=== PATIENT | male | born 1970 | race Two or more races ===

== ENCOUNTER 2019-12-31 19:50 | Emergency (ER) | payer OTHER ==
[~2019-12-31] VITALS: Ht 170.2 cm; Wt 90.3 kg
[2019-12-31 21:08] VITALS: BP 170/99
[2019-12-31] MEDS ORDERED: cefTRIAXone W LIDOCAINE 1 GM IM IM ONE (21:45)
[2019-12-31] MEDS ORDERED: LIDOCAINE 1% HCL (LOCAL ANESTH.) INJ 20ML MDV ID ONE (21:45)
[2019-12-31] MEDS ORDERED: cefTRIAXone SOD 1,000 MG VL ONE (21:53)
== END 2019-12-31 22:35 | disposition home or self-care (01) ==
LOC: ER 19:50
DX: S62.630B Displaced fracture of distal phalanx of right index finger, initial encounter for open fracture (principal); X58.XXXA Exposure to other specified factors, initial encounter; Y93.89 Activity, other specified; Y92.89 Other specified places as the place of occurrence of the external cause; Y99.8 Other external cause status
CPT/HCPCS: 12001; 73130; 96372; 99283; J0696; 11730

== ENCOUNTER 2021-08-14 22:50 | Inpatient (IN) | payer OTHER, MEDICAID ==
[~2021-08-14] VITALS: Ht 167.6 cm; Wt 78.0 kg
[2021-08-14] MEDS ORDERED: SODIUM CHLORIDE 0.9% 1,000 ML IV ONE (23:15)
[2021-08-14 23:21] LABS: Basophils # (auto) 0 10 ^3/uL (0-0.2); Basophils % (auto) 0.2 % (0.0-2.0); Eosinophils # (auto) 0 10 ^3/uL (0-0.8); Hematocrit 50.4 % (41.0-53.0); Hemoglobin 17.4 g/dL (13.5-17.5); Lymphocytes # (auto) 1.1 10 ^3/uL (0.4-5.4); Lymphocytes % (auto) 12.5 % (10.0-50.0); Mean Corpuscular Hemoglobin 31.4 pg (28.0-32.0); Mean Corpuscular Hgb Conc. 34.5 g/dL (32.0-36.0); Monocytes # (auto) 1.4 10 ^3/uL (0-1.3); Monocytes % (auto) 15.8 % (0.0-12.0); Neutrophils # (auto) 6.2 10 ^3/uL (1.6-8.6); Neutrophils % (auto) 71.5 % (37.0-80.0); Nucleated Red Blood Cells % 0.1 %; Red Blood Cells 5.54 10^6/uL (4.5-5.90); White Blood Cell 8.6 10^3/uL (4.4-10.8)
[2021-08-14 23:45] LABS: Lactic Acid w/Reflex 4.4 mmol/L (0.4-2.0)
[2021-08-14 23:54] LABS: Albumin 2.7 g/dL (3.4-5.0); Bilirubin, Total 1.5 mg/dL (0.2-1.0); Total Protein 7.4 g/dL (6.4-8.2)
[2021-08-14] MEDS ORDERED: DexAMETHasone SOD PHOS 4 MG/1ML SDV INJ ONE (23:54)
[2021-08-14 23:56] LABS: Magnesium 2.7 mg/dL (1.6-2.6)
[2021-08-15 00:05] LABS: CRP High Sensitivity 13.8 mg/dL (< 0.3)
[2021-08-15] MEDS: DexAMETHasone INJECTION 10 MG in D5W 5% 50 ML IV SCH ×2 (00:55→01:11)
[2021-08-15] MEDS ORDERED: ENOXAPARIN SOD 100 MG/1 ML SYRINGE SC ONE (03:15)
[2021-08-15 03:59] LABS: Urine Bacteria FEW /hpf (None Seen); Urine Blood 2+ /uL (Negative); Urine Hyaline Cast MANY /lpf (0 - 2); Urine Mucus FEW (None Seen); Urine Specific Gravity 1.022 (1.001-1.035); Urine WBC 7 /hpf (0 - 3)
[2021-08-15] MEDS ORDERED: MORPHINE SULFATE INJECTION 2 MG/ML SYRG IV PRN (04:15)
[2021-08-15] MEDS ORDERED: ONDANSETRON HCL 4 MG/2 ML VIAL IV PRN (04:15)
[2021-08-15] MEDS ORDERED: SODIUM CHLORIDE 0.9% 1,000 ML IV SCH (04:15)
[2021-08-15] MEDS ORDERED: ALBUTEROL SULF 2.5 MG/0.5ML(0.5%) NEB SOLN NEB PRN (04:15)
[2021-08-15] MEDS ORDERED: ALBUMIN 5% 250 ML IV ONE (04:15)
[2021-08-15] MEDS ORDERED: NITROGLYCERIN 0.4 MG SL TAB SL PRN (04:15)
[2021-08-15] MEDS: DexAMETHasone SOD PHOS 10MG/1ML VIAL INJ IV SCH (04:30)
[2021-08-15] MEDS: AZITHROMYCIN 500MG/ 250ML 250 ML IV SCH (05:18)
[2021-08-15] MEDS: cefTRIAXone 1GM/50ML D5W 50 ML IV SCH (09:28)
[2021-08-15] MEDS ORDERED: ASPirin 81 mg TAB PO SCH (10:00)
[2021-08-15 10:09] VITALS: BP 121/76
[2021-08-15] MEDS: ASCORBIC ACID 500 MG TAB PO SCH ×2 (10:36→21:47)
[2021-08-15] MEDS: ZINC SULFATE 220mg CAP or TAB PO SCH (10:36)
[2021-08-15] MEDS: PANTOPRAZOLE 40 MG TAB PO SCH (10:36)
[2021-08-15] MEDS ORDERED: IOHEXOL 350 MG/ML 100ML IJ ONE ×2 (11:40→17:11)
[2021-08-15] MEDS ORDERED: REMDESIVIR PER PHARMACY 0 ML IV SCH (13:00)
[2021-08-15 14:00] VITALS: BP 114/69
[2021-08-15] MEDS ORDERED: REMDESIVIR 200 MG in NS 210ml LOADING DOSE ADULT IV ONE (15:00)
[2021-08-15 15:56] LABS: Cholesterol 147 mg/dL (< 200); HDL Cholesterol 27 mg/dL (40-59); LDL Cholesterol 89 mg/dL (< 100); Triglycerides 279 mg/dL (< 150)
[2021-08-15 16:30] VITALS: BP 117/68
[2021-08-15 20:00] VITALS: BP 111/60
[2021-08-15] MEDS: ATORVASTATIN 20 MG TAB PO SCH (21:47)
[2021-08-15] MEDS: ENOXAPARIN SOD 100 MG/1 ML SYRINGE SC SCH (21:47)
[2021-08-15 22:00] VITALS: BP 111/60
[2021-08-15] MEDS: TEMAZEPAM 15 MG CAP PO PRN (22:21)
[2021-08-16 02:13] LABS: Albumin 2.4 g/dL (3.4-5.0); BUN/Creatinine Ratio 28.3; Calcium 7.7 mg/dL (8.5-10.1); Potassium 3.9 mmol/L (3.5-5.1)
[2021-08-16 02:18] LABS: Total Protein 6.7 g/dL (6.4-8.2)
[2021-08-16 04:59] VITALS: BP 123/79
[2021-08-16 06:08] LABS: Basophils # (auto) 0 10 ^3/uL (0-0.2); Basophils % (auto) 0.1 % (0.0-2.0); Eosinophils # (auto) 0 10 ^3/uL (0-0.8); Hematocrit 45.5 % (41.0-53.0); Hemoglobin 15.7 g/dL (13.5-17.5); Lymphocytes # (auto) 1.1 10 ^3/uL (0.4-5.4); Lymphocytes % (auto) 9.1 % (10.0-50.0); Mean Corpuscular Hemoglobin 31.4 pg (28.0-32.0); Mean Corpuscular Hgb Conc. 34.4 g/dL (32.0-36.0); Mean Corpuscular Volume 91.2 fL (80.0-100.0); Monocytes # (auto) 0.9 10 ^3/uL (0-1.3); Monocytes % (auto) 7.5 % (0.0-12.0); Neutrophils # (auto) 9.9 10 ^3/uL (1.6-8.6); Neutrophils % (auto) 83.3 % (37.0-80.0); Nucleated Red Blood Cells % 0.2 %; Red Blood Cells 4.99 10^6/uL (4.5-5.90); Red Cell Distribution Width 12.9 % (11.8-14.3); White Blood Cell 11.8 10^3/uL (4.4-10.8)
[2021-08-16 08:29] VITALS: BP 137/86
[2021-08-16] MEDS: DexAMETHasone SOD PHOS 10MG/1ML VIAL INJ IV SCH (09:03)
[2021-08-16] MEDS: cefTRIAXone 1GM/50ML D5W 50 ML IV SCH (09:03)
[2021-08-16] MEDS: ENOXAPARIN SOD 100 MG/1 ML SYRINGE SC SCH ×2 (09:04→22:26)
[2021-08-16] MEDS: ASCORBIC ACID 500 MG TAB PO SCH (09:04)
[2021-08-16] MEDS: PANTOPRAZOLE 40 MG TAB PO SCH ×2 (09:04→22:27)
[2021-08-16] MEDS: AZITHROMYCIN 500MG/ 250ML 250 ML IV SCH (09:04)
[2021-08-16] MEDS: ZINC SULFATE 220mg CAP or TAB PO SCH (09:04)
[2021-08-16] MEDS: ASPirin 81 mg TAB PO SCH (09:04)
[2021-08-16] MEDS: ALBUTEROL SULF 2.5 MG/0.5ML(0.5%) NEB SOLN NEB SCH ×2 (11:00→18:34)
[2021-08-16] MEDS ORDERED: FUROSEMIDE 40 MG/4 ML VIAL IV ONE (11:00)
[2021-08-16] MEDS ORDERED: CHOLECALCIFEROL (VITD3) 2,000 UNIT CAP/TAB PO ONE (12:00)
[2021-08-16 12:25] VITALS: BP 126/80
[2021-08-16 12:30] VITALS: BP 126/80
[2021-08-16] MEDS: REMDESIVIR 100mg 100 MG in SODIUM CHL 0.9% 230 ML IV SCH (15:00)
[2021-08-16 17:17] VITALS: BP 127/80
[2021-08-16] MEDS: BUDESONIDE (INHALATION) 0.5 MG/2 ML NEB NEB SCH (18:33)
[2021-08-16 22:00] VITALS: BP 114/76
[2021-08-16] MEDS: ATORVASTATIN 20 MG TAB PO SCH (22:27)
[2021-08-16] MEDS: TEMAZEPAM 15 MG CAP PO PRN (22:40)
[2021-08-17] MEDS: ALBUTEROL SULF 2.5 MG/0.5ML(0.5%) NEB SOLN NEB SCH ×5 (00:01→20:12)
[2021-08-17 05:00] VITALS: BP 144/80
[2021-08-17 06:52] LABS: Basophils # (auto) 0 10 ^3/uL (0-0.2); Basophils % (auto) 0.2 % (0.0-2.0); Eosinophils # (auto) 0 10 ^3/uL (0-0.8); Hematocrit 47.1 % (41.0-53.0); Hemoglobin 16.5 g/dL (13.5-17.5); Lymphocytes # (auto) 0.7 10 ^3/uL (0.4-5.4); Lymphocytes % (auto) 5.5 % (10.0-50.0); Mean Corpuscular Hgb Conc. 35.1 g/dL (32.0-36.0); Mean Corpuscular Volume 91.2 fL (80.0-100.0); Monocytes # (auto) 0.9 10 ^3/uL (0-1.3); Monocytes % (auto) 7.4 % (0.0-12.0); Neutrophils # (auto) 10.3 10 ^3/uL (1.6-8.6); Neutrophils % (auto) 86.9 % (37.0-80.0); Nucleated Red Blood Cells % 0.7 %; Red Blood Cells 5.16 10^6/uL (4.5-5.90); Red Cell Distribution Width 13.1 % (11.8-14.3); White Blood Cell 11.8 10^3/uL (4.4-10.8)
[2021-08-17 07:15] LABS: Potassium 3.6 mmol/L (3.5-5.1)
[2021-08-17] MEDS: BUDESONIDE (INHALATION) 0.5 MG/2 ML NEB NEB SCH ×3 (07:15→20:12)
[2021-08-17 07:28] LABS: Albumin 2.5 g/dL (3.4-5.0); BUN/Creatinine Ratio 28.4; Bilirubin, Total 1.2 mg/dL (0.2-1.0); Calcium 7.8 mg/dL (8.5-10.1); Total Protein 6.7 g/dL (6.4-8.2)
[2021-08-17 09:00] VITALS: BP 128/77
[2021-08-17] MEDS: DexAMETHasone SOD PHOS 10MG/1ML VIAL INJ IV SCH (09:11)
[2021-08-17] MEDS: PANTOPRAZOLE 40 MG TAB PO SCH ×2 (09:11→21:23)
[2021-08-17] MEDS: CHOLECALCIFEROL (VITD3) 2,000 UNIT CAP/TAB PO SCH (09:11)
[2021-08-17] MEDS: ASPirin 81 mg TAB PO SCH (09:11)
[2021-08-17] MEDS: FUROSEMIDE 40 MG/4 ML VIAL IV SCH (09:11)
[2021-08-17] MEDS: cefTRIAXone 1GM/50ML D5W 50 ML IV SCH (09:11)
[2021-08-17] MEDS: AZITHROMYCIN 250 MG TAB PO SCH (09:12)
[2021-08-17] MEDS: ENOXAPARIN SOD 100 MG/1 ML SYRINGE SC SCH ×2 (09:12→21:23)
[2021-08-17 12:38] VITALS: BP 122/72
[2021-08-17] MEDS: REMDESIVIR 100mg 100 MG in SODIUM CHL 0.9% 230 ML IV SCH (15:00)
[2021-08-17 16:38] VITALS: BP 109/65
[2021-08-17] MEDS: ATORVASTATIN 20 MG TAB PO SCH (21:23)
[2021-08-17 21:54] VITALS: BP 138/86
[2021-08-18] VITALS (8 sets, daily range): BP systolic 94–135; BP diastolic 48–79
[2021-08-18 07:24] LABS: Albumin 2.3 g/dL (3.4-5.0); BUN/Creatinine Ratio 33.7; Potassium 3.9 mmol/L (3.5-5.1)
[2021-08-18] MEDS: ALBUTEROL SULF 2.5 MG/0.5ML(0.5%) NEB SOLN NEB PRN (07:24)
[2021-08-18] MEDS: BUDESONIDE (INHALATION) 0.5 MG/2 ML NEB NEB SCH ×2 (07:24→22:00)
[2021-08-18 07:27] LABS: Bilirubin, Total 1.2 mg/dL (0.2-1.0); Total Protein 6.5 g/dL (6.4-8.2)
[2021-08-18] MEDS: DexAMETHasone SOD PHOS 10MG/1ML VIAL INJ IV SCH (08:57)
[2021-08-18] MEDS: cefTRIAXone 1GM/50ML D5W 50 ML IV SCH (08:57)
[2021-08-18] MEDS: ASPirin 81 mg TAB PO SCH (08:59)
[2021-08-18] MEDS: AZITHROMYCIN 250 MG TAB PO SCH (09:00)
[2021-08-18] MEDS: CHOLECALCIFEROL (VITD3) 2,000 UNIT CAP/TAB PO SCH (09:00)
[2021-08-18] MEDS: PANTOPRAZOLE 40 MG TAB PO SCH ×2 (09:00→22:10)
[2021-08-18] MEDS: ENOXAPARIN SOD 100 MG/1 ML SYRINGE SC SCH ×2 (09:00→22:10)
[2021-08-18] MEDS: FUROSEMIDE 40 MG/4 ML VIAL IV SCH (10:00)
[2021-08-18] MEDS: REMDESIVIR 100mg 100 MG in SODIUM CHL 0.9% 230 ML IV SCH (15:06)
[2021-08-18] MEDS ORDERED: LORazepam 2MG/ML-1ML VIAL IV PRN (16:00)
[2021-08-18] MEDS: ATORVASTATIN 20 MG TAB PO SCH (22:09)
[2021-08-19 04:30] VITALS: BP 112/69
[2021-08-19] MEDS: ALBUTEROL SULF 2.5 MG/0.5ML(0.5%) NEB SOLN NEB PRN ×2 (05:57→19:08)
[2021-08-19] MEDS: BUDESONIDE (INHALATION) 0.5 MG/2 ML NEB NEB SCH ×2 (05:57→19:08)
[2021-08-19 06:50] VITALS: BP 112/69
[2021-08-19 07:21] LABS: Albumin 2.4 g/dL (3.4-5.0); Calcium 8.1 mg/dL (8.5-10.1)
[2021-08-19 07:26] LABS: BUN/Creatinine Ratio 29.5; Bilirubin, Total 1.2 mg/dL (0.2-1.0)
[2021-08-19 09:00] VITALS: BP 141/89
[2021-08-19] MEDS: cefTRIAXone 1GM/50ML D5W 50 ML IV SCH (10:12)
[2021-08-19] MEDS: DexAMETHasone SOD PHOS 10MG/1ML VIAL INJ IV SCH (10:12)
[2021-08-19] MEDS: ENOXAPARIN SOD 100 MG/1 ML SYRINGE SC SCH ×2 (10:13→22:31)
[2021-08-19] MEDS: ASPirin 81 mg TAB PO SCH (10:13)
[2021-08-19] MEDS: PANTOPRAZOLE 40 MG TAB PO SCH ×2 (10:13→22:31)
[2021-08-19] MEDS: CHOLECALCIFEROL (VITD3) 2,000 UNIT CAP/TAB PO SCH (10:14)
[2021-08-19] MEDS: AZITHROMYCIN 250 MG TAB PO SCH (10:14)
[2021-08-19] MEDS: FUROSEMIDE 40 MG/4 ML VIAL IV SCH (10:39)
[2021-08-19] MEDS: Ensure HIGH Protein Chocolate 8oz Bottle PO SCH ×2 (12:00→18:15)
[2021-08-19 13:00] VITALS: BP 129/77
[2021-08-19 13:55] LABS: INR 1.18 (0.9-1.15)
[2021-08-19 15:50] VITALS: BP 129/77
[2021-08-19] MEDS ORDERED: LIDOCAINE 1% (LOCAL ANESTH.) PF 5ml SDV ID ONE (17:15)
[2021-08-19] MEDS: REMDESIVIR 100mg 100 MG in SODIUM CHL 0.9% 230 ML IV SCH (18:00)
[2021-08-19 22:00] VITALS: BP 113/53
[2021-08-19] MEDS: ATORVASTATIN 20 MG TAB PO SCH (22:31)
[2021-08-19] MEDS: SODIUM CHLOR 0.9% PF (SALINE LOCK) 10ML VIAL/SYR IV SCH (22:31)
[2021-08-20] VITALS (27 sets, daily range): BP systolic 94–146; BP diastolic 39–93
[2021-08-20] MEDS: Ensure HIGH Protein Chocolate 8oz Bottle PO SCH ×3 (08:00→17:20)
[2021-08-20 09:14] LABS: Basophils # (auto) 0 10 ^3/uL (0-0.2); Basophils % (auto) 0.2 % (0.0-2.0); Eosinophils # (auto) 0.1 10 ^3/uL (0-0.8); Eosinophils % (auto) 1.1 % (0.0-7.0); Hematocrit 49.1 % (41.0-53.0); Hemoglobin 16.7 g/dL (13.5-17.5); Lymphocytes # (auto) 0.7 10 ^3/uL (0.4-5.4); Lymphocytes % (auto) 6.1 % (10.0-50.0); Mean Corpuscular Hemoglobin 31.3 pg (28.0-32.0); Mean Corpuscular Volume 92.3 fL (80.0-100.0); Monocytes # (auto) 0.5 10 ^3/uL (0-1.3); Neutrophils # (auto) 10.4 10 ^3/uL (1.6-8.6); Neutrophils % (auto) 88.6 % (37.0-80.0); Nucleated Red Blood Cells % 0.3 %; Red Blood Cells 5.32 10^6/uL (4.5-5.90); Red Cell Distribution Width 13.2 % (11.8-14.3); White Blood Cell 11.7 10^3/uL (4.4-10.8)
[2021-08-20 09:18] LABS: BUN/Creatinine Ratio 32.9; Calcium 7.9 mg/dL (8.5-10.1)
[2021-08-20] MEDS: cefTRIAXone 1GM/50ML D5W 50 ML IV SCH (09:54)
[2021-08-20] MEDS: CHOLECALCIFEROL (VITD3) 2,000 UNIT CAP/TAB PO SCH (09:54)
[2021-08-20] MEDS: FUROSEMIDE 40 MG/4 ML VIAL IV SCH (09:54)
[2021-08-20] MEDS: ASPirin 81 mg TAB PO SCH (09:54)
[2021-08-20] MEDS: AZITHROMYCIN 250 MG TAB PO SCH (09:54)
[2021-08-20] MEDS: DexAMETHasone SOD PHOS 10MG/1ML VIAL INJ IV SCH (09:54)
[2021-08-20] MEDS: ENOXAPARIN SOD 100 MG/1 ML SYRINGE SC SCH ×2 (09:54→22:00)
[2021-08-20] MEDS: PANTOPRAZOLE 40 MG TAB PO SCH ×2 (09:54→22:00)
[2021-08-20] MEDS: SODIUM CHLOR 0.9% PF (SALINE LOCK) 10ML VIAL/SYR IV SCH ×2 (09:55→22:00)
[2021-08-20] MEDS: BUDESONIDE (INHALATION) 0.5 MG/2 ML NEB NEB SCH ×2 (12:28→20:43)
[2021-08-20] MEDS: ALBUTEROL SULF 2.5 MG/0.5ML(0.5%) NEB SOLN NEB PRN ×2 (12:29→20:43)
[2021-08-20] MEDS: ATORVASTATIN 20 MG TAB PO SCH (22:00)
[2021-08-21] VITALS (33 sets, daily range): BP systolic 79–130; BP diastolic 27–100
[2021-08-21 06:05] LABS: Basophils # (auto) 0 10 ^3/uL (0-0.2); Basophils % (auto) 0.4 % (0.0-2.0); Eosinophils # (auto) 0.2 10 ^3/uL (0-0.8); Lymphocytes # (auto) 0.5 10 ^3/uL (0.4-5.4); Monocytes # (auto) 0.4 10 ^3/uL (0-1.3); Neutrophils # (auto) 8.8 10 ^3/uL (1.6-8.6)
[2021-08-21 06:08] LABS: Eosinophils % (auto) 1.9 % (0.0-7.0); Hematocrit 53.2 % (41.0-53.0); Hemoglobin 18.2 g/dL (13.5-17.5); Lymphocytes % (auto) 5.3 % (10.0-50.0); Mean Corpuscular Hemoglobin 31.4 pg (28.0-32.0); Mean Corpuscular Hgb Conc. 34.2 g/dL (32.0-36.0); Mean Corpuscular Volume 91.8 fL (80.0-100.0); Monocytes % (auto) 4.3 % (0.0-12.0); Neutrophils % (auto) 88.1 % (37.0-80.0); Nucleated Red Blood Cells % 0.1 %; Red Cell Distribution Width 12.8 % (11.8-14.3)
[2021-08-21 08:17] LABS: Anion Gap 8 (5-15); BUN/Creatinine Ratio 28.2; Blood Urea Nitrogen 33 mg/dL (7-18); Carbon Dioxide 28 mmol/L (21-32); Chloride 100 mmol/L (98-107); GFR African American 84 mL/min; GFR Non-African American 70 mL/min; Glucose 93 mg/dL (74-106); Potassium 4.3 mmol/L (3.5-5.1); Sodium 136 mmol/L (136-145)
[2021-08-21] MEDS: cefTRIAXone 1GM/50ML D5W 50 ML IV SCH (08:28)
[2021-08-21] MEDS: Ensure HIGH Protein Chocolate 8oz Bottle PO SCH ×3 (08:28→18:00)
[2021-08-21] MEDS: SODIUM CHLOR 0.9% PF (SALINE LOCK) 10ML VIAL/SYR IV SCH ×2 (10:41→22:00)
[2021-08-21] MEDS: DexAMETHasone SOD PHOS 10MG/1ML VIAL INJ IV SCH (10:41)
[2021-08-21] MEDS: FUROSEMIDE 40 MG/4 ML VIAL IV SCH (10:41)
[2021-08-21] MEDS: ASPirin 81 mg TAB PO SCH (10:42)
[2021-08-21] MEDS: AZITHROMYCIN 250 MG TAB PO SCH (10:42)
[2021-08-21] MEDS: CHOLECALCIFEROL (VITD3) 2,000 UNIT CAP/TAB PO SCH (10:42)
[2021-08-21] MEDS: ENOXAPARIN SOD 100 MG/1 ML SYRINGE SC SCH ×2 (10:42→22:00)
[2021-08-21] MEDS: PANTOPRAZOLE 40 MG TAB PO SCH ×2 (10:42→22:00)
[2021-08-21] MEDS: BUDESONIDE (INHALATION) 0.5 MG/2 ML NEB NEB SCH ×2 (14:27→19:36)
[2021-08-21] MEDS: ALBUTEROL SULF 2.5 MG/0.5ML(0.5%) NEB SOLN NEB PRN (19:36)
[2021-08-21] MEDS: ATORVASTATIN 20 MG TAB PO SCH (22:00)
[2021-08-22] VITALS (31 sets, daily range): BP systolic 94–147; BP diastolic 57–100
[2021-08-22 06:06] LABS: Basophils # (auto) 0 10 ^3/uL (0-0.2); Basophils % (auto) 0.2 % (0.0-2.0); Eosinophils # (auto) 0.2 10 ^3/uL (0-0.8); Lymphocytes # (auto) 0.6 10 ^3/uL (0.4-5.4); Monocytes # (auto) 0.5 10 ^3/uL (0-1.3); Neutrophils # (auto) 10.3 10 ^3/uL (1.6-8.6); White Blood Cell 11.7 10^3/uL (4.4-10.8)
[2021-08-22 06:09] LABS: Eosinophils % (auto) 1.7 % (0.0-7.0); Hematocrit 50.5 % (41.0-53.0); Hemoglobin 17.8 g/dL (13.5-17.5); Lymphocytes % (auto) 5.5 % (10.0-50.0); Mean Corpuscular Hemoglobin 31.9 pg (28.0-32.0); Mean Corpuscular Hgb Conc. 35.2 g/dL (32.0-36.0); Mean Corpuscular Volume 90.6 fL (80.0-100.0); Monocytes % (auto) 4.6 % (0.0-12.0); Nucleated Red Blood Cells % 0.1 %; Red Blood Cells 5.57 10^6/uL (4.5-5.90); Red Cell Distribution Width 12.9 % (11.8-14.3)
[2021-08-22] MEDS: ALBUTEROL SULF 2.5 MG/0.5ML(0.5%) NEB SOLN NEB PRN ×2 (06:14→18:48)
[2021-08-22] MEDS: BUDESONIDE (INHALATION) 0.5 MG/2 ML NEB NEB SCH ×2 (06:14→18:48)
[2021-08-22 06:16] LABS: Calcium 8.4 mg/dL (8.5-10.1); Potassium 4.7 mmol/L (3.5-5.1)
[2021-08-22 06:18] LABS: BUN/Creatinine Ratio 31.5
[2021-08-22] MEDS: cefTRIAXone 1GM/50ML D5W 50 ML IV SCH (10:05)
[2021-08-22] MEDS: FUROSEMIDE 40 MG/4 ML VIAL IV SCH (10:05)
[2021-08-22] MEDS: ASPirin 81 mg TAB PO SCH (10:05)
[2021-08-22] MEDS: ENOXAPARIN SOD 100 MG/1 ML SYRINGE SC SCH ×2 (10:05→22:00)
[2021-08-22] MEDS: DexAMETHasone SOD PHOS 10MG/1ML VIAL INJ IV SCH (10:05)
[2021-08-22] MEDS: PANTOPRAZOLE 40 MG TAB PO SCH ×2 (10:06→22:00)
[2021-08-22] MEDS: CHOLECALCIFEROL (VITD3) 2,000 UNIT CAP/TAB PO SCH (10:06)
[2021-08-22] MEDS: AZITHROMYCIN 250 MG TAB PO SCH (10:06)
[2021-08-22] MEDS: SODIUM CHLOR 0.9% PF (SALINE LOCK) 10ML VIAL/SYR IV SCH ×2 (10:09→22:00)
[2021-08-22] MEDS: Ensure HIGH Protein Chocolate 8oz Bottle PO SCH ×3 (10:09→18:00)
[2021-08-22] MEDS: ATORVASTATIN 20 MG TAB PO SCH (22:00)
[2021-08-23] VITALS (31 sets, daily range): BP systolic 109–142; BP diastolic 53–86
[2021-08-23 06:14] LABS: Basophils # (auto) 0 10 ^3/uL (0-0.2); Basophils % (auto) 0.2 % (0.0-2.0); Eosinophils # (auto) 0 10 ^3/uL (0-0.8); Eosinophils % (auto) 0.3 % (0.0-7.0); Hematocrit 49.5 % (41.0-53.0); Hemoglobin 17.4 g/dL (13.5-17.5); Lymphocytes # (auto) 0.4 10 ^3/uL (0.4-5.4); Lymphocytes % (auto) 5.8 % (10.0-50.0); Mean Corpuscular Hemoglobin 32.2 pg (28.0-32.0); Mean Corpuscular Hgb Conc. 35.1 g/dL (32.0-36.0); Mean Corpuscular Volume 91.8 fL (80.0-100.0); Monocytes # (auto) 0.4 10 ^3/uL (0-1.3); Monocytes % (auto) 5.4 % (0.0-12.0); Neutrophils # (auto) 6.8 10 ^3/uL (1.6-8.6); Neutrophils % (auto) 88.3 % (37.0-80.0); Nucleated Red Blood Cells % 0.4 %; Red Blood Cells 5.39 10^6/uL (4.5-5.90); Red Cell Distribution Width 13.1 % (11.8-14.3); White Blood Cell 7.7 10^3/uL (4.4-10.8)
[2021-08-23 06:30] LABS: Potassium 4.2 mmol/L (3.5-5.1)
[2021-08-23] MEDS: BUDESONIDE (INHALATION) 0.5 MG/2 ML NEB NEB SCH (06:32)
[2021-08-23 06:52] LABS: BUN/Creatinine Ratio 35.7; Calcium 8.6 mg/dL (8.5-10.1)
[2021-08-23] MEDS: FUROSEMIDE 40 MG/4 ML VIAL IV SCH (12:27)
[2021-08-23] MEDS: Ensure HIGH Protein Chocolate 8oz Bottle PO SCH ×3 (12:27→18:00)
[2021-08-23] MEDS: SODIUM CHLOR 0.9% PF (SALINE LOCK) 10ML VIAL/SYR IV SCH ×2 (12:28→20:48)
[2021-08-23] MEDS: ASPirin 81 mg TAB PO SCH (12:28)
[2021-08-23] MEDS: DexAMETHasone SOD PHOS 10MG/1ML VIAL INJ IV SCH (12:28)
[2021-08-23] MEDS: CHOLECALCIFEROL (VITD3) 2,000 UNIT CAP/TAB PO SCH (12:29)
[2021-08-23] MEDS: PANTOPRAZOLE 40 MG TAB PO SCH ×2 (12:29→20:48)
[2021-08-23] MEDS: ENOXAPARIN SOD 100 MG/1 ML SYRINGE SC SCH ×2 (12:30→20:48)
[2021-08-23] MEDS: ACETAMINOPHEN 325 MG TAB PO PRN (18:55)
[2021-08-23] MEDS: BUDESONIDE (INHALATION) 180 MCG IH IN SCH (20:15)
[2021-08-23] MEDS: ALBUTEROL SULF HFA 90MCG INH 200DOSE IN PRN (20:15)
[2021-08-23] MEDS: LORazepam 2MG/ML-1ML VIAL IV PRN (20:47)
[2021-08-23] MEDS: ATORVASTATIN 20 MG TAB PO SCH (20:48)
[2021-08-24] VITALS (31 sets, daily range): BP systolic 90–134; BP diastolic 51–84
[2021-08-24] MEDS: ACETAMINOPHEN 325 MG TAB PO PRN (01:23)
[2021-08-24 05:23] LABS: Basophils # (auto) 0 10 ^3/uL (0-0.2); Basophils % (auto) 0.3 % (0.0-2.0); Eosinophils # (auto) 0.1 10 ^3/uL (0-0.8); Eosinophils % (auto) 0.9 % (0.0-7.0); Hematocrit 49.2 % (41.0-53.0); Hemoglobin 17.2 g/dL (13.5-17.5); Lymphocytes % (auto) 9.7 % (10.0-50.0); Mean Corpuscular Hemoglobin 31.6 pg (28.0-32.0); Mean Corpuscular Hgb Conc. 34.9 g/dL (32.0-36.0); Mean Corpuscular Volume 90.4 fL (80.0-100.0); Monocytes # (auto) 0.4 10 ^3/uL (0-1.3); Monocytes % (auto) 4.1 % (0.0-12.0); Neutrophils # (auto) 8.5 10 ^3/uL (1.6-8.6); Nucleated Red Blood Cells % 0.1 %; Red Blood Cells 5.44 10^6/uL (4.5-5.90); Red Cell Distribution Width 12.5 % (11.8-14.3)
[2021-08-24 05:38] LABS: BUN/Creatinine Ratio 27.4; Calcium 8.1 mg/dL (8.5-10.1)
[2021-08-24] MEDS: ALBUTEROL SULF HFA 90MCG INH 200DOSE IN PRN ×2 (07:08→22:22)
[2021-08-24] MEDS: BUDESONIDE (INHALATION) 180 MCG IH IN SCH ×2 (07:08→22:22)
[2021-08-24] MEDS: Ensure HIGH Protein Chocolate 8oz Bottle PO SCH ×3 (12:00→18:00)
[2021-08-24] MEDS: DexAMETHasone SOD PHOS 10MG/1ML VIAL INJ IV SCH (16:02)
[2021-08-24] MEDS: FUROSEMIDE 40 MG/4 ML VIAL IV SCH (16:03)
[2021-08-24] MEDS: SODIUM CHLOR 0.9% PF (SALINE LOCK) 10ML VIAL/SYR IV SCH ×2 (16:04→22:00)
[2021-08-24] MEDS: ASPirin 81 mg TAB PO SCH (16:05)
[2021-08-24] MEDS: CHOLECALCIFEROL (VITD3) 2,000 UNIT CAP/TAB PO SCH (16:06)
[2021-08-24] MEDS: PANTOPRAZOLE 40 MG TAB PO SCH ×2 (16:06→22:00)
[2021-08-24] MEDS: ENOXAPARIN SOD 100 MG/1 ML SYRINGE SC SCH ×2 (16:07→22:00)
[2021-08-24] MEDS: LORazepam 2MG/ML-1ML VIAL IV PRN (21:00)
[2021-08-24] MEDS: ATORVASTATIN 20 MG TAB PO SCH (22:00)
[2021-08-25] VITALS (27 sets, daily range): BP systolic 98–139; BP diastolic 50–90
[2021-08-25] MEDS: ALBUTEROL SULF HFA 90MCG INH 200DOSE IN PRN ×2 (06:06→18:57)
[2021-08-25] MEDS: BUDESONIDE (INHALATION) 180 MCG IH IN SCH ×2 (06:06→18:57)
[2021-08-25] MEDS: Ensure HIGH Protein Chocolate 8oz Bottle PO SCH ×3 (08:00→19:00)
[2021-08-25] MEDS: DexAMETHasone SOD PHOS 10MG/1ML VIAL INJ IV SCH (13:03)
[2021-08-25] MEDS: FUROSEMIDE 40 MG/4 ML VIAL IV SCH (13:03)
[2021-08-25] MEDS: SODIUM CHLOR 0.9% PF (SALINE LOCK) 10ML VIAL/SYR IV SCH ×2 (13:04→21:28)
[2021-08-25] MEDS: ASPirin 81 mg TAB PO SCH (13:04)
[2021-08-25] MEDS: ENOXAPARIN SOD 100 MG/1 ML SYRINGE SC SCH ×2 (13:05→21:28)
[2021-08-25] MEDS: PANTOPRAZOLE 40 MG TAB PO SCH ×2 (13:05→21:28)
[2021-08-25] MEDS: CHOLECALCIFEROL (VITD3) 2,000 UNIT CAP/TAB PO SCH (13:06)
[2021-08-25] MEDS ORDERED: DexAMETHasone SOD PHOS 10MG/1ML VIAL INJ IV ONE (18:15)
[2021-08-25] MEDS ORDERED: FUROSEMIDE 40 MG/4 ML VIAL IV ONE (18:15)
[2021-08-25] MEDS: LORazepam 2MG/ML-1ML VIAL IV PRN (21:28)
[2021-08-25] MEDS: ATORVASTATIN 20 MG TAB PO SCH (21:28)
[2021-08-26] VITALS (32 sets, daily range): BP systolic 101–136; BP diastolic 46–90
[2021-08-26] MEDS: BUDESONIDE (INHALATION) 180 MCG IH IN SCH ×2 (05:58→22:00)
[2021-08-26] MEDS: ALBUTEROL SULF HFA 90MCG INH 200DOSE IN PRN (05:58)
[2021-08-26] MEDS: Ensure HIGH Protein Chocolate 8oz Bottle PO SCH ×3 (08:00→18:23)
[2021-08-26] MEDS: DexAMETHasone SOD PHOS 10MG/1ML VIAL INJ IV SCH ×2 (10:48→22:00)
[2021-08-26] MEDS: ENOXAPARIN SOD 100 MG/1 ML SYRINGE SC SCH ×2 (10:48→22:00)
[2021-08-26] MEDS: PANTOPRAZOLE 40 MG TAB PO SCH ×2 (10:49→22:00)
[2021-08-26] MEDS: CHOLECALCIFEROL (VITD3) 2,000 UNIT CAP/TAB PO SCH (10:49)
[2021-08-26] MEDS: FUROSEMIDE 40 MG/4 ML VIAL IV SCH (10:49)
[2021-08-26] MEDS: SODIUM CHLOR 0.9% PF (SALINE LOCK) 10ML VIAL/SYR IV SCH ×2 (10:50→22:00)
[2021-08-26] MEDS ORDERED: SALINE 0.65 % NASAL SPRAY 45ML BOTTLE EACHNOSTRI ONE (11:15)
[2021-08-26] MEDS: SALINE 0.65 % NASAL SPRAY 45ML BOTTLE EACHNOSTRI SCH ×2 (18:23→22:00)
[2021-08-26] MEDS: ATORVASTATIN 20 MG TAB PO SCH (22:00)
[2021-08-26] MEDS: LORazepam 2MG/ML-1ML VIAL IV PRN (22:38)
[2021-08-27] VITALS (33 sets, daily range): BP systolic 108–142; BP diastolic 65–101
[2021-08-27 05:17] LABS: Basophils # (auto) 0 10 ^3/uL (0-0.2); Eosinophils # (auto) 0 10 ^3/uL (0-0.8); Hematocrit 47.3 % (41.0-53.0); Hemoglobin 16.2 g/dL (13.5-17.5); Lymphocytes # (auto) 0.7 10 ^3/uL (0.4-5.4); Lymphocytes % (auto) 7.6 % (10.0-50.0); Mean Corpuscular Hemoglobin 31.4 pg (28.0-32.0); Mean Corpuscular Hgb Conc. 34.3 g/dL (32.0-36.0); Mean Corpuscular Volume 91.4 fL (80.0-100.0); Monocytes # (auto) 0.1 10 ^3/uL (0-1.3); Monocytes % (auto) 1.6 % (0.0-12.0); Neutrophils # (auto) 8.1 10 ^3/uL (1.6-8.6); Neutrophils % (auto) 90.8 % (37.0-80.0); Nucleated Red Blood Cells % 0.1 %; Red Blood Cells 5.18 10^6/uL (4.5-5.90); Red Cell Distribution Width 13.1 % (11.8-14.3); White Blood Cell 8.9 10^3/uL (4.4-10.8)
[2021-08-27 05:43] LABS: BUN/Creatinine Ratio 33.3; Calcium 8.8 mg/dL (8.5-10.1); Potassium 4.4 mmol/L (3.5-5.1)
[2021-08-27] MEDS: Ensure HIGH Protein Chocolate 8oz Bottle PO SCH ×3 (08:00→18:00)
[2021-08-27] MEDS: SALINE 0.65 % NASAL SPRAY 45ML BOTTLE EACHNOSTRI SCH ×4 (08:30→20:44)
[2021-08-27] MEDS: BUDESONIDE (INHALATION) 180 MCG IH IN SCH ×2 (10:00→22:00)
[2021-08-27] MEDS: PANTOPRAZOLE 40 MG TAB PO SCH ×2 (10:00→20:45)
[2021-08-27] MEDS: CHOLECALCIFEROL (VITD3) 2,000 UNIT CAP/TAB PO SCH (10:00)
[2021-08-27] MEDS: DexAMETHasone SOD PHOS 10MG/1ML VIAL INJ IV SCH ×2 (11:08→20:44)
[2021-08-27] MEDS: ENOXAPARIN SOD 100 MG/1 ML SYRINGE SC SCH ×2 (11:09→20:45)
[2021-08-27] MEDS: FUROSEMIDE 40 MG/4 ML VIAL IV SCH (11:09)
[2021-08-27] MEDS: SODIUM CHLOR 0.9% PF (SALINE LOCK) 10ML VIAL/SYR IV SCH ×2 (11:09→20:45)
[2021-08-27] MEDS ORDERED: FUROSEMIDE 40 MG/4 ML VIAL IV ONE (11:15)
[2021-08-27] MEDS ORDERED: CLINIMIX PER PHARMACY 0 ML IV SCH (11:15)
[2021-08-27] MEDS ORDERED: POTASSIUM CHL 20 Meq TABLET PO ONE (11:15)
[2021-08-27 12:03] LABS: Magnesium 2.9 mg/dL (1.6-2.6); Phosphorus 5.1 mg/dL (2.5-4.90)
[2021-08-27] MEDS ORDERED: AMINO ACID INFUSION IN D10W 1,000 ML IV NR (20:00)
[2021-08-27] MEDS: ATORVASTATIN 20 MG TAB PO SCH (20:45)
[2021-08-27] MEDS: LORazepam 2MG/ML-1ML VIAL IV PRN (20:45)
[2021-08-27] MEDS: ACCU-CHEK COMFORT CURVE STRIP VI SCH (23:46)
[2021-08-27] MEDS: InsuLIN REG 1unit/0.01ml Soln (100units/ml) SC SCH (23:46)
[2021-08-28] VITALS (33 sets, daily range): BP systolic 100–142; BP diastolic 63–110
[2021-08-28] MEDS ORDERED: DEXTROSE (50%) 50ML SYRG IV SCH
[2021-08-28] MEDS: SALINE 0.65 % NASAL SPRAY 45ML BOTTLE EACHNOSTRI SCH ×4 (04:53→21:46)
[2021-08-28] MEDS: ACCU-CHEK COMFORT CURVE STRIP VI SCH ×3 (05:31→17:41)
[2021-08-28] MEDS: InsuLIN REG 1unit/0.01ml Soln (100units/ml) SC SCH ×3 (05:34→17:45)
[2021-08-28 06:17] LABS: Albumin 2.5 g/dL (3.4-5.0); Calcium 8.7 mg/dL (8.5-10.1); Magnesium 3.5 mg/dL (1.6-2.6); Potassium 4.3 mmol/L (3.5-5.1)
[2021-08-28 06:22] LABS: BUN/Creatinine Ratio 40.5; Bilirubin, Total 0.6 mg/dL (0.2-1.0); Phosphorus 4.1 mg/dL (2.5-4.90); Pre Albumin 25.5 mg/dL (20.0-40.0)
[2021-08-28] MEDS: Ensure HIGH Protein Chocolate 8oz Bottle PO SCH ×3 (08:00→17:46)
[2021-08-28] MEDS ORDERED: POTASSIUM CHL 20 Meq TABLET PO ONE (10:00)
[2021-08-28] MEDS ORDERED: FUROSEMIDE 40 MG/4 ML VIAL IV ONE (10:00)
[2021-08-28] MEDS: SODIUM CHLOR 0.9% PF (SALINE LOCK) 10ML VIAL/SYR IV SCH ×2 (10:00→21:46)
[2021-08-28] MEDS: ALBUTEROL SULF HFA 90MCG INH 200DOSE IN PRN ×2 (10:26→19:12)
[2021-08-28] MEDS: BUDESONIDE (INHALATION) 180 MCG IH IN SCH ×2 (10:27→19:12)
[2021-08-28] MEDS: DexAMETHasone SOD PHOS 10MG/1ML VIAL INJ IV SCH ×2 (10:43→21:46)
[2021-08-28] MEDS: FUROSEMIDE 40 MG/4 ML VIAL IV SCH (10:43)
[2021-08-28] MEDS: CHOLECALCIFEROL (VITD3) 2,000 UNIT CAP/TAB PO SCH (10:43)
[2021-08-28] MEDS: ENOXAPARIN SOD 100 MG/1 ML SYRINGE SC SCH ×2 (10:43→22:18)
[2021-08-28] MEDS: PANTOPRAZOLE 40 MG TAB PO SCH ×2 (10:44→21:46)
[2021-08-28] MEDS ORDERED: AMINO ACID INFUSION IN D10W 1,000 ML IV NR (20:00)
[2021-08-28] MEDS: LORazepam 2MG/ML-1ML VIAL IV PRN (21:46)
[2021-08-29] VITALS (24 sets, daily range): BP systolic 92–134; BP diastolic 52–91
[2021-08-29] MEDS: InsuLIN REG 1unit/0.01ml Soln (100units/ml) SC SCH ×5 (00:37→23:51)
[2021-08-29 05:42] LABS: Albumin 2.5 g/dL (3.4-5.0); Calcium 8.7 mg/dL (8.5-10.1); Magnesium 3.4 mg/dL (1.6-2.6); Potassium 3.9 mmol/L (3.5-5.1)
[2021-08-29 05:45] LABS: BUN/Creatinine Ratio 36.3; Bilirubin, Total 0.6 mg/dL (0.2-1.0); Phosphorus 3.5 mg/dL (2.5-4.90); Total Protein 7.5 g/dL (6.4-8.2)
[2021-08-29] MEDS: ACCU-CHEK COMFORT CURVE STRIP VI SCH ×5 (06:00→23:51)
[2021-08-29] MEDS: SALINE 0.65 % NASAL SPRAY 45ML BOTTLE EACHNOSTRI SCH ×4 (06:00→22:00)
[2021-08-29] MEDS: Ensure HIGH Protein Chocolate 8oz Bottle PO SCH ×3 (08:00→18:28)
[2021-08-29] MEDS: SODIUM CHLOR 0.9% PF (SALINE LOCK) 10ML VIAL/SYR IV SCH ×2 (10:00→22:00)
[2021-08-29] MEDS: DexAMETHasone SOD PHOS 10MG/1ML VIAL INJ IV SCH ×2 (10:00→22:00)
[2021-08-29] MEDS: FUROSEMIDE 40 MG/4 ML VIAL IV SCH (10:00)
[2021-08-29] MEDS: PANTOPRAZOLE 40 MG TAB PO SCH ×2 (10:00→22:00)
[2021-08-29] MEDS: CHOLECALCIFEROL (VITD3) 2,000 UNIT CAP/TAB PO SCH (10:00)
[2021-08-29] MEDS: ENOXAPARIN SOD 100 MG/1 ML SYRINGE SC SCH ×2 (10:00→22:00)
[2021-08-29] MEDS ORDERED: POTASSIUM CHL 20 Meq TABLET PO ONE (10:45)
[2021-08-29] MEDS ORDERED: FUROSEMIDE 40 MG/4 ML VIAL IV ONE (10:45)
[2021-08-29] MEDS: TOCILIZUMAB 400 MG in SODIUM CHL 0.9% 80 ML IV SCH ×2 (16:44→18:00)
[2021-08-29] MEDS: ALBUTEROL SULF HFA 90MCG INH 200DOSE IN PRN (19:11)
[2021-08-29] MEDS: BUDESONIDE (INHALATION) 180 MCG IH IN SCH (19:11)
[2021-08-29] MEDS: AMINO ACID INFUSION IN D10W 1,000 ML IV NR (20:00)
[2021-08-30] VITALS (18 sets, daily range): BP systolic 96–136; BP diastolic 55–88
[2021-08-30] MEDS: SALINE 0.65 % NASAL SPRAY 45ML BOTTLE EACHNOSTRI SCH ×4 (05:37→21:43)
[2021-08-30 05:50] LABS: Albumin 2.4 g/dL (3.4-5.0); BUN/Creatinine Ratio 38.1; Calcium 8.5 mg/dL (8.5-10.1); Magnesium 2.6 mg/dL (1.6-2.6); Potassium 4.1 mmol/L (3.5-5.1)
[2021-08-30 05:53] LABS: Bilirubin, Total 0.7 mg/dL (0.2-1.0); Phosphorus 3.1 mg/dL (2.5-4.90); Total Protein 6.8 g/dL (6.4-8.2)
[2021-08-30] MEDS: ACCU-CHEK COMFORT CURVE STRIP VI SCH ×3 (06:00→18:00)
[2021-08-30] MEDS: InsuLIN REG 1unit/0.01ml Soln (100units/ml) SC SCH ×3 (06:00→18:00)
[2021-08-30] MEDS: Ensure HIGH Protein Chocolate 8oz Bottle PO SCH ×3 (08:00→18:00)
[2021-08-30] MEDS ORDERED: TOCILIZUMAB 400 MG in SODIUM CHL 0.9% 80 ML IV SCH (10:00)
[2021-08-30] MEDS: SODIUM CHLOR 0.9% PF (SALINE LOCK) 10ML VIAL/SYR IV SCH ×2 (10:00→21:44)
[2021-08-30] MEDS: ENOXAPARIN SOD 100 MG/1 ML SYRINGE SC SCH (10:00)
[2021-08-30] MEDS: CHOLECALCIFEROL (VITD3) 2,000 UNIT CAP/TAB PO SCH (10:00)
[2021-08-30] MEDS: FUROSEMIDE 20 MG/2 ML VIAL IV SCH (10:00)
[2021-08-30] MEDS: PANTOPRAZOLE 40 MG TAB PO SCH ×2 (10:00→21:44)
[2021-08-30] MEDS: DexAMETHasone SOD PHOS 10MG/1ML VIAL INJ IV SCH ×2 (10:00→21:43)
[2021-08-30] MEDS: BUDESONIDE (INHALATION) 180 MCG IH IN SCH ×2 (10:10→19:47)
[2021-08-30] MEDS: ALBUTEROL SULF HFA 90MCG INH 200DOSE IN PRN ×2 (10:10→19:47)
[2021-08-30] MEDS: AMINO ACID INFUSION IN D10W 1,000 ML IV NR (19:49)
[2021-08-30] MEDS ORDERED: AMINO ACID INFUSION IN D10W 1,000 ML IV NR (20:00)
[2021-08-30] MEDS: APIXABAN 5 MG TAB PO SCH (21:44)
[2021-08-31] VITALS (26 sets, daily range): BP systolic 11–132; BP diastolic 47–92
[2021-08-31] MEDS: ACCU-CHEK COMFORT CURVE STRIP VI SCH ×4 (00:26→17:20)
[2021-08-31] MEDS: InsuLIN REG 1unit/0.01ml Soln (100units/ml) SC SCH ×4 (00:27→17:19)
[2021-08-31 06:03] LABS: Albumin 2.5 g/dL (3.4-5.0); Calcium 8.3 mg/dL (8.5-10.1)
[2021-08-31 06:08] LABS: BUN/Creatinine Ratio 40.5; Bilirubin, Total 0.6 mg/dL (0.2-1.0); Phosphorus 3.1 mg/dL (2.5-4.90); Total Protein 6.9 g/dL (6.4-8.2)
[2021-08-31] MEDS: SALINE 0.65 % NASAL SPRAY 45ML BOTTLE EACHNOSTRI SCH ×4 (06:29→22:11)
[2021-08-31] MEDS: Ensure HIGH Protein Chocolate 8oz Bottle PO SCH ×3 (08:00→17:20)
[2021-08-31 09:01] LABS: INR 1.04 (0.9-1.15); Partial Thromboplastin Time 30.8 sec (23.6-33.0)
[2021-08-31] MEDS: APIXABAN 5 MG TAB PO SCH ×2 (10:16→22:11)
[2021-08-31] MEDS: FUROSEMIDE 20 MG/2 ML VIAL IV SCH (10:16)
[2021-08-31] MEDS: CHOLECALCIFEROL (VITD3) 2,000 UNIT CAP/TAB PO SCH (10:16)
[2021-08-31] MEDS: SODIUM CHLOR 0.9% PF (SALINE LOCK) 10ML VIAL/SYR IV SCH ×2 (10:16→22:11)
[2021-08-31] MEDS: DexAMETHasone SOD PHOS 10MG/1ML VIAL INJ IV SCH ×2 (10:16→22:11)
[2021-08-31] MEDS: PANTOPRAZOLE 40 MG TAB PO SCH ×2 (10:16→22:11)
[2021-08-31] MEDS: ALBUTEROL SULF HFA 90MCG INH 200DOSE IN PRN (19:40)
[2021-08-31] MEDS: BUDESONIDE (INHALATION) 180 MCG IH IN SCH (19:40)
[2021-08-31] MEDS ORDERED: AMINO ACID INFUSION IN D10W 1,000 ML IV NR (20:00)
[2021-09-01] VITALS (29 sets, daily range): BP systolic 90–188; BP diastolic 47–114
[2021-09-01] MEDS: InsuLIN REG 1unit/0.01ml Soln (100units/ml) SC SCH ×5 (06:00→23:38)
[2021-09-01] MEDS: SALINE 0.65 % NASAL SPRAY 45ML BOTTLE EACHNOSTRI SCH ×4 (06:00→22:21)
[2021-09-01] MEDS: ACCU-CHEK COMFORT CURVE STRIP VI SCH ×5 (06:00→23:42)
[2021-09-01] MEDS: Ensure HIGH Protein Chocolate 8oz Bottle PO SCH ×3 (08:00→18:15)
[2021-09-01] MEDS: ALBUTEROL SULF HFA 90MCG INH 200DOSE IN PRN (08:17)
[2021-09-01] MEDS: BUDESONIDE (INHALATION) 180 MCG IH IN SCH ×2 (08:18→18:40)
[2021-09-01] MEDS: DexAMETHasone SOD PHOS 10MG/1ML VIAL INJ IV SCH ×2 (10:06→22:21)
[2021-09-01] MEDS: SODIUM CHLOR 0.9% PF (SALINE LOCK) 10ML VIAL/SYR IV SCH ×2 (10:06→22:21)
[2021-09-01] MEDS: FUROSEMIDE 20 MG/2 ML VIAL IV SCH (10:07)
[2021-09-01] MEDS: PANTOPRAZOLE 40 MG TAB PO SCH ×2 (10:07→22:22)
[2021-09-01] MEDS: APIXABAN 5 MG TAB PO SCH ×2 (10:07→22:21)
[2021-09-01] MEDS: CHOLECALCIFEROL (VITD3) 2,000 UNIT CAP/TAB PO SCH (10:07)
[2021-09-01 10:26] LABS: Calcium 8.1 mg/dL (8.5-10.1); Potassium 3.6 mmol/L (3.5-5.1)
[2021-09-01 10:32] LABS: Albumin 2.9 g/dL (3.4-5.0); BUN/Creatinine Ratio 37.6; Magnesium 2.5 mg/dL (1.6-2.6); Total Protein 6.6 g/dL (6.4-8.2)
[2021-09-01] MEDS: LORazepam 2MG/ML-1ML VIAL IV PRN (18:15)
[2021-09-01] MEDS ORDERED: AMINO ACID INFUSION IN D10W 1,000 ML IV NR (20:00)
[2021-09-02] VITALS (28 sets, daily range): BP systolic 92–133; BP diastolic 31–90
[2021-09-02 05:48] LABS: Potassium 3.8 mmol/L (3.5-5.1)
[2021-09-02 05:55] LABS: Albumin 2.9 g/dL (3.4-5.0); BUN/Creatinine Ratio 42.1; Bilirubin, Total 0.9 mg/dL (0.2-1.0); Calcium 8.2 mg/dL (8.5-10.1); Phosphorus 3.7 mg/dL (2.5-4.90); Total Protein 6.3 g/dL (6.4-8.2)
[2021-09-02] MEDS: InsuLIN REG 1unit/0.01ml Soln (100units/ml) SC SCH ×3 (06:00→18:00)
[2021-09-02] MEDS: SALINE 0.65 % NASAL SPRAY 45ML BOTTLE EACHNOSTRI SCH ×4 (06:00→23:40)
[2021-09-02] MEDS: ACCU-CHEK COMFORT CURVE STRIP VI SCH ×3 (06:04→17:58)
[2021-09-02] MEDS: Ensure HIGH Protein Chocolate 8oz Bottle PO SCH ×3 (08:30→18:42)
[2021-09-02] MEDS: DexAMETHasone SOD PHOS 10MG/1ML VIAL INJ IV SCH ×2 (09:59→23:40)
[2021-09-02] MEDS: APIXABAN 5 MG TAB PO SCH ×2 (10:00→23:41)
[2021-09-02] MEDS: FUROSEMIDE 20 MG/2 ML VIAL IV SCH (10:00)
[2021-09-02] MEDS: SODIUM CHLOR 0.9% PF (SALINE LOCK) 10ML VIAL/SYR IV SCH ×2 (10:00→23:40)
[2021-09-02] MEDS: PANTOPRAZOLE 40 MG TAB PO SCH ×2 (10:00→23:41)
[2021-09-02] MEDS: CHOLECALCIFEROL (VITD3) 2,000 UNIT CAP/TAB PO SCH (10:00)
[2021-09-02] MEDS: ALBUTEROL SULF HFA 90MCG INH 200DOSE IN PRN ×2 (10:28→19:18)
[2021-09-02] MEDS: BUDESONIDE (INHALATION) 180 MCG IH IN SCH ×2 (10:28→19:18)
[2021-09-02] MEDS ORDERED: POTASSIUM CHL 20 Meq TABLET PO ONE (11:30)
[2021-09-02] MEDS ORDERED: FUROSEMIDE 20 MG/2 ML VIAL IV ONE (11:30)
[2021-09-02] MEDS ORDERED: AMINO ACID INFUSION IN D10W 1,000 ML IV NR (20:00)
[2021-09-02] MEDS ORDERED: TEMAZEPAM 15 MG CAP PO ONE (21:00)
[2021-09-03] VITALS (32 sets, daily range): BP systolic 100–129; BP diastolic 51–84
[2021-09-03] MEDS: InsuLIN REG 1unit/0.01ml Soln (100units/ml) SC SCH ×5 (05:54→19:02)
[2021-09-03] MEDS: ALBUTEROL SULF 2.5 MG/0.5ML(0.5%) NEB SOLN NEB PRN ×2 (05:55→18:56)
[2021-09-03] MEDS: BUDESONIDE (INHALATION) 0.5 MG/2 ML NEB NEB SCH ×2 (05:55→18:56)
[2021-09-03] MEDS: ACCU-CHEK COMFORT CURVE STRIP VI SCH ×4 (06:09→18:58)
[2021-09-03] MEDS: SALINE 0.65 % NASAL SPRAY 45ML BOTTLE EACHNOSTRI SCH ×4 (06:09→21:39)
[2021-09-03 07:18] LABS: Potassium 3.7 mmol/L (3.5-5.1)
[2021-09-03 07:29] LABS: Albumin 3.1 g/dL (3.4-5.0); BUN/Creatinine Ratio 43.9; Bilirubin, Total 1.2 mg/dL (0.2-1.0); Calcium 8.2 mg/dL (8.5-10.1); Magnesium 3.5 mg/dL (1.6-2.6); Total Protein 6.7 g/dL (6.4-8.2)
[2021-09-03] MEDS: Ensure HIGH Protein Chocolate 8oz Bottle PO SCH ×3 (08:00→17:41)
[2021-09-03] MEDS: DexAMETHasone SOD PHOS 10MG/1ML VIAL INJ IV SCH ×2 (09:48→21:40)
[2021-09-03] MEDS: FUROSEMIDE 20 MG/2 ML VIAL IV SCH (09:49)
[2021-09-03] MEDS: SODIUM CHLOR 0.9% PF (SALINE LOCK) 10ML VIAL/SYR IV SCH ×2 (09:49→21:40)
[2021-09-03] MEDS: PANTOPRAZOLE 40 MG TAB PO SCH ×2 (09:49→21:41)
[2021-09-03] MEDS: CHOLECALCIFEROL (VITD3) 2,000 UNIT CAP/TAB PO SCH (09:49)
[2021-09-03] MEDS: APIXABAN 5 MG TAB PO SCH ×2 (09:49→21:41)
[2021-09-03] MEDS ORDERED: FUROSEMIDE 40 MG/4 ML VIAL IV ONE (11:45)
[2021-09-03] MEDS ORDERED: POTASSIUM CHL 20MEQ/100ML 100 ML IV ONE (11:45)
[2021-09-03] MEDS ORDERED: AMINO ACID INFUSION IN D10W 1,000 ML IV NR (20:00)
[2021-09-03] MEDS: TEMAZEPAM 15 MG CAP PO PRN (21:42)
[2021-09-04] VITALS (27 sets, daily range): BP systolic 108–135; BP diastolic 60–93
[2021-09-04] MEDS: LORazepam 2MG/ML-1ML VIAL IV PRN (05:40)
[2021-09-04] MEDS: SALINE 0.65 % NASAL SPRAY 45ML BOTTLE EACHNOSTRI SCH ×4 (05:48→22:57)
[2021-09-04] MEDS: InsuLIN REG 1unit/0.01ml Soln (100units/ml) SC SCH ×5 (05:48→23:51)
[2021-09-04] MEDS: ACCU-CHEK COMFORT CURVE STRIP VI SCH ×5 (05:48→23:52)
[2021-09-04 07:33] LABS: Potassium 3.5 mmol/L (3.5-5.1)
[2021-09-04 07:40] LABS: Albumin 3.3 g/dL (3.4-5.0); BUN/Creatinine Ratio 42.1; Bilirubin, Total 1.7 mg/dL (0.2-1.0); Calcium 8.7 mg/dL (8.5-10.1); Magnesium 3.6 mg/dL (1.6-2.6); Total Protein 6.9 g/dL (6.4-8.2)
[2021-09-04] MEDS: BUDESONIDE (INHALATION) 0.5 MG/2 ML NEB NEB SCH ×2 (07:43→20:38)
[2021-09-04] MEDS: ALBUTEROL SULF 2.5 MG/0.5ML(0.5%) NEB SOLN NEB PRN ×2 (07:43→20:38)
[2021-09-04 07:47] LABS: Pre Albumin 46.4 mg/dL (20.0-40.0)
[2021-09-04] MEDS: FUROSEMIDE 40 MG/4 ML VIAL IV SCH (09:53)
[2021-09-04] MEDS: Ensure HIGH Protein Chocolate 8oz Bottle PO SCH ×3 (09:53→17:53)
[2021-09-04] MEDS: DexAMETHasone SOD PHOS 10MG/1ML VIAL INJ IV SCH ×2 (09:53→22:57)
[2021-09-04] MEDS: PANTOPRAZOLE 40 MG TAB PO SCH ×2 (09:54→22:58)
[2021-09-04] MEDS: CHOLECALCIFEROL (VITD3) 2,000 UNIT CAP/TAB PO SCH (09:54)
[2021-09-04] MEDS: SODIUM CHLOR 0.9% PF (SALINE LOCK) 10ML VIAL/SYR IV SCH ×2 (09:54→22:58)
[2021-09-04] MEDS: APIXABAN 5 MG TAB PO SCH ×2 (09:54→22:58)
[2021-09-04] MEDS ORDERED: AMINO ACID INFUSION IN D10W 1,000 ML IV NR (20:00)
[2021-09-04] MEDS: TEMAZEPAM 15 MG CAP PO PRN (22:59)
[2021-09-05] VITALS (28 sets, daily range): BP systolic 95–142; BP diastolic 49–88
[2021-09-05] MEDS: LORazepam 2MG/ML-1ML VIAL IV PRN ×2 (02:30→22:25)
[2021-09-05] MEDS: SALINE 0.65 % NASAL SPRAY 45ML BOTTLE EACHNOSTRI SCH ×4 (06:00→21:16)
[2021-09-05] MEDS: ACCU-CHEK COMFORT CURVE STRIP VI SCH ×3 (06:00→18:36)
[2021-09-05] MEDS: InsuLIN REG 1unit/0.01ml Soln (100units/ml) SC SCH ×3 (06:00→18:36)
[2021-09-05] MEDS: BUDESONIDE (INHALATION) 0.5 MG/2 ML NEB NEB SCH ×2 (07:04→21:50)
[2021-09-05] MEDS: ALBUTEROL SULF 2.5 MG/0.5ML(0.5%) NEB SOLN NEB PRN ×2 (07:04→21:50)
[2021-09-05] MEDS: Ensure HIGH Protein Chocolate 8oz Bottle PO SCH ×3 (09:29→17:17)
[2021-09-05] MEDS: PANTOPRAZOLE 40 MG TAB PO SCH (09:29)
[2021-09-05] MEDS: FUROSEMIDE 40 MG/4 ML VIAL IV SCH (09:29)
[2021-09-05] MEDS: DexAMETHasone SOD PHOS 10MG/1ML VIAL INJ IV SCH ×2 (09:29→21:17)
[2021-09-05] MEDS: SODIUM CHLOR 0.9% PF (SALINE LOCK) 10ML VIAL/SYR IV SCH ×2 (09:29→21:16)
[2021-09-05] MEDS: APIXABAN 5 MG TAB PO SCH ×2 (09:29→21:16)
[2021-09-05] MEDS: CHOLECALCIFEROL (VITD3) 2,000 UNIT CAP/TAB PO SCH (09:30)
[2021-09-05 11:01] LABS: Albumin 2.9 g/dL (3.4-5.0); Calcium 8.2 mg/dL (8.5-10.1); Magnesium 3.4 mg/dL (1.6-2.6)
[2021-09-05 11:04] LABS: BUN/Creatinine Ratio 46.1; Bilirubin, Total 2.1 mg/dL (0.2-1.0); Total Protein 6.7 g/dL (6.4-8.2)
[2021-09-05] MEDS ORDERED: AMINO ACID INFUSION IN D10W 1,000 ML IV NR (20:00)
[2021-09-05] MEDS: TEMAZEPAM 15 MG CAP PO PRN (21:17)
[2021-09-06] VITALS (23 sets, daily range): BP systolic 91–124; BP diastolic 62–88
[2021-09-06] MEDS: InsuLIN REG 1unit/0.01ml Soln (100units/ml) SC SCH ×5 (00:36→23:46)
[2021-09-06] MEDS: ACCU-CHEK COMFORT CURVE STRIP VI SCH ×5 (00:37→23:46)
[2021-09-06 05:29] LABS: Basophils # (auto) 0 10 ^3/uL (0-0.2); Basophils % (auto) 0.3 % (0.0-2.0); Eosinophils # (auto) 0.2 10 ^3/uL (0-0.8); Eosinophils % (auto) 1.8 % (0.0-7.0); Hematocrit 44.7 % (41.0-53.0); Hemoglobin 15.9 g/dL (13.5-17.5); Lymphocytes # (auto) 0.9 10 ^3/uL (0.4-5.4); Lymphocytes % (auto) 7.1 % (10.0-50.0); Mean Corpuscular Hemoglobin 31.5 pg (28.0-32.0); Mean Corpuscular Hgb Conc. 35.6 g/dL (32.0-36.0); Mean Corpuscular Volume 88.4 fL (80.0-100.0); Monocytes # (auto) 0.6 10 ^3/uL (0-1.3); Monocytes % (auto) 4.5 % (0.0-12.0); Neutrophils # (auto) 10.7 10 ^3/uL (1.6-8.6); Neutrophils % (auto) 86.3 % (37.0-80.0); Red Blood Cells 5.05 10^6/uL (4.5-5.90); Red Cell Distribution Width 13.4 % (11.8-14.3); White Blood Cell 12.4 10^3/uL (4.4-10.8)
[2021-09-06 05:43] LABS: BUN/Creatinine Ratio 45.1; Calcium 8.6 mg/dL (8.5-10.1); Magnesium 2.8 mg/dL (1.6-2.6); Potassium 3.3 mmol/L (3.5-5.1)
[2021-09-06 05:55] LABS: Bilirubin, Total 1.7 mg/dL (0.2-1.0); Total Protein 6.3 g/dL (6.4-8.2)
[2021-09-06] MEDS: SALINE 0.65 % NASAL SPRAY 45ML BOTTLE EACHNOSTRI SCH ×4 (06:23→22:10)
[2021-09-06] MEDS: ALBUTEROL SULF 2.5 MG/0.5ML(0.5%) NEB SOLN NEB PRN ×2 (06:50→22:15)
[2021-09-06] MEDS: BUDESONIDE (INHALATION) 0.5 MG/2 ML NEB NEB SCH ×2 (06:50→22:15)
[2021-09-06] MEDS: Ensure HIGH Protein Chocolate 8oz Bottle PO SCH ×3 (08:00→17:17)
[2021-09-06] MEDS: DexAMETHasone SOD PHOS 10MG/1ML VIAL INJ IV SCH ×2 (09:11→22:10)
[2021-09-06] MEDS: SODIUM CHLOR 0.9% PF (SALINE LOCK) 10ML VIAL/SYR IV SCH ×2 (09:11→22:10)
[2021-09-06] MEDS: PANTOPRAZOLE 40 MG TAB PO SCH (09:27)
[2021-09-06] MEDS: APIXABAN 5 MG TAB PO SCH ×2 (09:28→22:11)
[2021-09-06] MEDS: CHOLECALCIFEROL (VITD3) 2,000 UNIT CAP/TAB PO SCH (09:28)
[2021-09-06] MEDS: POTASSIUM CHL 20MEQ/100ML 100 ML IV SCH ×2 (09:32→10:12)
[2021-09-06] MEDS: FUROSEMIDE 40 MG/4 ML VIAL IV SCH (10:00)
[2021-09-06] MEDS ORDERED: TPN PER PHARMACY 0 ML IV SCH (12:00)
[2021-09-06] MEDS ORDERED: TPN PER PHARMACY IV NR ×8 (20:00)
[2021-09-06] MEDS ORDERED: AMINO ACID INFUSION IN D10W 1,000 ML IV NR (20:00)
[2021-09-06] MEDS: TEMAZEPAM 15 MG CAP PO PRN (22:11)
[2021-09-07] VITALS (26 sets, daily range): BP systolic 94–135; BP diastolic 53–93
[2021-09-07 05:22] LABS: Potassium 3.7 mmol/L (3.5-5.1)
[2021-09-07 05:30] LABS: Albumin 3.1 g/dL (3.4-5.0); BUN/Creatinine Ratio 45.7; Bilirubin, Total 1.8 mg/dL (0.2-1.0); Calcium 8.3 mg/dL (8.5-10.1); Magnesium 3.5 mg/dL (1.6-2.6); Phosphorus 3.9 mg/dL (2.5-4.90); Total Protein 6.6 g/dL (6.4-8.2)
[2021-09-07] MEDS: ACCU-CHEK COMFORT CURVE STRIP VI SCH ×3 (05:49→17:58)
[2021-09-07] MEDS: SALINE 0.65 % NASAL SPRAY 45ML BOTTLE EACHNOSTRI SCH ×4 (05:51→21:21)
[2021-09-07] MEDS: InsuLIN REG 1unit/0.01ml Soln (100units/ml) SC SCH ×3 (05:51→18:02)
[2021-09-07] MEDS: Ensure HIGH Protein Chocolate 8oz Bottle PO SCH ×3 (08:00→17:36)
[2021-09-07] MEDS ORDERED: MORPHINE SULFATE INJECTION 2 MG/ML SYRG IV PRN (10:00)
[2021-09-07] MEDS: DexAMETHasone SOD PHOS 10MG/1ML VIAL INJ IV SCH ×2 (10:09→21:21)
[2021-09-07] MEDS: FUROSEMIDE 40 MG/4 ML VIAL IV SCH (10:10)
[2021-09-07] MEDS: SODIUM CHLOR 0.9% PF (SALINE LOCK) 10ML VIAL/SYR IV SCH ×2 (10:14→21:21)
[2021-09-07] MEDS: CHOLECALCIFEROL (VITD3) 2,000 UNIT CAP/TAB PO SCH (10:14)
[2021-09-07] MEDS: APIXABAN 5 MG TAB PO SCH ×2 (10:14→21:21)
[2021-09-07] MEDS: PANTOPRAZOLE 40 MG TAB PO SCH (10:14)
[2021-09-07] MEDS: BUDESONIDE (INHALATION) 0.5 MG/2 ML NEB NEB SCH ×2 (15:16→19:30)
[2021-09-07] MEDS: ALBUTEROL SULF 2.5 MG/0.5ML(0.5%) NEB SOLN NEB PRN ×2 (15:16→19:30)
[2021-09-07] MEDS: LORazepam 2MG/ML-1ML VIAL IV PRN (16:17)
[2021-09-07] MEDS ORDERED: TPN PER PHARMACY IV NR ×9 (20:00)
[2021-09-07] MEDS: TEMAZEPAM 15 MG CAP PO PRN (21:21)
[2021-09-08] VITALS (31 sets, daily range): BP systolic 88–129; BP diastolic 52–89
[2021-09-08] MEDS: ACCU-CHEK COMFORT CURVE STRIP VI SCH ×4 (05:45→18:08)
[2021-09-08] MEDS: SALINE 0.65 % NASAL SPRAY 45ML BOTTLE EACHNOSTRI SCH ×3 (05:45→18:00)
[2021-09-08] MEDS: InsuLIN REG 1unit/0.01ml Soln (100units/ml) SC SCH ×4 (05:45→18:08)
[2021-09-08 07:57] LABS: Basophils # (auto) 0 10 ^3/uL (0-0.2); Basophils % (auto) 0.4 % (0.0-2.0); Eosinophils # (auto) 0 10 ^3/uL (0-0.8); Eosinophils % (auto) 0.2 % (0.0-7.0); Hematocrit 46.6 % (41.0-53.0); Hemoglobin 16.4 g/dL (13.5-17.5); Lymphocytes # (auto) 0.6 10 ^3/uL (0.4-5.4); Lymphocytes % (auto) 6.4 % (10.0-50.0); Mean Corpuscular Hemoglobin 31.8 pg (28.0-32.0); Mean Corpuscular Hgb Conc. 35.2 g/dL (32.0-36.0); Mean Corpuscular Volume 90.4 fL (80.0-100.0); Monocytes # (auto) 0.4 10 ^3/uL (0-1.3); Monocytes % (auto) 4.5 % (0.0-12.0); Neutrophils # (auto) 8.9 10 ^3/uL (1.6-8.6); Neutrophils % (auto) 88.5 % (37.0-80.0); Nucleated Red Blood Cells % 0.2 %; Red Blood Cells 5.15 10^6/uL (4.5-5.90); Red Cell Distribution Width 13.8 % (11.8-14.3)
[2021-09-08] MEDS: Ensure HIGH Protein Chocolate 8oz Bottle PO SCH ×3 (08:00→18:09)
[2021-09-08 08:09] LABS: Albumin 3.2 g/dL (3.4-5.0); Calcium 8.3 mg/dL (8.5-10.1); Magnesium 3.5 mg/dL (1.6-2.6); Potassium 3.4 mmol/L (3.5-5.1)
[2021-09-08 08:14] LABS: BUN/Creatinine Ratio 40.2; Bilirubin, Total 1.9 mg/dL (0.2-1.0); Total Protein 6.7 g/dL (6.4-8.2)
[2021-09-08] MEDS: FUROSEMIDE 40 MG/4 ML VIAL IV SCH (09:43)
[2021-09-08] MEDS: DexAMETHasone SOD PHOS 10MG/1ML VIAL INJ IV SCH (09:43)
[2021-09-08] MEDS: SODIUM CHLOR 0.9% PF (SALINE LOCK) 10ML VIAL/SYR IV SCH (09:44)
[2021-09-08] MEDS: PANTOPRAZOLE 40 MG TAB PO SCH (09:44)
[2021-09-08] MEDS: CHOLECALCIFEROL (VITD3) 2,000 UNIT CAP/TAB PO SCH (09:44)
[2021-09-08] MEDS: APIXABAN 5 MG TAB PO SCH (09:44)
[2021-09-08] MEDS ORDERED: POTASSIUM CHL 20 Meq TABLET PO ONE ×2 (10:00→10:02)
[2021-09-08] MEDS: ALBUTEROL SULF 2.5 MG/0.5ML(0.5%) NEB SOLN NEB PRN (10:05)
[2021-09-08] MEDS: BUDESONIDE (INHALATION) 0.5 MG/2 ML NEB NEB SCH (10:05)
[2021-09-08] MEDS ORDERED: TPN PER PHARMACY IV NR ×9 (20:00)
[2021-09-08] MEDS: ALBUTEROL SULF HFA 90MCG INH 200DOSE IN PRN (21:59)
[2021-09-08] MEDS: BUDESONIDE (INHALATION) 180 MCG IH IN SCH (21:59)
[2021-09-09] VITALS (30 sets, daily range): BP systolic 88–137; BP diastolic 56–97
[2021-09-09] MEDS: SALINE 0.65 % NASAL SPRAY 45ML BOTTLE EACHNOSTRI SCH ×5 (00:47→21:38)
[2021-09-09] MEDS: SODIUM CHLOR 0.9% PF (SALINE LOCK) 10ML VIAL/SYR IV SCH ×3 (00:48→21:39)
[2021-09-09] MEDS: DexAMETHasone SOD PHOS 10MG/1ML VIAL INJ IV SCH ×3 (00:48→21:39)
[2021-09-09] MEDS: APIXABAN 5 MG TAB PO SCH ×3 (00:48→21:39)
[2021-09-09 06:07] LABS: Basophils # (auto) 0 10 ^3/uL (0-0.2); Basophils % (auto) 0.1 % (0.0-2.0); Eosinophils # (auto) 0 10 ^3/uL (0-0.8); Eosinophils % (auto) 0.1 % (0.0-7.0); Hematocrit 48.5 % (41.0-53.0); Hemoglobin 16.8 g/dL (13.5-17.5); Lymphocytes # (auto) 0.8 10 ^3/uL (0.4-5.4); Lymphocytes % (auto) 4.8 % (10.0-50.0); Mean Corpuscular Hemoglobin 31.2 pg (28.0-32.0); Mean Corpuscular Hgb Conc. 34.7 g/dL (32.0-36.0); Mean Corpuscular Volume 90.2 fL (80.0-100.0); Monocytes # (auto) 0.5 10 ^3/uL (0-1.3); Monocytes % (auto) 2.6 % (0.0-12.0); Neutrophils # (auto) 16.1 10 ^3/uL (1.6-8.6); Neutrophils % (auto) 92.4 % (37.0-80.0); Red Blood Cells 5.38 10^6/uL (4.5-5.90); Red Cell Distribution Width 13.5 % (11.8-14.3); White Blood Cell 17.4 10^3/uL (4.4-10.8)
[2021-09-09] MEDS: InsuLIN REG 1unit/0.01ml Soln (100units/ml) SC SCH ×5 (06:13→23:57)
[2021-09-09] MEDS: ACCU-CHEK COMFORT CURVE STRIP VI SCH ×4 (06:14→18:21)
[2021-09-09 06:18] LABS: Calcium 8.5 mg/dL (8.5-10.1); Potassium 3.5 mmol/L (3.5-5.1)
[2021-09-09 06:22] LABS: Albumin 3.1 g/dL (3.4-5.0); Magnesium 2.9 mg/dL (1.6-2.6)
[2021-09-09 06:24] LABS: Phosphorus 3.7 mg/dL (2.5-4.90); Total Protein 6.6 g/dL (6.4-8.2)
[2021-09-09] MEDS: ALBUTEROL SULF HFA 90MCG INH 200DOSE IN PRN ×2 (06:54→19:08)
[2021-09-09] MEDS: BUDESONIDE (INHALATION) 180 MCG IH IN SCH ×2 (06:54→19:08)
[2021-09-09] MEDS ORDERED: POTASSIUM CHL 20MEQ/100ML 100 ML IV ONE (08:30)
[2021-09-09] MEDS: Ensure HIGH Protein Chocolate 8oz Bottle PO SCH ×3 (08:41→18:20)
[2021-09-09] MEDS: PANTOPRAZOLE 40 MG TAB PO SCH (10:55)
[2021-09-09] MEDS: FUROSEMIDE 40 MG/4 ML VIAL IV SCH (10:55)
[2021-09-09] MEDS: CHOLECALCIFEROL (VITD3) 2,000 UNIT CAP/TAB PO SCH (10:56)
[2021-09-09] MEDS ORDERED: DOCUSATE SOD 100 MG CAP PO ONE (12:30)
[2021-09-09] MEDS ORDERED: LACTULOSE 20Gm/30ML SOLN PO ONE (12:30)
[2021-09-09] MEDS ORDERED: TPN PER PHARMACY IV NR ×10 (20:00)
[2021-09-09] MEDS: TEMAZEPAM 15 MG CAP PO PRN (21:39)
[2021-09-10] VITALS (24 sets, daily range): BP systolic 104–152; BP diastolic 60–100
[2021-09-10 05:06] LABS: Basophils # (auto) 0 10 ^3/uL (0-0.2); Eosinophils # (auto) 0 10 ^3/uL (0-0.8); Eosinophils % (auto) 0.1 % (0.0-7.0); Hematocrit 46.9 % (41.0-53.0); Hemoglobin 16.3 g/dL (13.5-17.5); Lymphocytes # (auto) 0.8 10 ^3/uL (0.4-5.4); Lymphocytes % (auto) 5.8 % (10.0-50.0); Mean Corpuscular Hemoglobin 31.4 pg (28.0-32.0); Mean Corpuscular Hgb Conc. 34.9 g/dL (32.0-36.0); Mean Corpuscular Volume 90.2 fL (80.0-100.0); Monocytes # (auto) 0.7 10 ^3/uL (0-1.3); Monocytes % (auto) 4.9 % (0.0-12.0); Neutrophils # (auto) 12.2 10 ^3/uL (1.6-8.6); Neutrophils % (auto) 89.2 % (37.0-80.0); Red Cell Distribution Width 13.9 % (11.8-14.3); White Blood Cell 13.7 10^3/uL (4.4-10.8)
[2021-09-10 05:26] LABS: Calcium 8.5 mg/dL (8.5-10.1); Magnesium 3.1 mg/dL (1.6-2.6)
[2021-09-10 05:29] LABS: BUN/Creatinine Ratio 52.1; Bilirubin, Total 3.2 mg/dL (0.2-1.0); Phosphorus 3.3 mg/dL (2.5-4.90); Total Protein 6.3 g/dL (6.4-8.2)
[2021-09-10] MEDS: InsuLIN REG 1unit/0.01ml Soln (100units/ml) SC SCH ×3 (06:00→18:00)
[2021-09-10] MEDS: ACCU-CHEK COMFORT CURVE STRIP VI SCH ×4 (06:00→18:12)
[2021-09-10] MEDS: BUDESONIDE (INHALATION) 180 MCG IH IN SCH ×2 (06:17→19:19)
[2021-09-10] MEDS: ALBUTEROL SULF HFA 90MCG INH 200DOSE IN PRN ×2 (06:17→19:19)
[2021-09-10] MEDS: Ensure HIGH Protein Chocolate 8oz Bottle PO SCH ×3 (08:00→18:00)
[2021-09-10] MEDS: LORazepam 2MG/ML-1ML VIAL IV PRN (08:14)
[2021-09-10] MEDS: SALINE 0.65 % NASAL SPRAY 45ML BOTTLE EACHNOSTRI SCH ×4 (09:48→21:33)
[2021-09-10] MEDS: DexAMETHasone SOD PHOS 10MG/1ML VIAL INJ IV SCH ×2 (09:49→21:33)
[2021-09-10] MEDS: FUROSEMIDE 40 MG/4 ML VIAL IV SCH (09:49)
[2021-09-10] MEDS: APIXABAN 5 MG TAB PO SCH ×2 (09:50→22:00)
[2021-09-10] MEDS: PANTOPRAZOLE 40 MG TAB PO SCH (09:50)
[2021-09-10] MEDS: SODIUM CHLOR 0.9% PF (SALINE LOCK) 10ML VIAL/SYR IV SCH ×2 (09:50→21:33)
[2021-09-10] MEDS: CHOLECALCIFEROL (VITD3) 2,000 UNIT CAP/TAB PO SCH (09:50)
[2021-09-10] MEDS ORDERED: levoFLOXacin 250MG 50 ML IV ONE (12:00)
[2021-09-10] MEDS: levoFLOXacin 500MG 100 ML IV SCH (12:32)
[2021-09-10] MEDS ORDERED: LACTULOSE 20Gm/30ML SOLN PO ONE (16:30)
[2021-09-10] MEDS ORDERED: DOCUSATE SOD 100 MG CAP PO ONE (16:30)
[2021-09-10] MEDS: TPN PER PHARMACY IV NR ×8 (20:00)
[2021-09-10] MEDS: TEMAZEPAM 15 MG CAP PO PRN (22:10)
[2021-09-11] VITALS (30 sets, daily range): BP systolic 90–149; BP diastolic 52–109
[2021-09-11] MEDS: SALINE 0.65 % NASAL SPRAY 45ML BOTTLE EACHNOSTRI SCH ×4 (05:36→23:19)
[2021-09-11] MEDS: ACCU-CHEK COMFORT CURVE STRIP VI SCH ×5 (05:36→23:20)
[2021-09-11] MEDS: InsuLIN REG 1unit/0.01ml Soln (100units/ml) SC SCH ×5 (05:36→23:20)
[2021-09-11 05:52] LABS: Potassium 4.1 mmol/L (3.5-5.1)
[2021-09-11 05:59] LABS: Albumin 3.2 g/dL (3.4-5.0); BUN/Creatinine Ratio 44.3; Bilirubin, Total 3.4 mg/dL (0.2-1.0); Calcium 8.4 mg/dL (8.5-10.1); Magnesium 3.1 mg/dL (1.6-2.6); Phosphorus 4.5 mg/dL (2.5-4.90); Total Protein 6.6 g/dL (6.4-8.2)
[2021-09-11] MEDS: Ensure HIGH Protein Chocolate 8oz Bottle PO SCH ×3 (08:00→18:00)
[2021-09-11] MEDS: levoFLOXacin 500MG 100 ML IV SCH (09:27)
[2021-09-11] MEDS: SODIUM CHLOR 0.9% PF (SALINE LOCK) 10ML VIAL/SYR IV SCH ×2 (09:49→23:19)
[2021-09-11] MEDS: FUROSEMIDE 40 MG/4 ML VIAL IV SCH (09:49)
[2021-09-11] MEDS: APIXABAN 5 MG TAB PO SCH ×2 (09:49→23:20)
[2021-09-11] MEDS: CHOLECALCIFEROL (VITD3) 2,000 UNIT CAP/TAB PO SCH (09:49)
[2021-09-11] MEDS: PANTOPRAZOLE 40 MG TAB PO SCH (09:49)
[2021-09-11] MEDS: DexAMETHasone SOD PHOS 4 MG/1ML SDV INJ IV SCH ×2 (09:49→23:19)
[2021-09-11] MEDS ORDERED: levoFLOXacin 250MG 50 ML IV SCH (10:00)
[2021-09-11] MEDS: TPN PER PHARMACY IV NR ×8 (19:59)
[2021-09-11] MEDS ORDERED: TPN PER PHARMACY IV NR ×7 (20:00)
[2021-09-11] MEDS: BUDESONIDE (INHALATION) 180 MCG IH IN SCH (22:00)
[2021-09-12] VITALS (30 sets, daily range): BP systolic 88–126; BP diastolic 52–90
[2021-09-12] MEDS: ACCU-CHEK COMFORT CURVE STRIP VI SCH ×3 (05:59→17:21)
[2021-09-12] MEDS: InsuLIN REG 1unit/0.01ml Soln (100units/ml) SC SCH ×3 (06:00→18:00)
[2021-09-12] MEDS: SALINE 0.65 % NASAL SPRAY 45ML BOTTLE EACHNOSTRI SCH ×4 (06:08→22:26)
[2021-09-12] MEDS: BUDESONIDE (INHALATION) 180 MCG IH IN SCH ×2 (06:11→10:00)
[2021-09-12] MEDS: ALBUTEROL SULF HFA 90MCG INH 200DOSE IN PRN (06:12)
[2021-09-12 06:56] LABS: Potassium 4.4 mmol/L (3.5-5.1)
[2021-09-12 07:03] LABS: BUN/Creatinine Ratio 54.4; Bilirubin, Total 2.7 mg/dL (0.2-1.0); Calcium 8.1 mg/dL (8.5-10.1); Magnesium 3.3 mg/dL (1.6-2.6); Phosphorus 3.3 mg/dL (2.5-4.90)
[2021-09-12] MEDS: Ensure HIGH Protein Chocolate 8oz Bottle PO SCH ×3 (08:00→17:21)
[2021-09-12] MEDS: FUROSEMIDE 40 MG/4 ML VIAL IV SCH (09:48)
[2021-09-12] MEDS: levoFLOXacin 500MG 100 ML IV SCH (09:48)
[2021-09-12] MEDS: PANTOPRAZOLE 40 MG TAB PO SCH (09:48)
[2021-09-12] MEDS: SODIUM CHLOR 0.9% PF (SALINE LOCK) 10ML VIAL/SYR IV SCH ×2 (09:48→22:25)
[2021-09-12] MEDS: DexAMETHasone SOD PHOS 4 MG/1ML SDV INJ IV SCH ×2 (09:48→22:25)
[2021-09-12] MEDS: CHOLECALCIFEROL (VITD3) 2,000 UNIT CAP/TAB PO SCH (09:48)
[2021-09-12] MEDS: APIXABAN 5 MG TAB PO SCH ×2 (09:48→22:25)
[2021-09-12] MEDS ORDERED: TPN PER PHARMACY IV NR ×8 (20:00)
[2021-09-13] VITALS (29 sets, daily range): BP systolic 78–135; BP diastolic 41–91
[2021-09-13] MEDS: ACCU-CHEK COMFORT CURVE STRIP VI SCH ×2 (00:06→06:00)
[2021-09-13] MEDS: InsuLIN REG 1unit/0.01ml Soln (100units/ml) SC SCH ×2 (00:07→06:00)
[2021-09-13] MEDS: BUDESONIDE (INHALATION) 180 MCG IH IN SCH ×3 (00:50→19:11)
[2021-09-13] MEDS: ALBUTEROL SULF HFA 90MCG INH 200DOSE IN PRN ×3 (00:50→19:12)
[2021-09-13] MEDS: SALINE 0.65 % NASAL SPRAY 45ML BOTTLE EACHNOSTRI SCH ×4 (06:00→20:58)
[2021-09-13 06:44] LABS: Basophils # (auto) 0 10 ^3/uL (0-0.2); Basophils % (auto) 0.2 % (0.0-2.0); Eosinophils # (auto) 0 10 ^3/uL (0-0.8); Eosinophils % (auto) 0.3 % (0.0-7.0); Hematocrit 42.7 % (41.0-53.0); Lymphocytes # (auto) 0.7 10 ^3/uL (0.4-5.4); Lymphocytes % (auto) 8.7 % (10.0-50.0); Mean Corpuscular Hemoglobin 31.9 pg (28.0-32.0); Mean Corpuscular Hgb Conc. 35.2 g/dL (32.0-36.0); Mean Corpuscular Volume 90.7 fL (80.0-100.0); Monocytes # (auto) 0.5 10 ^3/uL (0-1.3); Monocytes % (auto) 5.3 % (0.0-12.0); Neutrophils # (auto) 7.3 10 ^3/uL (1.6-8.6); Neutrophils % (auto) 85.5 % (37.0-80.0); White Blood Cell 8.5 10^3/uL (4.4-10.8)
[2021-09-13 07:12] LABS: Potassium 4.4 mmol/L (3.5-5.1)
[2021-09-13 07:25] LABS: Albumin 2.9 g/dL (3.4-5.0); BUN/Creatinine Ratio 58.7; Calcium 8.3 mg/dL (8.5-10.1)
[2021-09-13 07:27] LABS: Bilirubin, Total 2.8 mg/dL (0.2-1.0); Total Protein 5.6 g/dL (6.4-8.2)
[2021-09-13] MEDS: Ensure HIGH Protein Chocolate 8oz Bottle PO SCH ×3 (08:00→18:06)
[2021-09-13] MEDS: DexAMETHasone SOD PHOS 4 MG/1ML SDV INJ IV SCH ×2 (09:50→20:58)
[2021-09-13] MEDS: SODIUM CHLOR 0.9% PF (SALINE LOCK) 10ML VIAL/SYR IV SCH ×2 (09:50→20:58)
[2021-09-13] MEDS: APIXABAN 5 MG TAB PO SCH ×2 (09:50→21:02)
[2021-09-13] MEDS: CHOLECALCIFEROL (VITD3) 2,000 UNIT CAP/TAB PO SCH (09:50)
[2021-09-13] MEDS: PANTOPRAZOLE 40 MG TAB PO SCH (09:50)
[2021-09-13] MEDS: levoFLOXacin 500MG 100 ML IV SCH (09:51)
[2021-09-13] MEDS: FUROSEMIDE 40 MG/4 ML VIAL IV SCH (09:53)
[2021-09-13 09:57] LABS: Magnesium 2.7 mg/dL (1.6-2.6); Phosphorus 3.8 mg/dL (2.5-4.90)
[2021-09-13] MEDS ORDERED: TPN PER PHARMACY IV NR ×9 (20:00)
[2021-09-13] MEDS: TEMAZEPAM 15 MG CAP PO PRN (21:02)
[2021-09-14] VITALS (25 sets, daily range): BP systolic 89–134; BP diastolic 44–96
[2021-09-14] MEDS: SALINE 0.65 % NASAL SPRAY 45ML BOTTLE EACHNOSTRI SCH ×4 (06:28→22:23)
[2021-09-14] MEDS: Ensure HIGH Protein Chocolate 8oz Bottle PO SCH (08:30)
[2021-09-14] MEDS: DexAMETHasone SOD PHOS 4 MG/1ML SDV INJ IV SCH ×2 (09:56→22:23)
[2021-09-14] MEDS: PANTOPRAZOLE 40 MG TAB PO SCH (09:56)
[2021-09-14] MEDS: APIXABAN 5 MG TAB PO SCH ×2 (09:56→22:23)
[2021-09-14] MEDS: CHOLECALCIFEROL (VITD3) 2,000 UNIT CAP/TAB PO SCH (09:57)
[2021-09-14] MEDS: levoFLOXacin 500MG 100 ML IV SCH (09:57)
[2021-09-14] MEDS: FUROSEMIDE 40 MG/4 ML VIAL IV SCH (09:57)
[2021-09-14] MEDS: SODIUM CHLOR 0.9% PF (SALINE LOCK) 10ML VIAL/SYR IV SCH ×2 (10:00→22:23)
[2021-09-14] MEDS: BUDESONIDE (INHALATION) 180 MCG IH IN SCH ×2 (11:00→22:32)
[2021-09-14] MEDS: TEMAZEPAM 15 MG CAP PO PRN (22:24)
[2021-09-14] MEDS: ALBUTEROL SULF HFA 90MCG INH 200DOSE IN PRN (22:33)
[2021-09-15] VITALS (30 sets, daily range): BP systolic 84–131; BP diastolic 52–85
[2021-09-15 05:21] LABS: Albumin 3.2 g/dL (3.4-5.0); BUN/Creatinine Ratio 48.8; Calcium 8.5 mg/dL (8.5-10.1); Potassium 4.2 mmol/L (3.5-5.1)
[2021-09-15 05:24] LABS: Bilirubin, Total 3.5 mg/dL (0.2-1.0); Total Protein 6.1 g/dL (6.4-8.2)
[2021-09-15] MEDS: SALINE 0.65 % NASAL SPRAY 45ML BOTTLE EACHNOSTRI SCH ×4 (06:28→22:00)
[2021-09-15] MEDS: BUDESONIDE (INHALATION) 180 MCG IH IN SCH ×2 (10:12→22:00)
[2021-09-15] MEDS: CHOLECALCIFEROL (VITD3) 2,000 UNIT CAP/TAB PO SCH (10:21)
[2021-09-15] MEDS: PANTOPRAZOLE 40 MG TAB PO SCH (10:21)
[2021-09-15] MEDS: levoFLOXacin 500MG 100 ML IV SCH (10:21)
[2021-09-15] MEDS: DexAMETHasone SOD PHOS 4 MG/1ML SDV INJ IV SCH ×2 (10:22→22:00)
[2021-09-15] MEDS: SODIUM CHLOR 0.9% PF (SALINE LOCK) 10ML VIAL/SYR IV SCH ×2 (10:22→22:00)
[2021-09-15] MEDS: FUROSEMIDE 40 MG/4 ML VIAL IV SCH (10:22)
[2021-09-15] MEDS: APIXABAN 5 MG TAB PO SCH ×2 (10:22→22:00)
[2021-09-15] MEDS: TEMAZEPAM 15 MG CAP PO PRN (22:30)
[2021-09-16] VITALS (20 sets, daily range): BP systolic 87–129; BP diastolic 49–90
[2021-09-16 04:21] LABS: Hematocrit 41.9 % (41.0-53.0); Hemoglobin 14.9 g/dL (13.5-17.5); Mean Corpuscular Hemoglobin 32.3 pg (28.0-32.0); Mean Corpuscular Hgb Conc. 35.6 g/dL (32.0-36.0); Mean Corpuscular Volume 90.8 fL (80.0-100.0); Red Blood Cells 4.62 10^6/uL (4.5-5.90); Red Cell Distribution Width 14.4 % (11.8-14.3); White Blood Cell 6.3 10^3/uL (4.4-10.8)
[2021-09-16 04:38] LABS: Potassium 3.9 mmol/L (3.5-5.1)
[2021-09-16 04:43] LABS: Albumin 3.2 g/dL (3.4-5.0); Bilirubin, Total 3.2 mg/dL (0.2-1.0); Calcium 8.1 mg/dL (8.5-10.1)
[2021-09-16 04:44] LABS: Basophils % (manual) 0 (0.0-2.0); Blast Cells 0; Eosinophils % (manual) 0 (0-7); Metamyelocytes % 0; Myelocytes % 0; Promyelocytes % 0; Reactive Lymphocytes 0
[2021-09-16 05:53] LABS: Band Neutrophils % (manual) 11; Lymphocytes % (manual) 12 (10.0-50.0); Monocytes % (manual) 4 (0-12)
[2021-09-16] MEDS: SALINE 0.65 % NASAL SPRAY 45ML BOTTLE EACHNOSTRI SCH ×4 (06:00→21:52)
[2021-09-16] MEDS: BUDESONIDE (INHALATION) 180 MCG IH IN SCH ×2 (06:05→19:28)
[2021-09-16] MEDS: ALBUTEROL SULF HFA 90MCG INH 200DOSE IN PRN ×2 (06:05→19:28)
[2021-09-16] MEDS: levoFLOXacin 500MG 100 ML IV SCH (09:04)
[2021-09-16] MEDS: SODIUM CHLOR 0.9% PF (SALINE LOCK) 10ML VIAL/SYR IV SCH ×2 (09:05→21:52)
[2021-09-16] MEDS: PANTOPRAZOLE 40 MG TAB PO SCH (09:05)
[2021-09-16] MEDS: APIXABAN 5 MG TAB PO SCH ×2 (09:05→21:52)
[2021-09-16] MEDS: CHOLECALCIFEROL (VITD3) 2,000 UNIT CAP/TAB PO SCH (09:05)
[2021-09-16] MEDS: FUROSEMIDE 40 MG/4 ML VIAL IV SCH (09:06)
[2021-09-16] MEDS: DexAMETHasone SOD PHOS 4 MG/1ML SDV INJ IV SCH ×2 (09:06→21:52)
[2021-09-16] MEDS: TEMAZEPAM 15 MG CAP PO PRN (21:52)
[2021-09-17] VITALS (30 sets, daily range): BP systolic 76–123; BP diastolic 47–93
[2021-09-17 05:19] LABS: Hematocrit 41.9 % (41.0-53.0); Hemoglobin 14.9 g/dL (13.5-17.5); Mean Corpuscular Hemoglobin 32.7 pg (28.0-32.0); Mean Corpuscular Hgb Conc. 35.5 g/dL (32.0-36.0); Mean Corpuscular Volume 92.1 fL (80.0-100.0); Red Blood Cells 4.54 10^6/uL (4.5-5.90); Red Cell Distribution Width 14.6 % (11.8-14.3)
[2021-09-17] MEDS: SALINE 0.65 % NASAL SPRAY 45ML BOTTLE EACHNOSTRI SCH ×4 (05:36→22:18)
[2021-09-17 06:14] LABS: Basophils % (manual) 0 (0.0-2.0); Blast Cells 0; Eosinophils % (manual) 0 (0-7); Metamyelocytes % 0; Myelocytes % 0; Promyelocytes % 0; Reactive Lymphocytes 0
[2021-09-17 08:49] LABS: Band Neutrophils % (manual) 7; Lymphocytes % (manual) 7 (10.0-50.0); Monocytes % (manual) 6 (0-12)
[2021-09-17] MEDS: DexAMETHasone SOD PHOS 4 MG/1ML SDV INJ IV SCH ×2 (09:51→22:19)
[2021-09-17] MEDS: FUROSEMIDE 40 MG/4 ML VIAL IV SCH (09:51)
[2021-09-17] MEDS: levoFLOXacin 500MG 100 ML IV SCH (09:52)
[2021-09-17] MEDS: SODIUM CHLOR 0.9% PF (SALINE LOCK) 10ML VIAL/SYR IV SCH ×2 (09:52→22:19)
[2021-09-17] MEDS: CHOLECALCIFEROL (VITD3) 2,000 UNIT CAP/TAB PO SCH (09:53)
[2021-09-17] MEDS: APIXABAN 5 MG TAB PO SCH ×2 (09:53→22:19)
[2021-09-17] MEDS: PANTOPRAZOLE 40 MG TAB PO SCH (09:53)
[2021-09-17] MEDS: BUDESONIDE (INHALATION) 180 MCG IH IN SCH ×2 (10:00→18:55)
[2021-09-17] MEDS: ALBUTEROL SULF HFA 90MCG INH 200DOSE IN PRN (18:55)
[2021-09-17] MEDS: TEMAZEPAM 15 MG CAP PO PRN (22:19)
[2021-09-18] VITALS (25 sets, daily range): BP systolic 88–132; BP diastolic 44–91
[2021-09-18] MEDS: BUDESONIDE (INHALATION) 180 MCG IH IN SCH ×2 (06:06→22:00)
[2021-09-18] MEDS: ALBUTEROL SULF HFA 90MCG INH 200DOSE IN PRN (06:06)
[2021-09-18 09:19] LABS: Basophils # (auto) 0 10 ^3/uL (0-0.2); Basophils % (auto) 0.5 % (0.0-2.0); Eosinophils # (auto) 0 10 ^3/uL (0-0.8); Eosinophils % (auto) 0.5 % (0.0-7.0); Hematocrit 42.4 % (41.0-53.0); Hemoglobin 15.2 g/dL (13.5-17.5); Lymphocytes # (auto) 1.2 10 ^3/uL (0.4-5.4); Mean Corpuscular Hemoglobin 32.7 pg (28.0-32.0); Mean Corpuscular Hgb Conc. 35.9 g/dL (32.0-36.0); Mean Corpuscular Volume 90.9 fL (80.0-100.0); Monocytes # (auto) 0.7 10 ^3/uL (0-1.3); Monocytes % (auto) 8.5 % (0.0-12.0); Neutrophils # (auto) 6.1 10 ^3/uL (1.6-8.6); Neutrophils % (auto) 75.5 % (37.0-80.0); Red Blood Cells 4.66 10^6/uL (4.5-5.90); Red Cell Distribution Width 14.7 % (11.8-14.3); White Blood Cell 8.1 10^3/uL (4.4-10.8)
[2021-09-18 09:31] LABS: Albumin 3.4 g/dL (3.4-5.0); Calcium 8.5 mg/dL (8.5-10.1); Potassium 3.2 mmol/L (3.5-5.1)
[2021-09-18 09:35] LABS: BUN/Creatinine Ratio 39.7; Bilirubin, Total 2.8 mg/dL (0.2-1.0); Total Protein 6.4 g/dL (6.4-8.2)
[2021-09-18] MEDS: FUROSEMIDE 40 MG/4 ML VIAL IV SCH (10:15)
[2021-09-18] MEDS: CHOLECALCIFEROL (VITD3) 2,000 UNIT CAP/TAB PO SCH (10:15)
[2021-09-18] MEDS: DexAMETHasone SOD PHOS 4 MG/1ML SDV INJ IV SCH ×2 (10:15→20:43)
[2021-09-18] MEDS: levoFLOXacin 500MG 100 ML IV SCH (10:16)
[2021-09-18] MEDS: SODIUM CHLOR 0.9% PF (SALINE LOCK) 10ML VIAL/SYR IV SCH ×2 (10:16→20:44)
[2021-09-18] MEDS: PANTOPRAZOLE 40 MG TAB PO SCH (10:16)
[2021-09-18] MEDS: APIXABAN 5 MG TAB PO SCH ×2 (10:16→20:43)
[2021-09-18] MEDS ORDERED: POTASSIUM CHL 20 Meq TABLET PO ONE (11:00)
[2021-09-18] MEDS: SALINE 0.65 % NASAL SPRAY 45ML BOTTLE EACHNOSTRI SCH ×2 (20:43→22:00)
[2021-09-18] MEDS: TEMAZEPAM 15 MG CAP PO PRN (20:43)
[2021-09-19] VITALS (29 sets, daily range): BP systolic 85–123; BP diastolic 44–83
[2021-09-19] MEDS: BUDESONIDE (INHALATION) 180 MCG IH IN SCH ×2 (06:29→22:00)
[2021-09-19] MEDS: ALBUTEROL SULF HFA 90MCG INH 200DOSE IN PRN (06:29)
[2021-09-19] MEDS ORDERED: CATHFLO ACTIVASE (ALTEPLASE) 2 MG VIAL IV ONE (08:45)
[2021-09-19] MEDS: SODIUM CHLOR 0.9% PF (SALINE LOCK) 10ML VIAL/SYR IV SCH ×2 (10:00→22:48)
[2021-09-19] MEDS: PANTOPRAZOLE 40 MG TAB PO SCH (10:02)
[2021-09-19] MEDS: APIXABAN 5 MG TAB PO SCH ×2 (10:02→22:48)
[2021-09-19] MEDS: DexAMETHasone SOD PHOS 4 MG/1ML SDV INJ IV SCH ×2 (10:03→22:46)
[2021-09-19] MEDS: FUROSEMIDE 40 MG/4 ML VIAL IV SCH (10:03)
[2021-09-19] MEDS: CHOLECALCIFEROL (VITD3) 2,000 UNIT CAP/TAB PO SCH (10:03)
[2021-09-19] MEDS: levoFLOXacin 500MG 100 ML IV SCH (10:03)
[2021-09-19] MEDS: SALINE 0.65 % NASAL SPRAY 45ML BOTTLE EACHNOSTRI SCH ×3 (12:00→22:46)
[2021-09-19] MEDS: TEMAZEPAM 15 MG CAP PO PRN (22:45)
[2021-09-20] VITALS (29 sets, daily range): BP systolic 80–126; BP diastolic 47–83
[2021-09-20 05:29] LABS: Basophils # (auto) 0 10 ^3/uL (0-0.2); Basophils % (auto) 0.5 % (0.0-2.0); Eosinophils # (auto) 0 10 ^3/uL (0-0.8); Eosinophils % (auto) 0.1 % (0.0-7.0); Hematocrit 39.4 % (41.0-53.0); Hemoglobin 14.1 g/dL (13.5-17.5); Lymphocytes # (auto) 0.7 10 ^3/uL (0.4-5.4); Lymphocytes % (auto) 9.2 % (10.0-50.0); Mean Corpuscular Hemoglobin 32.5 pg (28.0-32.0); Mean Corpuscular Hgb Conc. 35.8 g/dL (32.0-36.0); Mean Corpuscular Volume 90.6 fL (80.0-100.0); Monocytes # (auto) 0.3 10 ^3/uL (0-1.3); Monocytes % (auto) 3.5 % (0.0-12.0); Neutrophils # (auto) 6.8 10 ^3/uL (1.6-8.6); Neutrophils % (auto) 86.7 % (37.0-80.0); Nucleated Red Blood Cells % 0.1 %; Red Blood Cells 4.35 10^6/uL (4.5-5.90); Red Cell Distribution Width 15.3 % (11.8-14.3); White Blood Cell 7.8 10^3/uL (4.4-10.8)
[2021-09-20 05:52] LABS: Albumin 3.1 g/dL (3.4-5.0); Calcium 8.1 mg/dL (8.5-10.1); Potassium 3.4 mmol/L (3.5-5.1)
[2021-09-20 05:56] LABS: BUN/Creatinine Ratio 38.2; Bilirubin, Total 2.4 mg/dL (0.2-1.0); Total Protein 5.9 g/dL (6.4-8.2)
[2021-09-20] MEDS: SALINE 0.65 % NASAL SPRAY 45ML BOTTLE EACHNOSTRI SCH ×4 (07:00→21:46)
[2021-09-20] MEDS: BUDESONIDE (INHALATION) 180 MCG IH IN SCH ×2 (07:15→18:58)
[2021-09-20] MEDS: FUROSEMIDE 40 MG/4 ML VIAL IV SCH (09:39)
[2021-09-20] MEDS: DexAMETHasone SOD PHOS 4 MG/1ML SDV INJ IV SCH ×2 (09:39→21:46)
[2021-09-20] MEDS: CHOLECALCIFEROL (VITD3) 2,000 UNIT CAP/TAB PO SCH (09:40)
[2021-09-20] MEDS: PANTOPRAZOLE 40 MG TAB PO SCH (09:40)
[2021-09-20] MEDS: APIXABAN 5 MG TAB PO SCH ×2 (09:40→21:46)
[2021-09-20] MEDS: SODIUM CHLOR 0.9% PF (SALINE LOCK) 10ML VIAL/SYR IV SCH ×2 (09:40→21:46)
[2021-09-20] MEDS: levoFLOXacin 500MG 100 ML IV SCH (09:42)
[2021-09-20] MEDS: ALBUTEROL SULF HFA 90MCG INH 200DOSE IN PRN (18:58)
[2021-09-21] VITALS (29 sets, daily range): BP systolic 25–125; BP diastolic 36–85
[2021-09-21] MEDS: SALINE 0.65 % NASAL SPRAY 45ML BOTTLE EACHNOSTRI SCH ×5 (06:00→22:00)
[2021-09-21] MEDS: ALBUTEROL SULF HFA 90MCG INH 200DOSE IN PRN ×2 (06:20→18:58)
[2021-09-21] MEDS: BUDESONIDE (INHALATION) 180 MCG IH IN SCH ×2 (06:20→18:58)
[2021-09-21] MEDS: DexAMETHasone SOD PHOS 4 MG/1ML SDV INJ IV SCH ×2 (08:27→21:59)
[2021-09-21] MEDS: FUROSEMIDE 40 MG/4 ML VIAL IV SCH (08:27)
[2021-09-21] MEDS: SODIUM CHLOR 0.9% PF (SALINE LOCK) 10ML VIAL/SYR IV SCH ×2 (08:28→21:59)
[2021-09-21] MEDS: levoFLOXacin 500MG 100 ML IV SCH (08:28)
[2021-09-21] MEDS: APIXABAN 5 MG TAB PO SCH ×2 (08:28→21:59)
[2021-09-21] MEDS: CHOLECALCIFEROL (VITD3) 2,000 UNIT CAP/TAB PO SCH (08:29)
[2021-09-21] MEDS: PANTOPRAZOLE 40 MG TAB PO SCH (08:29)
[2021-09-22] VITALS (26 sets, daily range): BP systolic 87–124; BP diastolic 45–88
[2021-09-22] MEDS: BUDESONIDE (INHALATION) 180 MCG IH IN SCH ×2 (05:43→22:15)
[2021-09-22] MEDS: ALBUTEROL SULF HFA 90MCG INH 200DOSE IN PRN ×2 (05:43→22:15)
[2021-09-22] MEDS: SALINE 0.65 % NASAL SPRAY 45ML BOTTLE EACHNOSTRI SCH ×4 (06:11→21:09)
[2021-09-22] MEDS: FUROSEMIDE 40 MG/4 ML VIAL IV SCH (10:34)
[2021-09-22] MEDS: CHOLECALCIFEROL (VITD3) 2,000 UNIT CAP/TAB PO SCH (10:35)
[2021-09-22] MEDS: DexAMETHasone SOD PHOS 4 MG/1ML SDV INJ IV SCH ×2 (10:35→21:09)
[2021-09-22] MEDS: APIXABAN 5 MG TAB PO SCH ×2 (10:35→21:09)
[2021-09-22] MEDS: SODIUM CHLOR 0.9% PF (SALINE LOCK) 10ML VIAL/SYR IV SCH ×2 (10:35→21:09)
[2021-09-22] MEDS: PANTOPRAZOLE 40 MG TAB PO SCH (10:35)
[2021-09-22] MEDS: levoFLOXacin 500MG 100 ML IV SCH (10:36)
[2021-09-22 11:02] LABS: Basophils # (auto) 0 10 ^3/uL (0-0.2); Basophils % (auto) 0.3 % (0.0-2.0); Eosinophils # (auto) 0 10 ^3/uL (0-0.8); Eosinophils % (auto) 0.1 % (0.0-7.0); Hematocrit 38.2 % (41.0-53.0); Hemoglobin 13.2 g/dL (13.5-17.5); Lymphocytes # (auto) 0.9 10 ^3/uL (0.4-5.4); Lymphocytes % (auto) 10.8 % (10.0-50.0); Mean Corpuscular Hemoglobin 31.9 pg (28.0-32.0); Mean Corpuscular Hgb Conc. 34.5 g/dL (32.0-36.0); Mean Corpuscular Volume 92.5 fL (80.0-100.0); Monocytes # (auto) 0.4 10 ^3/uL (0-1.3); Monocytes % (auto) 5.4 % (0.0-12.0); Neutrophils # (auto) 6.8 10 ^3/uL (1.6-8.6); Neutrophils % (auto) 83.4 % (37.0-80.0); Nucleated Red Blood Cells % 0.2 %; Red Blood Cells 4.13 10^6/uL (4.5-5.90); Red Cell Distribution Width 15.5 % (11.8-14.3); White Blood Cell 8.1 10^3/uL (4.4-10.8)
[2021-09-22 11:11] LABS: Albumin 3.1 g/dL (3.4-5.0); Calcium 8.1 mg/dL (8.5-10.1)
[2021-09-22 11:14] LABS: BUN/Creatinine Ratio 38.7; Bilirubin, Total 2.3 mg/dL (0.2-1.0); Total Protein 5.6 g/dL (6.4-8.2)
[2021-09-22] MEDS: POTASSIUM CHL 20MEQ/100ML 100 ML IV SCH ×5 (16:07→22:00)
[2021-09-22] MEDS ORDERED: Nepro With Carb Steady 1 Liter Bottle GT SCH (19:30)
[2021-09-22] MEDS ORDERED: BUMETANIDE 2.5mg/10ml (0.25 mg/ml) INJ IV ONE (19:30)
[2021-09-22] MEDS ORDERED: D5W 5% 1,000 ML IV SCH (19:30)
[2021-09-22] MEDS ORDERED: SODIUM ZIRCONIUM CYCL 10 GM PAK PO SCH (20:00)
[2021-09-23] VITALS (31 sets, daily range): BP systolic 83–132; BP diastolic 44–95
[2021-09-23 06:09] LABS: BUN/Creatinine Ratio 38.8; Calcium 8.2 mg/dL (8.5-10.1); Potassium 4.1 mmol/L (3.5-5.1)
[2021-09-23] MEDS: BUDESONIDE (INHALATION) 180 MCG IH IN SCH ×2 (07:52→22:00)
[2021-09-23] MEDS: ALBUTEROL SULF HFA 90MCG INH 200DOSE IN PRN ×2 (07:52→23:59)
[2021-09-23] MEDS: SALINE 0.65 % NASAL SPRAY 45ML BOTTLE EACHNOSTRI SCH ×4 (08:25→21:50)
[2021-09-23] MEDS: CHOLECALCIFEROL (VITD3) 2,000 UNIT CAP/TAB PO SCH (10:34)
[2021-09-23] MEDS: FUROSEMIDE 40 MG/4 ML VIAL IV SCH (10:34)
[2021-09-23] MEDS: DexAMETHasone SOD PHOS 4 MG/1ML SDV INJ IV SCH ×2 (10:34→21:50)
[2021-09-23] MEDS: levoFLOXacin 500MG 100 ML IV SCH (10:34)
[2021-09-23] MEDS: PANTOPRAZOLE 40 MG TAB PO SCH (10:35)
[2021-09-23] MEDS: APIXABAN 5 MG TAB PO SCH ×2 (10:35→21:50)
[2021-09-23] MEDS: SODIUM CHLOR 0.9% PF (SALINE LOCK) 10ML VIAL/SYR IV SCH ×2 (10:35→21:50)
[2021-09-24] VITALS (29 sets, daily range): BP systolic 93–123; BP diastolic 41–87
[2021-09-24] MEDS: SALINE 0.65 % NASAL SPRAY 45ML BOTTLE EACHNOSTRI SCH ×5 (06:00→22:00)
[2021-09-24] MEDS: CHOLECALCIFEROL (VITD3) 2,000 UNIT CAP/TAB PO SCH (10:03)
[2021-09-24] MEDS: DexAMETHasone SOD PHOS 4 MG/1ML SDV INJ IV SCH ×2 (10:03→20:59)
[2021-09-24] MEDS: levoFLOXacin 500MG 100 ML IV SCH (10:03)
[2021-09-24] MEDS: SODIUM CHLOR 0.9% PF (SALINE LOCK) 10ML VIAL/SYR IV SCH ×2 (10:04→20:59)
[2021-09-24] MEDS: PANTOPRAZOLE 40 MG TAB PO SCH (10:10)
[2021-09-24] MEDS: APIXABAN 5 MG TAB PO SCH ×2 (10:10→20:59)
[2021-09-24] MEDS: FUROSEMIDE 40 MG/4 ML VIAL IV SCH (10:14)
[2021-09-24] MEDS: BUDESONIDE (INHALATION) 180 MCG IH IN SCH ×2 (10:38→21:32)
[2021-09-24] MEDS: ALBUTEROL SULF HFA 90MCG INH 200DOSE IN PRN ×2 (10:38→21:32)
[2021-09-25] VITALS (23 sets, daily range): BP systolic 66–134; BP diastolic 37–91
[2021-09-25] MEDS: SALINE 0.65 % NASAL SPRAY 45ML BOTTLE EACHNOSTRI SCH ×4 (06:00→22:00)
[2021-09-25 06:04] LABS: Basophils # (auto) 0 10 ^3/uL (0-0.2); Basophils % (auto) 0.2 % (0.0-2.0); Eosinophils # (auto) 0 10 ^3/uL (0-0.8); Eosinophils % (auto) 0.1 % (0.0-7.0); Hematocrit 38.7 % (41.0-53.0); Hemoglobin 13.5 g/dL (13.5-17.5); Lymphocytes # (auto) 0.7 10 ^3/uL (0.4-5.4); Lymphocytes % (auto) 8.8 % (10.0-50.0); Mean Corpuscular Hemoglobin 32.3 pg (28.0-32.0); Mean Corpuscular Hgb Conc. 34.9 g/dL (32.0-36.0); Mean Corpuscular Volume 92.6 fL (80.0-100.0); Monocytes # (auto) 0.3 10 ^3/uL (0-1.3); Monocytes % (auto) 4.3 % (0.0-12.0); Neutrophils # (auto) 6.7 10 ^3/uL (1.6-8.6); Neutrophils % (auto) 86.6 % (37.0-80.0); Nucleated Red Blood Cells % 0.1 %; Red Blood Cells 4.18 10^6/uL (4.5-5.90); Red Cell Distribution Width 16.2 % (11.8-14.3); White Blood Cell 7.7 10^3/uL (4.4-10.8)
[2021-09-25 06:22] LABS: Calcium 8.5 mg/dL (8.5-10.1); Potassium 3.5 mmol/L (3.5-5.1)
[2021-09-25 06:24] LABS: BUN/Creatinine Ratio 37.3
[2021-09-25 06:27] LABS: Bilirubin, Total 2.1 mg/dL (0.2-1.0); Total Protein 5.7 g/dL (6.4-8.2)
[2021-09-25] MEDS: ALBUTEROL SULF HFA 90MCG INH 200DOSE IN PRN (07:00)
[2021-09-25] MEDS: BUDESONIDE (INHALATION) 180 MCG IH IN SCH ×3 (07:00→22:00)
[2021-09-25] MEDS: PANTOPRAZOLE 40 MG TAB PO SCH (09:52)
[2021-09-25] MEDS: FUROSEMIDE 40 MG/4 ML VIAL IV SCH (09:52)
[2021-09-25] MEDS: DexAMETHasone SOD PHOS 4 MG/1ML SDV INJ IV SCH ×2 (09:52→22:00)
[2021-09-25] MEDS: levoFLOXacin 500MG 100 ML IV SCH (09:52)
[2021-09-25] MEDS: APIXABAN 5 MG TAB PO SCH ×2 (09:53→22:00)
[2021-09-25] MEDS: SODIUM CHLOR 0.9% PF (SALINE LOCK) 10ML VIAL/SYR IV SCH ×2 (09:53→22:00)
[2021-09-25] MEDS: CHOLECALCIFEROL (VITD3) 2,000 UNIT CAP/TAB PO SCH (09:53)
[2021-09-25] MEDS ORDERED: POTASSIUM CHL 20 Meq TABLET PO ONE (11:00)
[2021-09-25] MEDS ORDERED: FUROSEMIDE 20 MG/2 ML VIAL IV ONE (11:00)
[2021-09-26] VITALS (29 sets, daily range): BP systolic 86–125; BP diastolic 56–87
[2021-09-26] MEDS: ALBUTEROL SULF HFA 90MCG INH 200DOSE IN PRN ×2 (06:54→22:22)
[2021-09-26] MEDS: BUDESONIDE (INHALATION) 180 MCG IH IN SCH ×2 (06:54→22:29)
[2021-09-26] MEDS: FUROSEMIDE 40 MG/4 ML VIAL IV SCH (09:09)
[2021-09-26] MEDS: PANTOPRAZOLE 40 MG TAB PO SCH (09:09)
[2021-09-26] MEDS: CHOLECALCIFEROL (VITD3) 2,000 UNIT CAP/TAB PO SCH (09:09)
[2021-09-26] MEDS: APIXABAN 5 MG TAB PO SCH ×2 (09:09→21:23)
[2021-09-26] MEDS: SODIUM CHLOR 0.9% PF (SALINE LOCK) 10ML VIAL/SYR IV SCH ×2 (09:09→21:23)
[2021-09-26] MEDS: DexAMETHasone SOD PHOS 4 MG/1ML SDV INJ IV SCH ×2 (09:09→21:23)
[2021-09-26] MEDS: levoFLOXacin 500MG 100 ML IV SCH (09:11)
[2021-09-26] MEDS: SALINE 0.65 % NASAL SPRAY 45ML BOTTLE EACHNOSTRI SCH ×3 (18:39→21:23)
[2021-09-26] MEDS: TEMAZEPAM 15 MG CAP PO PRN (21:32)
[2021-09-27] VITALS (30 sets, daily range): BP systolic 88–129; BP diastolic 55–93
[2021-09-27] MEDS: ALBUTEROL SULF HFA 90MCG INH 200DOSE IN PRN ×2 (07:58→22:27)
[2021-09-27] MEDS: BUDESONIDE (INHALATION) 180 MCG IH IN SCH ×2 (07:58→22:27)
[2021-09-27] MEDS: PANTOPRAZOLE 40 MG TAB PO SCH (09:19)
[2021-09-27] MEDS: DexAMETHasone SOD PHOS 4 MG/1ML SDV INJ IV SCH ×2 (09:19→22:00)
[2021-09-27] MEDS: APIXABAN 5 MG TAB PO SCH ×2 (09:19→22:00)
[2021-09-27] MEDS: CHOLECALCIFEROL (VITD3) 2,000 UNIT CAP/TAB PO SCH (09:19)
[2021-09-27] MEDS: levoFLOXacin 500MG 100 ML IV SCH (09:19)
[2021-09-27] MEDS: FUROSEMIDE 40 MG/4 ML VIAL IV SCH (09:19)
[2021-09-27] MEDS: SODIUM CHLOR 0.9% PF (SALINE LOCK) 10ML VIAL/SYR IV SCH ×2 (09:20→22:00)
[2021-09-27] MEDS: SALINE 0.65 % NASAL SPRAY 45ML BOTTLE EACHNOSTRI SCH ×3 (11:41→22:00)
[2021-09-27] MEDS: TEMAZEPAM 15 MG CAP PO PRN (21:30)
[2021-09-28] VITALS (30 sets, daily range): BP systolic 91–126; BP diastolic 49–102
[2021-09-28 05:12] LABS: Basophils # (auto) 0 10 ^3/uL (0-0.2); Basophils % (auto) 0.4 % (0.0-2.0); Eosinophils # (auto) 0 10 ^3/uL (0-0.8); Eosinophils % (auto) 0.1 % (0.0-7.0); Hematocrit 41.1 % (41.0-53.0); Hemoglobin 14.7 g/dL (13.5-17.5); Lymphocytes # (auto) 1.2 10 ^3/uL (0.4-5.4); Lymphocytes % (auto) 11.5 % (10.0-50.0); Mean Corpuscular Hemoglobin 32.5 pg (28.0-32.0); Mean Corpuscular Hgb Conc. 35.7 g/dL (32.0-36.0); Mean Corpuscular Volume 90.9 fL (80.0-100.0); Monocytes # (auto) 0.4 10 ^3/uL (0-1.3); Monocytes % (auto) 3.4 % (0.0-12.0); Neutrophils # (auto) 8.7 10 ^3/uL (1.6-8.6); Neutrophils % (auto) 84.6 % (37.0-80.0); Nucleated Red Blood Cells % 0.2 %; Red Blood Cells 4.52 10^6/uL (4.5-5.90); White Blood Cell 10.2 10^3/uL (4.4-10.8)
[2021-09-28 05:31] LABS: Potassium 3.2 mmol/L (3.5-5.1)
[2021-09-28 05:33] LABS: BUN/Creatinine Ratio 46.6; Calcium 8.5 mg/dL (8.5-10.1)
[2021-09-28 05:36] LABS: Albumin 3.3 g/dL (3.4-5.0); Total Protein 6.2 g/dL (6.4-8.2)
[2021-09-28] MEDS: SALINE 0.65 % NASAL SPRAY 45ML BOTTLE EACHNOSTRI SCH ×4 (06:14→21:38)
[2021-09-28] MEDS: FUROSEMIDE 40 MG/4 ML VIAL IV SCH (10:06)
[2021-09-28] MEDS: DexAMETHasone SOD PHOS 4 MG/1ML SDV INJ IV SCH ×2 (10:06→21:37)
[2021-09-28] MEDS: APIXABAN 5 MG TAB PO SCH ×2 (10:07→21:38)
[2021-09-28] MEDS: SODIUM CHLOR 0.9% PF (SALINE LOCK) 10ML VIAL/SYR IV SCH ×2 (10:07→21:37)
[2021-09-28] MEDS: PANTOPRAZOLE 40 MG TAB PO SCH (10:07)
[2021-09-28] MEDS: CHOLECALCIFEROL (VITD3) 2,000 UNIT CAP/TAB PO SCH (10:07)
[2021-09-28] MEDS: levoFLOXacin 500MG 100 ML IV SCH (10:07)
[2021-09-28] MEDS: BUDESONIDE (INHALATION) 180 MCG IH IN SCH ×2 (12:30→22:05)
[2021-09-28] MEDS: ALBUTEROL SULF HFA 90MCG INH 200DOSE IN PRN ×2 (12:31→22:05)
[2021-09-28] MEDS ORDERED: POTASSIUM CHL 20 Meq TABLET PO ONE (14:00)
[2021-09-28] MEDS: TEMAZEPAM 15 MG CAP PO PRN (22:49)
[2021-09-29] VITALS (30 sets, daily range): BP systolic 95–130; BP diastolic 53–92
[2021-09-29 05:22] LABS: Basophils # (auto) 0 10 ^3/uL (0-0.2); Basophils % (auto) 0.3 % (0.0-2.0); Eosinophils # (auto) 0 10 ^3/uL (0-0.8); Hematocrit 39.4 % (41.0-53.0); Hemoglobin 14.1 g/dL (13.5-17.5); Lymphocytes % (auto) 10.8 % (10.0-50.0); Mean Corpuscular Hemoglobin 32.6 pg (28.0-32.0); Mean Corpuscular Hgb Conc. 35.7 g/dL (32.0-36.0); Mean Corpuscular Volume 91.5 fL (80.0-100.0); Monocytes # (auto) 0.2 10 ^3/uL (0-1.3); Monocytes % (auto) 2.7 % (0.0-12.0); Neutrophils # (auto) 7.8 10 ^3/uL (1.6-8.6); Neutrophils % (auto) 86.2 % (37.0-80.0); Nucleated Red Blood Cells % 0.2 %; Red Blood Cells 4.31 10^6/uL (4.5-5.90); Red Cell Distribution Width 16.3 % (11.8-14.3)
[2021-09-29 05:40] LABS: Potassium 3.5 mmol/L (3.5-5.1)
[2021-09-29 05:47] LABS: Albumin 3.2 g/dL (3.4-5.0); BUN/Creatinine Ratio 46.3; Calcium 8.1 mg/dL (8.5-10.1)
[2021-09-29 05:49] LABS: Bilirubin, Total 2.3 mg/dL (0.2-1.0); Total Protein 5.9 g/dL (6.4-8.2)
[2021-09-29] MEDS: SALINE 0.65 % NASAL SPRAY 45ML BOTTLE EACHNOSTRI SCH ×4 (06:00→21:30)
[2021-09-29] MEDS: ALBUTEROL SULF HFA 90MCG INH 200DOSE IN PRN ×2 (06:32→22:39)
[2021-09-29] MEDS: BUDESONIDE (INHALATION) 180 MCG IH IN SCH ×2 (06:32→22:00)
[2021-09-29] MEDS: CHOLECALCIFEROL (VITD3) 2,000 UNIT CAP/TAB PO SCH (10:11)
[2021-09-29] MEDS: SODIUM CHLOR 0.9% PF (SALINE LOCK) 10ML VIAL/SYR IV SCH ×2 (10:11→21:30)
[2021-09-29] MEDS: APIXABAN 5 MG TAB PO SCH ×2 (10:11→21:30)
[2021-09-29] MEDS: PANTOPRAZOLE 40 MG TAB PO SCH (10:11)
[2021-09-29] MEDS: FUROSEMIDE 40 MG/4 ML VIAL IV SCH (10:12)
[2021-09-29] MEDS: DexAMETHasone SOD PHOS 4 MG/1ML SDV INJ IV SCH ×2 (10:12→21:30)
[2021-09-29] MEDS: levoFLOXacin 500MG 100 ML IV SCH (10:12)
[2021-09-30] VITALS (30 sets, daily range): BP systolic 89–116; BP diastolic 43–80
[2021-09-30] MEDS: SALINE 0.65 % NASAL SPRAY 45ML BOTTLE EACHNOSTRI SCH ×3 (06:00→18:00)
[2021-09-30 06:05] LABS: Basophils # (auto) 0.1 10 ^3/uL (0-0.2); Basophils % (auto) 0.7 % (0.0-2.0); Eosinophils # (auto) 0 10 ^3/uL (0-0.8); Eosinophils % (auto) 0.1 % (0.0-7.0); Hemoglobin 13.5 g/dL (13.5-17.5); Lymphocytes # (auto) 0.9 10 ^3/uL (0.4-5.4); Lymphocytes % (auto) 10.4 % (10.0-50.0); Mean Corpuscular Hemoglobin 32.5 pg (28.0-32.0); Mean Corpuscular Hgb Conc. 35.5 g/dL (32.0-36.0); Mean Corpuscular Volume 91.4 fL (80.0-100.0); Monocytes # (auto) 0.3 10 ^3/uL (0-1.3); Monocytes % (auto) 3.4 % (0.0-12.0); Neutrophils # (auto) 7.3 10 ^3/uL (1.6-8.6); Neutrophils % (auto) 85.4 % (37.0-80.0); Red Blood Cells 4.15 10^6/uL (4.5-5.90); Red Cell Distribution Width 16.4 % (11.8-14.3); White Blood Cell 8.6 10^3/uL (4.4-10.8)
[2021-09-30 06:27] LABS: Potassium 3.3 mmol/L (3.5-5.1)
[2021-09-30 06:35] LABS: Albumin 3.2 g/dL (3.4-5.0); BUN/Creatinine Ratio 53.3; Calcium 8.3 mg/dL (8.5-10.1)
[2021-09-30 06:38] LABS: Bilirubin, Total 2.3 mg/dL (0.2-1.0); Total Protein 5.8 g/dL (6.4-8.2)
[2021-09-30] MEDS: BUDESONIDE (INHALATION) 180 MCG IH IN SCH ×2 (07:28→21:55)
[2021-09-30] MEDS: ALBUTEROL SULF HFA 90MCG INH 200DOSE IN PRN (07:28)
[2021-09-30] MEDS: APIXABAN 5 MG TAB PO SCH ×2 (09:15→21:56)
[2021-09-30] MEDS: DexAMETHasone SOD PHOS 4 MG/1ML SDV INJ IV SCH ×2 (09:15→21:56)
[2021-09-30] MEDS: FUROSEMIDE 40 MG/4 ML VIAL IV SCH (09:15)
[2021-09-30] MEDS: CHOLECALCIFEROL (VITD3) 2,000 UNIT CAP/TAB PO SCH (09:16)
[2021-09-30] MEDS: SODIUM CHLOR 0.9% PF (SALINE LOCK) 10ML VIAL/SYR IV SCH ×2 (09:16→21:56)
[2021-09-30] MEDS: PANTOPRAZOLE 40 MG TAB PO SCH (09:16)
[2021-09-30] MEDS ORDERED: FUROSEMIDE 20 MG/2 ML VIAL IV ONE (13:30)
[2021-09-30] MEDS ORDERED: POTASSIUM CHL 20 Meq TABLET PO ONE (13:30)
[2021-10-01] VITALS (29 sets, daily range): BP systolic 89–125; BP diastolic 46–93
[2021-10-01] MEDS: SALINE 0.65 % NASAL SPRAY 45ML BOTTLE EACHNOSTRI SCH ×5 (06:00→21:46)
[2021-10-01] MEDS: ALBUTEROL SULF HFA 90MCG INH 200DOSE IN PRN ×2 (07:27→15:05)
[2021-10-01] MEDS: BUDESONIDE (INHALATION) 180 MCG IH IN SCH ×2 (07:27→23:30)
[2021-10-01 08:44] LABS: Potassium 3.5 mmol/L (3.5-5.1)
[2021-10-01 08:51] LABS: BUN/Creatinine Ratio 43.9; Calcium 8.5 mg/dL (8.5-10.1)
[2021-10-01] MEDS: PANTOPRAZOLE 40 MG TAB PO SCH (09:46)
[2021-10-01] MEDS: SODIUM CHLOR 0.9% PF (SALINE LOCK) 10ML VIAL/SYR IV SCH ×2 (09:46→22:00)
[2021-10-01] MEDS: FUROSEMIDE 40 MG/4 ML VIAL IV SCH (09:46)
[2021-10-01] MEDS: DexAMETHasone SOD PHOS 4 MG/1ML SDV INJ IV SCH ×2 (09:47→21:45)
[2021-10-01] MEDS: CHOLECALCIFEROL (VITD3) 2,000 UNIT CAP/TAB PO SCH (09:47)
[2021-10-01] MEDS: APIXABAN 5 MG TAB PO SCH ×2 (09:48→21:45)
[2021-10-01] MEDS ORDERED: FUROSEMIDE 20 MG/2 ML VIAL IV ONE (12:30)
[2021-10-01] MEDS ORDERED: POTASSIUM CHL 20 Meq TABLET PO ONE (12:30)
[2021-10-02] VITALS (26 sets, daily range): BP systolic 92–122; BP diastolic 56–90
[2021-10-02] MEDS: ALBUTEROL SULF HFA 90MCG INH 200DOSE IN PRN ×3 (00:19→22:22)
[2021-10-02] MEDS: SALINE 0.65 % NASAL SPRAY 45ML BOTTLE EACHNOSTRI SCH ×4 (06:00→21:11)
[2021-10-02] MEDS: BUDESONIDE (INHALATION) 180 MCG IH IN SCH ×2 (06:11→22:00)
[2021-10-02] MEDS: DexAMETHasone SOD PHOS 4 MG/1ML SDV INJ IV SCH ×2 (10:40→21:11)
[2021-10-02] MEDS: FUROSEMIDE 40 MG/4 ML VIAL IV SCH (10:42)
[2021-10-02] MEDS: APIXABAN 5 MG TAB PO SCH ×2 (10:44→21:12)
[2021-10-02] MEDS: SODIUM CHLOR 0.9% PF (SALINE LOCK) 10ML VIAL/SYR IV SCH ×2 (10:44→21:11)
[2021-10-02] MEDS: PANTOPRAZOLE 40 MG TAB PO SCH (10:45)
[2021-10-02] MEDS: CHOLECALCIFEROL (VITD3) 2,000 UNIT CAP/TAB PO SCH (10:45)
[2021-10-02] MEDS ORDERED: FUROSEMIDE 20 MG/2 ML VIAL IV ONE (12:00)
[2021-10-02] MEDS ORDERED: POTASSIUM CHL 20 Meq TABLET PO ONE (12:00)
[2021-10-03] VITALS (24 sets, daily range): BP systolic 87–137; BP diastolic 50–98
[2021-10-03 05:29] LABS: Basophils # (auto) 0 10 ^3/uL (0-0.2); Basophils % (auto) 0.2 % (0.0-2.0); Eosinophils # (auto) 0 10 ^3/uL (0-0.8); Hemoglobin 14.5 g/dL (13.5-17.5); Lymphocytes # (auto) 1.4 10 ^3/uL (0.4-5.4); Lymphocytes % (auto) 13.5 % (10.0-50.0); Mean Corpuscular Hemoglobin 32.9 pg (28.0-32.0); Mean Corpuscular Hgb Conc. 35.5 g/dL (32.0-36.0); Mean Corpuscular Volume 92.8 fL (80.0-100.0); Monocytes # (auto) 0.4 10 ^3/uL (0-1.3); Monocytes % (auto) 3.6 % (0.0-12.0); Neutrophils # (auto) 8.5 10 ^3/uL (1.6-8.6); Neutrophils % (auto) 82.7 % (37.0-80.0); Nucleated Red Blood Cells % 0.1 %; Red Blood Cells 4.42 10^6/uL (4.5-5.90); Red Cell Distribution Width 16.4 % (11.8-14.3); White Blood Cell 10.3 10^3/uL (4.4-10.8)
[2021-10-03] MEDS: SALINE 0.65 % NASAL SPRAY 45ML BOTTLE EACHNOSTRI SCH ×4 (05:41→21:14)
[2021-10-03 05:43] LABS: Calcium 9.1 mg/dL (8.5-10.1); Potassium 3.3 mmol/L (3.5-5.1)
[2021-10-03 05:46] LABS: BUN/Creatinine Ratio 47.1
[2021-10-03] MEDS: DexAMETHasone SOD PHOS 4 MG/1ML SDV INJ IV SCH ×2 (09:48→21:14)
[2021-10-03] MEDS: FUROSEMIDE 40 MG/4 ML VIAL IV SCH (09:49)
[2021-10-03] MEDS: PANTOPRAZOLE 40 MG TAB PO SCH (09:49)
[2021-10-03] MEDS: SODIUM CHLOR 0.9% PF (SALINE LOCK) 10ML VIAL/SYR IV SCH ×2 (09:49→21:14)
[2021-10-03] MEDS: CHOLECALCIFEROL (VITD3) 2,000 UNIT CAP/TAB PO SCH (09:49)
[2021-10-03] MEDS: APIXABAN 5 MG TAB PO SCH ×2 (09:49→21:15)
[2021-10-03] MEDS: BUDESONIDE (INHALATION) 180 MCG IH IN SCH ×2 (11:05→22:15)
[2021-10-03] MEDS: ALBUTEROL SULF HFA 90MCG INH 200DOSE IN PRN ×2 (11:05→22:15)
[2021-10-03] MEDS ORDERED: POTASSIUM CHL 20 Meq TABLET PO ONE (13:00)
[2021-10-03] MEDS ORDERED: FUROSEMIDE 20 MG/2 ML VIAL IV ONE (13:00)
[2021-10-04] VITALS (23 sets, daily range): BP systolic 95–122; BP diastolic 60–88
[2021-10-04] MEDS: SALINE 0.65 % NASAL SPRAY 45ML BOTTLE EACHNOSTRI SCH ×4 (05:37→21:12)
[2021-10-04] MEDS: SODIUM CHLOR 0.9% PF (SALINE LOCK) 10ML VIAL/SYR IV SCH ×2 (10:00→21:13)
[2021-10-04] MEDS: BUDESONIDE (INHALATION) 180 MCG IH IN SCH ×2 (10:00→18:29)
[2021-10-04] MEDS: ALBUTEROL SULF HFA 90MCG INH 200DOSE IN PRN ×2 (10:35→18:29)
[2021-10-04] MEDS: FUROSEMIDE 40 MG/4 ML VIAL IV SCH (11:03)
[2021-10-04] MEDS: PANTOPRAZOLE 40 MG TAB PO SCH (11:03)
[2021-10-04] MEDS: CHOLECALCIFEROL (VITD3) 2,000 UNIT CAP/TAB PO SCH (11:03)
[2021-10-04] MEDS: DexAMETHasone SOD PHOS 4 MG/1ML SDV INJ IV SCH ×2 (11:03→21:12)
[2021-10-04] MEDS: APIXABAN 5 MG TAB PO SCH ×2 (11:10→21:13)
[2021-10-04] MEDS ORDERED: POTASSIUM CHL 20 Meq TABLET PO ONE (13:00)
[2021-10-04] MEDS ORDERED: FUROSEMIDE 20 MG/2 ML VIAL IV ONE (13:00)
[2021-10-05] VITALS (18 sets, daily range): BP systolic 92–135; BP diastolic 62–102
[2021-10-05 05:08] LABS: BUN/Creatinine Ratio 46.3
[2021-10-05] MEDS: SALINE 0.65 % NASAL SPRAY 45ML BOTTLE EACHNOSTRI SCH ×4 (05:43→22:43)
[2021-10-05] MEDS: ALBUTEROL SULF HFA 90MCG INH 200DOSE IN PRN (09:39)
[2021-10-05] MEDS: BUDESONIDE (INHALATION) 180 MCG IH IN SCH ×2 (09:40→22:00)
[2021-10-05] MEDS: FUROSEMIDE 40 MG/4 ML VIAL IV SCH (10:15)
[2021-10-05] MEDS: SODIUM CHLOR 0.9% PF (SALINE LOCK) 10ML VIAL/SYR IV SCH ×2 (10:15→22:43)
[2021-10-05] MEDS: CHOLECALCIFEROL (VITD3) 2,000 UNIT CAP/TAB PO SCH (10:16)
[2021-10-05] MEDS: APIXABAN 5 MG TAB PO SCH ×2 (10:16→22:45)
[2021-10-05] MEDS: PANTOPRAZOLE 40 MG TAB PO SCH (10:16)
[2021-10-05] MEDS: DexAMETHasone SOD PHOS 4 MG/1ML SDV INJ IV SCH (10:18)
[2021-10-05] MEDS ORDERED: ARTIFICIAL TEARS 15ml EACHEYE ONE (11:30)
[2021-10-06] VITALS (23 sets, daily range): BP systolic 91–130; BP diastolic 62–90
[2021-10-06] MEDS: SALINE 0.65 % NASAL SPRAY 45ML BOTTLE EACHNOSTRI SCH ×4 (06:02→21:49)
[2021-10-06] MEDS: FUROSEMIDE 40 MG/4 ML VIAL IV SCH (10:14)
[2021-10-06] MEDS: APIXABAN 5 MG TAB PO SCH ×2 (10:15→21:50)
[2021-10-06] MEDS: PANTOPRAZOLE 40 MG TAB PO SCH (10:15)
[2021-10-06] MEDS: SODIUM CHLOR 0.9% PF (SALINE LOCK) 10ML VIAL/SYR IV SCH ×2 (10:15→21:49)
[2021-10-06] MEDS: DexAMETHasone SOD PHOS 10MG/1ML VIAL INJ IV SCH (10:16)
[2021-10-06] MEDS: CHOLECALCIFEROL (VITD3) 2,000 UNIT CAP/TAB PO SCH (10:16)
[2021-10-06] MEDS: BUDESONIDE (INHALATION) 180 MCG IH IN SCH (22:50)
[2021-10-06] MEDS: ALBUTEROL SULF HFA 90MCG INH 200DOSE IN PRN (22:50)
[2021-10-07] VITALS (24 sets, daily range): BP systolic 91–133; BP diastolic 62–91
[2021-10-07 05:46] LABS: Basophils # (auto) 0 10 ^3/uL (0-0.2); Basophils % (auto) 0.1 % (0.0-2.0); Eosinophils # (auto) 0 10 ^3/uL (0-0.8); Eosinophils % (auto) 0.2 % (0.0-7.0); Hematocrit 39.6 % (41.0-53.0); Hemoglobin 13.7 g/dL (13.5-17.5); Lymphocytes # (auto) 1.8 10 ^3/uL (0.4-5.4); Lymphocytes % (auto) 17.3 % (10.0-50.0); Mean Corpuscular Hemoglobin 32.3 pg (28.0-32.0); Mean Corpuscular Hgb Conc. 34.5 g/dL (32.0-36.0); Mean Corpuscular Volume 93.5 fL (80.0-100.0); Monocytes # (auto) 0.4 10 ^3/uL (0-1.3); Monocytes % (auto) 4.4 % (0.0-12.0); Neutrophils # (auto) 7.9 10 ^3/uL (1.6-8.6); Nucleated Red Blood Cells % 0.1 %; Red Blood Cells 4.23 10^6/uL (4.5-5.90); Red Cell Distribution Width 16.5 % (11.8-14.3); White Blood Cell 10.1 10^3/uL (4.4-10.8)
[2021-10-07 06:07] LABS: Albumin 3.3 g/dL (3.4-5.0); BUN/Creatinine Ratio 45.9; Calcium 8.6 mg/dL (8.5-10.1)
[2021-10-07 06:09] LABS: Bilirubin, Total 2.4 mg/dL (0.2-1.0); Total Protein 5.8 g/dL (6.4-8.2)
[2021-10-07] MEDS: SALINE 0.65 % NASAL SPRAY 45ML BOTTLE EACHNOSTRI SCH ×4 (06:35→20:54)
[2021-10-07] MEDS: BUDESONIDE (INHALATION) 180 MCG IH IN SCH (10:00)
[2021-10-07] MEDS: DexAMETHasone SOD PHOS 10MG/1ML VIAL INJ IV SCH (10:01)
[2021-10-07] MEDS: FUROSEMIDE 40 MG/4 ML VIAL IV SCH (10:01)
[2021-10-07] MEDS: APIXABAN 5 MG TAB PO SCH ×2 (10:02→20:54)
[2021-10-07] MEDS: PANTOPRAZOLE 40 MG TAB PO SCH (10:02)
[2021-10-07] MEDS: SODIUM CHLOR 0.9% PF (SALINE LOCK) 10ML VIAL/SYR IV SCH ×2 (10:02→20:54)
[2021-10-07] MEDS: CHOLECALCIFEROL (VITD3) 2,000 UNIT CAP/TAB PO SCH (10:02)
[2021-10-07] MEDS ORDERED: POTASSIUM CHL 20 Meq TABLET PO ONE (12:00)
[2021-10-07] MEDS ORDERED: FUROSEMIDE 20 MG/2 ML VIAL IV ONE (12:00)
[2021-10-07] MEDS: ALBUTEROL SULF HFA 90MCG INH 200DOSE IN PRN (18:06)
[2021-10-07] MEDS: TEMAZEPAM 15 MG CAP PO PRN (20:54)
[2021-10-08] VITALS (23 sets, daily range): BP systolic 86–146; BP diastolic 62–99
[2021-10-08] MEDS: SALINE 0.65 % NASAL SPRAY 45ML BOTTLE EACHNOSTRI SCH ×4 (05:41→21:33)
[2021-10-08 06:32] LABS: BUN/Creatinine Ratio 51.8; Calcium 8.9 mg/dL (8.5-10.1)
[2021-10-08 08:33] LABS: Potassium 2.9 mmol/L (3.5-5.1)
[2021-10-08] MEDS: BUDESONIDE (INHALATION) 180 MCG IH IN SCH ×2 (10:55→21:16)
[2021-10-08] MEDS: ALBUTEROL SULF HFA 90MCG INH 200DOSE IN PRN ×3 (10:59→21:16)
[2021-10-08] MEDS: FUROSEMIDE 40 MG/4 ML VIAL IV SCH (13:25)
[2021-10-08] MEDS: DexAMETHasone SOD PHOS 10MG/1ML VIAL INJ IV SCH (13:25)
[2021-10-08] MEDS: APIXABAN 5 MG TAB PO SCH ×2 (13:26→21:33)
[2021-10-08] MEDS: SODIUM CHLOR 0.9% PF (SALINE LOCK) 10ML VIAL/SYR IV SCH ×2 (13:26→21:33)
[2021-10-08] MEDS: POTASSIUM CHL 20 Meq TABLET PO SCH (13:26)
[2021-10-08] MEDS: CHOLECALCIFEROL (VITD3) 2,000 UNIT CAP/TAB PO SCH (13:26)
[2021-10-08] MEDS: PANTOPRAZOLE 40 MG TAB PO SCH (13:26)
[2021-10-08] MEDS: TEMAZEPAM 15 MG CAP PO PRN (21:34)
[2021-10-09] VITALS (22 sets, daily range): BP systolic 90–126; BP diastolic 56–91
[2021-10-09 05:41] LABS: Potassium 3.1 mmol/L (3.5-5.1)
[2021-10-09 05:45] LABS: BUN/Creatinine Ratio 51.6; Calcium 8.7 mg/dL (8.5-10.1); Magnesium 2.6 mg/dL (1.6-2.6)
[2021-10-09] MEDS: SALINE 0.65 % NASAL SPRAY 45ML BOTTLE EACHNOSTRI SCH ×4 (05:56→20:24)
[2021-10-09] MEDS: ALBUTEROL SULF HFA 90MCG INH 200DOSE IN PRN ×3 (06:22→21:31)
[2021-10-09] MEDS: FUROSEMIDE 40 MG/4 ML VIAL IV SCH (09:09)
[2021-10-09] MEDS: DexAMETHasone SOD PHOS 10MG/1ML VIAL INJ IV SCH (09:09)
[2021-10-09] MEDS: APIXABAN 5 MG TAB PO SCH ×2 (09:10→20:25)
[2021-10-09] MEDS: PANTOPRAZOLE 40 MG TAB PO SCH (09:10)
[2021-10-09] MEDS: CHOLECALCIFEROL (VITD3) 2,000 UNIT CAP/TAB PO SCH (09:10)
[2021-10-09] MEDS: POTASSIUM CHL 20 Meq TABLET PO SCH (09:10)
[2021-10-09] MEDS: SODIUM CHLOR 0.9% PF (SALINE LOCK) 10ML VIAL/SYR IV SCH ×2 (09:10→20:25)
[2021-10-09] MEDS ORDERED: POTASSIUM CHL 20 Meq TABLET PO ONE (13:00)
[2021-10-09] MEDS: BUDESONIDE (INHALATION) 180 MCG IH IN SCH ×2 (21:30→22:00)
[2021-10-10] VITALS (22 sets, daily range): BP systolic 95–132; BP diastolic 55–94
[2021-10-10 05:45] LABS: Calcium 8.7 mg/dL (8.5-10.1)
[2021-10-10 05:46] LABS: BUN/Creatinine Ratio 43.9
[2021-10-10] MEDS: SALINE 0.65 % NASAL SPRAY 45ML BOTTLE EACHNOSTRI SCH ×4 (06:00→22:00)
[2021-10-10] MEDS: DexAMETHasone SOD PHOS 10MG/1ML VIAL INJ IV SCH ×2 (09:47→09:50)
[2021-10-10] MEDS: POTASSIUM CHL 20 Meq TABLET PO SCH (09:49)
[2021-10-10] MEDS: CHOLECALCIFEROL (VITD3) 2,000 UNIT CAP/TAB PO SCH (09:49)
[2021-10-10] MEDS: PANTOPRAZOLE 40 MG TAB PO SCH (09:49)
[2021-10-10] MEDS: APIXABAN 5 MG TAB PO SCH ×2 (09:49→09:50)
[2021-10-10] MEDS: ARTIFICIAL TEARS 15ml EACHEYE PRN (09:50)
[2021-10-10] MEDS: SODIUM CHLOR 0.9% PF (SALINE LOCK) 10ML VIAL/SYR IV SCH ×2 (09:52→22:00)
[2021-10-10] MEDS: FUROSEMIDE 40 MG/4 ML VIAL IV SCH (09:52)
[2021-10-10] MEDS: BUDESONIDE (INHALATION) 180 MCG IH IN SCH ×2 (10:05→20:11)
[2021-10-10] MEDS ORDERED: FUROSEMIDE 20 MG/2 ML VIAL IV ONE (11:00)
[2021-10-10] MEDS ORDERED: POTASSIUM CHL 20 Meq TABLET PO ONE (11:00)
[2021-10-10] MEDS: ALBUTEROL SULF HFA 90MCG INH 200DOSE IN PRN (20:10)
[2021-10-11] VITALS (24 sets, daily range): BP systolic 98–128; BP diastolic 56–94
[2021-10-11 04:04] LABS: Basophils # (auto) 0.1 10 ^3/uL (0-0.2); Basophils % (auto) 0.7 % (0.0-2.0); Eosinophils # (auto) 0 10 ^3/uL (0-0.8); Eosinophils % (auto) 0.3 % (0.0-7.0); Hemoglobin 13.3 g/dL (13.5-17.5); Lymphocytes % (auto) 23.1 % (10.0-50.0); Mean Corpuscular Hemoglobin 33.5 pg (28.0-32.0); Mean Corpuscular Hgb Conc. 35.9 g/dL (32.0-36.0); Mean Corpuscular Volume 93.5 fL (80.0-100.0); Monocytes # (auto) 0.5 10 ^3/uL (0-1.3); Monocytes % (auto) 5.2 % (0.0-12.0); Neutrophils # (auto) 6.1 10 ^3/uL (1.6-8.6); Neutrophils % (auto) 70.7 % (37.0-80.0); Nucleated Red Blood Cells % 0.2 %; Red Blood Cells 3.96 10^6/uL (4.5-5.90); Red Cell Distribution Width 16.5 % (11.8-14.3); White Blood Cell 8.6 10^3/uL (4.4-10.8)
[2021-10-11 04:29] LABS: Calcium 8.5 mg/dL (8.5-10.1); Potassium 4.1 mmol/L (3.5-5.1)
[2021-10-11 04:30] LABS: BUN/Creatinine Ratio 59.5
[2021-10-11] MEDS: SALINE 0.65 % NASAL SPRAY 45ML BOTTLE EACHNOSTRI SCH ×4 (06:00→23:24)
[2021-10-11] MEDS: DexAMETHasone SOD PHOS 10MG/1ML VIAL INJ IV SCH (09:46)
[2021-10-11] MEDS: SODIUM CHLOR 0.9% PF (SALINE LOCK) 10ML VIAL/SYR IV SCH ×2 (09:46→23:24)
[2021-10-11] MEDS: FUROSEMIDE 40 MG/4 ML VIAL IV SCH (09:46)
[2021-10-11] MEDS: PANTOPRAZOLE 40 MG TAB PO SCH (09:47)
[2021-10-11] MEDS: APIXABAN 5 MG TAB PO SCH ×2 (09:47→23:24)
[2021-10-11] MEDS: CHOLECALCIFEROL (VITD3) 2,000 UNIT CAP/TAB PO SCH (09:47)
[2021-10-11] MEDS: POTASSIUM CHL 20 Meq TABLET PO SCH (09:47)
[2021-10-11] MEDS: BUDESONIDE (INHALATION) 180 MCG IH IN SCH ×2 (10:22→22:00)
[2021-10-12] VITALS (24 sets, daily range): BP systolic 92–145; BP diastolic 54–96
[2021-10-12] MEDS: ALBUTEROL SULF HFA 90MCG INH 200DOSE IN PRN ×3 (03:03→21:40)
[2021-10-12 05:06] LABS: Basophils # (auto) 0 10 ^3/uL (0-0.2); Basophils % (auto) 0.4 % (0.0-2.0); Eosinophils # (auto) 0 10 ^3/uL (0-0.8); Eosinophils % (auto) 0.2 % (0.0-7.0); Hemoglobin 13.4 g/dL (13.5-17.5); Lymphocytes # (auto) 1.5 10 ^3/uL (0.4-5.4); Lymphocytes % (auto) 18.4 % (10.0-50.0); Mean Corpuscular Hemoglobin 32.8 pg (28.0-32.0); Mean Corpuscular Hgb Conc. 35.3 g/dL (32.0-36.0); Mean Corpuscular Volume 92.9 fL (80.0-100.0); Monocytes # (auto) 0.3 10 ^3/uL (0-1.3); Neutrophils # (auto) 6.4 10 ^3/uL (1.6-8.6); Nucleated Red Blood Cells % 0.1 %; Red Blood Cells 4.09 10^6/uL (4.5-5.90); Red Cell Distribution Width 16.9 % (11.8-14.3); White Blood Cell 8.2 10^3/uL (4.4-10.8)
[2021-10-12 05:24] LABS: Calcium 8.9 mg/dL (8.5-10.1); Potassium 3.9 mmol/L (3.5-5.1)
[2021-10-12] MEDS: BUDESONIDE (INHALATION) 180 MCG IH IN SCH ×2 (06:54→21:40)
[2021-10-12] MEDS: SALINE 0.65 % NASAL SPRAY 45ML BOTTLE EACHNOSTRI SCH ×4 (07:29→22:00)
[2021-10-12] MEDS: POTASSIUM CHL 20 Meq TABLET PO SCH (10:00)
[2021-10-12] MEDS: FUROSEMIDE 40 MG/4 ML VIAL IV SCH (10:00)
[2021-10-12] MEDS: SODIUM CHLOR 0.9% PF (SALINE LOCK) 10ML VIAL/SYR IV SCH ×2 (10:17→22:00)
[2021-10-12] MEDS: DexAMETHasone SOD PHOS 10MG/1ML VIAL INJ IV SCH (10:17)
[2021-10-12] MEDS: PANTOPRAZOLE 40 MG TAB PO SCH (10:18)
[2021-10-12] MEDS: CHOLECALCIFEROL (VITD3) 2,000 UNIT CAP/TAB PO SCH (10:18)
[2021-10-12] MEDS: APIXABAN 5 MG TAB PO SCH ×2 (10:18→22:00)
[2021-10-13] VITALS (21 sets, daily range): BP systolic 93–143; BP diastolic 45–93
[2021-10-13] MEDS: SALINE 0.65 % NASAL SPRAY 45ML BOTTLE EACHNOSTRI SCH ×4 (06:00→22:00)
[2021-10-13 08:08] LABS: Basophils # (auto) 0 10 ^3/uL (0-0.2); Basophils % (auto) 0.3 % (0.0-2.0); Eosinophils # (auto) 0 10 ^3/uL (0-0.8); Eosinophils % (auto) 0.4 % (0.0-7.0); Hemoglobin 12.5 g/dL (13.5-17.5); Lymphocytes # (auto) 1.8 10 ^3/uL (0.4-5.4); Lymphocytes % (auto) 22.8 % (10.0-50.0); Mean Corpuscular Hemoglobin 33.1 pg (28.0-32.0); Mean Corpuscular Hgb Conc. 35.8 g/dL (32.0-36.0); Mean Corpuscular Volume 92.5 fL (80.0-100.0); Monocytes # (auto) 0.4 10 ^3/uL (0-1.3); Monocytes % (auto) 4.4 % (0.0-12.0); Neutrophils # (auto) 5.7 10 ^3/uL (1.6-8.6); Neutrophils % (auto) 72.1 % (37.0-80.0); Nucleated Red Blood Cells % 0.1 %; Red Blood Cells 3.78 10^6/uL (4.5-5.90); Red Cell Distribution Width 16.6 % (11.8-14.3); White Blood Cell 7.9 10^3/uL (4.4-10.8)
[2021-10-13 08:24] LABS: BUN/Creatinine Ratio 43.9; Calcium 8.4 mg/dL (8.5-10.1); Potassium 3.9 mmol/L (3.5-5.1)
[2021-10-13] MEDS: POTASSIUM CHL 20 Meq TABLET PO SCH (10:00)
[2021-10-13] MEDS: FUROSEMIDE 40 MG/4 ML VIAL IV SCH (10:00)
[2021-10-13] MEDS ORDERED: SODIUM CHLORIDE 0.9% 1,000 ML IV ONE (10:00)
[2021-10-13] MEDS: PANTOPRAZOLE 40 MG TAB PO SCH (10:11)
[2021-10-13] MEDS: SODIUM CHLOR 0.9% PF (SALINE LOCK) 10ML VIAL/SYR IV SCH ×2 (10:11→22:00)
[2021-10-13] MEDS: DexAMETHasone SOD PHOS 10MG/1ML VIAL INJ IV SCH (10:11)
[2021-10-13] MEDS: APIXABAN 5 MG TAB PO SCH ×2 (10:11→22:00)
[2021-10-13] MEDS: CHOLECALCIFEROL (VITD3) 2,000 UNIT CAP/TAB PO SCH (10:11)
[2021-10-13] MEDS: BUDESONIDE (INHALATION) 180 MCG IH IN SCH ×2 (10:40→21:07)
[2021-10-13] MEDS: MECLIZINE HCL 25 MG TAB PO PRN (11:35)
[2021-10-13] MEDS: ALBUTEROL SULF HFA 90MCG INH 200DOSE IN PRN (21:06)
[2021-10-14] VITALS (21 sets, daily range): BP systolic 86–150; BP diastolic 45–89
[2021-10-14] MEDS: SALINE 0.65 % NASAL SPRAY 45ML BOTTLE EACHNOSTRI SCH ×4 (06:00→22:09)
[2021-10-14] MEDS: ALBUTEROL SULF HFA 90MCG INH 200DOSE IN PRN ×3 (06:26→21:29)
[2021-10-14] MEDS: BUDESONIDE (INHALATION) 180 MCG IH IN SCH ×2 (06:26→21:29)
[2021-10-14 08:10] LABS: Basophils # (auto) 0.1 10 ^3/uL (0-0.2); Basophils % (auto) 0.7 % (0.0-2.0); Eosinophils # (auto) 0 10 ^3/uL (0-0.8); Eosinophils % (auto) 0.6 % (0.0-7.0); Hematocrit 35.5 % (41.0-53.0); Hemoglobin 12.3 g/dL (13.5-17.5); Lymphocytes # (auto) 1.9 10 ^3/uL (0.4-5.4); Lymphocytes % (auto) 24.7 % (10.0-50.0); Mean Corpuscular Hemoglobin 32.7 pg (28.0-32.0); Mean Corpuscular Hgb Conc. 34.7 g/dL (32.0-36.0); Mean Corpuscular Volume 94.1 fL (80.0-100.0); Monocytes # (auto) 0.3 10 ^3/uL (0-1.3); Monocytes % (auto) 4.5 % (0.0-12.0); Neutrophils # (auto) 5.4 10 ^3/uL (1.6-8.6); Neutrophils % (auto) 69.5 % (37.0-80.0); Nucleated Red Blood Cells % 0.2 %; Red Blood Cells 3.77 10^6/uL (4.5-5.90); Red Cell Distribution Width 16.8 % (11.8-14.3); White Blood Cell 7.8 10^3/uL (4.4-10.8)
[2021-10-14 08:23] LABS: Calcium 8.2 mg/dL (8.5-10.1); Potassium 3.4 mmol/L (3.5-5.1)
[2021-10-14 08:24] LABS: BUN/Creatinine Ratio 51.4
[2021-10-14] MEDS: ACETAMINOPHEN 325 MG TAB PO PRN ×2 (08:45→22:10)
[2021-10-14] MEDS: SODIUM CHLOR 0.9% PF (SALINE LOCK) 10ML VIAL/SYR IV SCH ×2 (09:55→22:09)
[2021-10-14] MEDS: DexAMETHasone SOD PHOS 10MG/1ML VIAL INJ IV SCH (09:55)
[2021-10-14] MEDS: APIXABAN 5 MG TAB PO SCH ×2 (09:56→22:09)
[2021-10-14] MEDS: PANTOPRAZOLE 40 MG TAB PO SCH (09:56)
[2021-10-14] MEDS: CHOLECALCIFEROL (VITD3) 2,000 UNIT CAP/TAB PO SCH (09:56)
[2021-10-14] MEDS: POTASSIUM CHL 20 Meq TABLET PO SCH (09:56)
[2021-10-14] MEDS: FUROSEMIDE 40 MG/4 ML VIAL IV SCH (10:00)
[2021-10-14] MEDS ORDERED: IBUPROFEN 400 MG TAB PO PRN (12:30)
[2021-10-15] VITALS (20 sets, daily range): BP systolic 91–145; BP diastolic 51–104
[2021-10-15] MEDS: SALINE 0.65 % NASAL SPRAY 45ML BOTTLE EACHNOSTRI SCH ×4 (06:00→22:00)
[2021-10-15] MEDS: DexAMETHasone SOD PHOS 10MG/1ML VIAL INJ IV SCH (09:31)
[2021-10-15] MEDS: FUROSEMIDE 40 MG/4 ML VIAL IV SCH (09:33)
[2021-10-15] MEDS: SODIUM CHLOR 0.9% PF (SALINE LOCK) 10ML VIAL/SYR IV SCH ×2 (09:33→20:31)
[2021-10-15] MEDS: ACETAMINOPHEN 325 MG TAB PO PRN (09:34)
[2021-10-15] MEDS: PANTOPRAZOLE 40 MG TAB PO SCH (09:34)
[2021-10-15] MEDS: APIXABAN 5 MG TAB PO SCH ×2 (09:34→20:30)
[2021-10-15] MEDS: POTASSIUM CHL 20 Meq TABLET PO SCH (09:34)
[2021-10-15] MEDS: CHOLECALCIFEROL (VITD3) 2,000 UNIT CAP/TAB PO SCH (09:34)
[2021-10-15] MEDS ORDERED: THROAT LOZENGES(CEPASTAT) MT PRN (10:00)
[2021-10-15] MEDS: BUDESONIDE (INHALATION) 180 MCG IH IN SCH ×2 (10:10→22:00)
[2021-10-15] MEDS: ALBUTEROL SULF HFA 90MCG INH 200DOSE IN PRN ×3 (10:10→23:30)
[2021-10-16] VITALS (15 sets, daily range): BP systolic 97–147; BP diastolic 69–101
[2021-10-16] MEDS: SALINE 0.65 % NASAL SPRAY 45ML BOTTLE EACHNOSTRI SCH ×4 (05:44→22:00)
[2021-10-16] MEDS: DexAMETHasone SOD PHOS 10MG/1ML VIAL INJ IV SCH (10:32)
[2021-10-16] MEDS: APIXABAN 5 MG TAB PO SCH ×2 (10:33→22:00)
[2021-10-16] MEDS: SODIUM CHLOR 0.9% PF (SALINE LOCK) 10ML VIAL/SYR IV SCH ×2 (10:33→22:00)
[2021-10-16] MEDS: FUROSEMIDE 40 MG/4 ML VIAL IV SCH (10:33)
[2021-10-16] MEDS: CHOLECALCIFEROL (VITD3) 2,000 UNIT CAP/TAB PO SCH (10:34)
[2021-10-16] MEDS: POTASSIUM CHL 20 Meq TABLET PO SCH (10:34)
[2021-10-16] MEDS: PANTOPRAZOLE 40 MG TAB PO SCH (10:34)
[2021-10-16] MEDS: MECLIZINE HCL 25 MG TAB PO PRN (10:35)
[2021-10-16] MEDS: ALBUTEROL SULF HFA 90MCG INH 200DOSE IN PRN ×2 (11:03→20:10)
[2021-10-16] MEDS: BUDESONIDE (INHALATION) 180 MCG IH IN SCH ×2 (11:03→20:10)
[2021-10-16 14:29] LABS: BUN/Creatinine Ratio 38.7; Calcium 8.5 mg/dL (8.5-10.1); Potassium 3.9 mmol/L (3.5-5.1)
[2021-10-16] MEDS: THROAT LOZENGES(CEPASTAT) MT PRN ×2 (18:55→21:15)
[2021-10-17] VITALS (29 sets, daily range): BP systolic 87–139; BP diastolic 53–101
[2021-10-17] MEDS: THROAT LOZENGES(CEPASTAT) MT PRN (00:38)
[2021-10-17] MEDS: MECLIZINE HCL 25 MG TAB PO PRN (00:39)
[2021-10-17] MEDS: SALINE 0.65 % NASAL SPRAY 45ML BOTTLE EACHNOSTRI SCH ×3 (06:00→22:00)
[2021-10-17 06:26] LABS: Potassium 4.2 mmol/L (3.5-5.1)
[2021-10-17 06:42] LABS: BUN/Creatinine Ratio 56.1; Calcium 8.6 mg/dL (8.5-10.1)
[2021-10-17] MEDS: SODIUM CHLOR 0.9% PF (SALINE LOCK) 10ML VIAL/SYR IV SCH ×2 (10:00→22:00)
[2021-10-17] MEDS: BUDESONIDE (INHALATION) 180 MCG IH IN SCH ×2 (10:06→20:47)
[2021-10-17] MEDS: LORazepam 2MG/ML-1ML VIAL IV PRN (11:23)
[2021-10-17] MEDS: DexAMETHasone SOD PHOS 10MG/1ML VIAL INJ IV SCH (11:52)
[2021-10-17] MEDS: APIXABAN 5 MG TAB PO SCH ×2 (11:56→22:00)
[2021-10-17] MEDS: POTASSIUM CHL 20 Meq TABLET PO SCH (11:56)
[2021-10-17] MEDS: FUROSEMIDE 40 MG/4 ML VIAL IV SCH (11:56)
[2021-10-17] MEDS: CHOLECALCIFEROL (VITD3) 2,000 UNIT CAP/TAB PO SCH (11:57)
[2021-10-17] MEDS: PANTOPRAZOLE 40 MG TAB PO SCH (11:57)
[2021-10-17] MEDS: ALBUTEROL SULF HFA 90MCG INH 200DOSE IN PRN (20:47)
[2021-10-18] VITALS (27 sets, daily range): BP systolic 96–146; BP diastolic 56–107
[2021-10-18 05:02] LABS: Basophils # (auto) 0 10 ^3/uL (0-0.2); Basophils % (auto) 0.5 % (0.0-2.0); Eosinophils # (auto) 0 10 ^3/uL (0-0.8); Eosinophils % (auto) 0.3 % (0.0-7.0); Hematocrit 35.6 % (41.0-53.0); Hemoglobin 12.5 g/dL (13.5-17.5); Lymphocytes % (auto) 21.9 % (10.0-50.0); Mean Corpuscular Hgb Conc. 35.1 g/dL (32.0-36.0); Mean Corpuscular Volume 93.8 fL (80.0-100.0); Monocytes # (auto) 0.4 10 ^3/uL (0-1.3); Monocytes % (auto) 4.7 % (0.0-12.0); Neutrophils # (auto) 6.5 10 ^3/uL (1.6-8.6); Neutrophils % (auto) 72.6 % (37.0-80.0); Nucleated Red Blood Cells % 0.1 %; Red Blood Cells 3.79 10^6/uL (4.5-5.90); Red Cell Distribution Width 17.2 % (11.8-14.3); White Blood Cell 8.9 10^3/uL (4.4-10.8)
[2021-10-18 05:35] LABS: Calcium 8.4 mg/dL (8.5-10.1)
[2021-10-18 05:37] LABS: BUN/Creatinine Ratio 44.6
[2021-10-18] MEDS: SALINE 0.65 % NASAL SPRAY 45ML BOTTLE EACHNOSTRI SCH ×4 (06:00→22:00)
[2021-10-18] MEDS: ALBUTEROL SULF HFA 90MCG INH 200DOSE IN PRN ×2 (09:51→14:45)
[2021-10-18] MEDS: BUDESONIDE (INHALATION) 180 MCG IH IN SCH ×2 (09:51→22:15)
[2021-10-18] MEDS: SODIUM CHLOR 0.9% PF (SALINE LOCK) 10ML VIAL/SYR IV SCH ×2 (10:00→22:00)
[2021-10-18] MEDS: POTASSIUM CHL 20 Meq TABLET PO SCH (10:00)
[2021-10-18] MEDS: DexAMETHasone SOD PHOS 10MG/1ML VIAL INJ IV SCH (10:29)
[2021-10-18] MEDS: FUROSEMIDE 40 MG/4 ML VIAL IV SCH (10:29)
[2021-10-18] MEDS: CHOLECALCIFEROL (VITD3) 2,000 UNIT CAP/TAB PO SCH (10:30)
[2021-10-18] MEDS: APIXABAN 5 MG TAB PO SCH ×2 (10:30→22:00)
[2021-10-18] MEDS: PANTOPRAZOLE 40 MG TAB PO SCH (10:30)
[2021-10-18] MEDS: THROAT LOZENGES(CEPASTAT) MT PRN (15:19)
[2021-10-19] VITALS (18 sets, daily range): BP systolic 107–140; BP diastolic 44–91
[2021-10-19] MEDS: SALINE 0.65 % NASAL SPRAY 45ML BOTTLE EACHNOSTRI SCH ×4 (06:00→22:00)
[2021-10-19] MEDS: ALBUTEROL SULF HFA 90MCG INH 200DOSE IN PRN ×2 (07:04→18:39)
[2021-10-19] MEDS: BUDESONIDE (INHALATION) 180 MCG IH IN SCH ×2 (07:05→18:39)
[2021-10-19] MEDS: DexAMETHasone SOD PHOS 10MG/1ML VIAL INJ IV SCH (10:05)
[2021-10-19] MEDS: APIXABAN 5 MG TAB PO SCH ×2 (10:05→22:00)
[2021-10-19] MEDS: SODIUM CHLOR 0.9% PF (SALINE LOCK) 10ML VIAL/SYR IV SCH ×2 (10:05→22:00)
[2021-10-19] MEDS: PANTOPRAZOLE 40 MG TAB PO SCH (10:06)
[2021-10-19] MEDS: CHOLECALCIFEROL (VITD3) 2,000 UNIT CAP/TAB PO SCH (10:06)
[2021-10-19] MEDS: THROAT LOZENGES(CEPASTAT) MT PRN (10:08)
[2021-10-20] VITALS (28 sets, daily range): BP systolic 103–146; BP diastolic 62–98
[2021-10-20] MEDS: SALINE 0.65 % NASAL SPRAY 45ML BOTTLE EACHNOSTRI SCH (06:00)
[2021-10-20] MEDS: BUDESONIDE (INHALATION) 180 MCG IH IN SCH ×2 (06:28→10:33)
[2021-10-20] MEDS: CHOLECALCIFEROL (VITD3) 2,000 UNIT CAP/TAB PO SCH (10:00)
[2021-10-20] MEDS: DexAMETHasone SOD PHOS 10MG/1ML VIAL INJ IV SCH (10:00)
[2021-10-20] MEDS: FUROSEMIDE 20 MG/2 ML VIAL IV SCH (10:00)
[2021-10-20] MEDS: PANTOPRAZOLE 40 MG TAB PO SCH (10:00)
[2021-10-20] MEDS: APIXABAN 5 MG TAB PO SCH ×2 (10:00→21:32)
[2021-10-20] MEDS: POTASSIUM EFFERVESENT TAB 25 MEQ PO SCH (10:00)
[2021-10-20] MEDS: SODIUM CHLOR 0.9% PF (SALINE LOCK) 10ML VIAL/SYR IV SCH ×2 (10:00→21:32)
[2021-10-20] MEDS: ALBUTEROL SULF HFA 90MCG INH 200DOSE IN PRN (10:32)
[2021-10-21] VITALS (29 sets, daily range): BP systolic 94–133; BP diastolic 61–97
[2021-10-21 05:46] LABS: Basophils # (auto) 0 10 ^3/uL (0-0.2); Basophils % (auto) 0.2 % (0.0-2.0); Eosinophils # (auto) 0 10 ^3/uL (0-0.8); Eosinophils % (auto) 0.3 % (0.0-7.0); Hematocrit 35.1 % (41.0-53.0); Hemoglobin 12.2 g/dL (13.5-17.5); Lymphocytes # (auto) 2.2 10 ^3/uL (0.4-5.4); Lymphocytes % (auto) 29.5 % (10.0-50.0); Mean Corpuscular Hemoglobin 32.7 pg (28.0-32.0); Mean Corpuscular Hgb Conc. 34.6 g/dL (32.0-36.0); Mean Corpuscular Volume 94.6 fL (80.0-100.0); Monocytes # (auto) 0.4 10 ^3/uL (0-1.3); Monocytes % (auto) 5.8 % (0.0-12.0); Neutrophils # (auto) 4.8 10 ^3/uL (1.6-8.6); Neutrophils % (auto) 64.2 % (37.0-80.0); Nucleated Red Blood Cells % 0.2 %; Red Blood Cells 3.71 10^6/uL (4.5-5.90); White Blood Cell 7.4 10^3/uL (4.4-10.8)
[2021-10-21 06:15] LABS: BUN/Creatinine Ratio 37.9; Calcium 8.9 mg/dL (8.5-10.1); Potassium 3.9 mmol/L (3.5-5.1)
[2021-10-21] MEDS: ALBUTEROL SULF HFA 90MCG INH 200DOSE IN PRN (06:28)
[2021-10-21] MEDS: APIXABAN 5 MG TAB PO SCH ×2 (10:25→21:51)
[2021-10-21] MEDS: DexAMETHasone SOD PHOS 10MG/1ML VIAL INJ IV SCH (10:25)
[2021-10-21] MEDS: PANTOPRAZOLE 40 MG TAB PO SCH (10:25)
[2021-10-21] MEDS: CHOLECALCIFEROL (VITD3) 2,000 UNIT CAP/TAB PO SCH (10:25)
[2021-10-21] MEDS: FUROSEMIDE 20 MG/2 ML VIAL IV SCH (10:26)
[2021-10-21] MEDS: SODIUM CHLOR 0.9% PF (SALINE LOCK) 10ML VIAL/SYR IV SCH ×2 (10:26→21:51)
[2021-10-21] MEDS: POTASSIUM EFFERVESENT TAB 25 MEQ PO SCH (10:27)
[2021-10-21] MEDS ORDERED: levoFLOXacin 500MG 100 ML IV ONE (11:15)
[2021-10-21] MEDS ORDERED: POTASSIUM CHL 20 Meq TABLET PO ONE (11:15)
[2021-10-21] MEDS ORDERED: FUROSEMIDE 20 MG/2 ML VIAL IV ONE (11:15)
[2021-10-21] MEDS ORDERED: IBUPROFEN 400 MG TAB PO PRN (12:00)
[2021-10-21 14:53] LABS: INR 0.97 (0.9-1.15); Partial Thromboplastin Time 25.1 sec (23.6-33.0)
[2021-10-21] MEDS: ACETAMINOPHEN 325 MG TAB PO PRN (21:24)
[2021-10-22] VITALS (20 sets, daily range): BP systolic 101–134; BP diastolic 58–89
[2021-10-22] MEDS: ALBUTEROL SULF HFA 90MCG INH 200DOSE IN PRN ×2 (06:05→16:03)
[2021-10-22] MEDS: POTASSIUM EFFERVESENT TAB 25 MEQ PO SCH (08:59)
[2021-10-22] MEDS: CHOLECALCIFEROL (VITD3) 2,000 UNIT CAP/TAB PO SCH (08:59)
[2021-10-22] MEDS: levoFLOXacin 500MG 100 ML IV SCH (08:59)
[2021-10-22] MEDS: APIXABAN 5 MG TAB PO SCH ×2 (08:59→22:00)
[2021-10-22] MEDS: PANTOPRAZOLE 40 MG TAB PO SCH (08:59)
[2021-10-22] MEDS: FUROSEMIDE 20 MG/2 ML VIAL IV SCH (09:00)
[2021-10-22] MEDS: DexAMETHasone SOD PHOS 10MG/1ML VIAL INJ IV SCH (09:00)
[2021-10-22] MEDS: SODIUM CHLOR 0.9% PF (SALINE LOCK) 10ML VIAL/SYR IV SCH ×2 (09:01→22:00)
[2021-10-22] MEDS ORDERED: FUROSEMIDE 20 MG/2 ML VIAL IV ONE (12:00)
[2021-10-22] MEDS ORDERED: POTASSIUM EFFERVESENT TAB 25 MEQ PO ONE (12:00)
[2021-10-23] VITALS (17 sets, daily range): BP systolic 102–133; BP diastolic 78–98
[2021-10-23 05:14] LABS: BUN/Creatinine Ratio 41.7; Calcium 9.1 mg/dL (8.5-10.1); Potassium 3.6 mmol/L (3.5-5.1)
[2021-10-23] MEDS: levoFLOXacin 500MG 100 ML IV SCH (09:13)
[2021-10-23] MEDS: APIXABAN 5 MG TAB PO SCH ×2 (09:13→21:21)
[2021-10-23] MEDS: CHOLECALCIFEROL (VITD3) 2,000 UNIT CAP/TAB PO SCH (09:13)
[2021-10-23] MEDS: POTASSIUM EFFERVESENT TAB 25 MEQ PO SCH (09:14)
[2021-10-23] MEDS: DexAMETHasone SOD PHOS 10MG/1ML VIAL INJ IV SCH (09:14)
[2021-10-23] MEDS: PANTOPRAZOLE 40 MG TAB PO SCH (09:14)
[2021-10-23] MEDS: FUROSEMIDE 20 MG/2 ML VIAL IV SCH (09:15)
[2021-10-23] MEDS: SODIUM CHLOR 0.9% PF (SALINE LOCK) 10ML VIAL/SYR IV SCH ×2 (09:15→21:21)
[2021-10-23] MEDS ORDERED: CATHFLO ACTIVASE (ALTEPLASE) 2 MG VIAL IV ONE (11:45)
[2021-10-23] MEDS ORDERED: FUROSEMIDE 20 MG/2 ML VIAL IV ONE (11:45)
[2021-10-23] MEDS ORDERED: POTASSIUM CHL 20 Meq TABLET PO ONE (11:45)
[2021-10-23] MEDS: Ensure HIGH Protein Chocolate 8oz Bottle PO SCH ×2 (12:53→18:45)
[2021-10-23] MEDS: BUDESONIDE (INHALATION) 180 MCG IH IN SCH (22:00)
[2021-10-23] MEDS: ALBUTEROL SULF HFA 90MCG INH 200DOSE IN PRN (23:07)
[2021-10-24] VITALS (10 sets, daily range): BP systolic 116–136; BP diastolic 77–91
[2021-10-24] MEDS: Ensure HIGH Protein Chocolate 8oz Bottle PO SCH ×3 (08:39→18:19)
[2021-10-24] MEDS: DexAMETHasone SOD PHOS 10MG/1ML VIAL INJ IV SCH (09:06)
[2021-10-24] MEDS: levoFLOXacin 500MG 100 ML IV SCH (09:06)
[2021-10-24] MEDS: FUROSEMIDE 20 MG/2 ML VIAL IV SCH (09:07)
[2021-10-24] MEDS: APIXABAN 5 MG TAB PO SCH ×2 (09:07→22:00)
[2021-10-24] MEDS: PANTOPRAZOLE 40 MG TAB PO SCH (09:07)
[2021-10-24] MEDS: SODIUM CHLOR 0.9% PF (SALINE LOCK) 10ML VIAL/SYR IV SCH ×2 (09:08→22:00)
[2021-10-24] MEDS: CHOLECALCIFEROL (VITD3) 2,000 UNIT CAP/TAB PO SCH (09:08)
[2021-10-24] MEDS: POTASSIUM EFFERVESENT TAB 25 MEQ PO SCH (09:08)
[2021-10-24] MEDS: ALBUTEROL SULF HFA 90MCG INH 200DOSE IN PRN ×2 (09:16→18:19)
[2021-10-24] MEDS: BUDESONIDE (INHALATION) 180 MCG IH IN SCH ×2 (09:16→18:19)
[2021-10-25] VITALS: BP 124/84
[2021-10-25 01:56] VITALS: BP 122/81
[2021-10-25 04:00] VITALS: BP 121/79
[2021-10-25] MEDS: Ensure HIGH Protein Chocolate 8oz Bottle PO SCH ×3 (08:00→18:00)
[2021-10-25] MEDS: DexAMETHasone SOD PHOS 10MG/1ML VIAL INJ IV SCH (09:16)
[2021-10-25] MEDS: APIXABAN 5 MG TAB PO SCH ×2 (09:17→21:11)
[2021-10-25] MEDS: SODIUM CHLOR 0.9% PF (SALINE LOCK) 10ML VIAL/SYR IV SCH ×2 (09:17→21:11)
[2021-10-25] MEDS: FUROSEMIDE 20 MG/2 ML VIAL IV SCH (09:17)
[2021-10-25] MEDS: POTASSIUM CHL 20 Meq TABLET PO SCH (09:17)
[2021-10-25] MEDS: CHOLECALCIFEROL (VITD3) 2,000 UNIT CAP/TAB PO SCH (09:18)
[2021-10-25] MEDS: PANTOPRAZOLE 40 MG TAB PO SCH (09:18)
[2021-10-25] MEDS: ALBUTEROL SULF HFA 90MCG INH 200DOSE IN PRN ×3 (09:30→22:35)
[2021-10-25] MEDS: BUDESONIDE (INHALATION) 180 MCG IH IN SCH ×2 (09:30→22:00)
[2021-10-25] MEDS: levoFLOXacin 500MG 100 ML IV SCH (10:00)
[2021-10-25 17:00] VITALS: BP 109/80
[2021-10-26 03:05] LABS: Basophils # (auto) 0.1 10 ^3/uL (0-0.2); Basophils % (auto) 0.6 % (0.0-2.0); Eosinophils # (auto) 0 10 ^3/uL (0-0.8); Eosinophils % (auto) 0.1 % (0.0-7.0); Hematocrit 37.7 % (41.0-53.0); Hemoglobin 13.2 g/dL (13.5-17.5); Lymphocytes # (auto) 2.1 10 ^3/uL (0.4-5.4); Lymphocytes % (auto) 21.3 % (10.0-50.0); Mean Corpuscular Hemoglobin 32.9 pg (28.0-32.0); Mean Corpuscular Hgb Conc. 35.1 g/dL (32.0-36.0); Mean Corpuscular Volume 93.7 fL (80.0-100.0); Monocytes # (auto) 0.5 10 ^3/uL (0-1.3); Monocytes % (auto) 5.4 % (0.0-12.0); Neutrophils # (auto) 7.3 10 ^3/uL (1.6-8.6); Neutrophils % (auto) 72.6 % (37.0-80.0); Nucleated Red Blood Cells % 0.2 %; Red Blood Cells 4.02 10^6/uL (4.5-5.90); Red Cell Distribution Width 16.5 % (11.8-14.3)
[2021-10-26 03:25] LABS: Albumin 3.4 g/dL (3.4-5.0); BUN/Creatinine Ratio 60.9; Calcium 9.1 mg/dL (8.5-10.1); Potassium 3.3 mmol/L (3.5-5.1)
[2021-10-26 03:27] LABS: Bilirubin, Total 1.2 mg/dL (0.2-1.0); Total Protein 6.2 g/dL (6.4-8.2)
[2021-10-26] MEDS: BUDESONIDE (INHALATION) 180 MCG IH IN SCH ×4 (05:57→21:57)
[2021-10-26] MEDS: ALBUTEROL SULF HFA 90MCG INH 200DOSE IN PRN ×2 (05:58→09:19)
[2021-10-26] MEDS: LORazepam 2MG/ML-1ML VIAL IV PRN ×2 (05:58→17:30)
[2021-10-26] MEDS: Ensure HIGH Protein Chocolate 8oz Bottle PO SCH ×3 (08:00→18:00)
[2021-10-26] MEDS: DexAMETHasone 4 MG TAB PO SCH (10:00)
[2021-10-26] MEDS ORDERED: POTASSIUM CHL 20 Meq TABLET PO ONE (11:45)
[2021-10-26 14:00] VITALS: BP 142/104
[2021-10-26] MEDS: PANTOPRAZOLE 40 MG TAB PO SCH (15:00)
[2021-10-26] MEDS: POTASSIUM CHL 20 Meq TABLET PO SCH (15:00)
[2021-10-26] MEDS: CHOLECALCIFEROL (VITD3) 2,000 UNIT CAP/TAB PO SCH (15:00)
[2021-10-26] MEDS: FUROSEMIDE 20 MG/2 ML VIAL IV SCH (15:00)
[2021-10-26] MEDS: SODIUM CHLOR 0.9% PF (SALINE LOCK) 10ML VIAL/SYR IV SCH ×2 (15:00→21:29)
[2021-10-26] MEDS: levoFLOXacin 500MG 100 ML IV SCH (15:00)
[2021-10-26 20:00] VITALS: BP 97/76
[2021-10-26] MEDS: TEMAZEPAM 15 MG CAP PO PRN (21:29)
[2021-10-27] VITALS (7 sets, daily range): BP systolic 84–151; BP diastolic 54–72
[2021-10-27] MEDS: BUDESONIDE (INHALATION) 180 MCG IH IN SCH ×2 (06:36→18:37)
[2021-10-27] MEDS: ALBUTEROL SULF HFA 90MCG INH 200DOSE IN PRN ×2 (06:36→18:37)
[2021-10-27] MEDS: Ensure HIGH Protein Chocolate 8oz Bottle PO SCH ×3 (08:00→18:00)
[2021-10-27] MEDS: FUROSEMIDE 20 MG/2 ML VIAL IV SCH (10:00)
[2021-10-27] MEDS: levoFLOXacin 500MG 100 ML IV SCH (13:00)
[2021-10-27] MEDS: SODIUM CHLOR 0.9% PF (SALINE LOCK) 10ML VIAL/SYR IV SCH ×2 (13:00→20:53)
[2021-10-27] MEDS: PANTOPRAZOLE 40 MG TAB PO SCH (13:00)
[2021-10-27] MEDS: POTASSIUM CHL 20 Meq TABLET PO SCH (13:00)
[2021-10-27] MEDS: CHOLECALCIFEROL (VITD3) 2,000 UNIT CAP/TAB PO SCH (13:00)
[2021-10-27] MEDS: DexAMETHasone 4 MG TAB PO SCH (13:00)
[2021-10-27] MEDS: LORazepam 2MG/ML-1ML VIAL IV PRN (20:52)
[2021-10-27] MEDS: ACETAMINOPHEN 325 MG TAB PO PRN (20:52)
[2021-10-27] MEDS ORDERED: MORPHINE SULFATE INJECTION 2 MG/ML SYRG IV PRN (23:45)
[2021-10-28] VITALS (35 sets, daily range): BP systolic 61–154; BP diastolic 29–93
[2021-10-28 04:15] LABS: Basophils # (auto) 0 10 ^3/uL (0-0.2); Basophils % (auto) 0.3 % (0.0-2.0); Eosinophils # (auto) 0.1 10 ^3/uL (0-0.8); Hematocrit 25.8 % (41.0-53.0); Hemoglobin 9.2 g/dL (13.5-17.5); Lymphocytes # (auto) 1.9 10 ^3/uL (0.4-5.4); Lymphocytes % (auto) 18.4 % (10.0-50.0); Mean Corpuscular Hemoglobin 33.7 pg (28.0-32.0); Mean Corpuscular Hgb Conc. 35.6 g/dL (32.0-36.0); Mean Corpuscular Volume 94.6 fL (80.0-100.0); Monocytes # (auto) 0.5 10 ^3/uL (0-1.3); Monocytes % (auto) 4.4 % (0.0-12.0); Neutrophils # (auto) 7.9 10 ^3/uL (1.6-8.6); Neutrophils % (auto) 75.9 % (37.0-80.0); Nucleated Red Blood Cells % 0.3 %; Red Blood Cells 2.73 10^6/uL (4.5-5.90); Red Cell Distribution Width 16.5 % (11.8-14.3); White Blood Cell 10.5 10^3/uL (4.4-10.8)
[2021-10-28 04:36] LABS: Potassium 3.6 mmol/L (3.5-5.1)
[2021-10-28 04:47] LABS: Albumin 2.5 g/dL (3.4-5.0); BUN/Creatinine Ratio 47.4; Bilirubin, Total 1.9 mg/dL (0.2-1.0); Calcium 7.8 mg/dL (8.5-10.1); Total Protein 4.7 g/dL (6.4-8.2)
[2021-10-28] MEDS ORDERED: ALBUMIN 25% 100 ML IV ONE (06:30)
[2021-10-28] MEDS: levoFLOXacin 500MG 100 ML IV SCH (09:41)
[2021-10-28] MEDS: Ensure HIGH Protein Chocolate 8oz Bottle PO SCH ×3 (09:41→17:48)
[2021-10-28] MEDS: DexAMETHasone 4 MG TAB PO SCH (09:42)
[2021-10-28] MEDS: SODIUM CHLOR 0.9% PF (SALINE LOCK) 10ML VIAL/SYR IV SCH ×3 (09:42→19:49)
[2021-10-28] MEDS: FUROSEMIDE 20 MG/2 ML VIAL IV SCH (09:42)
[2021-10-28] MEDS: POTASSIUM CHL 20 Meq TABLET PO SCH (09:43)
[2021-10-28] MEDS: CHOLECALCIFEROL (VITD3) 2,000 UNIT CAP/TAB PO SCH (09:43)
[2021-10-28] MEDS: PANTOPRAZOLE 40 MG TAB PO SCH (09:43)
[2021-10-28] MEDS ORDERED: VANCOMYCIN 1GM/250ML 250 ML IV ONE ×2 (10:14→10:15)
[2021-10-28] MEDS ORDERED: MEROPENEM 1GM IVPB 100 ML IV ONE (10:15)
[2021-10-28] MEDS ORDERED: OXYMETAZOLINE HCL 0.05 % NASAL SPRAY 15ML EACHNOSTRI ONE (10:15)
[2021-10-28] MEDS ORDERED: VANCOMYCIN PER PHARMACY 0 MG IV SCH (10:15)
[2021-10-28] MEDS ORDERED: EPINEPHrine HCL 0.5 ML NEB ONE (10:20)
[2021-10-28 11:06] LABS: INR 1.16 (0.9-1.15); Partial Thromboplastin Time 30.7 sec (23.6-33.0)
[2021-10-28] MEDS ORDERED: LIDOCAINE 1% (LOCAL ANESTH.) PF 5ml SDV ID ONE (14:30)
[2021-10-28] MEDS: VANCOMYCIN 1GM/250ML 250 ML IV SCH (19:48)
[2021-10-28] MEDS: MEROPENEM 1GM IVPB 100 ML IV SCH (22:09)
[2021-10-28] MEDS: OXYMETAZOLINE HCL 0.05 % NASAL SPRAY 15ML EACHNOSTRI SCH (22:09)
[2021-10-28] MEDS: ACETAMINOPHEN 325 MG TAB PO PRN (22:14)
[2021-10-28] MEDS: TEMAZEPAM 15 MG CAP PO PRN (22:15)
[2021-10-29] VITALS (52 sets, daily range): BP systolic 78–144; BP diastolic 42–90
[2021-10-29] MEDS: NOREPINEPHRINE 8 MG/250ML KIT 250 ML IV SCH ×2 (00:06→06:30)
[2021-10-29 04:18] LABS: Basophils # (auto) 0 10 ^3/uL (0-0.2); Eosinophils # (auto) 0.1 10 ^3/uL (0-0.8); Hematocrit 22.9 % (41.0-53.0); Lymphocytes # (auto) 1.5 10 ^3/uL (0.4-5.4); Nucleated Red Blood Cells % 0.2 %
[2021-10-29 04:22] LABS: Basophils % (auto) 0.4 % (0.0-2.0); Eosinophils % (auto) 1.4 % (0.0-7.0); Hemoglobin 8.2 g/dL (13.5-17.5); Lymphocytes % (auto) 22.3 % (10.0-50.0); Mean Corpuscular Hemoglobin 33.6 pg (28.0-32.0); Mean Corpuscular Hgb Conc. 35.6 g/dL (32.0-36.0); Mean Corpuscular Volume 94.3 fL (80.0-100.0); Monocytes # (auto) 0.3 10 ^3/uL (0-1.3); Monocytes % (auto) 4.7 % (0.0-12.0); Neutrophils # (auto) 4.8 10 ^3/uL (1.6-8.6); Neutrophils % (auto) 71.2 % (37.0-80.0); Red Blood Cells 2.43 10^6/uL (4.5-5.90); Red Cell Distribution Width 16.2 % (11.8-14.3); White Blood Cell 6.7 10^3/uL (4.4-10.8)
[2021-10-29 04:36] LABS: Potassium 3.1 mmol/L (3.5-5.1)
[2021-10-29 04:40] LABS: BUN/Creatinine Ratio 37.8; Calcium 7.6 mg/dL (8.5-10.1)
[2021-10-29] MEDS: MEROPENEM 1GM IVPB 100 ML IV SCH ×2 (06:24→12:45)
[2021-10-29] MEDS: VANCOMYCIN 1GM/250ML 250 ML IV SCH ×2 (06:44→16:00)
[2021-10-29] MEDS: SODIUM CHLOR 0.9% PF (SALINE LOCK) 10ML VIAL/SYR IV SCH ×4 (09:39→19:48)
[2021-10-29] MEDS: PANTOPRAZOLE 40 MG TAB PO SCH (10:02)
[2021-10-29] MEDS: OXYMETAZOLINE HCL 0.05 % NASAL SPRAY 15ML EACHNOSTRI SCH ×2 (10:02→19:48)
[2021-10-29] MEDS: Ensure HIGH Protein Chocolate 8oz Bottle PO SCH ×3 (10:02→15:42)
[2021-10-29] MEDS: CHOLECALCIFEROL (VITD3) 2,000 UNIT CAP/TAB PO SCH (10:03)
[2021-10-29] MEDS ORDERED: POTASSIUM CHL 20 Meq TABLET PO ONE (13:00)
[2021-10-29] MEDS: LORazepam 2MG/ML-1ML VIAL IV PRN (14:12)
[2021-10-29] MEDS: BUDESONIDE (INHALATION) 180 MCG IH IN SCH ×2 (14:24→22:00)
[2021-10-29] MEDS: ALBUTEROL SULF HFA 90MCG INH 200DOSE IN PRN (14:24)
[2021-10-29] MEDS ORDERED: MICAFUNGIN SODIUM 100 MG in SODIUM CHL 0.9% 100 ML IV ONE (15:30)
[2021-10-29] MEDS: VORICONAZOLE INJ 400 MG in D5W 5% 250 ML IV SCH (18:16)
[2021-10-29] MEDS: POTASSIUM CHL 20MEQ/50ML 50 ML IV SCH ×2 (20:51→22:27)
[2021-10-30] VITALS (40 sets, daily range): BP systolic 90–151; BP diastolic 56–86
[2021-10-30] MEDS: MEROPENEM 1GM IVPB 100 ML IV SCH ×4 (00:25→21:28)
[2021-10-30] MEDS: VANCOMYCIN 1GM/250ML 250 ML IV SCH ×3 (02:07→20:14)
[2021-10-30 05:14] LABS: Basophils # (auto) 0 10 ^3/uL (0-0.2); Eosinophils # (auto) 0.1 10 ^3/uL (0-0.8); Monocytes # (auto) 0.4 10 ^3/uL (0-1.3); Neutrophils # (auto) 4.4 10 ^3/uL (1.6-8.6); Nucleated Red Blood Cells % 0.1 %; Red Cell Distribution Width 16.5 % (11.8-14.3)
[2021-10-30 05:16] LABS: Basophils % (auto) 0.8 % (0.0-2.0); Eosinophils % (auto) 1.8 % (0.0-7.0); Hematocrit 23.9 % (41.0-53.0); Hemoglobin 8.3 g/dL (13.5-17.5); Lymphocytes # (auto) 1.6 10 ^3/uL (0.4-5.4); Lymphocytes % (auto) 24.7 % (10.0-50.0); Mean Corpuscular Hemoglobin 32.8 pg (28.0-32.0); Mean Corpuscular Hgb Conc. 34.8 g/dL (32.0-36.0); Mean Corpuscular Volume 94.2 fL (80.0-100.0); Monocytes % (auto) 5.7 % (0.0-12.0); Red Blood Cells 2.53 10^6/uL (4.5-5.90); White Blood Cell 6.5 10^3/uL (4.4-10.8)
[2021-10-30 05:17] LABS: BUN/Creatinine Ratio 21.6; Calcium 7.8 mg/dL (8.5-10.1); Potassium 3.6 mmol/L (3.5-5.1)
[2021-10-30] MEDS: VORICONAZOLE INJ 400 MG in D5W 5% 250 ML IV SCH (05:25)
[2021-10-30] MEDS: NOREPINEPHRINE 8 MG/250ML KIT 250 ML IV SCH (06:30)
[2021-10-30] MEDS: SODIUM CHLOR 0.9% PF (SALINE LOCK) 10ML VIAL/SYR IV SCH ×4 (07:54→19:39)
[2021-10-30] MEDS: Ensure HIGH Protein Chocolate 8oz Bottle PO SCH ×3 (07:55→14:22)
[2021-10-30] MEDS: BUDESONIDE (INHALATION) 180 MCG IH IN SCH ×2 (10:00→22:00)
[2021-10-30] MEDS ORDERED: MICAFUNGIN SODIUM 100 MG in SODIUM CHL 0.9% 100 ML IV SCH (10:00)
[2021-10-30] MEDS: LORazepam 2MG/ML-1ML VIAL IV PRN (12:30)
[2021-10-30] MEDS: CHOLECALCIFEROL (VITD3) 2,000 UNIT CAP/TAB PO SCH (12:49)
[2021-10-30] MEDS: PANTOPRAZOLE 40 MG TAB PO SCH (12:49)
[2021-10-30] MEDS: OXYMETAZOLINE HCL 0.05 % NASAL SPRAY 15ML EACHNOSTRI SCH ×2 (12:49→20:14)
[2021-10-30] MEDS: VORICONAZOLE INJ 300 MG in D5W 5% 250 ML IV SCH (17:49)
[2021-10-30] MEDS: TEMAZEPAM 15 MG CAP PO PRN (20:49)
[2021-10-30] MEDS: ACETAMINOPHEN 325 MG TAB PO PRN (20:50)
[2021-10-30] MEDS: ALBUTEROL SULF HFA 90MCG INH 200DOSE IN PRN (22:43)
[2021-10-31] VITALS (48 sets, daily range): BP systolic 93–155; BP diastolic 57–94
[2021-10-31 04:49] LABS: Basophils # (auto) 0.1 10 ^3/uL (0-0.2); Eosinophils # (auto) 0.1 10 ^3/uL (0-0.8); Lymphocytes # (auto) 1.7 10 ^3/uL (0.4-5.4); Lymphocytes % (auto) 29.5 % (10.0-50.0); Monocytes # (auto) 0.4 10 ^3/uL (0-1.3); Red Blood Cells 2.48 10^6/uL (4.5-5.90); Red Cell Distribution Width 16.2 % (11.8-14.3)
[2021-10-31 04:59] LABS: Eosinophils % (auto) 1.8 % (0.0-7.0); Hematocrit 23.3 % (41.0-53.0); Hemoglobin 8.2 g/dL (13.5-17.5); Mean Corpuscular Hemoglobin 33.1 pg (28.0-32.0); Mean Corpuscular Hgb Conc. 35.2 g/dL (32.0-36.0); Monocytes % (auto) 6.5 % (0.0-12.0); Neutrophils # (auto) 3.4 10 ^3/uL (1.6-8.6); Neutrophils % (auto) 61.2 % (37.0-80.0); Nucleated Red Blood Cells % 0.1 %; White Blood Cell 5.6 10^3/uL (4.4-10.8)
[2021-10-31] MEDS: VANCOMYCIN 1GM/250ML 250 ML IV SCH ×3 (05:00→21:51)
[2021-10-31 05:12] LABS: Potassium 3.1 mmol/L (3.5-5.1)
[2021-10-31 05:17] LABS: Albumin 2.3 g/dL (3.4-5.0)
[2021-10-31 05:19] LABS: Bilirubin, Total 0.7 mg/dL (0.2-1.0); Total Protein 4.9 g/dL (6.4-8.2)
[2021-10-31] MEDS: VORICONAZOLE INJ 300 MG in D5W 5% 250 ML IV SCH ×2 (06:07→17:30)
[2021-10-31] MEDS: NOREPINEPHRINE 8 MG/250ML KIT 250 ML IV SCH (06:08)
[2021-10-31] MEDS ORDERED: POTASSIUM CHL 20MEQ/50ML 50 ML IV ONE (06:30)
[2021-10-31] MEDS: MEROPENEM 1GM IVPB 100 ML IV SCH ×3 (07:32→22:55)
[2021-10-31] MEDS: Ensure HIGH Protein Chocolate 8oz Bottle PO SCH ×3 (08:00→18:00)
[2021-10-31] MEDS: BUDESONIDE (INHALATION) 180 MCG IH IN SCH ×2 (09:46→22:00)
[2021-10-31] MEDS: ALBUTEROL SULF HFA 90MCG INH 200DOSE IN PRN (09:46)
[2021-10-31] MEDS: OXYMETAZOLINE HCL 0.05 % NASAL SPRAY 15ML EACHNOSTRI SCH (10:00)
[2021-10-31] MEDS: SODIUM CHLOR 0.9% PF (SALINE LOCK) 10ML VIAL/SYR IV SCH ×4 (10:15→21:52)
[2021-10-31] MEDS: PANTOPRAZOLE 40 MG TAB PO SCH (10:16)
[2021-10-31] MEDS: CHOLECALCIFEROL (VITD3) 2,000 UNIT CAP/TAB PO SCH (10:16)
[2021-10-31] MEDS ORDERED: POTASSIUM CHL 20 Meq TABLET PO ONE (12:45)
[2021-10-31] MEDS ORDERED: SERTRALINE HCL 50 MG TAB PO ONE (12:45)
[2021-10-31] MEDS: LORazepam 2MG/ML-1ML VIAL IV PRN (19:57)
[2021-10-31] MEDS: TEMAZEPAM 15 MG CAP PO PRN (20:08)
[2021-11-01] VITALS (54 sets, daily range): BP systolic 100–177; BP diastolic 50–106
[2021-11-01] MEDS: LORazepam 2MG/ML-1ML VIAL IV PRN ×2 (04:58→20:04)
[2021-11-01] MEDS: MEROPENEM 1GM IVPB 100 ML IV SCH ×3 (05:23→22:21)
[2021-11-01 05:54] LABS: Basophils # (auto) 0.1 10 ^3/uL (0-0.2); Eosinophils # (auto) 0.1 10 ^3/uL (0-0.8); Eosinophils % (auto) 1.6 % (0.0-7.0); Hemoglobin 9.1 g/dL (13.5-17.5); Lymphocytes # (auto) 2.1 10 ^3/uL (0.4-5.4); Lymphocytes % (auto) 27.5 % (10.0-50.0); Mean Corpuscular Hemoglobin 32.2 pg (28.0-32.0); Mean Corpuscular Hgb Conc. 33.9 g/dL (32.0-36.0); Monocytes # (auto) 0.6 10 ^3/uL (0-1.3); Monocytes % (auto) 7.7 % (0.0-12.0); Neutrophils # (auto) 4.6 10 ^3/uL (1.6-8.6); Neutrophils % (auto) 62.2 % (37.0-80.0); Nucleated Red Blood Cells % 0.2 %; Red Blood Cells 2.84 10^6/uL (4.5-5.90); Red Cell Distribution Width 16.7 % (11.8-14.3); White Blood Cell 7.5 10^3/uL (4.4-10.8)
[2021-11-01 06:13] LABS: Calcium 8.6 mg/dL (8.5-10.1)
[2021-11-01 06:17] LABS: BUN/Creatinine Ratio 13.3
[2021-11-01] MEDS: NOREPINEPHRINE 8 MG/250ML KIT 250 ML IV SCH (06:30)
[2021-11-01] MEDS: ALBUTEROL SULF HFA 90MCG INH 200DOSE IN PRN ×3 (06:34→22:06)
[2021-11-01] MEDS: VANCOMYCIN 1GM/250ML 250 ML IV SCH ×2 (07:06→15:57)
[2021-11-01] MEDS: Ensure HIGH Protein Chocolate 8oz Bottle PO SCH ×3 (08:00→18:00)
[2021-11-01] MEDS: VORICONAZOLE INJ 300 MG in D5W 5% 250 ML IV SCH ×2 (08:15→20:04)
[2021-11-01] MEDS: CHOLECALCIFEROL (VITD3) 2,000 UNIT CAP/TAB PO SCH (08:17)
[2021-11-01] MEDS: PANTOPRAZOLE 40 MG TAB PO SCH (08:18)
[2021-11-01] MEDS: SERTRALINE HCL 50 MG TAB PO SCH (08:18)
[2021-11-01] MEDS: SODIUM CHLOR 0.9% PF (SALINE LOCK) 10ML VIAL/SYR IV SCH ×4 (10:00→22:20)
[2021-11-01] MEDS: TEMAZEPAM 15 MG CAP PO PRN (20:04)
[2021-11-01] MEDS: BUDESONIDE (INHALATION) 180 MCG IH IN SCH ×2 (22:06→22:20)
[2021-11-02] VITALS (44 sets, daily range): BP systolic 80–158; BP diastolic 55–102
[2021-11-02] MEDS: VANCOMYCIN 1GM/250ML 250 ML IV SCH ×3 (03:23→18:45)
[2021-11-02] MEDS: MEROPENEM 1GM IVPB 100 ML IV SCH ×3 (05:11→23:43)
[2021-11-02] MEDS: LORazepam 2MG/ML-1ML VIAL IV PRN ×4 (05:13→22:30)
[2021-11-02 05:27] LABS: Basophils # (auto) 0.1 10 ^3/uL (0-0.2); Basophils % (auto) 1.1 % (0.0-2.0); Eosinophils # (auto) 0.1 10 ^3/uL (0-0.8); Eosinophils % (auto) 1.7 % (0.0-7.0); Hematocrit 25.2 % (41.0-53.0); Hemoglobin 8.8 g/dL (13.5-17.5); Lymphocytes # (auto) 1.2 10 ^3/uL (0.4-5.4); Lymphocytes % (auto) 16.1 % (10.0-50.0); Mean Corpuscular Hemoglobin 32.6 pg (28.0-32.0); Mean Corpuscular Hgb Conc. 34.8 g/dL (32.0-36.0); Mean Corpuscular Volume 93.7 fL (80.0-100.0); Monocytes # (auto) 0.6 10 ^3/uL (0-1.3); Monocytes % (auto) 7.5 % (0.0-12.0); Neutrophils # (auto) 5.4 10 ^3/uL (1.6-8.6); Neutrophils % (auto) 73.6 % (37.0-80.0); Nucleated Red Blood Cells % 0.2 %; Red Blood Cells 2.69 10^6/uL (4.5-5.90); Red Cell Distribution Width 16.5 % (11.8-14.3); White Blood Cell 7.4 10^3/uL (4.4-10.8)
[2021-11-02 05:51] LABS: Potassium 3.6 mmol/L (3.5-5.1)
[2021-11-02 05:56] LABS: BUN/Creatinine Ratio 24.2; Calcium 7.9 mg/dL (8.5-10.1)
[2021-11-02] MEDS: ALBUTEROL SULF HFA 90MCG INH 200DOSE IN PRN (06:12)
[2021-11-02] MEDS: BUDESONIDE (INHALATION) 180 MCG IH IN SCH ×2 (06:13→19:07)
[2021-11-02] MEDS: NOREPINEPHRINE 8 MG/250ML KIT 250 ML IV SCH (06:30)
[2021-11-02] MEDS: Ensure HIGH Protein Chocolate 8oz Bottle PO SCH ×3 (08:00→18:00)
[2021-11-02] MEDS: VORICONAZOLE INJ 300 MG in D5W 5% 250 ML IV SCH ×2 (08:13→21:03)
[2021-11-02] MEDS: PANTOPRAZOLE 40 MG TAB PO SCH (10:25)
[2021-11-02] MEDS: SERTRALINE HCL 50 MG TAB PO SCH (10:25)
[2021-11-02] MEDS: CHOLECALCIFEROL (VITD3) 2,000 UNIT CAP/TAB PO SCH (10:25)
[2021-11-02] MEDS: SODIUM CHLOR 0.9% PF (SALINE LOCK) 10ML VIAL/SYR IV SCH ×4 (10:25→23:43)
[2021-11-02] MEDS: ACETAMINOPHEN 325 MG TAB PO PRN (10:26)
[2021-11-03] VITALS (35 sets, daily range): BP systolic 112–150; BP diastolic 35–104
[2021-11-03] MEDS: VANCOMYCIN 1GM/250ML 250 ML IV SCH ×3 (04:00→21:56)
[2021-11-03] MEDS: LORazepam 2MG/ML-1ML VIAL IV PRN ×3 (05:20→21:00)
[2021-11-03] MEDS: MEROPENEM 1GM IVPB 100 ML IV SCH ×3 (05:23→23:00)
[2021-11-03 05:47] LABS: Hematocrit 26.9 % (41.0-53.0); Hemoglobin 9.1 g/dL (13.5-17.5)
[2021-11-03 06:20] LABS: Potassium 3.6 mmol/L (3.5-5.1)
[2021-11-03 06:24] LABS: BUN/Creatinine Ratio 17.4; Magnesium 2.3 mg/dL (1.6-2.6)
[2021-11-03] MEDS: NOREPINEPHRINE 8 MG/250ML KIT 250 ML IV SCH (06:30)
[2021-11-03] MEDS: VORICONAZOLE INJ 300 MG in D5W 5% 250 ML IV SCH ×2 (08:00→19:49)
[2021-11-03] MEDS: Ensure HIGH Protein Chocolate 8oz Bottle PO SCH ×3 (08:00→18:00)
[2021-11-03] MEDS: BUDESONIDE (INHALATION) 180 MCG IH IN SCH (10:00)
[2021-11-03] MEDS: CHOLECALCIFEROL (VITD3) 2,000 UNIT CAP/TAB PO SCH (10:00)
[2021-11-03] MEDS: PANTOPRAZOLE 40 MG TAB PO SCH (10:00)
[2021-11-03] MEDS: SERTRALINE HCL 50 MG TAB PO SCH (10:00)
[2021-11-03] MEDS: SODIUM CHLOR 0.9% PF (SALINE LOCK) 10ML VIAL/SYR IV SCH ×4 (10:20→21:57)
[2021-11-04] VITALS (27 sets, daily range): BP systolic 110–158; BP diastolic 72–112
[2021-11-04 04:24] LABS: Basophils # (auto) 0.1 10 ^3/uL (0-0.2); Basophils % (auto) 0.8 % (0.0-2.0); Eosinophils # (auto) 0.2 10 ^3/uL (0-0.8); Eosinophils % (auto) 2.1 % (0.0-7.0); Hematocrit 26.7 % (41.0-53.0); Hemoglobin 9.1 g/dL (13.5-17.5); Lymphocytes # (auto) 1.5 10 ^3/uL (0.4-5.4); Mean Corpuscular Hemoglobin 32.5 pg (28.0-32.0); Mean Corpuscular Volume 95.8 fL (80.0-100.0); Monocytes # (auto) 0.6 10 ^3/uL (0-1.3); Monocytes % (auto) 7.9 % (0.0-12.0); Neutrophils # (auto) 5.4 10 ^3/uL (1.6-8.6); Neutrophils % (auto) 70.2 % (37.0-80.0); Nucleated Red Blood Cells % 0.3 %; Red Blood Cells 2.78 10^6/uL (4.5-5.90); Red Cell Distribution Width 17.1 % (11.8-14.3); White Blood Cell 7.7 10^3/uL (4.4-10.8)
[2021-11-04 04:44] LABS: Albumin 2.4 g/dL (3.4-5.0); Potassium 3.8 mmol/L (3.5-5.1)
[2021-11-04 04:46] LABS: BUN/Creatinine Ratio 16.7
[2021-11-04 04:49] LABS: Bilirubin, Total 0.7 mg/dL (0.2-1.0); Total Protein 5.4 g/dL (6.4-8.2)
[2021-11-04] MEDS: MEROPENEM 1GM IVPB 100 ML IV SCH ×3 (05:37→21:50)
[2021-11-04] MEDS: NOREPINEPHRINE 8 MG/250ML KIT 250 ML IV SCH (06:30)
[2021-11-04] MEDS: Ensure HIGH Protein Chocolate 8oz Bottle PO SCH (08:00)
[2021-11-04] MEDS: VANCOMYCIN 1GM/250ML 250 ML IV SCH ×2 (08:38→17:07)
[2021-11-04] MEDS: VORICONAZOLE INJ 300 MG in D5W 5% 250 ML IV SCH ×2 (09:44→20:00)
[2021-11-04] MEDS: SODIUM CHLOR 0.9% PF (SALINE LOCK) 10ML VIAL/SYR IV SCH ×3 (09:49→21:50)
[2021-11-04] MEDS ORDERED: CLINIMIX PER PHARMACY 0 ML IV SCH (10:15)
[2021-11-04] MEDS ORDERED: FAMOTIDINE (10MG/ML) 2ML VL IV ONE (10:15)
[2021-11-04] MEDS ORDERED: methylPREDNISolone SOD SUCC 125 MG/2 ML VL IV ONE (10:15)
[2021-11-04] MEDS ORDERED: methylPREDNISolone SOD SUCC 125 MG/2 ML VL ONE (10:30)
[2021-11-04] MEDS: LORazepam 2MG/ML-1ML VIAL IV PRN ×2 (10:45→21:00)
[2021-11-04 10:55] LABS: Magnesium 2.2 mg/dL (1.6-2.6)
[2021-11-04 10:58] LABS: Pre Albumin 9.2 mg/dL (20.0-40.0)
[2021-11-04] MEDS: methylPREDNISolone SOD SUCC 40 MG/ML VL IV SCH ×2 (14:14→21:50)
[2021-11-04] MEDS ORDERED: AMINO ACID INFUSION IN D10W 1,000 ML IV NR (20:00)
[2021-11-05] VITALS (41 sets, daily range): BP systolic 101–178; BP diastolic 62–96
[2021-11-05] MEDS ORDERED: DEXTROSE (50%) 50ML SYRG IV SCH
[2021-11-05] MEDS: VANCOMYCIN 1GM/250ML 250 ML IV SCH ×3 (01:00→19:00)
[2021-11-05 04:07] LABS: Basophils # (auto) 0 10 ^3/uL (0-0.2); Eosinophils # (auto) 0 10 ^3/uL (0-0.8); Eosinophils % (auto) 0.1 % (0.0-7.0); Hemoglobin 8.4 g/dL (13.5-17.5); White Blood Cell 3.6 10^3/uL (4.4-10.8)
[2021-11-05 04:09] LABS: Basophils % (auto) 0.2 % (0.0-2.0); Hematocrit 27.6 % (41.0-53.0); Lymphocytes # (auto) 0.5 10 ^3/uL (0.4-5.4); Lymphocytes % (auto) 15.1 % (10.0-50.0); Mean Corpuscular Hemoglobin 32.1 pg (28.0-32.0); Mean Corpuscular Hgb Conc. 30.5 g/dL (32.0-36.0); Mean Corpuscular Volume 105.4 fL (80.0-100.0); Monocytes # (auto) 0 10 ^3/uL (0-1.3); Monocytes % (auto) 1.4 % (0.0-12.0); Neutrophils % (auto) 83.2 % (37.0-80.0); Nucleated Red Blood Cells % 0.4 %; Red Blood Cells 2.62 10^6/uL (4.5-5.90); Red Cell Distribution Width 17.8 % (11.8-14.3)
[2021-11-05 04:23] LABS: Albumin 2.1 g/dL (3.4-5.0); Calcium 7.5 mg/dL (8.5-10.1); Magnesium 2.2 mg/dL (1.6-2.6); Potassium 3.2 mmol/L (3.5-5.1)
[2021-11-05 04:26] LABS: Bilirubin, Total 0.6 mg/dL (0.2-1.0); Phosphorus 1.7 mg/dL (2.5-4.90); Total Protein 5.8 g/dL (6.4-8.2)
[2021-11-05 04:33] LABS: BUN/Creatinine Ratio 13.6
[2021-11-05] MEDS: InsuLIN REG 1unit/0.01ml Soln (100units/ml) SC SCH ×4 (05:37→18:15)
[2021-11-05] MEDS: ACCU-CHEK COMFORT CURVE STRIP VI SCH ×4 (05:38→18:16)
[2021-11-05] MEDS: MEROPENEM 1GM IVPB 100 ML IV SCH ×3 (05:48→22:00)
[2021-11-05] MEDS: methylPREDNISolone SOD SUCC 40 MG/ML VL IV SCH ×3 (05:49→22:00)
[2021-11-05] MEDS ORDERED: POTASSIUM CHL 20MEQ/50ML 50 ML IV ONE (06:00)
[2021-11-05] MEDS ORDERED: CALCIUM GLUC 1,000mg/50ml-NS 50 ML IV ONE ×2 (06:00→06:04)
[2021-11-05] MEDS: NOREPINEPHRINE 8 MG/250ML KIT 250 ML IV SCH (06:30)
[2021-11-05] MEDS: POTASSIUM CHL 10MEQ/50ML 50 ML IV SCH ×2 (08:13→09:00)
[2021-11-05] MEDS: VORICONAZOLE INJ 300 MG in D5W 5% 250 ML IV SCH ×2 (09:00→20:00)
[2021-11-05] MEDS: FAMOTIDINE (10MG/ML) 2ML VL IV SCH (10:07)
[2021-11-05] MEDS: SODIUM CHLOR 0.9% PF (SALINE LOCK) 10ML VIAL/SYR IV SCH ×2 (10:07→22:00)
[2021-11-05] MEDS ORDERED: SODIUM PHOSPHATES 24 MEQ in SODIUM CHL 0.9% 100 ML IV ONE (13:15)
[2021-11-05] MEDS ORDERED: POTASSIUM PHOSPHATE 22 MEQ in SODIUM CHL 0.9% 100 ML IV ONE (13:45)
[2021-11-05] MEDS ORDERED: AMINO ACID INFUSION IN D10W 1,000 ML IV NR (20:00)
[2021-11-06] VITALS (38 sets, daily range): BP systolic 103–179; BP diastolic 61–106
[2021-11-06 03:47] LABS: Basophils # (auto) 0.1 10 ^3/uL (0-0.2); Basophils % (auto) 1.4 % (0.0-2.0); Eosinophils # (auto) 0 10 ^3/uL (0-0.8); Eosinophils % (auto) 0.6 % (0.0-7.0); Hemoglobin 9.1 g/dL (13.5-17.5); Lymphocytes # (auto) 0.4 10 ^3/uL (0.4-5.4); Lymphocytes % (auto) 6.6 % (10.0-50.0); Mean Corpuscular Hemoglobin 32.4 pg (28.0-32.0); Mean Corpuscular Hgb Conc. 33.7 g/dL (32.0-36.0); Monocytes # (auto) 0.2 10 ^3/uL (0-1.3); Monocytes % (auto) 2.6 % (0.0-12.0); Neutrophils # (auto) 5.8 10 ^3/uL (1.6-8.6); Neutrophils % (auto) 88.8 % (37.0-80.0); Nucleated Red Blood Cells % 0.3 %; Red Blood Cells 2.82 10^6/uL (4.5-5.90); Red Cell Distribution Width 16.9 % (11.8-14.3); White Blood Cell 6.6 10^3/uL (4.4-10.8)
[2021-11-06] MEDS: VANCOMYCIN 1GM/250ML 250 ML IV SCH ×3 (04:00→22:00)
[2021-11-06 04:04] LABS: Albumin 2.4 g/dL (3.4-5.0); BUN/Creatinine Ratio 33.3; Calcium 8.4 mg/dL (8.5-10.1); Magnesium 3.3 mg/dL (1.6-2.6); Potassium 3.7 mmol/L (3.5-5.1)
[2021-11-06 04:06] LABS: Bilirubin, Total 0.8 mg/dL (0.2-1.0); Phosphorus 2.5 mg/dL (2.5-4.90); Total Protein 6.2 g/dL (6.4-8.2)
[2021-11-06] MEDS: ACCU-CHEK COMFORT CURVE STRIP VI SCH ×4 (06:00→17:33)
[2021-11-06] MEDS: InsuLIN REG 1unit/0.01ml Soln (100units/ml) SC SCH ×4 (06:00→17:32)
[2021-11-06] MEDS: MEROPENEM 1GM IVPB 100 ML IV SCH ×3 (06:00→22:00)
[2021-11-06] MEDS: methylPREDNISolone SOD SUCC 40 MG/ML VL IV SCH ×3 (06:00→22:00)
[2021-11-06] MEDS: NOREPINEPHRINE 8 MG/250ML KIT 250 ML IV SCH (06:30)
[2021-11-06] MEDS: VORICONAZOLE INJ 300 MG in D5W 5% 250 ML IV SCH ×2 (08:21→20:00)
[2021-11-06] MEDS: SODIUM CHLOR 0.9% PF (SALINE LOCK) 10ML VIAL/SYR IV SCH ×2 (10:12→22:00)
[2021-11-06] MEDS: FAMOTIDINE (10MG/ML) 2ML VL IV SCH (10:23)
[2021-11-06] MEDS ORDERED: AMINO ACID INFUSION IN D10W 1,000 ML IV NR (20:00)
[2021-11-07] VITALS (27 sets, daily range): BP systolic 126–178; BP diastolic 70–103
[2021-11-07] MEDS: InsuLIN REG 1unit/0.01ml Soln (100units/ml) SC SCH ×5 (06:00→23:56)
[2021-11-07] MEDS: MEROPENEM 1GM IVPB 100 ML IV SCH ×3 (06:00→22:00)
[2021-11-07] MEDS: methylPREDNISolone SOD SUCC 40 MG/ML VL IV SCH ×3 (06:00→22:00)
[2021-11-07] MEDS: ACCU-CHEK COMFORT CURVE STRIP VI SCH ×5 (06:00→23:57)
[2021-11-07] MEDS: VANCOMYCIN 1GM/250ML 250 ML IV SCH ×2 (08:01→19:09)
[2021-11-07] MEDS: SODIUM CHLOR 0.9% PF (SALINE LOCK) 10ML VIAL/SYR IV SCH ×2 (09:32→22:00)
[2021-11-07] MEDS: FAMOTIDINE (10MG/ML) 2ML VL IV SCH (09:33)
[2021-11-07 11:01] LABS: Albumin 2.3 g/dL (3.4-5.0); Potassium 3.8 mmol/L (3.5-5.1)
[2021-11-07 11:04] LABS: BUN/Creatinine Ratio 40.5; Calcium 8.1 mg/dL (8.5-10.1); Magnesium 2.3 mg/dL (1.6-2.6)
[2021-11-07 11:07] LABS: Bilirubin, Total 0.7 mg/dL (0.2-1.0); Phosphorus 2.2 mg/dL (2.5-4.90); Total Protein 5.9 g/dL (6.4-8.2)
[2021-11-08] VITALS (38 sets, daily range): BP systolic 85–187; BP diastolic 39–135
[2021-11-08] MEDS: VANCOMYCIN 1GM/250ML 250 ML IV SCH ×2 (01:00→12:49)
[2021-11-08] MEDS: InsuLIN REG 1unit/0.01ml Soln (100units/ml) SC SCH ×3 (06:00→20:03)
[2021-11-08] MEDS: methylPREDNISolone SOD SUCC 40 MG/ML VL IV SCH ×3 (06:00→22:31)
[2021-11-08] MEDS: MEROPENEM 1GM IVPB 100 ML IV SCH ×3 (06:00→22:31)
[2021-11-08] MEDS: ACCU-CHEK COMFORT CURVE STRIP VI SCH ×3 (06:00→16:52)
[2021-11-08 06:37] LABS: Potassium 3.8 mmol/L (3.5-5.1)
[2021-11-08 06:51] LABS: Albumin 2.5 g/dL (3.4-5.0); BUN/Creatinine Ratio 43.8; Bilirubin, Total 0.6 mg/dL (0.2-1.0); Calcium 7.9 mg/dL (8.5-10.1); Total Protein 6.1 g/dL (6.4-8.2)
[2021-11-08] MEDS: SODIUM CHLOR 0.9% PF (SALINE LOCK) 10ML VIAL/SYR IV SCH ×2 (10:00→22:31)
[2021-11-08] MEDS: FAMOTIDINE (10MG/ML) 2ML VL IV SCH (12:49)
[2021-11-08] MEDS ORDERED: FUROSEMIDE 20 MG/2 ML VIAL IV ONE (14:45)
[2021-11-08] MEDS ORDERED: POTASSIUM CHL 20 Meq TABLET PO ONE (14:45)
[2021-11-08] MEDS ORDERED: POTASSIUM CHL 10MEQ/50ML 100 ML IV ONE (15:31)
[2021-11-08] MEDS: LORazepam 2MG/ML-1ML VIAL IV PRN (16:25)
[2021-11-08] MEDS ORDERED: VANCOMYCIN 1GM/250ML 250 ML IV SCH (17:00)
[2021-11-08] MEDS: POTASSIUM CHL 10MEQ/50ML 50 ML IV SCH ×2 (17:00→20:17)
[2021-11-08] MEDS ORDERED: ETOMIDATE (2MG/ML) 20ML VIAL IV ONE ×2 (17:15→17:42)
[2021-11-08] MEDS ORDERED: MIDAZOLAM DRIP 50 mg/50mL 50 ML IV ONE (17:42)
[2021-11-08] MEDS ORDERED: SUCCINYLCHOLINE CHLORIDE 20 MG/ML 10ML VIAL IV ONE ×2 (17:43→17:45)
[2021-11-08] MEDS ORDERED: NOREPINEPHRINE 8 MG/250ML KIT 250 ML IV ONE (17:59)
[2021-11-08] MEDS: fentaNYL Drip 2500mCg/250mlNS 250 ML IV SCH (18:00)
[2021-11-08] MEDS: MIDAZOLAM DRIP 50 mg/50mL 50 ML IV SCH ×2 (18:00→23:39)
[2021-11-08] MEDS ORDERED: fentaNYL Drip 2500mCg/250mlNS 250 ML IV ONE (18:08)
[2021-11-08] MEDS: PROPOFOL 100 ML IV SCH ×2 (18:15→23:39)
[2021-11-08] MEDS ORDERED: PROPOFOL 100 ML IV ONE (18:25)
[2021-11-08] MEDS: NOREPINEPHRINE 8 MG/250ML KIT 250 ML IV SCH (19:00)
[2021-11-09] VITALS (99 sets, daily range): BP systolic 79–121; BP diastolic 51–82
[2021-11-09] MEDS: ACCU-CHEK COMFORT CURVE STRIP VI SCH ×5 (06:00→23:55)
[2021-11-09] MEDS: InsuLIN REG 1unit/0.01ml Soln (100units/ml) SC SCH ×5 (06:00→23:56)
[2021-11-09 08:03] LABS: Eosinophils # (auto) 0 10 ^3/uL (0-0.8); Mean Corpuscular Volume 98.4 fL (80.0-100.0); Monocytes # (auto) 0.7 10 ^3/uL (0-1.3); White Blood Cell 16.2 10^3/uL (4.4-10.8)
[2021-11-09] MEDS: MEROPENEM 1GM IVPB 100 ML IV SCH ×3 (08:04→22:52)
[2021-11-09] MEDS: methylPREDNISolone SOD SUCC 40 MG/ML VL IV SCH ×3 (08:04→22:52)
[2021-11-09 08:05] LABS: Basophils # (auto) 0 10 ^3/uL (0-0.2); Basophils % (auto) 0.1 % (0.0-2.0); Hematocrit 33.2 % (41.0-53.0); Lymphocytes # (auto) 0.6 10 ^3/uL (0.4-5.4); Lymphocytes % (auto) 3.8 % (10.0-50.0); Mean Corpuscular Hemoglobin 32.6 pg (28.0-32.0); Mean Corpuscular Hgb Conc. 33.2 g/dL (32.0-36.0); Monocytes % (auto) 4.6 % (0.0-12.0); Neutrophils # (auto) 14.8 10 ^3/uL (1.6-8.6); Neutrophils % (auto) 91.5 % (37.0-80.0); Nucleated Red Blood Cells % 3.1 %; Red Blood Cells 3.38 10^6/uL (4.5-5.90); Red Cell Distribution Width 16.9 % (11.8-14.3)
[2021-11-09 08:34] LABS: Potassium 4.2 mmol/L (3.5-5.1)
[2021-11-09 08:53] LABS: Albumin 2.8 g/dL (3.4-5.0); Bilirubin, Total 0.5 mg/dL (0.2-1.0); Total Protein 6.5 g/dL (6.4-8.2)
[2021-11-09] MEDS ORDERED: POTASSIUM CHL 20 Meq TABLET PO SCH (10:00)
[2021-11-09] MEDS ORDERED: FUROSEMIDE 40 MG TAB PO SCH (10:00)
[2021-11-09] MEDS: SODIUM CHLOR 0.9% PF (SALINE LOCK) 10ML VIAL/SYR IV SCH ×2 (10:38→22:52)
[2021-11-09] MEDS: FAMOTIDINE (10MG/ML) 2ML VL IV SCH (10:38)
[2021-11-09] MEDS ORDERED: FUROSEMIDE 20 MG/2 ML VIAL IV ONE (10:45)
[2021-11-09] MEDS: PROPOFOL 100 ML IV SCH (14:13)
[2021-11-09] MEDS: MIDAZOLAM DRIP 50 mg/50mL 50 ML IV SCH (14:14)
[2021-11-09] MEDS: fentaNYL Drip 2500mCg/250mlNS 250 ML IV SCH (18:28)
[2021-11-09] MEDS: NOREPINEPHRINE 8 MG/250ML KIT 250 ML IV SCH (18:28)
[2021-11-10] VITALS (96 sets, daily range): BP systolic 79–208; BP diastolic 43–137
[2021-11-10] MEDS: MEROPENEM 1GM IVPB 100 ML IV SCH ×3 (06:00→22:16)
[2021-11-10] MEDS: ACCU-CHEK COMFORT CURVE STRIP VI SCH ×3 (06:00→17:37)
[2021-11-10] MEDS: InsuLIN REG 1unit/0.01ml Soln (100units/ml) SC SCH ×3 (06:00→17:37)
[2021-11-10 07:24] LABS: Basophils # (auto) 0 10 ^3/uL (0-0.2); Eosinophils # (auto) 0 10 ^3/uL (0-0.8); Hematocrit 27.9 % (41.0-53.0); Hemoglobin 9.1 g/dL (13.5-17.5); Lymphocytes # (auto) 0.5 10 ^3/uL (0.4-5.4); Lymphocytes % (auto) 6.9 % (10.0-50.0); Mean Corpuscular Hemoglobin 31.6 pg (28.0-32.0); Mean Corpuscular Hgb Conc. 32.7 g/dL (32.0-36.0); Mean Corpuscular Volume 96.5 fL (80.0-100.0); Monocytes # (auto) 0.3 10 ^3/uL (0-1.3); Neutrophils # (auto) 6.2 10 ^3/uL (1.6-8.6); Neutrophils % (auto) 89.1 % (37.0-80.0); Nucleated Red Blood Cells % 0.5 %; Red Blood Cells 2.89 10^6/uL (4.5-5.90); Red Cell Distribution Width 16.6 % (11.8-14.3)
[2021-11-10 07:46] LABS: Calcium 7.2 mg/dL (8.5-10.1); Potassium 4.1 mmol/L (3.5-5.1)
[2021-11-10 07:50] LABS: BUN/Creatinine Ratio 73.5
[2021-11-10] MEDS: methylPREDNISolone SOD SUCC 40 MG/ML VL IV SCH ×3 (08:09→22:16)
[2021-11-10] MEDS: Glucerna 1.2 Cal 1Liter BOTTLE GT SCH (10:01)
[2021-11-10] MEDS: FREE WATER GT SCH ×2 (12:00→17:37)
[2021-11-10] MEDS: SODIUM CHLOR 0.9% PF (SALINE LOCK) 10ML VIAL/SYR IV SCH ×2 (15:33→22:16)
[2021-11-10] MEDS: ENOXAPARIN SOD 80 MG/0.8ML SYRINGE SC SCH ×2 (15:33→22:17)
[2021-11-10] MEDS: fentaNYL Drip 2500mCg/250mlNS 250 ML IV SCH (15:33)
[2021-11-10] MEDS: FUROSEMIDE 20 MG/2 ML VIAL IV SCH (15:34)
[2021-11-10] MEDS: PROPOFOL 100 ML IV SCH (15:34)
[2021-11-10] MEDS: FAMOTIDINE (10MG/ML) 2ML VL IV SCH (15:34)
[2021-11-10] MEDS: NOREPINEPHRINE 8 MG/250ML KIT 250 ML IV SCH (15:35)
[2021-11-10] MEDS: MIDAZOLAM DRIP 50 mg/50mL 50 ML IV SCH (15:36)
[2021-11-11] VITALS (96 sets, daily range): BP systolic 88–145; BP diastolic 54–86
[2021-11-11 05:24] LABS: Basophils # (auto) 0 10 ^3/uL (0-0.2); Basophils % (auto) 0.2 % (0.0-2.0); Eosinophils # (auto) 0 10 ^3/uL (0-0.8); Hematocrit 26.1 % (41.0-53.0); Hemoglobin 8.8 g/dL (13.5-17.5); Lymphocytes # (auto) 0.3 10 ^3/uL (0.4-5.4); Lymphocytes % (auto) 6.8 % (10.0-50.0); Mean Corpuscular Hemoglobin 32.1 pg (28.0-32.0); Mean Corpuscular Hgb Conc. 33.5 g/dL (32.0-36.0); Monocytes # (auto) 0.3 10 ^3/uL (0-1.3); Monocytes % (auto) 5.7 % (0.0-12.0); Neutrophils # (auto) 4.2 10 ^3/uL (1.6-8.6); Neutrophils % (auto) 87.3 % (37.0-80.0); Nucleated Red Blood Cells % 0.1 %; Red Blood Cells 2.72 10^6/uL (4.5-5.90); Red Cell Distribution Width 16.3 % (11.8-14.3); White Blood Cell 4.8 10^3/uL (4.4-10.8)
[2021-11-11 05:27] LABS: Potassium 3.9 mmol/L (3.5-5.1)
[2021-11-11 05:36] LABS: BUN/Creatinine Ratio 117.1; Calcium 7.8 mg/dL (8.5-10.1)
[2021-11-11] MEDS: ACCU-CHEK COMFORT CURVE STRIP VI SCH ×4 (06:00→18:00)
[2021-11-11] MEDS: FREE WATER GT SCH ×4 (06:00→18:18)
[2021-11-11] MEDS: InsuLIN REG 1unit/0.01ml Soln (100units/ml) SC SCH ×4 (06:00→18:00)
[2021-11-11] MEDS: MEROPENEM 1GM IVPB 100 ML IV SCH ×3 (07:49→22:00)
[2021-11-11] MEDS: methylPREDNISolone SOD SUCC 40 MG/ML VL IV SCH ×3 (07:50→22:00)
[2021-11-11] MEDS: ENOXAPARIN SOD 80 MG/0.8ML SYRINGE SC SCH ×2 (10:00→22:00)
[2021-11-11] MEDS: FAMOTIDINE (10MG/ML) 2ML VL IV SCH (10:00)
[2021-11-11] MEDS: FUROSEMIDE 20 MG/2 ML VIAL IV SCH (10:00)
[2021-11-11] MEDS: SODIUM CHLOR 0.9% PF (SALINE LOCK) 10ML VIAL/SYR IV SCH ×2 (10:00→22:00)
[2021-11-11] MEDS: fentaNYL Drip 2500mCg/250mlNS 250 ML IV SCH (10:00)
[2021-11-11] MEDS: PROPOFOL 100 ML IV SCH (15:00)
[2021-11-11] MEDS: MIDAZOLAM DRIP 50 mg/50mL 50 ML IV SCH (18:26)
[2021-11-12] VITALS (98 sets, daily range): BP systolic 86–178; BP diastolic 51–97
[2021-11-12] MEDS: ACCU-CHEK COMFORT CURVE STRIP VI SCH ×4 (06:00→17:45)
[2021-11-12] MEDS: InsuLIN REG 1unit/0.01ml Soln (100units/ml) SC SCH ×4 (06:00→18:00)
[2021-11-12 06:15] LABS: Basophils # (auto) 0 10 ^3/uL (0-0.2); Basophils % (auto) 0.2 % (0.0-2.0); Eosinophils # (auto) 0 10 ^3/uL (0-0.8); Hematocrit 26.2 % (41.0-53.0); Hemoglobin 8.9 g/dL (13.5-17.5); Lymphocytes # (auto) 0.3 10 ^3/uL (0.4-5.4); Lymphocytes % (auto) 9.1 % (10.0-50.0); Mean Corpuscular Hemoglobin 32.4 pg (28.0-32.0); Mean Corpuscular Hgb Conc. 33.9 g/dL (32.0-36.0); Mean Corpuscular Volume 95.6 fL (80.0-100.0); Monocytes # (auto) 0.2 10 ^3/uL (0-1.3); Monocytes % (auto) 7.2 % (0.0-12.0); Neutrophils # (auto) 2.7 10 ^3/uL (1.6-8.6); Neutrophils % (auto) 83.5 % (37.0-80.0); Nucleated Red Blood Cells % 0.1 %; Red Blood Cells 2.74 10^6/uL (4.5-5.90); Red Cell Distribution Width 16.5 % (11.8-14.3); White Blood Cell 3.2 10^3/uL (4.4-10.8)
[2021-11-12 06:51] LABS: Calcium 7.9 mg/dL (8.5-10.1); Potassium 3.8 mmol/L (3.5-5.1)
[2021-11-12 06:53] LABS: BUN/Creatinine Ratio 139.3
[2021-11-12] MEDS: FREE WATER GT SCH ×3 (08:17→12:15)
[2021-11-12] MEDS: MEROPENEM 1GM IVPB 100 ML IV SCH ×3 (08:18→21:11)
[2021-11-12] MEDS: methylPREDNISolone SOD SUCC 40 MG/ML VL IV SCH ×2 (08:18→21:12)
[2021-11-12] MEDS: NOREPINEPHRINE 8 MG/250ML KIT 250 ML IV SCH ×2 (08:25→19:15)
[2021-11-12] MEDS: ENOXAPARIN SOD 80 MG/0.8ML SYRINGE SC SCH ×2 (09:32→21:13)
[2021-11-12] MEDS: FAMOTIDINE (10MG/ML) 2ML VL IV SCH (09:32)
[2021-11-12] MEDS: FUROSEMIDE 20 MG/2 ML VIAL IV SCH (09:33)
[2021-11-12] MEDS: SODIUM CHLOR 0.9% PF (SALINE LOCK) 10ML VIAL/SYR IV SCH ×2 (09:33→21:12)
[2021-11-12] MEDS ORDERED: ATROPINE SULFATE 1 MG/1 ML VIAL ONE (10:51)
[2021-11-12] MEDS: MIDAZOLAM DRIP 50 mg/50mL 50 ML IV SCH (12:50)
[2021-11-12] MEDS: fentaNYL Drip 2500mCg/250mlNS 250 ML IV SCH (12:51)
[2021-11-12] MEDS: PROPOFOL 100 ML IV SCH (21:11)
[2021-11-13] VITALS (97 sets, daily range): BP systolic 83–128; BP diastolic 47–90
[2021-11-13] MEDS: PROPOFOL 100 ML IV SCH (01:40)
[2021-11-13] MEDS: MIDAZOLAM DRIP 50 mg/50mL 50 ML IV SCH ×2 (01:40→21:14)
[2021-11-13] MEDS: Glucerna 1.2 Cal 1Liter BOTTLE GT SCH (01:41)
[2021-11-13 05:04] LABS: Basophils # (auto) 0 10 ^3/uL (0-0.2); Basophils % (auto) 0.3 % (0.0-2.0); Eosinophils # (auto) 0 10 ^3/uL (0-0.8); Hematocrit 27.8 % (41.0-53.0); Hemoglobin 9.5 g/dL (13.5-17.5); Lymphocytes # (auto) 0.5 10 ^3/uL (0.4-5.4); Lymphocytes % (auto) 11.2 % (10.0-50.0); Mean Corpuscular Hemoglobin 32.7 pg (28.0-32.0); Mean Corpuscular Hgb Conc. 34.3 g/dL (32.0-36.0); Mean Corpuscular Volume 95.4 fL (80.0-100.0); Monocytes # (auto) 0.3 10 ^3/uL (0-1.3); Monocytes % (auto) 8.1 % (0.0-12.0); Neutrophils # (auto) 3.3 10 ^3/uL (1.6-8.6); Neutrophils % (auto) 80.4 % (37.0-80.0); Nucleated Red Blood Cells % 0.1 %; Red Blood Cells 2.91 10^6/uL (4.5-5.90); Red Cell Distribution Width 16.2 % (11.8-14.3); White Blood Cell 4.1 10^3/uL (4.4-10.8)
[2021-11-13] MEDS: MEROPENEM 1GM IVPB 100 ML IV SCH ×3 (05:13→21:12)
[2021-11-13 05:24] LABS: Potassium 3.6 mmol/L (3.5-5.1)
[2021-11-13 05:29] LABS: BUN/Creatinine Ratio 95.2; Calcium 8.4 mg/dL (8.5-10.1)
[2021-11-13] MEDS: InsuLIN REG 1unit/0.01ml Soln (100units/ml) SC SCH ×5 (05:47→23:38)
[2021-11-13] MEDS: ACCU-CHEK COMFORT CURVE STRIP VI SCH ×5 (05:49→23:39)
[2021-11-13] MEDS: SODIUM CHLOR 0.9% PF (SALINE LOCK) 10ML VIAL/SYR IV SCH ×2 (09:34→21:13)
[2021-11-13] MEDS: FAMOTIDINE (10MG/ML) 2ML VL IV SCH (09:35)
[2021-11-13] MEDS: FUROSEMIDE 20 MG/2 ML VIAL IV SCH (09:35)
[2021-11-13] MEDS: ENOXAPARIN SOD 80 MG/0.8ML SYRINGE SC SCH (09:36)
[2021-11-13] MEDS: methylPREDNISolone SOD SUCC 40 MG/ML VL IV SCH ×2 (09:36→21:13)
[2021-11-13] MEDS: fentaNYL Drip 2500mCg/250mlNS 250 ML IV SCH (11:39)
[2021-11-13] MEDS: NOREPINEPHRINE 8 MG/250ML KIT 250 ML IV SCH ×2 (19:15→21:45)
[2021-11-13] MEDS ORDERED: ENOXAPARIN SOD 60 MG/0.6 ML SYRINGE SC SCH (22:00)
[2021-11-14] VITALS (97 sets, daily range): BP systolic 63–143; BP diastolic 35–101
[2021-11-14 05:27] LABS: BUN/Creatinine Ratio 79.6; Calcium 8.5 mg/dL (8.5-10.1); Potassium 4.1 mmol/L (3.5-5.1)
[2021-11-14 05:34] LABS: Mean Corpuscular Hemoglobin 32.1 pg (28.0-32.0); Mean Corpuscular Hgb Conc. 32.2 g/dL (32.0-36.0); Mean Corpuscular Volume 99.5 fL (80.0-100.0); Red Blood Cells 3.12 10^6/uL (4.5-5.90); Red Cell Distribution Width 17.2 % (11.8-14.3); White Blood Cell 12.1 10^3/uL (4.4-10.8)
[2021-11-14 05:57] LABS: Basophils % (manual) 0 (0.0-2.0); Blast Cells 0; Eosinophils % (manual) 0 (0-7); Metamyelocytes % 0; Myelocytes % 0; Promyelocytes % 0; Reactive Lymphocytes 0
[2021-11-14] MEDS: ACCU-CHEK COMFORT CURVE STRIP VI SCH ×5 (05:58→23:22)
[2021-11-14] MEDS: InsuLIN REG 1unit/0.01ml Soln (100units/ml) SC SCH ×4 (05:58→23:22)
[2021-11-14] MEDS: MEROPENEM 1GM IVPB 100 ML IV SCH ×3 (06:00→21:23)
[2021-11-14] MEDS: PROPOFOL 100 ML IV SCH ×3 (06:20→21:24)
[2021-11-14] MEDS: Glucerna 1.2 Cal 1Liter BOTTLE GT SCH (06:21)
[2021-11-14] MEDS: MIDAZOLAM DRIP 50 mg/50mL 50 ML IV SCH ×2 (06:21→21:18)
[2021-11-14 08:22] LABS: Band Neutrophils % (manual) 6; Lymphocytes % (manual) 15 (10.0-50.0); Monocytes % (manual) 6 (0-12)
[2021-11-14] MEDS: FUROSEMIDE 20 MG/2 ML VIAL IV SCH (09:52)
[2021-11-14] MEDS: FAMOTIDINE (10MG/ML) 2ML VL IV SCH (09:52)
[2021-11-14] MEDS: SODIUM CHLOR 0.9% PF (SALINE LOCK) 10ML VIAL/SYR IV SCH ×2 (09:53→21:23)
[2021-11-14] MEDS: methylPREDNISolone SOD SUCC 40 MG/ML VL IV SCH ×2 (09:53→21:23)
[2021-11-14] MEDS: fentaNYL Drip 2500mCg/250mlNS 250 ML IV SCH (13:02)
[2021-11-15] VITALS (94 sets, daily range): BP systolic 74–162; BP diastolic 44–97
[2021-11-15 05:19] LABS: Basophils # (auto) 0 10 ^3/uL (0-0.2); Eosinophils # (auto) 0 10 ^3/uL (0-0.8); Eosinophils % (auto) 0.1 % (0.0-7.0); Hemoglobin 8.3 g/dL (13.5-17.5); Monocytes # (auto) 0.3 10 ^3/uL (0-1.3); White Blood Cell 6.5 10^3/uL (4.4-10.8)
[2021-11-15 05:21] LABS: Basophils % (auto) 0.5 % (0.0-2.0); Hematocrit 24.4 % (41.0-53.0); Lymphocytes # (auto) 0.9 10 ^3/uL (0.4-5.4); Lymphocytes % (auto) 13.9 % (10.0-50.0); Mean Corpuscular Hemoglobin 32.4 pg (28.0-32.0); Mean Corpuscular Hgb Conc. 34.1 g/dL (32.0-36.0); Mean Corpuscular Volume 94.9 fL (80.0-100.0); Monocytes % (auto) 5.3 % (0.0-12.0); Neutrophils # (auto) 5.2 10 ^3/uL (1.6-8.6); Neutrophils % (auto) 80.2 % (37.0-80.0); Nucleated Red Blood Cells % 0.1 %; Red Blood Cells 2.57 10^6/uL (4.5-5.90); Red Cell Distribution Width 15.9 % (11.8-14.3)
[2021-11-15 05:35] LABS: Albumin 2.2 g/dL (3.4-5.0); BUN/Creatinine Ratio 90.5; Calcium 8.3 mg/dL (8.5-10.1); Potassium 3.3 mmol/L (3.5-5.1)
[2021-11-15 05:38] LABS: Bilirubin, Total 0.7 mg/dL (0.2-1.0); Total Protein 5.2 g/dL (6.4-8.2)
[2021-11-15] MEDS: InsuLIN REG 1unit/0.01ml Soln (100units/ml) SC SCH ×4 (06:00→23:50)
[2021-11-15] MEDS: MEROPENEM 1GM IVPB 100 ML IV SCH ×3 (06:23→22:54)
[2021-11-15] MEDS: POTASSIUM CHL 10MEQ/50ML 50 ML IV SCH ×2 (08:45→09:34)
[2021-11-15] MEDS: methylPREDNISolone SOD SUCC 40 MG/ML VL IV SCH ×2 (09:34→20:21)
[2021-11-15] MEDS: SODIUM CHLOR 0.9% PF (SALINE LOCK) 10ML VIAL/SYR IV SCH ×2 (09:34→20:22)
[2021-11-15] MEDS: FAMOTIDINE (10MG/ML) 2ML VL IV SCH (09:34)
[2021-11-15] MEDS: FUROSEMIDE 20 MG/2 ML VIAL IV SCH (09:35)
[2021-11-15] MEDS: ACCU-CHEK COMFORT CURVE STRIP VI SCH ×3 (12:21→23:50)
[2021-11-15] MEDS: MIDAZOLAM DRIP 50 mg/50mL 50 ML IV SCH ×2 (13:24→20:21)
[2021-11-15] MEDS: fentaNYL Drip 2500mCg/250mlNS 250 ML IV SCH (15:45)
[2021-11-15] MEDS: NOREPINEPHRINE 8 MG/250ML KIT 250 ML IV SCH (16:46)
[2021-11-15] MEDS: FREE WATER GT SCH ×2 (17:25→23:52)
[2021-11-16] VITALS (100 sets, daily range): BP systolic 76–146; BP diastolic 46–100
[2021-11-16 03:38] LABS: Hemoglobin 8.1 g/dL (13.5-17.5); White Blood Cell 8.5 10^3/uL (4.4-10.8)
[2021-11-16 03:40] LABS: Hematocrit 24.1 % (41.0-53.0); Mean Corpuscular Hgb Conc. 33.4 g/dL (32.0-36.0); Red Blood Cells 2.51 10^6/uL (4.5-5.90); Red Cell Distribution Width 16.6 % (11.8-14.3)
[2021-11-16 03:42] LABS: Basophils % (manual) 0 (0.0-2.0); Blast Cells 0; Eosinophils % (manual) 0 (0-7); Metamyelocytes % 0; Promyelocytes % 0; Reactive Lymphocytes 0
[2021-11-16 03:56] LABS: Band Neutrophils % (manual) 4; Lymphocytes % (manual) 16 (10.0-50.0); Monocytes % (manual) 1 (0-12); Myelocytes % 1
[2021-11-16 03:57] LABS: BUN/Creatinine Ratio 121.2; Calcium 7.9 mg/dL (8.5-10.1); Potassium 3.5 mmol/L (3.5-5.1)
[2021-11-16] MEDS: InsuLIN REG 1unit/0.01ml Soln (100units/ml) SC SCH (06:00)
[2021-11-16] MEDS: MEROPENEM 1GM IVPB 100 ML IV SCH ×3 (06:29→21:19)
[2021-11-16] MEDS: FREE WATER GT SCH ×4 (06:29→23:44)
[2021-11-16] MEDS: ACCU-CHEK COMFORT CURVE STRIP VI SCH (06:30)
[2021-11-16] MEDS: FAMOTIDINE (10MG/ML) 2ML VL IV SCH (09:22)
[2021-11-16] MEDS: SODIUM CHLOR 0.9% PF (SALINE LOCK) 10ML VIAL/SYR IV SCH ×2 (09:22→21:18)
[2021-11-16] MEDS: methylPREDNISolone SOD SUCC 40 MG/ML VL IV SCH ×2 (09:22→21:18)
[2021-11-16] MEDS: MIDAZOLAM DRIP 50 mg/50mL 50 ML IV SCH ×2 (10:19→20:26)
[2021-11-16] MEDS: PROPOFOL 100 ML IV SCH (12:48)
[2021-11-16] MEDS: fentaNYL Drip 2500mCg/250mlNS 250 ML IV SCH (14:33)
[2021-11-16] MEDS: Glucerna 1.2 Cal 1Liter BOTTLE GT SCH (20:26)
[2021-11-16] MEDS: ARTIFICIAL TEARS 15ml EACHEYE PRN (20:27)
[2021-11-17] VITALS (101 sets, daily range): BP systolic 76–157; BP diastolic 45–115
[2021-11-17 03:47] LABS: Basophils # (auto) 0 10 ^3/uL (0-0.2); Basophils % (auto) 0.2 % (0.0-2.0); Eosinophils # (auto) 0 10 ^3/uL (0-0.8); Eosinophils % (auto) 0.1 % (0.0-7.0); Hematocrit 24.8 % (41.0-53.0); Hemoglobin 8.5 g/dL (13.5-17.5); Lymphocytes # (auto) 0.7 10 ^3/uL (0.4-5.4); Lymphocytes % (auto) 8.5 % (10.0-50.0); Mean Corpuscular Hemoglobin 32.5 pg (28.0-32.0); Mean Corpuscular Hgb Conc. 34.2 g/dL (32.0-36.0); Mean Corpuscular Volume 95.2 fL (80.0-100.0); Monocytes # (auto) 0.4 10 ^3/uL (0-1.3); Monocytes % (auto) 4.4 % (0.0-12.0); Neutrophils # (auto) 7.1 10 ^3/uL (1.6-8.6); Neutrophils % (auto) 86.8 % (37.0-80.0); Nucleated Red Blood Cells % 0.1 %; Red Cell Distribution Width 16.6 % (11.8-14.3); White Blood Cell 8.2 10^3/uL (4.4-10.8)
[2021-11-17 04:05] LABS: Calcium 8.3 mg/dL (8.5-10.1); Potassium 3.7 mmol/L (3.5-5.1)
[2021-11-17 04:09] LABS: Albumin 2.4 g/dL (3.4-5.0)
[2021-11-17 04:11] LABS: Bilirubin, Total 0.9 mg/dL (0.2-1.0); Total Protein 5.4 g/dL (6.4-8.2)
[2021-11-17] MEDS: FREE WATER GT SCH ×4 (04:45→23:58)
[2021-11-17] MEDS: MEROPENEM 1GM IVPB 100 ML IV SCH ×3 (05:37→21:11)
[2021-11-17] MEDS: FAMOTIDINE (10MG/ML) 2ML VL IV SCH (10:00)
[2021-11-17] MEDS: methylPREDNISolone SOD SUCC 40 MG/ML VL IV SCH ×2 (10:00→21:11)
[2021-11-17] MEDS: SODIUM CHLOR 0.9% PF (SALINE LOCK) 10ML VIAL/SYR IV SCH ×2 (10:00→21:11)
[2021-11-17] MEDS: NOREPINEPHRINE 8 MG/250ML KIT 250 ML IV SCH (16:38)
[2021-11-17] MEDS: PROPOFOL 100 ML IV SCH (19:00)
[2021-11-17] MEDS: fentaNYL Drip 2500mCg/250mlNS 250 ML IV SCH (19:29)
[2021-11-17] MEDS: Glucerna 1.2 Cal 1Liter BOTTLE GT SCH (21:12)
[2021-11-17] MEDS: MIDAZOLAM DRIP 50 mg/50mL 50 ML IV SCH (21:12)
[2021-11-17] MEDS: ARTIFICIAL TEARS 15ml EACHEYE PRN (21:12)
[2021-11-18] VITALS (97 sets, daily range): BP systolic 68–151; BP diastolic 39–93
[2021-11-18] MEDS: MIDAZOLAM DRIP 50 mg/50mL 50 ML IV SCH (02:03)
[2021-11-18 03:26] LABS: Basophils # (auto) 0 10 ^3/uL (0-0.2); Eosinophils # (auto) 0 10 ^3/uL (0-0.8); Hematocrit 24.1 % (41.0-53.0); Mean Corpuscular Hgb Conc. 33.3 g/dL (32.0-36.0)
[2021-11-18 03:28] LABS: Basophils % (auto) 0.3 % (0.0-2.0); Lymphocytes # (auto) 0.6 10 ^3/uL (0.4-5.4); Lymphocytes % (auto) 7.7 % (10.0-50.0); Mean Corpuscular Hemoglobin 32.1 pg (28.0-32.0); Mean Corpuscular Volume 96.5 fL (80.0-100.0); Monocytes # (auto) 0.4 10 ^3/uL (0-1.3); Monocytes % (auto) 4.8 % (0.0-12.0); Neutrophils # (auto) 6.6 10 ^3/uL (1.6-8.6); Neutrophils % (auto) 87.2 % (37.0-80.0); Nucleated Red Blood Cells % 0.2 %; Red Blood Cells 2.49 10^6/uL (4.5-5.90); Red Cell Distribution Width 16.5 % (11.8-14.3); White Blood Cell 7.5 10^3/uL (4.4-10.8)
[2021-11-18 03:47] LABS: BUN/Creatinine Ratio 107.4; Calcium 8.1 mg/dL (8.5-10.1); Potassium 3.7 mmol/L (3.5-5.1)
[2021-11-18] MEDS: MEROPENEM 1GM IVPB 100 ML IV SCH ×3 (06:39→22:00)
[2021-11-18] MEDS: FREE WATER GT SCH ×3 (06:39→18:00)
[2021-11-18] MEDS: SODIUM CHLOR 0.9% PF (SALINE LOCK) 10ML VIAL/SYR IV SCH ×2 (10:00→22:00)
[2021-11-18] MEDS: FAMOTIDINE (10MG/ML) 2ML VL IV SCH (10:00)
[2021-11-18] MEDS ORDERED: ENOXAPARIN SOD 40 MG/0.4 ML SYRINGE SC ONE (12:15)
[2021-11-18] MEDS: fentaNYL Drip 2500mCg/250mlNS 250 ML IV SCH (14:53)
[2021-11-18] MEDS ORDERED: NOREPINEPHRINE BITARTRATE 32 MG in SODIUM CHL 0.9% 218 ML IV SCH (15:30)
[2021-11-18] MEDS ORDERED: NOREPINEPHRINE 8 MG/250ML KIT 250 ML IV SCH (15:45)
[2021-11-18] MEDS: NOREPINEPHRINE 8 MG/250ML KIT 250 ML IV SCH (15:45)
[2021-11-18] MEDS: PROPOFOL 100 ML IV SCH (19:00)
[2021-11-19] VITALS (102 sets, daily range): BP systolic 82–149; BP diastolic 50–92
[2021-11-19] MEDS: fentaNYL Drip 2500mCg/250mlNS 250 ML IV SCH (02:15)
[2021-11-19 04:10] LABS: Basophils # (auto) 0.1 10 ^3/uL (0-0.2); Basophils % (auto) 0.4 % (0.0-2.0); Eosinophils # (auto) 0 10 ^3/uL (0-0.8); Eosinophils % (auto) 0.1 % (0.0-7.0); Hematocrit 24.5 % (41.0-53.0); White Blood Cell 12.4 10^3/uL (4.4-10.8)
[2021-11-19 04:11] LABS: Hemoglobin 8.2 g/dL (13.5-17.5); Lymphocytes # (auto) 1.4 10 ^3/uL (0.4-5.4); Lymphocytes % (auto) 11.1 % (10.0-50.0); Mean Corpuscular Hemoglobin 32.1 pg (28.0-32.0); Mean Corpuscular Hgb Conc. 33.4 g/dL (32.0-36.0); Mean Corpuscular Volume 95.9 fL (80.0-100.0); Monocytes % (auto) 8.1 % (0.0-12.0); Neutrophils # (auto) 9.9 10 ^3/uL (1.6-8.6); Neutrophils % (auto) 80.3 % (37.0-80.0); Nucleated Red Blood Cells % 0.1 %; Red Blood Cells 2.55 10^6/uL (4.5-5.90); Red Cell Distribution Width 16.7 % (11.8-14.3)
[2021-11-19 04:27] LABS: BUN/Creatinine Ratio 86.7; Calcium 8.1 mg/dL (8.5-10.1); Potassium 3.1 mmol/L (3.5-5.1)
[2021-11-19] MEDS: FREE WATER GT SCH ×4 (05:32→19:51)
[2021-11-19] MEDS: MEROPENEM 1GM IVPB 100 ML IV SCH ×3 (05:33→22:00)
[2021-11-19] MEDS: POTASSIUM CHL 10MEQ/50ML 50 ML IV SCH ×2 (07:00→16:27)
[2021-11-19] MEDS: NOREPINEPHRINE 8 MG/250ML KIT 250 ML IV SCH (15:45)
[2021-11-19] MEDS: SODIUM CHLOR 0.9% PF (SALINE LOCK) 10ML VIAL/SYR IV SCH ×2 (16:18→22:00)
[2021-11-19] MEDS: FAMOTIDINE (10MG/ML) 2ML VL IV SCH (16:18)
[2021-11-19] MEDS: ENOXAPARIN SOD 40 MG/0.4 ML SYRINGE SC SCH (16:19)
[2021-11-19] MEDS: PROPOFOL 100 ML IV SCH (19:00)
[2021-11-19] MEDS: MIDAZOLAM DRIP 50 mg/50mL 50 ML IV SCH (19:53)
[2021-11-20] VITALS (97 sets, daily range): BP systolic 76–145; BP diastolic 46–101
[2021-11-20] MEDS: MIDAZOLAM DRIP 50 mg/50mL 50 ML IV SCH (02:15)
[2021-11-20 04:15] LABS: Basophils # (auto) 0 10 ^3/uL (0-0.2); Basophils % (auto) 0.2 % (0.0-2.0); Eosinophils # (auto) 0.1 10 ^3/uL (0-0.8); Eosinophils % (auto) 0.8 % (0.0-7.0); Hematocrit 24.6 % (41.0-53.0); Hemoglobin 8.2 g/dL (13.5-17.5); Lymphocytes # (auto) 1.3 10 ^3/uL (0.4-5.4); Lymphocytes % (auto) 14.6 % (10.0-50.0); Mean Corpuscular Hemoglobin 32.1 pg (28.0-32.0); Mean Corpuscular Hgb Conc. 33.2 g/dL (32.0-36.0); Mean Corpuscular Volume 96.6 fL (80.0-100.0); Monocytes # (auto) 0.7 10 ^3/uL (0-1.3); Monocytes % (auto) 7.3 % (0.0-12.0); Neutrophils % (auto) 77.1 % (37.0-80.0); Nucleated Red Blood Cells % 0.1 %; Red Blood Cells 2.55 10^6/uL (4.5-5.90); Red Cell Distribution Width 17.1 % (11.8-14.3); White Blood Cell 9.1 10^3/uL (4.4-10.8)
[2021-11-20 04:33] LABS: BUN/Creatinine Ratio 105.3; Potassium 3.2 mmol/L (3.5-5.1)
[2021-11-20 05:46] LABS: Urine Bacteria NONE SEEN /hpf (None Seen); Urine Blood 3+ /uL (Negative); Urine Hyaline Cast FEW /lpf (0 - 2); Urine Mucus MODERATE (None Seen); Urine Specific Gravity 1.026 (1.001-1.035); Urine WBC 1 /hpf (0 - 3)
[2021-11-20] MEDS: FREE WATER GT SCH ×4 (06:00→19:57)
[2021-11-20] MEDS: MEROPENEM 1GM IVPB 100 ML IV SCH ×3 (06:00→22:00)
[2021-11-20] MEDS: FAMOTIDINE (10MG/ML) 2ML VL IV SCH (10:00)
[2021-11-20] MEDS ORDERED: VANCOMYCIN PER PHARMACY 0 MG IV SCH (11:45)
[2021-11-20] MEDS ORDERED: POTASSIUM EFFERVESENT TAB 25 MEQ GT ONE (11:45)
[2021-11-20] MEDS: SODIUM CHLOR 0.9% PF (SALINE LOCK) 10ML VIAL/SYR IV SCH ×2 (15:45→22:00)
[2021-11-20] MEDS: ENOXAPARIN SOD 40 MG/0.4 ML SYRINGE SC SCH (15:46)
[2021-11-20] MEDS: NOREPINEPHRINE 8 MG/250ML KIT 250 ML IV SCH (15:49)
[2021-11-20] MEDS: PROPOFOL 100 ML IV SCH (17:40)
[2021-11-20] MEDS: VANCOMYCIN 1GM/250ML 250 ML IV SCH ×2 (19:58→23:15)
[2021-11-20] MEDS: fentaNYL Drip 2500mCg/250mlNS 250 ML IV SCH (20:00)
[2021-11-21] VITALS (99 sets, daily range): BP systolic 82–165; BP diastolic 43–93
[2021-11-21 05:12] LABS: Basophils % (auto) 0.5 % (0.0-2.0); Eosinophils # (auto) 0.2 10 ^3/uL (0-0.8); Hemoglobin 8.4 g/dL (13.5-17.5); Lymphocytes # (auto) 1.2 10 ^3/uL (0.4-5.4); Neutrophils # (auto) 7.6 10 ^3/uL (1.6-8.6); Nucleated Red Blood Cells % 0.1 %
[2021-11-21 05:15] LABS: Basophils # (auto) 0 10 ^3/uL (0-0.2); Eosinophils % (auto) 2.3 % (0.0-7.0); Hematocrit 24.5 % (41.0-53.0); Lymphocytes % (auto) 12.6 % (10.0-50.0); Mean Corpuscular Hemoglobin 32.9 pg (28.0-32.0); Mean Corpuscular Hgb Conc. 34.4 g/dL (32.0-36.0); Mean Corpuscular Volume 95.7 fL (80.0-100.0); Monocytes # (auto) 0.7 10 ^3/uL (0-1.3); Monocytes % (auto) 6.7 % (0.0-12.0); Neutrophils % (auto) 77.9 % (37.0-80.0); Red Blood Cells 2.56 10^6/uL (4.5-5.90); Red Cell Distribution Width 16.3 % (11.8-14.3); White Blood Cell 9.8 10^3/uL (4.4-10.8)
[2021-11-21 05:25] LABS: Calcium 7.9 mg/dL (8.5-10.1); Potassium 3.3 mmol/L (3.5-5.1)
[2021-11-21 05:26] LABS: BUN/Creatinine Ratio 47.6
[2021-11-21] MEDS: FREE WATER GT SCH ×4 (06:00→19:41)
[2021-11-21] MEDS: MEROPENEM 1GM IVPB 100 ML IV SCH ×3 (06:00→22:55)
[2021-11-21] MEDS: fentaNYL Drip 2500mCg/250mlNS 250 ML IV SCH ×2 (06:25→22:30)
[2021-11-21] MEDS: MIDAZOLAM DRIP 50 mg/50mL 50 ML IV SCH ×3 (06:27→23:07)
[2021-11-21] MEDS: VANCOMYCIN 1GM/250ML 250 ML IV SCH ×2 (09:00→19:00)
[2021-11-21] MEDS ORDERED: POTASSIUM EFFERVESENT TAB 25 MEQ GT ONE (12:15)
[2021-11-21] MEDS: NOREPINEPHRINE 8 MG/250ML KIT 250 ML IV SCH (15:45)
[2021-11-21] MEDS: FAMOTIDINE (10MG/ML) 2ML VL IV SCH (16:24)
[2021-11-21] MEDS: ENOXAPARIN SOD 40 MG/0.4 ML SYRINGE SC SCH (16:24)
[2021-11-21] MEDS: SODIUM CHLOR 0.9% PF (SALINE LOCK) 10ML VIAL/SYR IV SCH ×2 (16:24→22:55)
[2021-11-21] MEDS: PROPOFOL 100 ML IV SCH (19:00)
[2021-11-22] VITALS (101 sets, daily range): BP systolic 85–159; BP diastolic 47–90
[2021-11-22] MEDS: FREE WATER GT SCH ×4 (00:59→18:04)
[2021-11-22] MEDS: MIDAZOLAM DRIP 50 mg/50mL 50 ML IV SCH ×3 (00:59→23:04)
[2021-11-22] MEDS: NOREPINEPHRINE 8 MG/250ML KIT 250 ML IV SCH ×2 (03:12→23:04)
[2021-11-22] MEDS: VANCOMYCIN 1GM/250ML 250 ML IV SCH ×2 (05:00→18:00)
[2021-11-22] MEDS: MEROPENEM 1GM IVPB 100 ML IV SCH ×2 (05:16→14:00)
[2021-11-22 05:38] LABS: Basophils # (auto) 0 10 ^3/uL (0-0.2); Eosinophils # (auto) 0.2 10 ^3/uL (0-0.8); Lymphocytes # (auto) 0.9 10 ^3/uL (0.4-5.4); Monocytes # (auto) 0.4 10 ^3/uL (0-1.3)
[2021-11-22 05:41] LABS: Basophils % (auto) 0.4 % (0.0-2.0); Hematocrit 23.7 % (41.0-53.0); Lymphocytes % (auto) 11.6 % (10.0-50.0); Mean Corpuscular Hemoglobin 32.1 pg (28.0-32.0); Mean Corpuscular Hgb Conc. 33.8 g/dL (32.0-36.0); Mean Corpuscular Volume 94.8 fL (80.0-100.0); Monocytes % (auto) 4.9 % (0.0-12.0); Neutrophils # (auto) 6.4 10 ^3/uL (1.6-8.6); Neutrophils % (auto) 81.1 % (37.0-80.0); Nucleated Red Blood Cells % 0.1 %; Red Cell Distribution Width 16.4 % (11.8-14.3); White Blood Cell 7.9 10^3/uL (4.4-10.8)
[2021-11-22 06:00] LABS: Potassium 3.6 mmol/L (3.5-5.1)
[2021-11-22 06:01] LABS: BUN/Creatinine Ratio 20.5; Calcium 7.9 mg/dL (8.5-10.1)
[2021-11-22] MEDS: ENOXAPARIN SOD 40 MG/0.4 ML SYRINGE SC SCH (11:30)
[2021-11-22] MEDS: SODIUM CHLOR 0.9% PF (SALINE LOCK) 10ML VIAL/SYR IV SCH ×2 (11:30→21:22)
[2021-11-22] MEDS: FAMOTIDINE (10MG/ML) 2ML VL IV SCH (11:30)
[2021-11-22] MEDS: fentaNYL Drip 2500mCg/250mlNS 250 ML IV SCH (16:00)
[2021-11-22] MEDS: PROPOFOL 100 ML IV SCH (18:48)
[2021-11-23] VITALS (94 sets, daily range): BP systolic 81–199; BP diastolic 51–113
[2021-11-23] MEDS: FREE WATER GT SCH ×4 (06:14→17:45)
[2021-11-23] MEDS: MIDAZOLAM DRIP 50 mg/50mL 50 ML IV SCH ×3 (08:00→22:05)
[2021-11-23] MEDS: cefTRIAXone 1GM/50ML D5W 50 ML IV SCH (08:30)
[2021-11-23] MEDS: fentaNYL Drip 2500mCg/250mlNS 250 ML IV SCH (09:00)
[2021-11-23] MEDS: VANCOMYCIN 1GM/250ML 250 ML IV SCH (10:10)
[2021-11-23] MEDS: SODIUM CHLOR 0.9% PF (SALINE LOCK) 10ML VIAL/SYR IV SCH ×2 (10:35→22:05)
[2021-11-23] MEDS: FAMOTIDINE (10MG/ML) 2ML VL IV SCH (10:35)
[2021-11-23] MEDS: ENOXAPARIN SOD 40 MG/0.4 ML SYRINGE SC SCH (10:35)
[2021-11-23] MEDS: PROPOFOL 100 ML IV SCH (17:45)
[2021-11-23] MEDS: NOREPINEPHRINE 8 MG/250ML KIT 250 ML IV SCH (20:06)
[2021-11-24] VITALS (99 sets, daily range): BP systolic 73–160; BP diastolic 41–102
[2021-11-24] MEDS: VANCOMYCIN 1GM/250ML 250 ML IV SCH ×2 (00:07→15:26)
[2021-11-24] MEDS: FREE WATER GT SCH ×4 (00:07→16:53)
[2021-11-24] MEDS: fentaNYL Drip 2500mCg/250mlNS 250 ML IV SCH (00:08)
[2021-11-24] MEDS: MIDAZOLAM DRIP 50 mg/50mL 50 ML IV SCH (05:10)
[2021-11-24 07:23] LABS: Albumin 1.8 g/dL (3.4-5.0); Bilirubin, Total 0.7 mg/dL (0.2-1.0); Calcium 8.1 mg/dL (8.5-10.1); Total Protein 4.9 g/dL (6.4-8.2)
[2021-11-24 07:34] LABS: Potassium 2.9 mmol/L (3.5-5.1)
[2021-11-24] MEDS ORDERED: POTASSIUM EFFERVESENT TAB 25 MEQ GT ONE (08:30)
[2021-11-24] MEDS ORDERED: LACTULOSE 20Gm/30ML SOLN PO ONE (08:45)
[2021-11-24] MEDS ORDERED: LACTULOSE 20Gm/30ML SOLN PO PRN (08:45)
[2021-11-24] MEDS: cefTRIAXone 1GM/50ML D5W 50 ML IV SCH (09:13)
[2021-11-24] MEDS: SODIUM CHLOR 0.9% PF (SALINE LOCK) 10ML VIAL/SYR IV SCH ×2 (09:19→22:00)
[2021-11-24] MEDS: FAMOTIDINE (10MG/ML) 2ML VL IV SCH (09:19)
[2021-11-24] MEDS: DOCUSATE ORAL LIQUID 100 MG/10 ML UD GT SCH ×2 (09:19→22:00)
[2021-11-24] MEDS: ENOXAPARIN SOD 40 MG/0.4 ML SYRINGE SC SCH (09:19)
[2021-11-24] MEDS: METOCLOPRAMIDE HCL 5MG/ml INJ 2ml VIAL IV SCH ×2 (12:05→16:53)
[2021-11-24] MEDS: PROPOFOL 100 ML IV SCH (12:05)
[2021-11-25] VITALS (97 sets, daily range): BP systolic 81–150; BP diastolic 45–95
[2021-11-25] MEDS: FREE WATER GT SCH ×2 (06:39)
[2021-11-25] MEDS: VANCOMYCIN 1GM/250ML 250 ML IV SCH ×2 (06:39→21:00)
[2021-11-25 06:40] LABS: Basophils # (auto) 0 10 ^3/uL (0-0.2); Basophils % (auto) 0.2 % (0.0-2.0); Eosinophils # (auto) 0.5 10 ^3/uL (0-0.8); Eosinophils % (auto) 3.8 % (0.0-7.0); Hematocrit 25.3 % (41.0-53.0); Hemoglobin 8.4 g/dL (13.5-17.5); Mean Corpuscular Hgb Conc. 33.3 g/dL (32.0-36.0); Mean Corpuscular Volume 96.1 fL (80.0-100.0); Monocytes # (auto) 0.7 10 ^3/uL (0-1.3); Monocytes % (auto) 5.8 % (0.0-12.0); Neutrophils # (auto) 7.9 10 ^3/uL (1.6-8.6); Neutrophils % (auto) 65.2 % (37.0-80.0); Red Blood Cells 2.63 10^6/uL (4.5-5.90); Red Cell Distribution Width 16.5 % (11.8-14.3)
[2021-11-25] MEDS: METOCLOPRAMIDE HCL 5MG/ml INJ 2ml VIAL IV SCH ×5 (06:40→22:39)
[2021-11-25 06:53] LABS: Albumin 1.8 g/dL (3.4-5.0); Calcium 6.1 mg/dL (8.5-10.1); Potassium 4.6 mmol/L (3.5-5.1)
[2021-11-25 06:58] LABS: BUN/Creatinine Ratio 13.6; Bilirubin, Total 0.9 mg/dL (0.2-1.0); Total Protein 5.2 g/dL (6.4-8.2)
[2021-11-25] MEDS: SODIUM CHLOR 0.9% PF (SALINE LOCK) 10ML VIAL/SYR IV SCH ×2 (10:00→22:39)
[2021-11-25] MEDS: DOCUSATE ORAL LIQUID 100 MG/10 ML UD GT SCH ×2 (10:00→22:39)
[2021-11-25] MEDS: cefTRIAXone 1GM/50ML D5W 50 ML IV SCH (12:36)
[2021-11-25] MEDS: FAMOTIDINE (10MG/ML) 2ML VL IV SCH (12:36)
[2021-11-25] MEDS: ENOXAPARIN SOD 40 MG/0.4 ML SYRINGE SC SCH (12:37)
[2021-11-25] MEDS: LACTULOSE 20Gm/30ML SOLN PO SCH ×3 (16:16→22:40)
[2021-11-25] MEDS: PROPOFOL 100 ML IV SCH (16:29)
[2021-11-25] MEDS: MIDAZOLAM DRIP 50 mg/50mL 50 ML IV SCH (16:30)
[2021-11-25] MEDS: NOREPINEPHRINE 8 MG/250ML KIT 250 ML IV SCH (18:52)
[2021-11-25] MEDS: fentaNYL Drip 2500mCg/250mlNS 250 ML IV SCH (18:54)
[2021-11-26] VITALS (99 sets, daily range): BP systolic 83–151; BP diastolic 54–101
[2021-11-26] MEDS: PROPOFOL 100 ML IV SCH (03:00)
[2021-11-26 07:09] LABS: Basophils # (auto) 0 10 ^3/uL (0-0.2); Basophils % (auto) 0.3 % (0.0-2.0); Eosinophils # (auto) 0.4 10 ^3/uL (0-0.8); Eosinophils % (auto) 3.3 % (0.0-7.0); Hematocrit 23.6 % (41.0-53.0); Hemoglobin 8.1 g/dL (13.5-17.5); Lymphocytes % (auto) 7.3 % (10.0-50.0); Mean Corpuscular Hemoglobin 32.5 pg (28.0-32.0); Mean Corpuscular Hgb Conc. 34.2 g/dL (32.0-36.0); Mean Corpuscular Volume 94.8 fL (80.0-100.0); Monocytes # (auto) 0.7 10 ^3/uL (0-1.3); Monocytes % (auto) 5.6 % (0.0-12.0); Neutrophils % (auto) 83.5 % (37.0-80.0); Red Blood Cells 2.49 10^6/uL (4.5-5.90); Red Cell Distribution Width 16.2 % (11.8-14.3); White Blood Cell 13.2 10^3/uL (4.4-10.8)
[2021-11-26] MEDS: VANCOMYCIN 1GM/250ML 250 ML IV SCH ×2 (07:16→22:00)
[2021-11-26] MEDS: LACTULOSE 20Gm/30ML SOLN PO SCH ×3 (07:17→18:00)
[2021-11-26] MEDS: METOCLOPRAMIDE HCL 5MG/ml INJ 2ml VIAL IV SCH ×3 (07:17→18:00)
[2021-11-26 08:02] LABS: BUN/Creatinine Ratio 26.9; Calcium 8.3 mg/dL (8.5-10.1); Potassium 3.1 mmol/L (3.5-5.1)
[2021-11-26 08:31] LABS: Urine Bacteria FEW /hpf (None Seen); Urine Blood 2+ /uL (Negative); Urine Mucus FEW (None Seen); Urine WBC 19 /hpf (0 - 3)
[2021-11-26] MEDS: SODIUM CHLOR 0.9% PF (SALINE LOCK) 10ML VIAL/SYR IV SCH ×2 (08:39→20:26)
[2021-11-26] MEDS: cefTRIAXone 1GM/50ML D5W 50 ML IV SCH (08:39)
[2021-11-26] MEDS: NOREPINEPHRINE 8 MG/250ML KIT 250 ML IV SCH ×2 (08:40→20:26)
[2021-11-26] MEDS: DOCUSATE ORAL LIQUID 100 MG/10 ML UD GT SCH ×2 (11:30→22:00)
[2021-11-26] MEDS ORDERED: MEROPENEM 1GM IVPB 100 ML IV ONE (11:30)
[2021-11-26] MEDS: ENOXAPARIN SOD 40 MG/0.4 ML SYRINGE SC SCH (11:30)
[2021-11-26] MEDS: FAMOTIDINE (10MG/ML) 2ML VL IV SCH (11:30)
[2021-11-26] MEDS ORDERED: POTASSIUM EFFERVESENT TAB 25 MEQ GT ONE (11:30)
[2021-11-26] MEDS: MIDAZOLAM DRIP 50 mg/50mL 50 ML IV SCH (16:07)
[2021-11-26] MEDS: MEROPENEM 1GM IVPB 100 ML IV SCH ×2 (16:07→20:26)
[2021-11-26] MEDS: fentaNYL Drip 2500mCg/250mlNS 250 ML IV SCH (16:10)
[2021-11-27] VITALS (100 sets, daily range): BP systolic 83–163; BP diastolic 49–95
[2021-11-27] MEDS: MEROPENEM 1GM IVPB 100 ML IV SCH ×3 (04:00→20:00)
[2021-11-27 06:07] LABS: Basophils # (auto) 0 10 ^3/uL (0-0.2); Eosinophils # (auto) 0.7 10 ^3/uL (0-0.8); Hemoglobin 8.3 g/dL (13.5-17.5); Monocytes # (auto) 0.6 10 ^3/uL (0-1.3); Monocytes % (auto) 7.3 % (0.0-12.0); Neutrophils # (auto) 6.1 10 ^3/uL (1.6-8.6); Neutrophils % (auto) 72.8 % (37.0-80.0); Nucleated Red Blood Cells % 0.1 %; White Blood Cell 8.4 10^3/uL (4.4-10.8)
[2021-11-27 06:10] LABS: Basophils % (auto) 0.5 % (0.0-2.0); Lymphocytes % (auto) 11.4 % (10.0-50.0); Mean Corpuscular Hemoglobin 32.7 pg (28.0-32.0); Mean Corpuscular Hgb Conc. 34.5 g/dL (32.0-36.0); Mean Corpuscular Volume 94.8 fL (80.0-100.0); Red Blood Cells 2.54 10^6/uL (4.5-5.90); Red Cell Distribution Width 16.1 % (11.8-14.3)
[2021-11-27] MEDS: LACTULOSE 20Gm/30ML SOLN PO SCH ×4 (06:18→17:23)
[2021-11-27] MEDS: METOCLOPRAMIDE HCL 5MG/ml INJ 2ml VIAL IV SCH ×4 (06:18→17:23)
[2021-11-27 06:41] LABS: BUN/Creatinine Ratio 22.2; Calcium 8.1 mg/dL (8.5-10.1); Potassium 3.5 mmol/L (3.5-5.1)
[2021-11-27] MEDS: DOCUSATE ORAL LIQUID 100 MG/10 ML UD GT SCH ×2 (08:08→21:23)
[2021-11-27] MEDS: ENOXAPARIN SOD 40 MG/0.4 ML SYRINGE SC SCH (08:09)
[2021-11-27] MEDS: SODIUM CHLOR 0.9% PF (SALINE LOCK) 10ML VIAL/SYR IV SCH ×2 (08:09→21:24)
[2021-11-27] MEDS: FAMOTIDINE (10MG/ML) 2ML VL IV SCH (08:09)
[2021-11-27] MEDS: VANCOMYCIN 1GM/250ML 250 ML IV SCH (13:49)
[2021-11-27] MEDS: ACETAMINOPHEN 325 MG TAB PO PRN (18:25)
[2021-11-27] MEDS: PROPOFOL 100 ML IV SCH (19:00)
[2021-11-27] MEDS: MIDAZOLAM DRIP 50 mg/50mL 50 ML IV SCH (19:00)
[2021-11-27] MEDS: fentaNYL Drip 2500mCg/250mlNS 250 ML IV SCH (20:28)
[2021-11-28] VITALS (100 sets, daily range): BP systolic 63–134; BP diastolic 37–81
[2021-11-28] MEDS: MEROPENEM 1GM IVPB 100 ML IV SCH ×3 (04:00→19:55)
[2021-11-28] MEDS: METOCLOPRAMIDE HCL 5MG/ml INJ 2ml VIAL IV SCH ×4 (06:00→22:00)
[2021-11-28] MEDS: LACTULOSE 20Gm/30ML SOLN PO SCH ×5 (06:00→22:58)
[2021-11-28] MEDS: PROPOFOL 100 ML IV SCH ×2 (09:40→18:30)
[2021-11-28] MEDS: fentaNYL Drip 2500mCg/250mlNS 250 ML IV SCH (09:40)
[2021-11-28] MEDS: SODIUM CHLOR 0.9% PF (SALINE LOCK) 10ML VIAL/SYR IV SCH ×2 (10:00→22:00)
[2021-11-28 10:45] LABS: Potassium 3.7 mmol/L (3.5-5.1)
[2021-11-28] MEDS: VANCOMYCIN 1GM/250ML 250 ML IV SCH (10:45)
[2021-11-28] MEDS: FAMOTIDINE (10MG/ML) 2ML VL IV SCH (10:49)
[2021-11-28] MEDS: DOCUSATE ORAL LIQUID 100 MG/10 ML UD GT SCH ×2 (10:49→22:00)
[2021-11-28] MEDS: ENOXAPARIN SOD 40 MG/0.4 ML SYRINGE SC SCH (10:50)
[2021-11-28 10:58] LABS: Calcium 7.9 mg/dL (8.5-10.1)
[2021-11-28] MEDS: ALBUMIN 25% 50 ML IV SCH ×2 (11:00→18:30)
[2021-11-28] MEDS: MIDAZOLAM DRIP 50 mg/50mL 50 ML IV SCH ×2 (12:00→16:00)
[2021-11-28 12:34] LABS: BUN/Creatinine Ratio 16.2
[2021-11-28] MEDS: NOREPINEPHRINE 8 MG/250ML KIT 250 ML IV SCH (15:30)
[2021-11-29] VITALS (101 sets, daily range): BP systolic 85–126; BP diastolic 52–79
[2021-11-29] MEDS: VANCOMYCIN 1GM/250ML 250 ML IV SCH ×2 (01:45→16:45)
[2021-11-29] MEDS: ALBUMIN 25% 50 ML IV SCH (02:45)
[2021-11-29] MEDS: MEROPENEM 1GM IVPB 100 ML IV SCH ×3 (04:00→20:00)
[2021-11-29] MEDS: PROPOFOL 100 ML IV SCH ×2 (04:44→18:00)
[2021-11-29] MEDS: METOCLOPRAMIDE HCL 5MG/ml INJ 2ml VIAL IV SCH ×3 (04:48→22:00)
[2021-11-29] MEDS: LACTULOSE 20Gm/30ML SOLN PO SCH ×4 (04:48→23:17)
[2021-11-29 04:54] LABS: Mean Corpuscular Volume 94.5 fL (80.0-100.0); Red Cell Distribution Width 16.4 % (11.8-14.3)
[2021-11-29 04:56] LABS: Hematocrit 20.5 % (41.0-53.0); Mean Corpuscular Hemoglobin 32.2 pg (28.0-32.0); Mean Corpuscular Hgb Conc. 34.1 g/dL (32.0-36.0); Red Blood Cells 2.17 10^6/uL (4.5-5.90); White Blood Cell 4.9 10^3/uL (4.4-10.8)
[2021-11-29 05:14] LABS: BUN/Creatinine Ratio 12.5; Calcium 8.1 mg/dL (8.5-10.1)
[2021-11-29 05:27] LABS: Basophils % (manual) 0 (0.0-2.0); Blast Cells 0; Metamyelocytes % 0; Myelocytes % 0; Promyelocytes % 0; Reactive Lymphocytes 0
[2021-11-29] MEDS ORDERED: diphenhdrAMINE HCL 25 MG CAP PO PRN (06:30)
[2021-11-29] MEDS: ACETAMINOPHEN 500 MG TAB PO ONE (06:30)
[2021-11-29] MEDS: POTASSIUM CHL 10MEQ/50ML 50 ML IV SCH ×4 (07:00→10:00)
[2021-11-29] MEDS: NOREPINEPHRINE 8 MG/250ML KIT 250 ML IV SCH ×2 (08:00→18:00)
[2021-11-29] MEDS: ENOXAPARIN SOD 40 MG/0.4 ML SYRINGE SC SCH (10:00)
[2021-11-29] MEDS: SODIUM CHLOR 0.9% PF (SALINE LOCK) 10ML VIAL/SYR IV SCH ×2 (10:00→22:00)
[2021-11-29] MEDS: fentaNYL Drip 2500mCg/250mlNS 250 ML IV SCH ×2 (10:00→20:44)
[2021-11-29] MEDS: MIDAZOLAM DRIP 50 mg/50mL 50 ML IV SCH ×3 (10:00→18:30)
[2021-11-29] MEDS: FAMOTIDINE (10MG/ML) 2ML VL IV SCH (10:00)
[2021-11-29] MEDS: DOCUSATE ORAL LIQUID 100 MG/10 ML UD GT SCH ×2 (10:00→22:00)
[2021-11-29 10:17] LABS: Band Neutrophils % (manual) 2; Eosinophils % (manual) 12 (0-7); Lymphocytes % (manual) 23 (10.0-50.0); Monocytes % (manual) 6 (0-12)
[2021-11-29] MEDS ORDERED: POTASSIUM CHL 10MEQ/50ML 50 ML IV SCH (13:15)
[2021-11-30] VITALS (97 sets, daily range): BP systolic 70–113; BP diastolic 38–76
[2021-11-30] MEDS: LACTULOSE 20Gm/30ML SOLN PO SCH ×3 (03:51→18:00)
[2021-11-30] MEDS: MEROPENEM 1GM IVPB 100 ML IV SCH ×3 (03:51→20:00)
[2021-11-30] MEDS: METOCLOPRAMIDE HCL 5MG/ml INJ 2ml VIAL IV SCH ×3 (03:51→22:00)
[2021-11-30] MEDS: MIDAZOLAM DRIP 50 mg/50mL 50 ML IV SCH ×4 (07:45→19:30)
[2021-11-30] MEDS: fentaNYL Drip 2500mCg/250mlNS 250 ML IV SCH (08:05)
[2021-11-30] MEDS: VANCOMYCIN 1GM/250ML 250 ML IV SCH ×2 (08:45→23:40)
[2021-11-30 08:48] LABS: Basophils # (auto) 0.1 10 ^3/uL (0-0.2); Basophils % (auto) 1.1 % (0.0-2.0); Eosinophils # (auto) 1.3 10 ^3/uL (0-0.8); Hematocrit 24.9 % (41.0-53.0); Hemoglobin 8.7 g/dL (13.5-17.5); Mean Corpuscular Hemoglobin 33.7 pg (28.0-32.0); Mean Corpuscular Hgb Conc. 34.8 g/dL (32.0-36.0); Mean Corpuscular Volume 96.9 fL (80.0-100.0); Monocytes # (auto) 0.7 10 ^3/uL (0-1.3); Monocytes % (auto) 8.8 % (0.0-12.0); Neutrophils # (auto) 3.3 10 ^3/uL (1.6-8.6); Neutrophils % (auto) 45.3 % (37.0-80.0); Nucleated Red Blood Cells % 0.2 %; Red Blood Cells 2.57 10^6/uL (4.5-5.90); Red Cell Distribution Width 15.8 % (11.8-14.3); White Blood Cell 7.4 10^3/uL (4.4-10.8)
[2021-11-30 08:54] LABS: Calcium 6.2 mg/dL (8.5-10.1)
[2021-11-30 08:55] LABS: Eosinophils % (auto) 17.8 % (0.0-7.0)
[2021-11-30 09:01] LABS: BUN/Creatinine Ratio 7.3
[2021-11-30] MEDS: SODIUM CHLOR 0.9% PF (SALINE LOCK) 10ML VIAL/SYR IV SCH ×2 (09:10→22:00)
[2021-11-30] MEDS: ENOXAPARIN SOD 40 MG/0.4 ML SYRINGE SC SCH (09:10)
[2021-11-30] MEDS: FAMOTIDINE (10MG/ML) 2ML VL IV SCH (09:10)
[2021-11-30] MEDS: DOCUSATE ORAL LIQUID 100 MG/10 ML UD GT SCH ×2 (10:00→22:00)
[2021-11-30] MEDS: POTASSIUM CHL 10MEQ/50ML 50 ML IV SCH ×4 (11:00→14:00)
[2021-11-30] MEDS ORDERED: FUROSEMIDE 20 MG/2 ML VIAL IV ONE (11:00)
[2021-11-30] MEDS ORDERED: PANTOPRAZOLE 40 MG/10 ML VIAL INJ IV ONE (11:30)
[2021-11-30] MEDS: NOREPINEPHRINE 8 MG/250ML KIT 250 ML IV SCH ×2 (11:30→16:45)
[2021-11-30] MEDS: PROPOFOL 100 ML IV SCH ×3 (11:30→23:10)
[2021-11-30] MEDS: VASOPRESSIN 50 UNITS in D5W 5% 247.5 ML IV SCH (13:00)
[2021-11-30 13:08] LABS: Hematocrit 27.8 % (41.0-53.0); Hemoglobin 9.3 g/dL (13.5-17.5)
[2021-11-30] MEDS: FUROSEMIDE 20 MG/2 ML VIAL IV SCH (18:00)
[2021-11-30] MEDS: POTASSIUM EFFERVESENT TAB 25 MEQ GT SCH (22:00)
[2021-11-30 23:48] LABS: Hematocrit 28.3 % (41.0-53.0); Hemoglobin 9.6 g/dL (13.5-17.5)
[2021-12-01] VITALS (94 sets, daily range): BP systolic 81–143; BP diastolic 51–86
[2021-12-01] MEDS: MEROPENEM 1GM IVPB 100 ML IV SCH ×3 (04:00→10:06)
[2021-12-01 05:07] LABS: Basophils # (auto) 0.1 10 ^3/uL (0-0.2); Basophils % (auto) 1.3 % (0.0-2.0); Eosinophils % (auto) 13.4 % (0.0-7.0); Hemoglobin 9.5 g/dL (13.5-17.5); Lymphocytes # (auto) 1.5 10 ^3/uL (0.4-5.4); Mean Corpuscular Hemoglobin 31.9 pg (28.0-32.0); Mean Corpuscular Hgb Conc. 33.9 g/dL (32.0-36.0); Mean Corpuscular Volume 94.1 fL (80.0-100.0); Monocytes # (auto) 0.9 10 ^3/uL (0-1.3); Monocytes % (auto) 11.7 % (0.0-12.0); Neutrophils # (auto) 4.2 10 ^3/uL (1.6-8.6); Neutrophils % (auto) 54.6 % (37.0-80.0); Nucleated Red Blood Cells % 0.4 %; Red Blood Cells 2.98 10^6/uL (4.5-5.90); Red Cell Distribution Width 15.4 % (11.8-14.3); White Blood Cell 7.8 10^3/uL (4.4-10.8)
[2021-12-01 05:35] LABS: Calcium 7.5 mg/dL (8.5-10.1); Potassium 3.5 mmol/L (3.5-5.1)
[2021-12-01 05:40] LABS: BUN/Creatinine Ratio 14.7; Bilirubin, Total 0.6 mg/dL (0.2-1.0); Total Protein 5.1 g/dL (6.4-8.2)
[2021-12-01] MEDS: LACTULOSE 20Gm/30ML SOLN PO SCH ×4 (06:00→18:08)
[2021-12-01] MEDS: FUROSEMIDE 20 MG/2 ML VIAL IV SCH ×2 (06:00→18:08)
[2021-12-01] MEDS: METOCLOPRAMIDE HCL 5MG/ml INJ 2ml VIAL IV SCH ×3 (06:00→21:32)
[2021-12-01] MEDS: DOCUSATE ORAL LIQUID 100 MG/10 ML UD GT SCH ×2 (09:22→21:32)
[2021-12-01] MEDS: ENOXAPARIN SOD 40 MG/0.4 ML SYRINGE SC SCH (09:27)
[2021-12-01] MEDS: PANTOPRAZOLE 40 MG/10 ML VIAL INJ IV SCH (09:27)
[2021-12-01] MEDS: SODIUM CHLOR 0.9% PF (SALINE LOCK) 10ML VIAL/SYR IV SCH ×2 (09:27→21:32)
[2021-12-01] MEDS: POTASSIUM EFFERVESENT TAB 25 MEQ GT SCH ×2 (09:27→21:32)
[2021-12-01] MEDS: fentaNYL Drip 2500mCg/250mlNS 250 ML IV SCH ×2 (10:00→21:51)
[2021-12-01] MEDS: VASOPRESSIN 50 UNITS in D5W 5% 247.5 ML IV SCH (11:00)
[2021-12-01] MEDS: NOREPINEPHRINE 8 MG/250ML KIT 250 ML IV SCH (11:38)
[2021-12-01] MEDS: VANCOMYCIN 1GM/250ML 250 ML IV SCH (13:45)
[2021-12-01] MEDS: MIDAZOLAM DRIP 50 mg/50mL 50 ML IV SCH ×2 (15:54→18:08)
[2021-12-02] VITALS (101 sets, daily range): BP systolic 83–136; BP diastolic 51–92
[2021-12-02] MEDS: MEROPENEM 1GM IVPB 100 ML IV SCH ×3 (03:39→20:00)
[2021-12-02] MEDS: PROPOFOL 100 ML IV SCH ×2 (03:40→22:00)
[2021-12-02] MEDS: MIDAZOLAM DRIP 50 mg/50mL 50 ML IV SCH ×5 (03:40→20:00)
[2021-12-02] MEDS: VANCOMYCIN 1GM/250ML 250 ML IV SCH ×2 (04:39→19:45)
[2021-12-02] MEDS: METOCLOPRAMIDE HCL 5MG/ml INJ 2ml VIAL IV SCH ×3 (05:37→22:00)
[2021-12-02] MEDS: LACTULOSE 20Gm/30ML SOLN PO SCH ×4 (05:37→17:35)
[2021-12-02] MEDS: FUROSEMIDE 20 MG/2 ML VIAL IV SCH ×2 (05:37→17:04)
[2021-12-02] MEDS: NOREPINEPHRINE 8 MG/250ML KIT 250 ML IV SCH (07:15)
[2021-12-02] MEDS: fentaNYL Drip 2500mCg/250mlNS 250 ML IV SCH ×2 (07:58→21:00)
[2021-12-02] MEDS: POTASSIUM EFFERVESENT TAB 25 MEQ GT SCH ×2 (10:01→22:00)
[2021-12-02] MEDS: SODIUM CHLOR 0.9% PF (SALINE LOCK) 10ML VIAL/SYR IV SCH ×2 (10:01→22:00)
[2021-12-02] MEDS: PANTOPRAZOLE 40 MG/10 ML VIAL INJ IV SCH (10:01)
[2021-12-02] MEDS: ENOXAPARIN SOD 40 MG/0.4 ML SYRINGE SC SCH (10:01)
[2021-12-02] MEDS: DOCUSATE ORAL LIQUID 100 MG/10 ML UD GT SCH ×2 (10:01→22:00)
[2021-12-02] MEDS: VASOPRESSIN 50 UNITS in D5W 5% 247.5 ML IV SCH (10:01)
[2021-12-02] MEDS ORDERED: Glucerna 1.2 Cal 1Liter BOTTLE GT SCH (12:00)
[2021-12-03] VITALS (104 sets, daily range): BP systolic 87–174; BP diastolic 50–101
[2021-12-03] MEDS: MIDAZOLAM DRIP 50 mg/50mL 50 ML IV SCH ×2 (03:00→09:45)
[2021-12-03] MEDS: MEROPENEM 1GM IVPB 100 ML IV SCH ×3 (04:00→19:56)
[2021-12-03 05:56] LABS: Blood Urea Nitrogen 7 mg/dL (7-18); Calcium 7.9 mg/dL (8.5-10.1); Chloride 89 mmol/L (98-107); Glucose 123 mg/dL (74-106); Potassium 3.1 mmol/L (3.5-5.1); Sodium 139 mmol/L (136-145)
[2021-12-03 05:58] LABS: BUN/Creatinine Ratio 16.7; GFR African American 274 mL/min; GFR Non-African American 226 mL/min
[2021-12-03] MEDS: METOCLOPRAMIDE HCL 5MG/ml INJ 2ml VIAL IV SCH ×3 (06:00→22:28)
[2021-12-03] MEDS: FUROSEMIDE 20 MG/2 ML VIAL IV SCH (06:00)
[2021-12-03] MEDS: LACTULOSE 20Gm/30ML SOLN PO SCH ×4 (06:00→17:28)
[2021-12-03 06:28] LABS: Carbon Dioxide 51 mmol/L (21-32)
[2021-12-03 09:08] LABS: Anion Gap -1 (5-15)
[2021-12-03] MEDS: fentaNYL Drip 2500mCg/250mlNS 250 ML IV SCH (09:45)
[2021-12-03] MEDS: POTASSIUM EFFERVESENT TAB 25 MEQ GT SCH (09:47)
[2021-12-03] MEDS: SODIUM CHLOR 0.9% PF (SALINE LOCK) 10ML VIAL/SYR IV SCH ×2 (09:47→22:00)
[2021-12-03] MEDS: PANTOPRAZOLE 40 MG/10 ML VIAL INJ IV SCH (09:47)
[2021-12-03] MEDS: ENOXAPARIN SOD 40 MG/0.4 ML SYRINGE SC SCH (09:47)
[2021-12-03] MEDS: DOCUSATE ORAL LIQUID 100 MG/10 ML UD GT SCH ×2 (09:47→22:00)
[2021-12-03] MEDS: PROPOFOL 100 ML IV SCH (10:21)
[2021-12-03] MEDS: VANCOMYCIN 1GM/250ML 250 ML IV SCH (11:00)
[2021-12-03] MEDS: VASOPRESSIN 50 UNITS in D5W 5% 247.5 ML IV SCH (11:00)
[2021-12-03] MEDS ORDERED: TPN PER PHARMACY 0 ML IV SCH (15:30)
[2021-12-03] MEDS ORDERED: POTASSIUM EFFERVESENT TAB 25 MEQ GT ONE (15:30)
[2021-12-03] MEDS: NOREPINEPHRINE 8 MG/250ML KIT 250 ML IV SCH (15:45)
[2021-12-03 17:12] LABS: Albumin 1.7 g/dL (3.4-5.0); Bilirubin, Direct 0.2 mg/dL (0-0.2); Magnesium 1.8 mg/dL (1.6-2.6)
[2021-12-03 17:17] LABS: Bilirubin, Total 0.6 mg/dL (0.2-1.0); Phosphorus 2.2 mg/dL (2.5-4.90); Pre Albumin 4.9 mg/dL (20.0-40.0); Total Protein 4.8 g/dL (6.4-8.2)
[2021-12-03] MEDS ORDERED: POTASSIUM PHOSPHATE 30 MEQ in D5W 5% 250 ML IV ONE (19:30)
[2021-12-03] MEDS ORDERED: AMINO ACID INFUSION IN D10W 1,000 ML IV NR (20:00)
[2021-12-04] VITALS (103 sets, daily range): BP systolic 89–121; BP diastolic 61–78
[2021-12-04] MEDS ORDERED: DEXTROSE (50%) 50ML SYRG IV SCH
[2021-12-04] MEDS: MIDAZOLAM DRIP 50 mg/50mL 50 ML IV SCH
[2021-12-04] MEDS: NOREPINEPHRINE 8 MG/250ML KIT 250 ML IV SCH ×2 (00:33→19:00)
[2021-12-04] MEDS: VANCOMYCIN 1GM/250ML 250 ML IV SCH ×2 (01:45→16:56)
[2021-12-04] MEDS: MEROPENEM 1GM IVPB 100 ML IV SCH ×3 (04:00→16:32)
[2021-12-04 04:54] LABS: Hematocrit 28.9 % (41.0-53.0); Hemoglobin 9.4 g/dL (13.5-17.5); Mean Corpuscular Hemoglobin 30.4 pg (28.0-32.0); Mean Corpuscular Hgb Conc. 32.6 g/dL (32.0-36.0); Mean Corpuscular Volume 93.2 fL (80.0-100.0); Red Cell Distribution Width 16.1 % (11.8-14.3); White Blood Cell 5.1 10^3/uL (4.4-10.8)
[2021-12-04 05:12] LABS: Albumin 1.5 g/dL (3.4-5.0); BUN/Creatinine Ratio 19.4; Calcium 8.1 mg/dL (8.5-10.1); Magnesium 2.1 mg/dL (1.6-2.6); Potassium 3.6 mmol/L (3.5-5.1)
[2021-12-04 05:13] LABS: Basophils % (manual) 0 (0.0-2.0); Blast Cells 0; Metamyelocytes % 0; Myelocytes % 0; Promyelocytes % 0; Reactive Lymphocytes 0
[2021-12-04 05:14] LABS: Bilirubin, Total 0.5 mg/dL (0.2-1.0); Phosphorus 2.8 mg/dL (2.5-4.90); Total Protein 4.6 g/dL (6.4-8.2)
[2021-12-04] MEDS: ACCU-CHEK COMFORT CURVE STRIP VI SCH ×4 (06:00→18:17)
[2021-12-04] MEDS: InsuLIN REG 1unit/0.01ml Soln (100units/ml) SC SCH ×4 (06:00→18:17)
[2021-12-04] MEDS: LACTULOSE 20Gm/30ML SOLN PO SCH ×4 (06:24→18:15)
[2021-12-04] MEDS: METOCLOPRAMIDE HCL 5MG/ml INJ 2ml VIAL IV SCH ×3 (06:24→21:40)
[2021-12-04 07:10] LABS: Band Neutrophils % (manual) 2; Monocytes % (manual) 9 (0-12)
[2021-12-04 07:11] LABS: Eosinophils % (manual) 28 (0-7); Lymphocytes % (manual) 26 (10.0-50.0)
[2021-12-04] MEDS: DOCUSATE ORAL LIQUID 100 MG/10 ML UD GT SCH ×2 (09:22→21:40)
[2021-12-04] MEDS: PANTOPRAZOLE 40 MG/10 ML VIAL INJ IV SCH (09:22)
[2021-12-04] MEDS: SODIUM CHLOR 0.9% PF (SALINE LOCK) 10ML VIAL/SYR IV SCH ×2 (09:23→21:41)
[2021-12-04] MEDS: ENOXAPARIN SOD 40 MG/0.4 ML SYRINGE SC SCH (09:23)
[2021-12-04] MEDS: VASOPRESSIN 50 UNITS in D5W 5% 247.5 ML IV SCH (11:00)
[2021-12-04] MEDS: PROPOFOL 100 ML IV SCH (19:00)
[2021-12-04] MEDS: fentaNYL Drip 2500mCg/250mlNS 250 ML IV SCH (19:00)
[2021-12-04] MEDS ORDERED: TPN PER PHARMACY IV NR ×6 (20:00)
[2021-12-05] VITALS (98 sets, daily range): BP systolic 77–133; BP diastolic 53–87
[2021-12-05] MEDS: MEROPENEM 1GM IVPB 100 ML IV SCH ×3 (04:00→20:14)
[2021-12-05 05:27] LABS: Albumin 1.5 g/dL (3.4-5.0); Calcium 7.8 mg/dL (8.5-10.1); Magnesium 2.1 mg/dL (1.6-2.6); Potassium 3.2 mmol/L (3.5-5.1)
[2021-12-05 05:32] LABS: BUN/Creatinine Ratio 25.9; Bilirubin, Total 0.4 mg/dL (0.2-1.0); Phosphorus 3.8 mg/dL (2.5-4.90); Total Protein 4.6 g/dL (6.4-8.2)
[2021-12-05] MEDS: METOCLOPRAMIDE HCL 5MG/ml INJ 2ml VIAL IV SCH ×3 (05:54→22:22)
[2021-12-05] MEDS: LACTULOSE 20Gm/30ML SOLN PO SCH ×4 (05:54→18:09)
[2021-12-05] MEDS: ACCU-CHEK COMFORT CURVE STRIP VI SCH ×4 (06:00→18:10)
[2021-12-05] MEDS: InsuLIN REG 1unit/0.01ml Soln (100units/ml) SC SCH ×4 (06:00→18:10)
[2021-12-05] MEDS ORDERED: POTASSIUM CHL 10MEQ/50ML 50 ML IV ONE (06:30)
[2021-12-05] MEDS: POTASSIUM CHL 10MEQ/50ML 50 ML IV SCH ×3 (08:30→10:51)
[2021-12-05] MEDS: PANTOPRAZOLE 40 MG/10 ML VIAL INJ IV SCH (10:06)
[2021-12-05] MEDS: DOCUSATE ORAL LIQUID 100 MG/10 ML UD GT SCH ×2 (10:06→22:22)
[2021-12-05] MEDS: SODIUM CHLOR 0.9% PF (SALINE LOCK) 10ML VIAL/SYR IV SCH ×2 (10:06→22:23)
[2021-12-05] MEDS: ENOXAPARIN SOD 40 MG/0.4 ML SYRINGE SC SCH (10:06)
[2021-12-05] MEDS: VANCOMYCIN 1GM/250ML 250 ML IV SCH ×2 (10:50→22:48)
[2021-12-05] MEDS: VASOPRESSIN 50 UNITS in D5W 5% 247.5 ML IV SCH (11:00)
[2021-12-05] MEDS ORDERED: POTASSIUM EFFERVESENT TAB 25 MEQ GT ONE (14:15)
[2021-12-05] MEDS ORDERED: HYDROCORTISONE SOD SUCC 100 MG/2ML INJ VIAL IV ONE (14:30)
[2021-12-05] MEDS: MIDAZOLAM DRIP 50 mg/50mL 50 ML IV SCH ×2 (17:12→23:24)
[2021-12-05] MEDS: PROPOFOL 100 ML IV SCH (17:12)
[2021-12-05] MEDS ORDERED: TPN PER PHARMACY IV NR ×6 (20:00)
[2021-12-05] MEDS: fentaNYL Drip 2500mCg/250mlNS 250 ML IV SCH (20:02)
[2021-12-05] MEDS: NOREPINEPHRINE 8 MG/250ML KIT 250 ML IV SCH (20:03)
[2021-12-05] MEDS: HYDROCORTISONE SOD SUCC 100 MG/2ML INJ VIAL IV SCH (22:23)
[2021-12-06] VITALS (92 sets, daily range): BP systolic 86–129; BP diastolic 51–80
[2021-12-06] MEDS: LACTULOSE 20Gm/30ML SOLN PO SCH ×4 (00:48→17:40)
[2021-12-06] MEDS: InsuLIN REG 1unit/0.01ml Soln (100units/ml) SC SCH ×4 (00:50→18:00)
[2021-12-06] MEDS: ACCU-CHEK COMFORT CURVE STRIP VI SCH ×4 (00:50→18:00)
[2021-12-06] MEDS: PROPOFOL 100 ML IV SCH ×3 (00:52→21:59)
[2021-12-06] MEDS: MEROPENEM 1GM IVPB 100 ML IV SCH ×3 (03:07→20:21)
[2021-12-06] MEDS: METOCLOPRAMIDE HCL 5MG/ml INJ 2ml VIAL IV SCH ×2 (05:23→21:05)
[2021-12-06] MEDS: MIDAZOLAM DRIP 50 mg/50mL 50 ML IV SCH ×2 (05:24→19:30)
[2021-12-06 05:34] LABS: Albumin 1.4 g/dL (3.4-5.0); Calcium 7.9 mg/dL (8.5-10.1); Magnesium 2.1 mg/dL (1.6-2.6); Potassium 4.1 mmol/L (3.5-5.1)
[2021-12-06 05:36] LABS: BUN/Creatinine Ratio 33.3
[2021-12-06 05:39] LABS: Bilirubin, Total 0.3 mg/dL (0.2-1.0); Phosphorus 3.1 mg/dL (2.5-4.90); Total Protein 4.7 g/dL (6.4-8.2)
[2021-12-06] MEDS: fentaNYL Drip 2500mCg/250mlNS 250 ML IV SCH (06:01)
[2021-12-06] MEDS: ENOXAPARIN SOD 40 MG/0.4 ML SYRINGE SC SCH (10:00)
[2021-12-06] MEDS: PANTOPRAZOLE 40 MG/10 ML VIAL INJ IV SCH (10:00)
[2021-12-06] MEDS: DOCUSATE ORAL LIQUID 100 MG/10 ML UD GT SCH ×2 (10:00→21:09)
[2021-12-06] MEDS: SODIUM CHLOR 0.9% PF (SALINE LOCK) 10ML VIAL/SYR IV SCH ×2 (10:00→21:08)
[2021-12-06] MEDS: HYDROCORTISONE SOD SUCC 100 MG/2ML INJ VIAL IV SCH ×2 (10:00→21:08)
[2021-12-06] MEDS: VASOPRESSIN 50 UNITS in D5W 5% 247.5 ML IV SCH (11:00)
[2021-12-06] MEDS: VANCOMYCIN 1GM/250ML 250 ML IV SCH (13:21)
[2021-12-06] MEDS ORDERED: TPN PER PHARMACY IV NR ×8 (20:00)
[2021-12-07] VITALS (97 sets, daily range): BP systolic 103–154; BP diastolic 60–92
[2021-12-07] MEDS: LACTULOSE 20Gm/30ML SOLN PO SCH ×5 (01:19→23:55)
[2021-12-07] MEDS: ACCU-CHEK COMFORT CURVE STRIP VI SCH ×4 (01:27→17:42)
[2021-12-07] MEDS: InsuLIN REG 1unit/0.01ml Soln (100units/ml) SC SCH ×4 (01:27→17:46)
[2021-12-07] MEDS: PROPOFOL 100 ML IV SCH ×6 (01:28→22:52)
[2021-12-07] MEDS: MEROPENEM 1GM IVPB 100 ML IV SCH ×3 (03:25→21:06)
[2021-12-07] MEDS: MIDAZOLAM DRIP 50 mg/50mL 50 ML IV SCH ×5 (03:42→22:52)
[2021-12-07] MEDS: fentaNYL Drip 2500mCg/250mlNS 250 ML IV SCH ×2 (03:45→14:55)
[2021-12-07] MEDS: VANCOMYCIN 1GM/250ML 250 ML IV SCH ×2 (04:45→19:56)
[2021-12-07 05:52] LABS: Mean Corpuscular Volume 92.4 fL (80.0-100.0); White Blood Cell 6.2 10^3/uL (4.4-10.8)
[2021-12-07 05:56] LABS: Basophils # (auto) 0 10 ^3/uL (0-0.2); Basophils % (auto) 0.5 % (0.0-2.0); Eosinophils # (auto) 0 10 ^3/uL (0-0.8); Eosinophils % (auto) 0.1 % (0.0-7.0); Hematocrit 24.8 % (41.0-53.0); Hemoglobin 8.7 g/dL (13.5-17.5); Lymphocytes # (auto) 1.2 10 ^3/uL (0.4-5.4); Lymphocytes % (auto) 19.3 % (10.0-50.0); Mean Corpuscular Hemoglobin 32.6 pg (28.0-32.0); Mean Corpuscular Hgb Conc. 35.3 g/dL (32.0-36.0); Monocytes # (auto) 0.5 10 ^3/uL (0-1.3); Monocytes % (auto) 7.5 % (0.0-12.0); Neutrophils # (auto) 4.5 10 ^3/uL (1.6-8.6); Neutrophils % (auto) 72.6 % (37.0-80.0); Nucleated Red Blood Cells % 0.2 %; Red Blood Cells 2.68 10^6/uL (4.5-5.90); Red Cell Distribution Width 15.8 % (11.8-14.3)
[2021-12-07] MEDS: METOCLOPRAMIDE HCL 5MG/ml INJ 2ml VIAL IV SCH ×3 (05:59→21:44)
[2021-12-07 06:15] LABS: Albumin 1.5 g/dL (3.4-5.0); Magnesium 2.5 mg/dL (1.6-2.6)
[2021-12-07 06:20] LABS: BUN/Creatinine Ratio 45.8; Bilirubin, Total 0.3 mg/dL (0.2-1.0); Phosphorus 3.2 mg/dL (2.5-4.90); Total Protein 4.8 g/dL (6.4-8.2)
[2021-12-07] MEDS: DOCUSATE ORAL LIQUID 100 MG/10 ML UD GT SCH ×2 (10:06→21:44)
[2021-12-07] MEDS: PANTOPRAZOLE 40 MG/10 ML VIAL INJ IV SCH (10:06)
[2021-12-07] MEDS: SODIUM CHLOR 0.9% PF (SALINE LOCK) 10ML VIAL/SYR IV SCH ×2 (10:06→21:44)
[2021-12-07] MEDS: ENOXAPARIN SOD 40 MG/0.4 ML SYRINGE SC SCH (10:07)
[2021-12-07] MEDS: HYDROCORTISONE SOD SUCC 100 MG/2ML INJ VIAL IV SCH ×2 (10:07→21:45)
[2021-12-07] MEDS: NOREPINEPHRINE 8 MG/250ML KIT 250 ML IV SCH (10:09)
[2021-12-07] MEDS: ROCURONIUM 10MG/ML 10ML VIAL IV PRN ×3 (17:51→21:59)
[2021-12-07] MEDS ORDERED: TPN PER PHARMACY IV NR ×8 (20:00)
[2021-12-08] VITALS (96 sets, daily range): BP systolic 86–145; BP diastolic 50–91
[2021-12-08] MEDS: ROCURONIUM 10MG/ML 10ML VIAL IV PRN
[2021-12-08] MEDS: InsuLIN REG 1unit/0.01ml Soln (100units/ml) SC SCH ×4 (00:21→18:31)
[2021-12-08] MEDS: ACCU-CHEK COMFORT CURVE STRIP VI SCH ×4 (00:22→18:05)
[2021-12-08] MEDS: PROPOFOL 100 ML IV SCH ×4 (02:00→12:31)
[2021-12-08] MEDS: fentaNYL Drip 2500mCg/250mlNS 250 ML IV SCH ×2 (02:01→12:31)
[2021-12-08] MEDS: MEROPENEM 1GM IVPB 100 ML IV SCH ×3 (03:00→20:00)
[2021-12-08] MEDS: MIDAZOLAM DRIP 50 mg/50mL 50 ML IV SCH ×5 (03:04→18:47)
[2021-12-08] MEDS: LACTULOSE 20Gm/30ML SOLN PO SCH ×3 (05:55→18:05)
[2021-12-08] MEDS: METOCLOPRAMIDE HCL 5MG/ml INJ 2ml VIAL IV SCH ×3 (05:56→20:45)
[2021-12-08 06:15] LABS: Albumin 1.4 g/dL (3.4-5.0); BUN/Creatinine Ratio 60.7; Calcium 7.9 mg/dL (8.5-10.1); Magnesium 2.3 mg/dL (1.6-2.6); Potassium 4.3 mmol/L (3.5-5.1)
[2021-12-08 06:17] LABS: Bilirubin, Total 0.2 mg/dL (0.2-1.0); Phosphorus 2.7 mg/dL (2.5-4.90); Total Protein 4.6 g/dL (6.4-8.2)
[2021-12-08] MEDS: PANTOPRAZOLE 40 MG/10 ML VIAL INJ IV SCH (09:42)
[2021-12-08] MEDS: DOCUSATE ORAL LIQUID 100 MG/10 ML UD GT SCH ×2 (09:42→20:45)
[2021-12-08] MEDS: SODIUM CHLOR 0.9% PF (SALINE LOCK) 10ML VIAL/SYR IV SCH ×2 (09:43→20:44)
[2021-12-08] MEDS: HYDROCORTISONE SOD SUCC 100 MG/2ML INJ VIAL IV SCH ×2 (09:43→20:45)
[2021-12-08] MEDS: ENOXAPARIN SOD 40 MG/0.4 ML SYRINGE SC SCH (09:43)
[2021-12-08] MEDS: VANCOMYCIN 1GM/250ML 250 ML IV SCH (10:24)
[2021-12-08] MEDS: NOREPINEPHRINE 8 MG/250ML KIT 250 ML IV SCH (15:09)
[2021-12-08] MEDS ORDERED: TPN PER PHARMACY IV NR ×7 (20:00)
[2021-12-09] VITALS (91 sets, daily range): BP systolic 83–128; BP diastolic 45–80
[2021-12-09] MEDS: VANCOMYCIN 1GM/250ML 250 ML IV SCH (01:54)
[2021-12-09] MEDS: MEROPENEM 1GM IVPB 100 ML IV SCH ×3 (04:00→20:03)
[2021-12-09 05:46] LABS: Albumin 1.6 g/dL (3.4-5.0); Calcium 7.9 mg/dL (8.5-10.1); Magnesium 2.4 mg/dL (1.6-2.6); Potassium 4.6 mmol/L (3.5-5.1)
[2021-12-09 05:50] LABS: BUN/Creatinine Ratio 62.5; Bilirubin, Total 0.3 mg/dL (0.2-1.0); Phosphorus 3.1 mg/dL (2.5-4.90); Total Protein 4.5 g/dL (6.4-8.2)
[2021-12-09] MEDS: METOCLOPRAMIDE HCL 5MG/ml INJ 2ml VIAL IV SCH ×4 (05:57→20:07)
[2021-12-09] MEDS: ACCU-CHEK COMFORT CURVE STRIP VI SCH ×5 (05:57→23:41)
[2021-12-09] MEDS: LACTULOSE 20Gm/30ML SOLN PO SCH ×7 (05:57→20:07)
[2021-12-09] MEDS: InsuLIN REG 1unit/0.01ml Soln (100units/ml) SC SCH ×5 (06:00→23:41)
[2021-12-09] MEDS: DOCUSATE ORAL LIQUID 100 MG/10 ML UD GT SCH ×3 (10:13→20:07)
[2021-12-09] MEDS: PANTOPRAZOLE 40 MG/10 ML VIAL INJ IV SCH (10:13)
[2021-12-09] MEDS: SODIUM CHLOR 0.9% PF (SALINE LOCK) 10ML VIAL/SYR IV SCH ×2 (10:13→20:00)
[2021-12-09] MEDS: ENOXAPARIN SOD 40 MG/0.4 ML SYRINGE SC SCH (10:13)
[2021-12-09] MEDS: MIDAZOLAM DRIP 50 mg/50mL 50 ML IV SCH ×3 (10:14→17:19)
[2021-12-09] MEDS: fentaNYL Drip 2500mCg/250mlNS 250 ML IV SCH (11:10)
[2021-12-09] MEDS: PROPOFOL 100 ML IV SCH ×2 (13:42→17:17)
[2021-12-09] MEDS: NOREPINEPHRINE 8 MG/250ML KIT 250 ML IV SCH ×2 (15:45→16:34)
[2021-12-09] MEDS ORDERED: TPN PER PHARMACY IV NR ×7 (20:00)
[2021-12-09] MEDS: HYDROCORTISONE SOD SUCC 100 MG/2ML INJ VIAL IV SCH (21:43)
[2021-12-10] VITALS (87 sets, daily range): BP systolic 83–133; BP diastolic 50–78
[2021-12-10] MEDS: MEROPENEM 1GM IVPB 100 ML IV SCH ×3 (03:44→20:00)
[2021-12-10] MEDS: InsuLIN REG 1unit/0.01ml Soln (100units/ml) SC SCH ×3 (05:54→17:47)
[2021-12-10] MEDS: ACCU-CHEK COMFORT CURVE STRIP VI SCH ×3 (05:55→17:12)
[2021-12-10 06:02] LABS: Albumin 1.5 g/dL (3.4-5.0); Magnesium 2.4 mg/dL (1.6-2.6); Potassium 4.3 mmol/L (3.5-5.1)
[2021-12-10 06:09] LABS: Bilirubin, Total 0.3 mg/dL (0.2-1.0); Pre Albumin 26.7 mg/dL (20.0-40.0); Total Protein 4.6 g/dL (6.4-8.2)
[2021-12-10] MEDS: PROPOFOL 100 ML IV SCH ×4 (08:45→22:14)
[2021-12-10] MEDS: SODIUM CHLOR 0.9% PF (SALINE LOCK) 10ML VIAL/SYR IV SCH ×2 (09:21→21:37)
[2021-12-10] MEDS: PANTOPRAZOLE 40 MG/10 ML VIAL INJ IV SCH (09:21)
[2021-12-10] MEDS: HYDROCORTISONE SOD SUCC 100 MG/2ML INJ VIAL IV SCH ×2 (09:22→21:37)
[2021-12-10] MEDS: ENOXAPARIN SOD 40 MG/0.4 ML SYRINGE SC SCH (09:22)
[2021-12-10] MEDS: LACTULOSE 20Gm/30ML SOLN PO SCH ×2 (11:51→17:11)
[2021-12-10] MEDS: fentaNYL Drip 2500mCg/250mlNS 250 ML IV SCH ×3 (12:01→20:55)
[2021-12-10] MEDS: MIDAZOLAM DRIP 50 mg/50mL 50 ML IV SCH ×3 (12:02→20:56)
[2021-12-10] MEDS: METOCLOPRAMIDE HCL 5MG/ml INJ 2ml VIAL IV SCH ×3 (13:08→21:37)
[2021-12-10] MEDS: NOREPINEPHRINE 8 MG/250ML KIT 250 ML IV SCH ×2 (14:54→22:14)
[2021-12-10] MEDS: Jevity 1.2 Cal/Fiber 1 Liter GT SCH (18:37)
[2021-12-10] MEDS ORDERED: TPN PER PHARMACY IV NR ×7 (20:00)
[2021-12-10] MEDS: DOCUSATE ORAL LIQUID 100 MG/10 ML UD GT SCH (21:38)
[2021-12-11] VITALS (61 sets, daily range): BP systolic 93–148; BP diastolic 51–88
[2021-12-11] MEDS: MIDAZOLAM DRIP 50 mg/50mL 50 ML IV SCH ×7 (01:17→22:51)
[2021-12-11] MEDS: PROPOFOL 100 ML IV SCH ×4 (01:18→20:14)
[2021-12-11] MEDS: MEROPENEM 1GM IVPB 100 ML IV SCH ×3 (04:07→20:14)
[2021-12-11] MEDS: fentaNYL Drip 2500mCg/250mlNS 250 ML IV SCH ×2 (04:58→22:47)
[2021-12-11 05:38] LABS: Basophils # (auto) 0.1 10 ^3/uL (0-0.2); Basophils % (auto) 0.8 % (0.0-2.0); Eosinophils # (auto) 0.1 10 ^3/uL (0-0.8); Hematocrit 28.6 % (41.0-53.0); Hemoglobin 9.6 g/dL (13.5-17.5); Lymphocytes # (auto) 1.2 10 ^3/uL (0.4-5.4); Lymphocytes % (auto) 14.2 % (10.0-50.0); Mean Corpuscular Hemoglobin 31.3 pg (28.0-32.0); Mean Corpuscular Hgb Conc. 33.6 g/dL (32.0-36.0); Mean Corpuscular Volume 93.4 fL (80.0-100.0); Monocytes # (auto) 0.3 10 ^3/uL (0-1.3); Monocytes % (auto) 3.1 % (0.0-12.0); Neutrophils # (auto) 7.1 10 ^3/uL (1.6-8.6); Neutrophils % (auto) 80.9 % (37.0-80.0); Nucleated Red Blood Cells % 0.1 %; Red Blood Cells 3.06 10^6/uL (4.5-5.90); Red Cell Distribution Width 15.6 % (11.8-14.3); White Blood Cell 8.8 10^3/uL (4.4-10.8)
[2021-12-11 05:39] LABS: Potassium 4.2 mmol/L (3.5-5.1)
[2021-12-11 05:46] LABS: Albumin 1.6 g/dL (3.4-5.0); BUN/Creatinine Ratio 88.5; Bilirubin, Total 0.3 mg/dL (0.2-1.0); Calcium 8.2 mg/dL (8.5-10.1); Magnesium 2.1 mg/dL (1.6-2.6); Phosphorus 4.6 mg/dL (2.5-4.90); Total Protein 4.9 g/dL (6.4-8.2)
[2021-12-11] MEDS: LACTULOSE 20Gm/30ML SOLN PO SCH ×4 (06:00→17:53)
[2021-12-11] MEDS: METOCLOPRAMIDE HCL 5MG/ml INJ 2ml VIAL IV SCH ×3 (06:24→21:27)
[2021-12-11] MEDS: InsuLIN REG 1unit/0.01ml Soln (100units/ml) SC SCH ×2 (06:24)
[2021-12-11] MEDS: ACCU-CHEK COMFORT CURVE STRIP VI SCH ×2 (06:25)
[2021-12-11] MEDS: DOCUSATE ORAL LIQUID 100 MG/10 ML UD GT SCH ×2 (10:00→17:53)
[2021-12-11] MEDS: PANTOPRAZOLE 40 MG/10 ML VIAL INJ IV SCH (10:08)
[2021-12-11] MEDS: ENOXAPARIN SOD 40 MG/0.4 ML SYRINGE SC SCH (10:08)
[2021-12-11] MEDS: SODIUM CHLOR 0.9% PF (SALINE LOCK) 10ML VIAL/SYR IV SCH ×2 (10:08→21:27)
[2021-12-11] MEDS: HYDROCORTISONE SOD SUCC 100 MG/2ML INJ VIAL IV SCH ×2 (10:11→21:28)
[2021-12-11] MEDS ORDERED: FUROSEMIDE 20 MG/2 ML VIAL IV ONE (10:15)
[2021-12-11] MEDS ORDERED: ALBUMIN 25% 100 ML IV ONE (10:15)
[2021-12-11] MEDS: ROCURONIUM 10MG/ML 10ML VIAL IV PRN (14:11)
[2021-12-11] MEDS ORDERED: TPN PER PHARMACY IV NR ×7 (20:00)
[2021-12-11] MEDS: FUROSEMIDE 20 MG/2 ML VIAL IV SCH (21:27)
[2021-12-12] VITALS (69 sets, daily range): BP systolic 74–164; BP diastolic 41–97
[2021-12-12] MEDS: PROPOFOL 100 ML IV SCH ×5 (00:19→21:43)
[2021-12-12] MEDS: MIDAZOLAM DRIP 50 mg/50mL 50 ML IV SCH ×3 (02:49→21:43)
[2021-12-12] MEDS: MEROPENEM 1GM IVPB 100 ML IV SCH ×3 (04:03→20:00)
[2021-12-12 05:28] LABS: Basophils # (auto) 0 10 ^3/uL (0-0.2); Eosinophils # (auto) 0.1 10 ^3/uL (0-0.8); Eosinophils % (auto) 2.4 % (0.0-7.0); Hemoglobin 8.1 g/dL (13.5-17.5); Monocytes # (auto) 0.6 10 ^3/uL (0-1.3); Nucleated Red Blood Cells % 0.3 %; Red Cell Distribution Width 15.8 % (11.8-14.3)
[2021-12-12 05:30] LABS: Basophils % (auto) 0.8 % (0.0-2.0); Hematocrit 24.1 % (41.0-53.0); Lymphocytes # (auto) 1.2 10 ^3/uL (0.4-5.4); Lymphocytes % (auto) 24.2 % (10.0-50.0); Mean Corpuscular Hemoglobin 31.3 pg (28.0-32.0); Mean Corpuscular Hgb Conc. 33.6 g/dL (32.0-36.0); Mean Corpuscular Volume 93.2 fL (80.0-100.0); Monocytes % (auto) 11.3 % (0.0-12.0); Neutrophils # (auto) 3.1 10 ^3/uL (1.6-8.6); Neutrophils % (auto) 61.3 % (37.0-80.0); Red Blood Cells 2.58 10^6/uL (4.5-5.90); White Blood Cell 5.1 10^3/uL (4.4-10.8)
[2021-12-12 05:37] LABS: Albumin 1.8 g/dL (3.4-5.0); Calcium 7.9 mg/dL (8.5-10.1); Magnesium 2.1 mg/dL (1.6-2.6); Potassium 3.5 mmol/L (3.5-5.1)
[2021-12-12 05:39] LABS: BUN/Creatinine Ratio 113.3
[2021-12-12 05:41] LABS: Bilirubin, Total 0.2 mg/dL (0.2-1.0); Phosphorus 3.1 mg/dL (2.5-4.90); Total Protein 4.5 g/dL (6.4-8.2)
[2021-12-12] MEDS: LACTULOSE 20Gm/30ML SOLN PO SCH ×5 (06:00→23:57)
[2021-12-12] MEDS: METOCLOPRAMIDE HCL 5MG/ml INJ 2ml VIAL IV SCH ×3 (06:07→21:43)
[2021-12-12] MEDS: fentaNYL Drip 2500mCg/250mlNS 250 ML IV SCH ×2 (06:08→23:19)
[2021-12-12] MEDS ORDERED: FUROSEMIDE 20 MG/2 ML VIAL IV SCH (10:00)
[2021-12-12] MEDS: DOCUSATE ORAL LIQUID 100 MG/10 ML UD GT SCH ×2 (10:11→21:42)
[2021-12-12] MEDS: SODIUM CHLOR 0.9% PF (SALINE LOCK) 10ML VIAL/SYR IV SCH ×2 (10:13→21:43)
[2021-12-12] MEDS: FUROSEMIDE 20 MG/2 ML VIAL IV SCH ×2 (10:13→21:43)
[2021-12-12] MEDS: PANTOPRAZOLE 40 MG/10 ML VIAL INJ IV SCH (10:13)
[2021-12-12] MEDS: HYDROCORTISONE SOD SUCC 100 MG/2ML INJ VIAL IV SCH ×2 (10:14→21:43)
[2021-12-12] MEDS: ENOXAPARIN SOD 40 MG/0.4 ML SYRINGE SC SCH (10:15)
[2021-12-12] MEDS: NOREPINEPHRINE 8 MG/250ML KIT 250 ML IV SCH (10:50)
[2021-12-13] VITALS (74 sets, daily range): BP systolic 83–162; BP diastolic 46–97
[2021-12-13] MEDS: MIDAZOLAM DRIP 50 mg/50mL 50 ML IV SCH ×6 (01:13→23:50)
[2021-12-13] MEDS: PROPOFOL 100 ML IV SCH ×7 (01:13→22:08)
[2021-12-13] MEDS: MEROPENEM 1GM IVPB 100 ML IV SCH ×3 (04:24→20:15)
[2021-12-13] MEDS: LACTULOSE 20Gm/30ML SOLN PO SCH ×4 (06:00→23:50)
[2021-12-13] MEDS: METOCLOPRAMIDE HCL 5MG/ml INJ 2ml VIAL IV SCH ×3 (06:07→21:34)
[2021-12-13] MEDS: fentaNYL Drip 2500mCg/250mlNS 250 ML IV SCH ×2 (07:50→23:57)
[2021-12-13] MEDS: FUROSEMIDE 20 MG/2 ML VIAL IV SCH ×2 (09:23→21:34)
[2021-12-13] MEDS: PANTOPRAZOLE 40 MG/10 ML VIAL INJ IV SCH (09:23)
[2021-12-13] MEDS: HYDROCORTISONE SOD SUCC 100 MG/2ML INJ VIAL IV SCH ×2 (09:24→21:34)
[2021-12-13] MEDS: ENOXAPARIN SOD 40 MG/0.4 ML SYRINGE SC SCH (09:24)
[2021-12-13] MEDS: DOCUSATE ORAL LIQUID 100 MG/10 ML UD GT SCH ×2 (09:25→21:33)
[2021-12-13] MEDS: SODIUM CHLOR 0.9% PF (SALINE LOCK) 10ML VIAL/SYR IV SCH ×2 (09:26→21:34)
[2021-12-13] MEDS: NOREPINEPHRINE 8 MG/250ML KIT 250 ML IV SCH (19:54)
[2021-12-14] VITALS (88 sets, daily range): BP systolic 83–163; BP diastolic 40–104
[2021-12-14] MEDS: PROPOFOL 100 ML IV SCH ×4 (02:15→20:33)
[2021-12-14] MEDS: MEROPENEM 1GM IVPB 100 ML IV SCH (04:00)
[2021-12-14] MEDS: LACTULOSE 20Gm/30ML SOLN PO SCH ×3 (06:00→16:03)
[2021-12-14] MEDS: METOCLOPRAMIDE HCL 5MG/ml INJ 2ml VIAL IV SCH ×3 (06:21→22:37)
[2021-12-14] MEDS: fentaNYL Drip 2500mCg/250mlNS 250 ML IV SCH ×2 (08:16→17:31)
[2021-12-14] MEDS: MIDAZOLAM DRIP 50 mg/50mL 50 ML IV SCH ×4 (09:42→22:38)
[2021-12-14] MEDS: HYDROCORTISONE SOD SUCC 100 MG/2ML INJ VIAL IV SCH ×2 (09:43→22:37)
[2021-12-14] MEDS: DOCUSATE ORAL LIQUID 100 MG/10 ML UD GT SCH ×2 (09:43→22:37)
[2021-12-14] MEDS: FUROSEMIDE 20 MG/2 ML VIAL IV SCH ×2 (09:43→22:36)
[2021-12-14] MEDS: ENOXAPARIN SOD 40 MG/0.4 ML SYRINGE SC SCH (09:44)
[2021-12-14] MEDS: SODIUM CHLOR 0.9% PF (SALINE LOCK) 10ML VIAL/SYR IV SCH ×2 (09:45→22:37)
[2021-12-14] MEDS: PANTOPRAZOLE 40 MG/10 ML VIAL INJ IV SCH (09:45)
[2021-12-14] MEDS: NOREPINEPHRINE 8 MG/250ML KIT 250 ML IV SCH (15:45)
[2021-12-15] VITALS (104 sets, daily range): BP systolic 90–168; BP diastolic 50–93
[2021-12-15] MEDS: PROPOFOL 100 ML IV SCH ×3 (01:00→20:00)
[2021-12-15] MEDS: fentaNYL Drip 2500mCg/250mlNS 250 ML IV SCH ×2 (01:08→09:10)
[2021-12-15] MEDS: MIDAZOLAM DRIP 50 mg/50mL 50 ML IV SCH ×4 (02:43→19:00)
[2021-12-15 04:59] LABS: Basophils # (auto) 0.1 10 ^3/uL (0-0.2); Basophils % (auto) 1.2 % (0.0-2.0); Eosinophils # (auto) 0.1 10 ^3/uL (0-0.8); Eosinophils % (auto) 0.7 % (0.0-7.0); Hematocrit 27.2 % (41.0-53.0); Hemoglobin 9.4 g/dL (13.5-17.5); Lymphocytes # (auto) 1.2 10 ^3/uL (0.4-5.4); Lymphocytes % (auto) 11.2 % (10.0-50.0); Mean Corpuscular Hemoglobin 31.4 pg (28.0-32.0); Mean Corpuscular Hgb Conc. 34.4 g/dL (32.0-36.0); Mean Corpuscular Volume 91.4 fL (80.0-100.0); Monocytes # (auto) 0.3 10 ^3/uL (0-1.3); Neutrophils # (auto) 8.7 10 ^3/uL (1.6-8.6); Neutrophils % (auto) 83.9 % (37.0-80.0); Nucleated Red Blood Cells % 0.1 %; Red Blood Cells 2.98 10^6/uL (4.5-5.90); Red Cell Distribution Width 15.3 % (11.8-14.3); White Blood Cell 10.4 10^3/uL (4.4-10.8)
[2021-12-15 05:17] LABS: BUN/Creatinine Ratio 35.5; Calcium 7.8 mg/dL (8.5-10.1); Potassium 3.3 mmol/L (3.5-5.1)
[2021-12-15] MEDS: LACTULOSE 20Gm/30ML SOLN PO SCH ×4 (05:28→18:00)
[2021-12-15] MEDS: METOCLOPRAMIDE HCL 5MG/ml INJ 2ml VIAL IV SCH ×3 (06:00→21:42)
[2021-12-15] MEDS: FUROSEMIDE 20 MG/2 ML VIAL IV SCH ×2 (10:00→21:42)
[2021-12-15] MEDS: DOCUSATE ORAL LIQUID 100 MG/10 ML UD GT SCH ×2 (10:00→21:42)
[2021-12-15] MEDS: PANTOPRAZOLE 40 MG/10 ML VIAL INJ IV SCH (10:00)
[2021-12-15] MEDS: ENOXAPARIN SOD 40 MG/0.4 ML SYRINGE SC SCH (10:00)
[2021-12-15] MEDS: SODIUM CHLOR 0.9% PF (SALINE LOCK) 10ML VIAL/SYR IV SCH ×2 (10:00→21:42)
[2021-12-15] MEDS: HYDROCORTISONE SOD SUCC 100 MG/2ML INJ VIAL IV SCH ×2 (10:00→21:42)
[2021-12-15] MEDS: POTASSIUM CHL 10MEQ/50ML 50 ML IV SCH ×4 (11:30→13:30)
[2021-12-15] MEDS: NOREPINEPHRINE 8 MG/250ML KIT 250 ML IV SCH (15:45)
[2021-12-16] VITALS (107 sets, daily range): BP systolic 78–152; BP diastolic 40–108
[2021-12-16] MEDS: fentaNYL Drip 2500mCg/250mlNS 250 ML IV SCH ×2 (02:27→10:18)
[2021-12-16] MEDS: PROPOFOL 100 ML IV SCH ×3 (03:43→19:00)
[2021-12-16] MEDS: METOCLOPRAMIDE HCL 5MG/ml INJ 2ml VIAL IV SCH ×3 (06:00→22:17)
[2021-12-16] MEDS: LACTULOSE 20Gm/30ML SOLN PO SCH ×4 (06:00→16:58)
[2021-12-16 07:16] LABS: Basophils # (auto) 0.1 10 ^3/uL (0-0.2); Basophils % (auto) 1.5 % (0.0-2.0); Eosinophils # (auto) 0.2 10 ^3/uL (0-0.8); Eosinophils % (auto) 3.3 % (0.0-7.0); Hematocrit 24.2 % (41.0-53.0); Hemoglobin 8.5 g/dL (13.5-17.5); Lymphocytes # (auto) 1.3 10 ^3/uL (0.4-5.4); Lymphocytes % (auto) 25.1 % (10.0-50.0); Mean Corpuscular Hemoglobin 31.8 pg (28.0-32.0); Monocytes # (auto) 0.5 10 ^3/uL (0-1.3); Neutrophils # (auto) 3.1 10 ^3/uL (1.6-8.6); Neutrophils % (auto) 60.1 % (37.0-80.0); Nucleated Red Blood Cells % 0.1 %; Red Blood Cells 2.66 10^6/uL (4.5-5.90); Red Cell Distribution Width 15.4 % (11.8-14.3); White Blood Cell 5.1 10^3/uL (4.4-10.8)
[2021-12-16 07:26] LABS: BUN/Creatinine Ratio 52.4
[2021-12-16 07:46] LABS: Potassium 2.8 mmol/L (3.5-5.1)
[2021-12-16] MEDS: POTASSIUM CHL 10MEQ/50ML 50 ML IV SCH ×6 (08:00→12:27)
[2021-12-16] MEDS: DOCUSATE ORAL LIQUID 100 MG/10 ML UD GT SCH ×2 (09:46→22:16)
[2021-12-16] MEDS: FUROSEMIDE 20 MG/2 ML VIAL IV SCH ×2 (09:46→22:17)
[2021-12-16] MEDS: PANTOPRAZOLE 40 MG/10 ML VIAL INJ IV SCH (09:46)
[2021-12-16] MEDS: SODIUM CHLOR 0.9% PF (SALINE LOCK) 10ML VIAL/SYR IV SCH ×2 (09:46→22:18)
[2021-12-16] MEDS: HYDROCORTISONE SOD SUCC 100 MG/2ML INJ VIAL IV SCH ×2 (09:47→22:18)
[2021-12-16] MEDS: ENOXAPARIN SOD 40 MG/0.4 ML SYRINGE SC SCH (09:47)
[2021-12-16] MEDS: NOREPINEPHRINE 8 MG/250ML KIT 250 ML IV SCH (14:14)
[2021-12-16] MEDS: MIDAZOLAM DRIP 50 mg/50mL 50 ML IV SCH (21:00)
[2021-12-16] MEDS: Jevity 1.2 Cal/Fiber 1 Liter GT SCH (23:41)
[2021-12-17] VITALS (103 sets, daily range): BP systolic 72–166; BP diastolic 36–88
[2021-12-17] MEDS: PROPOFOL 100 ML IV SCH ×4 (00:28→21:30)
[2021-12-17] MEDS: fentaNYL Drip 2500mCg/250mlNS 250 ML IV SCH ×3 (04:10→21:00)
[2021-12-17 05:15] LABS: Basophils # (auto) 0.1 10 ^3/uL (0-0.2); Eosinophils # (auto) 0.1 10 ^3/uL (0-0.8); Monocytes # (auto) 0.5 10 ^3/uL (0-1.3); Red Cell Distribution Width 15.1 % (11.8-14.3); White Blood Cell 6.5 10^3/uL (4.4-10.8)
[2021-12-17 05:17] LABS: Basophils % (auto) 0.9 % (0.0-2.0); Eosinophils % (auto) 1.3 % (0.0-7.0); Hematocrit 24.1 % (41.0-53.0); Hemoglobin 8.4 g/dL (13.5-17.5); Lymphocytes # (auto) 1.4 10 ^3/uL (0.4-5.4); Lymphocytes % (auto) 21.4 % (10.0-50.0); Mean Corpuscular Hemoglobin 31.6 pg (28.0-32.0); Mean Corpuscular Hgb Conc. 34.7 g/dL (32.0-36.0); Mean Corpuscular Volume 91.1 fL (80.0-100.0); Monocytes % (auto) 8.1 % (0.0-12.0); Neutrophils # (auto) 4.4 10 ^3/uL (1.6-8.6); Neutrophils % (auto) 68.3 % (37.0-80.0); Nucleated Red Blood Cells % 0.1 %; Red Blood Cells 2.65 10^6/uL (4.5-5.90)
[2021-12-17 05:28] LABS: Potassium 3.2 mmol/L (3.5-5.1)
[2021-12-17 05:30] LABS: BUN/Creatinine Ratio 40.7; Calcium 7.8 mg/dL (8.5-10.1); Magnesium 2.5 mg/dL (1.6-2.6); Phosphorus 4.1 mg/dL (2.5-4.90)
[2021-12-17] MEDS: METOCLOPRAMIDE HCL 5MG/ml INJ 2ml VIAL IV SCH ×3 (05:56→22:24)
[2021-12-17] MEDS: LACTULOSE 20Gm/30ML SOLN PO SCH ×5 (05:56→23:47)
[2021-12-17] MEDS: POTASSIUM CHL 10MEQ/50ML 50 ML IV SCH ×2 (06:45→08:07)
[2021-12-17] MEDS: ENOXAPARIN SOD 40 MG/0.4 ML SYRINGE SC SCH (08:00)
[2021-12-17 08:10] LABS: INR 0.96 (0.9-1.15); Partial Thromboplastin Time 27.3 sec (23.6-33.0)
[2021-12-17 08:54] LABS: INR 0.95 (0.9-1.15); Partial Thromboplastin Time 25.6 sec (23.6-33.0)
[2021-12-17] MEDS: HYDROCORTISONE SOD SUCC 100 MG/2ML INJ VIAL IV SCH ×2 (10:25→22:24)
[2021-12-17] MEDS: PANTOPRAZOLE 40 MG/10 ML VIAL INJ IV SCH (10:25)
[2021-12-17] MEDS: DOCUSATE ORAL LIQUID 100 MG/10 ML UD GT SCH ×2 (10:26→22:24)
[2021-12-17] MEDS: FUROSEMIDE 20 MG/2 ML VIAL IV SCH ×2 (10:26→22:00)
[2021-12-17] MEDS: SODIUM CHLOR 0.9% PF (SALINE LOCK) 10ML VIAL/SYR IV SCH ×2 (10:27→22:24)
[2021-12-17] MEDS: MIDAZOLAM DRIP 50 mg/50mL 50 ML IV SCH ×2 (11:01→22:00)
[2021-12-18] VITALS (88 sets, daily range): BP systolic 81–152; BP diastolic 48–91
[2021-12-18] MEDS: fentaNYL Drip 2500mCg/250mlNS 250 ML IV SCH ×3 (02:39→20:04)
[2021-12-18] MEDS: PROPOFOL 100 ML IV SCH ×3 (03:25→21:50)
[2021-12-18] MEDS: METOCLOPRAMIDE HCL 5MG/ml INJ 2ml VIAL IV SCH ×3 (06:00→22:56)
[2021-12-18] MEDS: LACTULOSE 20Gm/30ML SOLN PO SCH ×2 (06:00→12:00)
[2021-12-18 07:34] LABS: Basophils # (auto) 0.1 10 ^3/uL (0-0.2); Basophils % (auto) 1.7 % (0.0-2.0); Eosinophils # (auto) 0.4 10 ^3/uL (0-0.8); Eosinophils % (auto) 4.2 % (0.0-7.0); Hematocrit 26.6 % (41.0-53.0); Hemoglobin 9.2 g/dL (13.5-17.5); Lymphocytes # (auto) 1.8 10 ^3/uL (0.4-5.4); Lymphocytes % (auto) 20.3 % (10.0-50.0); Mean Corpuscular Hemoglobin 31.5 pg (28.0-32.0); Mean Corpuscular Hgb Conc. 34.7 g/dL (32.0-36.0); Mean Corpuscular Volume 90.6 fL (80.0-100.0); Monocytes # (auto) 0.8 10 ^3/uL (0-1.3); Monocytes % (auto) 9.1 % (0.0-12.0); Neutrophils # (auto) 5.6 10 ^3/uL (1.6-8.6); Neutrophils % (auto) 64.7 % (37.0-80.0); Nucleated Red Blood Cells % 0.1 %; Red Blood Cells 2.93 10^6/uL (4.5-5.90); Red Cell Distribution Width 15.1 % (11.8-14.3); White Blood Cell 8.7 10^3/uL (4.4-10.8)
[2021-12-18 07:49] LABS: Albumin 1.8 g/dL (3.4-5.0); BUN/Creatinine Ratio 41.7; Calcium 8.1 mg/dL (8.5-10.1); Potassium 3.1 mmol/L (3.5-5.1)
[2021-12-18 07:52] LABS: Bilirubin, Total 0.4 mg/dL (0.2-1.0); Total Protein 4.8 g/dL (6.4-8.2)
[2021-12-18 07:58] LABS: INR 0.96 (0.9-1.15); Partial Thromboplastin Time 26.5 sec (23.6-33.0)
[2021-12-18] MEDS: DOCUSATE ORAL LIQUID 100 MG/10 ML UD GT SCH ×2 (10:00→22:57)
[2021-12-18] MEDS: ENOXAPARIN SOD 40 MG/0.4 ML SYRINGE SC SCH (10:00)
[2021-12-18] MEDS: SODIUM CHLOR 0.9% PF (SALINE LOCK) 10ML VIAL/SYR IV SCH ×2 (10:37→22:56)
[2021-12-18] MEDS: HYDROCORTISONE SOD SUCC 100 MG/2ML INJ VIAL IV SCH ×2 (10:38→22:57)
[2021-12-18] MEDS: PANTOPRAZOLE 40 MG/10 ML VIAL INJ IV SCH (10:38)
[2021-12-18] MEDS: POTASSIUM CHL 10MEQ/50ML 50 ML IV SCH ×6 (11:09→16:03)
[2021-12-18] MEDS: FUROSEMIDE 20 MG/2 ML VIAL IV SCH (13:00)
[2021-12-18] MEDS: NOREPINEPHRINE 8 MG/250ML KIT 250 ML IV SCH ×2 (15:45→18:58)
[2021-12-18] MEDS: MIDAZOLAM DRIP 50 mg/50mL 50 ML IV SCH (20:10)
[2021-12-19] VITALS (78 sets, daily range): BP systolic 88–144; BP diastolic 52–91
[2021-12-19] MEDS: MIDAZOLAM DRIP 50 mg/50mL 50 ML IV SCH ×4 (00:59→20:52)
[2021-12-19] MEDS: fentaNYL Drip 2500mCg/250mlNS 250 ML IV SCH ×2 (04:19→20:26)
[2021-12-19] MEDS: METOCLOPRAMIDE HCL 5MG/ml INJ 2ml VIAL IV SCH ×3 (05:25→20:24)
[2021-12-19 09:19] LABS: Basophils # (auto) 0.1 10 ^3/uL (0-0.2); Basophils % (auto) 1.2 % (0.0-2.0); Eosinophils # (auto) 0.1 10 ^3/uL (0-0.8); Eosinophils % (auto) 1.3 % (0.0-7.0); Hematocrit 26.1 % (41.0-53.0); Hemoglobin 8.8 g/dL (13.5-17.5); Lymphocytes # (auto) 1.1 10 ^3/uL (0.4-5.4); Lymphocytes % (auto) 17.1 % (10.0-50.0); Mean Corpuscular Hgb Conc. 33.8 g/dL (32.0-36.0); Mean Corpuscular Volume 91.8 fL (80.0-100.0); Monocytes # (auto) 0.4 10 ^3/uL (0-1.3); Monocytes % (auto) 5.6 % (0.0-12.0); Neutrophils % (auto) 74.8 % (37.0-80.0); Nucleated Red Blood Cells % 0.1 %; Red Blood Cells 2.85 10^6/uL (4.5-5.90); Red Cell Distribution Width 15.1 % (11.8-14.3); White Blood Cell 6.7 10^3/uL (4.4-10.8)
[2021-12-19 09:30] LABS: Potassium 3.5 mmol/L (3.5-5.1)
[2021-12-19 09:32] LABS: BUN/Creatinine Ratio 43.5
[2021-12-19] MEDS: PANTOPRAZOLE 40 MG/10 ML VIAL INJ IV SCH (10:23)
[2021-12-19] MEDS: SODIUM CHLOR 0.9% PF (SALINE LOCK) 10ML VIAL/SYR IV SCH ×2 (10:23→20:24)
[2021-12-19] MEDS: DOCUSATE ORAL LIQUID 100 MG/10 ML UD GT SCH (10:23)
[2021-12-19] MEDS: HYDROCORTISONE SOD SUCC 100 MG/2ML INJ VIAL IV SCH (10:23)
[2021-12-19] MEDS: PROPOFOL 100 ML IV SCH ×2 (10:24→21:27)
[2021-12-19] MEDS ORDERED: ENOXAPARIN SOD 40 MG/0.4 ML SYRINGE SC ONE (12:15)
[2021-12-19] MEDS: ROCURONIUM 10MG/ML 10ML VIAL IV PRN (12:36)
[2021-12-19] MEDS: NOREPINEPHRINE 8 MG/250ML KIT 250 ML IV SCH (16:45)
[2021-12-19] MEDS: FUROSEMIDE 20 MG/2 ML VIAL IV SCH (17:36)
[2021-12-20] VITALS (94 sets, daily range): BP systolic 79–155; BP diastolic 38–102
[2021-12-20] MEDS: MIDAZOLAM DRIP 50 mg/50mL 50 ML IV SCH ×6 (01:21→22:25)
[2021-12-20] MEDS: PROPOFOL 100 ML IV SCH ×6 (01:48→22:02)
[2021-12-20] MEDS: fentaNYL Drip 2500mCg/250mlNS 250 ML IV SCH ×3 (05:13→22:02)
[2021-12-20] MEDS: FUROSEMIDE 20 MG/2 ML VIAL IV SCH (06:24)
[2021-12-20] MEDS: METOCLOPRAMIDE HCL 5MG/ml INJ 2ml VIAL IV SCH ×3 (06:24→20:59)
[2021-12-20] MEDS: Jevity 1.2 Cal/Fiber 1 Liter GT SCH (06:25)
[2021-12-20 06:34] LABS: Basophils # (auto) 0.1 10 ^3/uL (0-0.2); Basophils % (auto) 1.6 % (0.0-2.0); Eosinophils # (auto) 0.5 10 ^3/uL (0-0.8); Eosinophils % (auto) 7.1 % (0.0-7.0); Hematocrit 29.4 % (41.0-53.0); Hemoglobin 10.5 g/dL (13.5-17.5); Lymphocytes # (auto) 1.4 10 ^3/uL (0.4-5.4); Lymphocytes % (auto) 20.4 % (10.0-50.0); Mean Corpuscular Hemoglobin 32.9 pg (28.0-32.0); Mean Corpuscular Hgb Conc. 35.6 g/dL (32.0-36.0); Mean Corpuscular Volume 92.4 fL (80.0-100.0); Monocytes # (auto) 0.7 10 ^3/uL (0-1.3); Monocytes % (auto) 10.5 % (0.0-12.0); Neutrophils % (auto) 60.4 % (37.0-80.0); Nucleated Red Blood Cells % 0.3 %; Red Blood Cells 3.19 10^6/uL (4.5-5.90); Red Cell Distribution Width 15.4 % (11.8-14.3); White Blood Cell 6.6 10^3/uL (4.4-10.8)
[2021-12-20 08:27] LABS: BUN/Creatinine Ratio 26.7; Calcium 8.2 mg/dL (8.5-10.1)
[2021-12-20 08:50] LABS: Potassium 2.9 mmol/L (3.5-5.1)
[2021-12-20 09:11] LABS: CRP High Sensitivity 4.77 mg/dL (< 0.3)
[2021-12-20] MEDS: SODIUM CHLOR 0.9% PF (SALINE LOCK) 10ML VIAL/SYR IV SCH ×2 (09:55→20:59)
[2021-12-20] MEDS: ENOXAPARIN SOD 40 MG/0.4 ML SYRINGE SC SCH (10:01)
[2021-12-20] MEDS: POTASSIUM EFFERVESENT TAB 25 MEQ GT SCH (10:01)
[2021-12-20] MEDS: PANTOPRAZOLE 40 MG/10 ML VIAL INJ IV SCH (10:01)
[2021-12-20] MEDS: HYDROCORTISONE SOD SUCC 100 MG/2ML INJ VIAL IV SCH (10:02)
[2021-12-20] MEDS: POTASSIUM CHL 10MEQ/50ML 50 ML IV SCH ×6 (10:10→15:30)
[2021-12-20] MEDS: NOREPINEPHRINE 8 MG/250ML KIT 250 ML IV SCH (15:00)
[2021-12-20] MEDS: FUROSEMIDE 40 MG/4 ML VIAL IV SCH (18:00)
[2021-12-21] VITALS (97 sets, daily range): BP systolic 77–168; BP diastolic 36–91
[2021-12-21] MEDS: NOREPINEPHRINE 8 MG/250ML KIT 250 ML IV SCH (00:05)
[2021-12-21] MEDS: MIDAZOLAM DRIP 50 mg/50mL 50 ML IV SCH ×5 (02:34→23:56)
[2021-12-21] MEDS: PROPOFOL 100 ML IV SCH ×5 (02:34→23:10)
[2021-12-21] MEDS: fentaNYL Drip 2500mCg/250mlNS 250 ML IV SCH ×3 (04:14→21:25)
[2021-12-21 05:44] LABS: Basophils # (auto) 0.1 10 ^3/uL (0-0.2); Basophils % (auto) 1.5 % (0.0-2.0); Eosinophils # (auto) 0.7 10 ^3/uL (0-0.8); Lymphocytes # (auto) 1.5 10 ^3/uL (0.4-5.4); Mean Corpuscular Hgb Conc. 36.3 g/dL (32.0-36.0); Monocytes # (auto) 0.6 10 ^3/uL (0-1.3); Red Blood Cells 2.44 10^6/uL (4.5-5.90)
[2021-12-21 05:47] LABS: Eosinophils % (auto) 9.5 % (0.0-7.0); Hematocrit 22.4 % (41.0-53.0); Hemoglobin 8.2 g/dL (13.5-17.5); Lymphocytes % (auto) 21.4 % (10.0-50.0); Mean Corpuscular Hemoglobin 33.4 pg (28.0-32.0); Mean Corpuscular Volume 91.9 fL (80.0-100.0); Monocytes % (auto) 8.1 % (0.0-12.0); Neutrophils # (auto) 4.1 10 ^3/uL (1.6-8.6); Neutrophils % (auto) 59.5 % (37.0-80.0); Nucleated Red Blood Cells % 0.1 %; Red Cell Distribution Width 14.8 % (11.8-14.3); White Blood Cell 6.9 10^3/uL (4.4-10.8)
[2021-12-21] MEDS: FUROSEMIDE 40 MG/4 ML VIAL IV SCH ×2 (06:00→18:15)
[2021-12-21] MEDS: METOCLOPRAMIDE HCL 5MG/ml INJ 2ml VIAL IV SCH ×3 (06:17→21:21)
[2021-12-21 06:23] LABS: BUN/Creatinine Ratio 56.3; Calcium 6.5 mg/dL (8.5-10.1)
[2021-12-21] MEDS ORDERED: ALBUMIN 25% 100 ML IV SCH (07:00)
[2021-12-21] MEDS ORDERED: FUROSEMIDE 20 MG/2 ML VIAL IV ONE (07:00)
[2021-12-21] MEDS: POTASSIUM CHL 10MEQ/50ML 50 ML IV SCH ×3 (08:30→10:30)
[2021-12-21] MEDS: POTASSIUM EFFERVESENT TAB 25 MEQ GT SCH ×2 (09:30→21:14)
[2021-12-21] MEDS: HYDROCORTISONE SOD SUCC 100 MG/2ML INJ VIAL IV SCH (09:30)
[2021-12-21] MEDS: PANTOPRAZOLE 40 MG/10 ML VIAL INJ IV SCH (09:30)
[2021-12-21] MEDS: SODIUM CHLOR 0.9% PF (SALINE LOCK) 10ML VIAL/SYR IV SCH ×2 (09:30→21:14)
[2021-12-21] MEDS: ENOXAPARIN SOD 40 MG/0.4 ML SYRINGE SC SCH (09:30)
[2021-12-22] VITALS (104 sets, daily range): BP systolic 77–126; BP diastolic 41–86
[2021-12-22] MEDS: ROCURONIUM 10MG/ML 10ML VIAL IV PRN ×2 (02:06→04:31)
[2021-12-22] MEDS: MIDAZOLAM DRIP 50 mg/50mL 50 ML IV SCH ×5 (04:20→23:23)
[2021-12-22] MEDS: PROPOFOL 100 ML IV SCH ×6 (04:20→23:24)
[2021-12-22 04:49] LABS: Basophils # (auto) 0.1 10 ^3/uL (0-0.2); Basophils % (auto) 1.2 % (0.0-2.0); Eosinophils # (auto) 0.9 10 ^3/uL (0-0.8); Eosinophils % (auto) 9.6 % (0.0-7.0); Hematocrit 24.5 % (41.0-53.0); Hemoglobin 8.8 g/dL (13.5-17.5); Lymphocytes # (auto) 1.2 10 ^3/uL (0.4-5.4); Lymphocytes % (auto) 13.4 % (10.0-50.0); Mean Corpuscular Hemoglobin 33.1 pg (28.0-32.0); Mean Corpuscular Hgb Conc. 35.8 g/dL (32.0-36.0); Mean Corpuscular Volume 92.6 fL (80.0-100.0); Monocytes % (auto) 11.2 % (0.0-12.0); Neutrophils # (auto) 5.9 10 ^3/uL (1.6-8.6); Neutrophils % (auto) 64.6 % (37.0-80.0); Red Blood Cells 2.65 10^6/uL (4.5-5.90); Red Cell Distribution Width 15.1 % (11.8-14.3); White Blood Cell 9.1 10^3/uL (4.4-10.8)
[2021-12-22 05:15] LABS: Albumin 1.9 g/dL (3.4-5.0); Calcium 6.9 mg/dL (8.5-10.1); Potassium 3.5 mmol/L (3.5-5.1)
[2021-12-22 05:22] LABS: BUN/Creatinine Ratio 30.4
[2021-12-22 05:23] LABS: Bilirubin, Total 0.9 mg/dL (0.2-1.0)
[2021-12-22] MEDS: fentaNYL Drip 2500mCg/250mlNS 250 ML IV SCH ×3 (05:26→23:25)
[2021-12-22 06:15] LABS: Total Protein 4.6 g/dL (6.4-8.2)
[2021-12-22] MEDS: FUROSEMIDE 40 MG/4 ML VIAL IV SCH ×2 (06:32→17:38)
[2021-12-22] MEDS: METOCLOPRAMIDE HCL 5MG/ml INJ 2ml VIAL IV SCH ×3 (06:32→21:47)
[2021-12-22] MEDS: SODIUM CHLOR 0.9% PF (SALINE LOCK) 10ML VIAL/SYR IV SCH ×2 (08:20→21:47)
[2021-12-22] MEDS: PANTOPRAZOLE 40 MG/10 ML VIAL INJ IV SCH (08:20)
[2021-12-22] MEDS: NOREPINEPHRINE 8 MG/250ML KIT 250 ML IV SCH (08:21)
[2021-12-22] MEDS: ENOXAPARIN SOD 40 MG/0.4 ML SYRINGE SC SCH (08:21)
[2021-12-22] MEDS: HYDROCORTISONE SOD SUCC 100 MG/2ML INJ VIAL IV SCH (08:21)
[2021-12-22] MEDS: POTASSIUM EFFERVESENT TAB 25 MEQ GT SCH ×2 (11:32→21:47)
[2021-12-22] MEDS: Pro-Stat SF 30ml Vanilla PO SCH (18:00)
[2021-12-23] VITALS (103 sets, daily range): BP systolic 84–131; BP diastolic 48–86
[2021-12-23] MEDS: FUROSEMIDE 40 MG/4 ML VIAL IV SCH ×2 (05:11→17:33)
[2021-12-23] MEDS: METOCLOPRAMIDE HCL 5MG/ml INJ 2ml VIAL IV SCH ×3 (05:11→21:45)
[2021-12-23 05:39] LABS: Hematocrit 25.8 % (41.0-53.0); Mean Corpuscular Hemoglobin 31.9 pg (28.0-32.0); Mean Corpuscular Hgb Conc. 34.9 g/dL (32.0-36.0); Mean Corpuscular Volume 91.3 fL (80.0-100.0); Red Blood Cells 2.82 10^6/uL (4.5-5.90); White Blood Cell 9.8 10^3/uL (4.4-10.8)
[2021-12-23 05:51] LABS: Potassium 3.5 mmol/L (3.5-5.1)
[2021-12-23 05:59] LABS: BUN/Creatinine Ratio 26.9; Bilirubin, Total 0.5 mg/dL (0.2-1.0); Calcium 8.2 mg/dL (8.5-10.1); Total Protein 4.8 g/dL (6.4-8.2)
[2021-12-23 06:25] LABS: Band Neutrophils % (manual) 0; Basophils % (manual) 0 (0.0-2.0); Blast Cells 0; Metamyelocytes % 0; Myelocytes % 0; Promyelocytes % 0; Reactive Lymphocytes 0
[2021-12-23] MEDS: NOREPINEPHRINE 8 MG/250ML KIT 250 ML IV SCH (06:34)
[2021-12-23] MEDS: fentaNYL Drip 2500mCg/250mlNS 250 ML IV SCH ×2 (06:35→15:09)
[2021-12-23] MEDS: PROPOFOL 100 ML IV SCH ×3 (06:35→19:12)
[2021-12-23] MEDS: MIDAZOLAM DRIP 50 mg/50mL 50 ML IV SCH ×2 (06:36→22:30)
[2021-12-23 07:17] LABS: Eosinophils % (manual) 16 (0-7); Lymphocytes % (manual) 20 (10.0-50.0); Monocytes % (manual) 8 (0-12)
[2021-12-23] MEDS: Pro-Stat SF 30ml Vanilla PO SCH ×3 (08:22→17:33)
[2021-12-23] MEDS: POTASSIUM EFFERVESENT TAB 25 MEQ GT SCH ×2 (10:18→21:45)
[2021-12-23] MEDS: PANTOPRAZOLE 40 MG/10 ML VIAL INJ IV SCH (10:18)
[2021-12-23] MEDS: HYDROCORTISONE SOD SUCC 100 MG/2ML INJ VIAL IV SCH (10:18)
[2021-12-23] MEDS: SODIUM CHLOR 0.9% PF (SALINE LOCK) 10ML VIAL/SYR IV SCH ×2 (10:19→21:46)
[2021-12-23] MEDS: ENOXAPARIN SOD 40 MG/0.4 ML SYRINGE SC SCH (10:19)
[2021-12-24] VITALS (104 sets, daily range): BP systolic 79–143; BP diastolic 47–91
[2021-12-24] MEDS: PROPOFOL 100 ML IV SCH ×4 (00:30→20:00)
[2021-12-24] MEDS: MIDAZOLAM DRIP 50 mg/50mL 50 ML IV SCH ×4 (01:30→22:00)
[2021-12-24] MEDS: METOCLOPRAMIDE HCL 5MG/ml INJ 2ml VIAL IV SCH ×3 (06:00→22:16)
[2021-12-24] MEDS: FUROSEMIDE 40 MG/4 ML VIAL IV SCH ×2 (06:00→18:00)
[2021-12-24] MEDS: fentaNYL Drip 2500mCg/250mlNS 250 ML IV SCH ×3 (06:54→15:02)
[2021-12-24 07:09] LABS: INR 1.02 (0.9-1.15); Partial Thromboplastin Time 29.9 sec (23.6-33.0)
[2021-12-24] MEDS: Pro-Stat SF 30ml Vanilla PO SCH ×3 (08:00→18:00)
[2021-12-24] MEDS ORDERED: LIDOCAINE 2%HCL (LOCAL ANESTH.) INJ 20ML MDV ONE (08:29)
[2021-12-24] MEDS ORDERED: SODIUM CHLORIDE LOCK 0 ML ONE ×2 (08:29→12:51)
[2021-12-24] MEDS ORDERED: EPINEPHrine HCL 1 MG/1 ML AMP ONE (08:29)
[2021-12-24] MEDS ORDERED: GLYCOPYRROLATE 0.2 MG/ML 1ML VIAL ONE (08:29)
[2021-12-24] MEDS ORDERED: fentaNYL CITRATE 100 MCG/2 ML VL ONE ×2 (08:30→12:52)
[2021-12-24] MEDS ORDERED: ACETYLCYSTEINE 20%(200MG/ML) SOL 4ML NEB ONE (08:30)
[2021-12-24] MEDS ORDERED: LIDOCAINE HCL 2% TOP JELLY 5ML TOP ONE (08:30)
[2021-12-24] MEDS ORDERED: MIDAZOLAM HCL 5 MG/ML-1ML VIAL ONE ×2 (08:30→12:52)
[2021-12-24] MEDS: POTASSIUM EFFERVESENT TAB 25 MEQ GT SCH ×2 (10:03→22:16)
[2021-12-24] MEDS: HYDROCORTISONE SOD SUCC 100 MG/2ML INJ VIAL IV SCH (10:04)
[2021-12-24] MEDS: ENOXAPARIN SOD 40 MG/0.4 ML SYRINGE SC SCH (10:04)
[2021-12-24] MEDS: PANTOPRAZOLE 40 MG/10 ML VIAL INJ IV SCH (10:04)
[2021-12-24] MEDS: SODIUM CHLOR 0.9% PF (SALINE LOCK) 10ML VIAL/SYR IV SCH ×2 (10:06→22:16)
[2021-12-24] MEDS: NOREPINEPHRINE 8 MG/250ML KIT 250 ML IV SCH (11:45)
[2021-12-24] MEDS ORDERED: LIDOCAINE VISCOUS 2% 15ML UD ONE (12:51)
[2021-12-24] MEDS ORDERED: diphenhdrAMINE HCL 50 MG/1 ML VL ONE (12:52)
[2021-12-25] VITALS (102 sets, daily range): BP systolic 81–133; BP diastolic 49–83
[2021-12-25] MEDS: fentaNYL Drip 2500mCg/250mlNS 250 ML IV SCH ×2 (01:00→08:07)
[2021-12-25] MEDS: PROPOFOL 100 ML IV SCH ×2 (02:00→06:00)
[2021-12-25 04:12] LABS: Hematocrit 25.9 % (41.0-53.0); Hemoglobin 9.2 g/dL (13.5-17.5); Mean Corpuscular Hemoglobin 32.3 pg (28.0-32.0); Mean Corpuscular Hgb Conc. 35.4 g/dL (32.0-36.0); Mean Corpuscular Volume 91.2 fL (80.0-100.0); Red Blood Cells 2.84 10^6/uL (4.5-5.90); Red Cell Distribution Width 14.7 % (11.8-14.3); White Blood Cell 9.8 10^3/uL (4.4-10.8)
[2021-12-25 04:16] LABS: Basophils % (manual) 0 (0.0-2.0); Blast Cells 0; Metamyelocytes % 0; Myelocytes % 0; Promyelocytes % 0; Reactive Lymphocytes 0
[2021-12-25 04:17] LABS: Calcium 7.2 mg/dL (8.5-10.1); Potassium 3.3 mmol/L (3.5-5.1)
[2021-12-25 04:20] LABS: BUN/Creatinine Ratio 33.3
[2021-12-25] MEDS ORDERED: POTASSIUM EFFERVESENT TAB 25 MEQ GT ONE (05:15)
[2021-12-25 05:27] LABS: Band Neutrophils % (manual) 2; Eosinophils % (manual) 18 (0-7); Lymphocytes % (manual) 14 (10.0-50.0)
[2021-12-25 05:28] LABS: Monocytes % (manual) 7 (0-12)
[2021-12-25] MEDS: FUROSEMIDE 40 MG/4 ML VIAL IV SCH ×2 (06:00→18:00)
[2021-12-25] MEDS: METOCLOPRAMIDE HCL 5MG/ml INJ 2ml VIAL IV SCH ×3 (06:00→22:16)
[2021-12-25] MEDS: Pro-Stat SF 30ml Vanilla PO SCH ×3 (08:00→18:00)
[2021-12-25] MEDS: POTASSIUM EFFERVESENT TAB 25 MEQ GT SCH ×2 (10:00→22:16)
[2021-12-25] MEDS: HYDROCORTISONE SOD SUCC 100 MG/2ML INJ VIAL IV SCH (10:00)
[2021-12-25] MEDS: SODIUM CHLOR 0.9% PF (SALINE LOCK) 10ML VIAL/SYR IV SCH ×2 (10:00→22:16)
[2021-12-25] MEDS: PANTOPRAZOLE 40 MG/10 ML VIAL INJ IV SCH (10:00)
[2021-12-25] MEDS: ENOXAPARIN SOD 40 MG/0.4 ML SYRINGE SC SCH (10:00)
[2021-12-25] MEDS: NOREPINEPHRINE 8 MG/250ML KIT 250 ML IV SCH (15:45)
[2021-12-26] VITALS (106 sets, daily range): BP systolic 89–143; BP diastolic 54–95
[2021-12-26] MEDS: fentaNYL Drip 2500mCg/250mlNS 250 ML IV SCH ×3 (00:24→21:38)
[2021-12-26] MEDS: MIDAZOLAM DRIP 50 mg/50mL 50 ML IV SCH ×3 (00:25→20:34)
[2021-12-26] MEDS: PROPOFOL 100 ML IV SCH ×4 (00:25→21:37)
[2021-12-26 05:38] LABS: Basophils # (auto) 0.1 10 ^3/uL (0-0.2); Eosinophils % (auto) 12.1 % (0.0-7.0); Hematocrit 27.9 % (41.0-53.0); Hemoglobin 9.2 g/dL (13.5-17.5); Lymphocytes % (auto) 24.8 % (10.0-50.0); Mean Corpuscular Hemoglobin 30.2 pg (28.0-32.0); Mean Corpuscular Volume 91.7 fL (80.0-100.0); Monocytes # (auto) 0.7 10 ^3/uL (0-1.3); Monocytes % (auto) 9.2 % (0.0-12.0); Neutrophils # (auto) 4.2 10 ^3/uL (1.6-8.6); Neutrophils % (auto) 52.9 % (37.0-80.0); Nucleated Red Blood Cells % 0.1 %; Red Blood Cells 3.05 10^6/uL (4.5-5.90); Red Cell Distribution Width 15.1 % (11.8-14.3)
[2021-12-26] MEDS: FUROSEMIDE 40 MG/4 ML VIAL IV SCH ×2 (05:39→17:41)
[2021-12-26] MEDS: METOCLOPRAMIDE HCL 5MG/ml INJ 2ml VIAL IV SCH ×3 (05:40→21:10)
[2021-12-26 06:01] LABS: BUN/Creatinine Ratio 28.6; Calcium 8.4 mg/dL (8.5-10.1); Potassium 3.2 mmol/L (3.5-5.1)
[2021-12-26 06:13] LABS: Bilirubin, Total 0.6 mg/dL (0.2-1.0); Total Protein 5.4 g/dL (6.4-8.2)
[2021-12-26] MEDS: Pro-Stat SF 30ml Vanilla PO SCH ×3 (08:00→17:41)
[2021-12-26] MEDS: SODIUM CHLOR 0.9% PF (SALINE LOCK) 10ML VIAL/SYR IV SCH ×2 (10:04→21:10)
[2021-12-26] MEDS: PANTOPRAZOLE 40 MG/10 ML VIAL INJ IV SCH (10:04)
[2021-12-26] MEDS: ENOXAPARIN SOD 40 MG/0.4 ML SYRINGE SC SCH (10:04)
[2021-12-26] MEDS: HYDROCORTISONE SOD SUCC 100 MG/2ML INJ VIAL IV SCH (10:04)
[2021-12-26] MEDS: POTASSIUM EFFERVESENT TAB 25 MEQ GT SCH ×2 (10:04→21:09)
[2021-12-26] MEDS: POTASSIUM CHL 10MEQ/50ML 50 ML IV SCH ×4 (14:30→17:30)
[2021-12-26] MEDS: NOREPINEPHRINE 8 MG/250ML KIT 250 ML IV SCH (15:00)
[2021-12-26] MEDS: ACETAMINOPHEN 325 MG TAB PO PRN (21:09)
[2021-12-27] VITALS (102 sets, daily range): BP systolic 90–150; BP diastolic 59–104
[2021-12-27] MEDS: PROPOFOL 100 ML IV SCH ×6 (02:46→23:34)
[2021-12-27] MEDS: MIDAZOLAM DRIP 50 mg/50mL 50 ML IV SCH ×4 (02:46→23:34)
[2021-12-27] MEDS: FUROSEMIDE 40 MG/4 ML VIAL IV SCH ×2 (05:48→17:30)
[2021-12-27] MEDS: METOCLOPRAMIDE HCL 5MG/ml INJ 2ml VIAL IV SCH ×3 (05:48→21:42)
[2021-12-27] MEDS: Pro-Stat SF 30ml Vanilla PO SCH ×3 (07:30→17:30)
[2021-12-27 08:19] LABS: Basophils # (auto) 0.1 10 ^3/uL (0-0.2); Basophils % (auto) 0.8 % (0.0-2.0); Eosinophils # (auto) 1.6 10 ^3/uL (0-0.8); Eosinophils % (auto) 12.9 % (0.0-7.0); Hematocrit 31.3 % (41.0-53.0); Hemoglobin 10.4 g/dL (13.5-17.5); Lymphocytes # (auto) 2.5 10 ^3/uL (0.4-5.4); Lymphocytes % (auto) 20.5 % (10.0-50.0); Mean Corpuscular Hemoglobin 30.1 pg (28.0-32.0); Mean Corpuscular Hgb Conc. 33.2 g/dL (32.0-36.0); Mean Corpuscular Volume 90.7 fL (80.0-100.0); Monocytes # (auto) 1.2 10 ^3/uL (0-1.3); Monocytes % (auto) 9.9 % (0.0-12.0); Neutrophils # (auto) 6.9 10 ^3/uL (1.6-8.6); Neutrophils % (auto) 55.9 % (37.0-80.0); Nucleated Red Blood Cells % 0.1 %; Red Blood Cells 3.45 10^6/uL (4.5-5.90); Red Cell Distribution Width 15.2 % (11.8-14.3); White Blood Cell 12.3 10^3/uL (4.4-10.8)
[2021-12-27 08:31] LABS: Albumin 2.1 g/dL (3.4-5.0); Calcium 8.4 mg/dL (8.5-10.1); Potassium 3.6 mmol/L (3.5-5.1)
[2021-12-27 08:34] LABS: Bilirubin, Total 0.7 mg/dL (0.2-1.0); Total Protein 5.6 g/dL (6.4-8.2)
[2021-12-27 08:37] LABS: BUN/Creatinine Ratio 21.1
[2021-12-27] MEDS: LACTULOSE 20Gm/30ML SOLN PO SCH ×2 (10:00→21:42)
[2021-12-27] MEDS: SODIUM CHLOR 0.9% PF (SALINE LOCK) 10ML VIAL/SYR IV SCH ×2 (10:09→21:42)
[2021-12-27] MEDS: ENOXAPARIN SOD 40 MG/0.4 ML SYRINGE SC SCH (10:09)
[2021-12-27] MEDS: PANTOPRAZOLE 40 MG/10 ML VIAL INJ IV SCH (10:09)
[2021-12-27] MEDS: POTASSIUM EFFERVESENT TAB 25 MEQ GT SCH ×2 (10:09→21:42)
[2021-12-27] MEDS: HYDROCORTISONE SOD SUCC 100 MG/2ML INJ VIAL IV SCH (10:10)
[2021-12-27] MEDS: fentaNYL Drip 2500mCg/250mlNS 250 ML IV SCH (13:00)
[2021-12-27] MEDS: NOREPINEPHRINE 8 MG/250ML KIT 250 ML IV SCH ×2 (15:45→23:33)
[2021-12-28] VITALS (93 sets, daily range): BP systolic 81–152; BP diastolic 45–103
[2021-12-28] MEDS: PROPOFOL 100 ML IV SCH ×6 (02:53→22:24)
[2021-12-28] MEDS: MIDAZOLAM DRIP 50 mg/50mL 50 ML IV SCH ×5 (02:54→22:30)
[2021-12-28] MEDS: fentaNYL Drip 2500mCg/250mlNS 250 ML IV SCH ×2 (03:34→12:00)
[2021-12-28] MEDS: FUROSEMIDE 40 MG/4 ML VIAL IV SCH ×2 (05:42→18:02)
[2021-12-28] MEDS: METOCLOPRAMIDE HCL 5MG/ml INJ 2ml VIAL IV SCH ×3 (05:42→21:16)
[2021-12-28 05:47] LABS: Basophils # (auto) 0.1 10 ^3/uL (0-0.2); Basophils % (auto) 1.1 % (0.0-2.0); Eosinophils # (auto) 1.4 10 ^3/uL (0-0.8); Eosinophils % (auto) 10.7 % (0.0-7.0); Hematocrit 30.9 % (41.0-53.0); Hemoglobin 10.3 g/dL (13.5-17.5); Lymphocytes # (auto) 2.4 10 ^3/uL (0.4-5.4); Lymphocytes % (auto) 18.8 % (10.0-50.0); Mean Corpuscular Hemoglobin 29.9 pg (28.0-32.0); Mean Corpuscular Hgb Conc. 33.2 g/dL (32.0-36.0); Monocytes # (auto) 1.1 10 ^3/uL (0-1.3); Monocytes % (auto) 8.8 % (0.0-12.0); Neutrophils # (auto) 7.7 10 ^3/uL (1.6-8.6); Neutrophils % (auto) 60.6 % (37.0-80.0); Red Blood Cells 3.43 10^6/uL (4.5-5.90); Red Cell Distribution Width 15.1 % (11.8-14.3); White Blood Cell 12.8 10^3/uL (4.4-10.8)
[2021-12-28 06:13] LABS: BUN/Creatinine Ratio 27.3; Calcium 8.7 mg/dL (8.5-10.1)
[2021-12-28] MEDS: Pro-Stat SF 30ml Vanilla PO SCH ×3 (08:00→18:02)
[2021-12-28] MEDS: POTASSIUM EFFERVESENT TAB 25 MEQ GT SCH ×2 (10:00→21:16)
[2021-12-28] MEDS: SODIUM CHLOR 0.9% PF (SALINE LOCK) 10ML VIAL/SYR IV SCH ×2 (10:00→21:16)
[2021-12-28] MEDS: PANTOPRAZOLE 40 MG/10 ML VIAL INJ IV SCH (10:00)
[2021-12-28] MEDS: POTASSIUM CHL 10MEQ/50ML 50 ML IV SCH ×2 (10:00→11:00)
[2021-12-28] MEDS: ENOXAPARIN SOD 40 MG/0.4 ML SYRINGE SC SCH (10:00)
[2021-12-28] MEDS: LACTULOSE 20Gm/30ML SOLN PO SCH ×2 (10:00→21:17)
[2021-12-28] MEDS: HYDROCORTISONE SOD SUCC 100 MG/2ML INJ VIAL IV SCH ×2 (10:00→21:17)
[2021-12-28] MEDS ORDERED: PIPERACILLIN-TAZOB 3.375GM 100 ML IV ONE (15:45)
[2021-12-28] MEDS: PIPERACILLIN-TAZOB 3.375GM 100 ML IV SCH ×2 (15:54→23:20)
[2021-12-29] VITALS (82 sets, daily range): BP systolic 87–160; BP diastolic 54–107
[2021-12-29] MEDS: fentaNYL Drip 2500mCg/250mlNS 250 ML IV SCH ×2 (00:11→13:30)
[2021-12-29] MEDS: PROPOFOL 100 ML IV SCH ×5 (04:39→21:00)
[2021-12-29] MEDS: MIDAZOLAM DRIP 50 mg/50mL 50 ML IV SCH ×4 (04:40→21:00)
[2021-12-29] MEDS: HYDROCORTISONE SOD SUCC 100 MG/2ML INJ VIAL IV SCH ×3 (05:12→21:34)
[2021-12-29] MEDS: FUROSEMIDE 40 MG/4 ML VIAL IV SCH ×2 (05:12→17:08)
[2021-12-29] MEDS: METOCLOPRAMIDE HCL 5MG/ml INJ 2ml VIAL IV SCH ×3 (05:12→21:34)
[2021-12-29 05:21] LABS: Basophils # (auto) 0 10 ^3/uL (0-0.2); Basophils % (auto) 0.6 % (0.0-2.0); Eosinophils # (auto) 0.1 10 ^3/uL (0-0.8); Eosinophils % (auto) 0.7 % (0.0-7.0); Hematocrit 27.5 % (41.0-53.0); Hemoglobin 9.5 g/dL (13.5-17.5); Lymphocytes # (auto) 1.1 10 ^3/uL (0.4-5.4); Lymphocytes % (auto) 15.5 % (10.0-50.0); Mean Corpuscular Hemoglobin 31.4 pg (28.0-32.0); Mean Corpuscular Hgb Conc. 34.5 g/dL (32.0-36.0); Mean Corpuscular Volume 90.8 fL (80.0-100.0); Monocytes # (auto) 0.4 10 ^3/uL (0-1.3); Monocytes % (auto) 4.9 % (0.0-12.0); Neutrophils # (auto) 5.7 10 ^3/uL (1.6-8.6); Neutrophils % (auto) 78.3 % (37.0-80.0); Nucleated Red Blood Cells % 0.1 %; Red Blood Cells 3.03 10^6/uL (4.5-5.90); Red Cell Distribution Width 14.9 % (11.8-14.3); White Blood Cell 7.3 10^3/uL (4.4-10.8)
[2021-12-29] MEDS: PIPERACILLIN-TAZOB 3.375GM 100 ML IV SCH ×3 (07:42→23:42)
[2021-12-29] MEDS: Pro-Stat SF 30ml Vanilla PO SCH ×3 (08:00→17:08)
[2021-12-29] MEDS: SODIUM CHLOR 0.9% PF (SALINE LOCK) 10ML VIAL/SYR IV SCH ×2 (09:55→21:34)
[2021-12-29] MEDS: PANTOPRAZOLE 40 MG/10 ML VIAL INJ IV SCH (09:55)
[2021-12-29] MEDS: ENOXAPARIN SOD 40 MG/0.4 ML SYRINGE SC SCH (09:55)
[2021-12-29] MEDS: LACTULOSE 20Gm/30ML SOLN PO SCH ×2 (09:55→17:08)
[2021-12-29] MEDS: POTASSIUM EFFERVESENT TAB 25 MEQ GT SCH ×2 (09:55→21:33)
[2021-12-29] MEDS: NOREPINEPHRINE 8 MG/250ML KIT 250 ML IV SCH (15:45)
[2021-12-30] VITALS (102 sets, daily range): BP systolic 87–153; BP diastolic 49–113
[2021-12-30] MEDS: LACTULOSE 20Gm/30ML SOLN PO SCH ×4 (00:21→18:20)
[2021-12-30] MEDS: PROPOFOL 100 ML IV SCH ×4 (05:00→16:30)
[2021-12-30] MEDS: MIDAZOLAM DRIP 50 mg/50mL 50 ML IV SCH ×4 (05:00→17:00)
[2021-12-30 05:46] LABS: Basophils # (auto) 0 10 ^3/uL (0-0.2); Basophils % (auto) 0.3 % (0.0-2.0); Eosinophils # (auto) 0 10 ^3/uL (0-0.8); Eosinophils % (auto) 0.4 % (0.0-7.0); Hematocrit 30.5 % (41.0-53.0); Lymphocytes # (auto) 1.7 10 ^3/uL (0.4-5.4); Lymphocytes % (auto) 13.3 % (10.0-50.0); Mean Corpuscular Hemoglobin 29.5 pg (28.0-32.0); Mean Corpuscular Hgb Conc. 32.6 g/dL (32.0-36.0); Mean Corpuscular Volume 90.5 fL (80.0-100.0); Monocytes # (auto) 0.9 10 ^3/uL (0-1.3); Monocytes % (auto) 6.7 % (0.0-12.0); Neutrophils # (auto) 10.2 10 ^3/uL (1.6-8.6); Neutrophils % (auto) 79.3 % (37.0-80.0); Red Blood Cells 3.37 10^6/uL (4.5-5.90); Red Cell Distribution Width 15.4 % (11.8-14.3); White Blood Cell 12.9 10^3/uL (4.4-10.8)
[2021-12-30] MEDS: HYDROCORTISONE SOD SUCC 100 MG/2ML INJ VIAL IV SCH ×3 (06:17→22:00)
[2021-12-30] MEDS: METOCLOPRAMIDE HCL 5MG/ml INJ 2ml VIAL IV SCH ×3 (06:17→22:00)
[2021-12-30] MEDS: FUROSEMIDE 40 MG/4 ML VIAL IV SCH ×2 (06:17→18:20)
[2021-12-30] MEDS: PIPERACILLIN-TAZOB 3.375GM 100 ML IV SCH ×3 (08:02→23:42)
[2021-12-30] MEDS: Pro-Stat SF 30ml Vanilla PO SCH ×3 (08:02→18:20)
[2021-12-30] MEDS: POTASSIUM EFFERVESENT TAB 25 MEQ GT SCH ×2 (10:00→22:00)
[2021-12-30] MEDS: SODIUM CHLOR 0.9% PF (SALINE LOCK) 10ML VIAL/SYR IV SCH ×2 (10:00→22:00)
[2021-12-30] MEDS: PANTOPRAZOLE 40 MG/10 ML VIAL INJ IV SCH (10:00)
[2021-12-30] MEDS: ENOXAPARIN SOD 40 MG/0.4 ML SYRINGE SC SCH (10:00)
[2021-12-30] MEDS: fentaNYL Drip 2500mCg/250mlNS 250 ML IV SCH (11:30)
[2021-12-30] MEDS ORDERED: POTASSIUM CHL 20MEQ/100ML 100 ML IV ONE (14:30)
[2021-12-30] MEDS ORDERED: MAGNESIUM CITRATE SOLUTION 300 ML BTL PO ONE (14:30)
[2021-12-30] MEDS: NOREPINEPHRINE 8 MG/250ML KIT 250 ML IV SCH (15:45)
[2021-12-31] VITALS (101 sets, daily range): BP systolic 86–144; BP diastolic 57–95
[2021-12-31] MEDS: FUROSEMIDE 40 MG/4 ML VIAL IV SCH ×2 (06:06→18:24)
[2021-12-31] MEDS: HYDROCORTISONE SOD SUCC 100 MG/2ML INJ VIAL IV SCH ×3 (06:06→21:48)
[2021-12-31] MEDS: METOCLOPRAMIDE HCL 5MG/ml INJ 2ml VIAL IV SCH ×3 (06:06→21:48)
[2021-12-31] MEDS: LACTULOSE 20Gm/30ML SOLN PO SCH ×5 (06:07→23:50)
[2021-12-31 06:32] LABS: Potassium 3.4 mmol/L (3.5-5.1)
[2021-12-31 06:51] LABS: Albumin 2.1 g/dL (3.4-5.0); Bilirubin, Total 0.4 mg/dL (0.2-1.0); CRP High Sensitivity 1.76 mg/dL (< 0.3); Calcium 8.5 mg/dL (8.5-10.1); Total Protein 5.6 g/dL (6.4-8.2)
[2021-12-31] MEDS: PIPERACILLIN-TAZOB 3.375GM 100 ML IV SCH ×4 (07:42→23:50)
[2021-12-31 08:10] LABS: Basophils # (auto) 0 10 ^3/uL (0-0.2); Basophils % (auto) 0.3 % (0.0-2.0); Eosinophils # (auto) 0.1 10 ^3/uL (0-0.8); Eosinophils % (auto) 0.5 % (0.0-7.0); Hematocrit 31.5 % (41.0-53.0); Hemoglobin 10.4 g/dL (13.5-17.5); Lymphocytes # (auto) 1.8 10 ^3/uL (0.4-5.4); Lymphocytes % (auto) 13.3 % (10.0-50.0); Mean Corpuscular Hgb Conc. 33.1 g/dL (32.0-36.0); Mean Corpuscular Volume 90.7 fL (80.0-100.0); Monocytes # (auto) 1.1 10 ^3/uL (0-1.3); Monocytes % (auto) 7.9 % (0.0-12.0); Neutrophils # (auto) 10.8 10 ^3/uL (1.6-8.6); Nucleated Red Blood Cells % 0.1 %; Red Blood Cells 3.47 10^6/uL (4.5-5.90); Red Cell Distribution Width 14.9 % (11.8-14.3); White Blood Cell 13.9 10^3/uL (4.4-10.8)
[2021-12-31] MEDS: Pro-Stat SF 30ml Vanilla PO SCH ×3 (08:19→18:25)
[2021-12-31] MEDS: ROCURONIUM 10MG/ML 10ML VIAL IV PRN (08:21)
[2021-12-31] MEDS: PROPOFOL 100 ML IV SCH ×5 (08:30→21:48)
[2021-12-31] MEDS: MIDAZOLAM DRIP 50 mg/50mL 50 ML IV SCH ×4 (08:30→21:49)
[2021-12-31] MEDS: ENOXAPARIN SOD 40 MG/0.4 ML SYRINGE SC SCH (10:00)
[2021-12-31] MEDS: POTASSIUM EFFERVESENT TAB 25 MEQ GT SCH ×2 (10:00→21:47)
[2021-12-31] MEDS: PANTOPRAZOLE 40 MG/10 ML VIAL INJ IV SCH (10:00)
[2021-12-31] MEDS: SODIUM CHLOR 0.9% PF (SALINE LOCK) 10ML VIAL/SYR IV SCH ×2 (10:00→21:48)
[2021-12-31] MEDS: fentaNYL Drip 2500mCg/250mlNS 250 ML IV SCH ×2 (11:00→23:18)
[2021-12-31] MEDS ORDERED: POTASSIUM EFFERVESENT TAB 25 MEQ GT ONE (13:00)
[2021-12-31] MEDS: NOREPINEPHRINE 8 MG/250ML KIT 250 ML IV SCH (15:45)
[2022-01-01] VITALS (102 sets, daily range): BP systolic 86–159; BP diastolic 54–111
[2022-01-01] MEDS: ROCURONIUM 10MG/ML 10ML VIAL IV PRN ×2 (00:12→08:30)
[2022-01-01] MEDS: PROPOFOL 100 ML IV SCH ×6 (00:49→23:44)
[2022-01-01] MEDS: MIDAZOLAM DRIP 50 mg/50mL 50 ML IV SCH ×4 (02:15→22:08)
[2022-01-01] MEDS: FUROSEMIDE 40 MG/4 ML VIAL IV SCH ×2 (05:32→17:52)
[2022-01-01] MEDS: METOCLOPRAMIDE HCL 5MG/ml INJ 2ml VIAL IV SCH ×3 (05:32→21:48)
[2022-01-01] MEDS: LACTULOSE 20Gm/30ML SOLN PO SCH ×4 (05:32→23:45)
[2022-01-01] MEDS: HYDROCORTISONE SOD SUCC 100 MG/2ML INJ VIAL IV SCH ×3 (05:33→21:48)
[2022-01-01 05:46] LABS: Basophils # (auto) 0 10 ^3/uL (0-0.2); Basophils % (auto) 0.4 % (0.0-2.0); Eosinophils # (auto) 0 10 ^3/uL (0-0.8); Eosinophils % (auto) 0.5 % (0.0-7.0); Hematocrit 26.2 % (41.0-53.0); Hemoglobin 9.1 g/dL (13.5-17.5); Lymphocytes # (auto) 1.3 10 ^3/uL (0.4-5.4); Lymphocytes % (auto) 16.9 % (10.0-50.0); Mean Corpuscular Hemoglobin 31.6 pg (28.0-32.0); Mean Corpuscular Hgb Conc. 34.8 g/dL (32.0-36.0); Mean Corpuscular Volume 90.9 fL (80.0-100.0); Monocytes # (auto) 0.4 10 ^3/uL (0-1.3); Monocytes % (auto) 5.5 % (0.0-12.0); Neutrophils # (auto) 5.8 10 ^3/uL (1.6-8.6); Neutrophils % (auto) 76.7 % (37.0-80.0); Red Blood Cells 2.89 10^6/uL (4.5-5.90); Red Cell Distribution Width 14.9 % (11.8-14.3); White Blood Cell 7.6 10^3/uL (4.4-10.8)
[2022-01-01 06:19] LABS: BUN/Creatinine Ratio 26.5; Calcium 7.5 mg/dL (8.5-10.1); Potassium 3.3 mmol/L (3.5-5.1)
[2022-01-01] MEDS: PIPERACILLIN-TAZOB 3.375GM 100 ML IV SCH ×3 (07:42→22:55)
[2022-01-01] MEDS: Pro-Stat SF 30ml Vanilla PO SCH ×3 (08:00→17:53)
[2022-01-01] MEDS: fentaNYL Drip 2500mCg/250mlNS 250 ML IV SCH ×2 (08:30→22:35)
[2022-01-01] MEDS: POTASSIUM EFFERVESENT TAB 25 MEQ GT SCH ×2 (09:18→21:47)
[2022-01-01] MEDS: ENOXAPARIN SOD 40 MG/0.4 ML SYRINGE SC SCH (09:18)
[2022-01-01] MEDS: SODIUM CHLOR 0.9% PF (SALINE LOCK) 10ML VIAL/SYR IV SCH ×2 (09:18→21:48)
[2022-01-01] MEDS: PANTOPRAZOLE 40 MG/10 ML VIAL INJ IV SCH (09:18)
[2022-01-01] MEDS ORDERED: POTASSIUM CHL 20MEQ/100ML 100 ML IV ONE (10:00)
[2022-01-01] MEDS: SIMETHICONE 40 MG/0.6 ML ORAL DROP PO SCH ×3 (12:00→21:48)
[2022-01-01] MEDS: NOREPINEPHRINE 8 MG/250ML KIT 250 ML IV SCH (15:55)
[2022-01-01 17:24] LABS: INR 0.94 (0.9-1.15); Partial Thromboplastin Time 26.8 sec (23.6-33.0)
[2022-01-02] VITALS (108 sets, daily range): BP systolic 79–132; BP diastolic 51–92
[2022-01-02] MEDS: MIDAZOLAM DRIP 50 mg/50mL 50 ML IV SCH ×4 (03:48→23:49)
[2022-01-02] MEDS: PROPOFOL 100 ML IV SCH ×5 (03:48→20:53)
[2022-01-02 05:43] LABS: Chloride 90 mmol/L (98-107); Sodium 139 mmol/L (136-145)
[2022-01-02] MEDS: METOCLOPRAMIDE HCL 5MG/ml INJ 2ml VIAL IV SCH ×2 (05:43→20:22)
[2022-01-02] MEDS: FUROSEMIDE 40 MG/4 ML VIAL IV SCH (05:43)
[2022-01-02] MEDS: HYDROCORTISONE SOD SUCC 100 MG/2ML INJ VIAL IV SCH ×3 (05:43→20:23)
[2022-01-02] MEDS: SIMETHICONE 40 MG/0.6 ML ORAL DROP PO SCH ×5 (05:44→20:52)
[2022-01-02] MEDS: LACTULOSE 20Gm/30ML SOLN PO SCH ×4 (05:44→23:44)
[2022-01-02 05:52] LABS: BUN/Creatinine Ratio 37.5; Blood Urea Nitrogen 12 mg/dL (7-18); GFR African American 374 mL/min; GFR Non-African American 309 mL/min; Glucose 97 mg/dL (74-106)
[2022-01-02 06:15] LABS: Carbon Dioxide 51 mmol/L (21-32)
[2022-01-02] MEDS: fentaNYL Drip 2500mCg/250mlNS 250 ML IV SCH ×2 (06:58→18:31)
[2022-01-02] MEDS: PIPERACILLIN-TAZOB 3.375GM 100 ML IV SCH ×3 (08:58→23:44)
[2022-01-02] MEDS: PANTOPRAZOLE 40 MG/10 ML VIAL INJ IV SCH (08:58)
[2022-01-02] MEDS: SODIUM CHLOR 0.9% PF (SALINE LOCK) 10ML VIAL/SYR IV SCH ×2 (08:59→20:22)
[2022-01-02] MEDS: POTASSIUM EFFERVESENT TAB 25 MEQ GT SCH ×2 (09:04→20:19)
[2022-01-02] MEDS ORDERED: MAGNESIUM CITRATE SOLUTION 300 ML BTL PO ONE (10:45)
[2022-01-02] MEDS ORDERED: METOCLOPRAMIDE HCL 5MG/ml INJ 2ml VIAL IV ONE (10:45)
[2022-01-02] MEDS: ENOXAPARIN SOD 40 MG/0.4 ML SYRINGE SC SCH (10:48)
[2022-01-02] MEDS: Pro-Stat SF 30ml Vanilla PO SCH ×3 (10:49→18:33)
[2022-01-02] MEDS: NOREPINEPHRINE 8 MG/250ML KIT 250 ML IV SCH (15:13)
[2022-01-02] MEDS ORDERED: LIDOCAINE 1% (LOCAL ANESTH.) PF 5ml SDV ID ONE (17:30)
[2022-01-03] VITALS (65 sets, daily range): BP systolic 83–146; BP diastolic 53–92
[2022-01-03] MEDS: PROPOFOL 100 ML IV SCH ×2 (00:57→20:38)
[2022-01-03] MEDS: METOCLOPRAMIDE HCL 5MG/ml INJ 2ml VIAL IV SCH ×3 (05:14→20:31)
[2022-01-03 05:44] LABS: Basophils # (auto) 0 10 ^3/uL (0-0.2); Basophils % (auto) 0.3 % (0.0-2.0); Eosinophils # (auto) 0.2 10 ^3/uL (0-0.8); Eosinophils % (auto) 3.1 % (0.0-7.0); Hematocrit 27.2 % (41.0-53.0); Hemoglobin 9.6 g/dL (13.5-17.5); Lymphocytes # (auto) 1.4 10 ^3/uL (0.4-5.4); Lymphocytes % (auto) 21.4 % (10.0-50.0); Mean Corpuscular Hemoglobin 31.3 pg (28.0-32.0); Mean Corpuscular Hgb Conc. 35.1 g/dL (32.0-36.0); Mean Corpuscular Volume 89.1 fL (80.0-100.0); Monocytes # (auto) 0.5 10 ^3/uL (0-1.3); Monocytes % (auto) 6.9 % (0.0-12.0); Neutrophils # (auto) 4.6 10 ^3/uL (1.6-8.6); Neutrophils % (auto) 68.3 % (37.0-80.0); Nucleated Red Blood Cells % 0.1 %; Red Blood Cells 3.05 10^6/uL (4.5-5.90); White Blood Cell 6.7 10^3/uL (4.4-10.8)
[2022-01-03 06:08] LABS: BUN/Creatinine Ratio 56.5
[2022-01-03] MEDS: SIMETHICONE 40 MG/0.6 ML ORAL DROP PO SCH ×4 (06:11→20:32)
[2022-01-03] MEDS: HYDROCORTISONE SOD SUCC 100 MG/2ML INJ VIAL IV SCH ×3 (06:11→20:32)
[2022-01-03] MEDS: LACTULOSE 20Gm/30ML SOLN PO SCH ×4 (06:11→23:35)
[2022-01-03 06:15] LABS: Potassium 2.9 mmol/L (3.5-5.1)
[2022-01-03] MEDS: fentaNYL Drip 2500mCg/250mlNS 250 ML IV SCH ×2 (06:50→20:39)
[2022-01-03] MEDS: Pro-Stat SF 30ml Vanilla PO SCH ×3 (09:04→18:03)
[2022-01-03] MEDS: POTASSIUM CHL 20MEQ/100ML 100 ML IV SCH ×2 (09:11→11:44)
[2022-01-03] MEDS: FUROSEMIDE 40 MG/4 ML VIAL IV SCH (10:02)
[2022-01-03] MEDS: POTASSIUM EFFERVESENT TAB 25 MEQ GT SCH ×2 (10:02→20:31)
[2022-01-03] MEDS: ENOXAPARIN SOD 40 MG/0.4 ML SYRINGE SC SCH (10:03)
[2022-01-03] MEDS: PANTOPRAZOLE 40 MG/10 ML VIAL INJ IV SCH (10:03)
[2022-01-03] MEDS: SODIUM CHLOR 0.9% PF (SALINE LOCK) 10ML VIAL/SYR IV SCH ×2 (10:03→20:32)
[2022-01-03] MEDS: PIPERACILLIN-TAZOB 3.375GM 100 ML IV SCH ×3 (11:44→23:35)
[2022-01-03] MEDS: NOREPINEPHRINE 8 MG/250ML KIT 250 ML IV SCH (15:45)
[2022-01-03] MEDS: MIDAZOLAM DRIP 50 mg/50mL 50 ML IV SCH (22:20)
[2022-01-04] VITALS (102 sets, daily range): BP systolic 82–148; BP diastolic 39–88
[2022-01-04] MEDS: PROPOFOL 100 ML IV SCH ×3 (00:30→20:10)
[2022-01-04] MEDS: MIDAZOLAM DRIP 50 mg/50mL 50 ML IV SCH ×4 (04:00→21:14)
[2022-01-04] MEDS: HYDROCORTISONE SOD SUCC 100 MG/2ML INJ VIAL IV SCH ×3 (05:36→21:13)
[2022-01-04] MEDS: METOCLOPRAMIDE HCL 5MG/ml INJ 2ml VIAL IV SCH ×3 (05:36→21:13)
[2022-01-04] MEDS: SIMETHICONE 40 MG/0.6 ML ORAL DROP PO SCH ×4 (05:36→21:14)
[2022-01-04] MEDS: LACTULOSE 20Gm/30ML SOLN PO SCH ×2 (05:37→21:14)
[2022-01-04 06:59] LABS: BUN/Creatinine Ratio 33.3; Calcium 7.9 mg/dL (8.5-10.1)
[2022-01-04] MEDS: Pro-Stat SF 30ml Vanilla PO SCH ×3 (08:59→17:20)
[2022-01-04] MEDS: PIPERACILLIN-TAZOB 3.375GM 100 ML IV SCH ×3 (09:09→23:32)
[2022-01-04] MEDS: POTASSIUM EFFERVESENT TAB 25 MEQ GT SCH ×2 (11:03→21:13)
[2022-01-04] MEDS: FUROSEMIDE 40 MG/4 ML VIAL IV SCH (11:03)
[2022-01-04] MEDS: ENOXAPARIN SOD 40 MG/0.4 ML SYRINGE SC SCH (11:04)
[2022-01-04] MEDS: PANTOPRAZOLE 40 MG/10 ML VIAL INJ IV SCH (11:04)
[2022-01-04] MEDS: POTASSIUM CHL 20MEQ/100ML 100 ML IV SCH ×2 (11:04→12:55)
[2022-01-04] MEDS: SODIUM CHLOR 0.9% PF (SALINE LOCK) 10ML VIAL/SYR IV SCH ×2 (11:04→21:13)
[2022-01-04] MEDS: fentaNYL Drip 2500mCg/250mlNS 250 ML IV SCH (14:40)
[2022-01-04] MEDS: NOREPINEPHRINE 8 MG/250ML KIT 250 ML IV SCH (15:54)
[2022-01-05] VITALS (104 sets, daily range): BP systolic 82–119; BP diastolic 27–84
[2022-01-05] MEDS: PROPOFOL 100 ML IV SCH ×4 (00:16→15:35)
[2022-01-05] MEDS: NOREPINEPHRINE 8 MG/250ML KIT 250 ML IV SCH (00:16)
[2022-01-05] MEDS: MIDAZOLAM DRIP 50 mg/50mL 50 ML IV SCH ×3 (02:48→17:14)
[2022-01-05] MEDS: HYDROCORTISONE SOD SUCC 100 MG/2ML INJ VIAL IV SCH ×3 (05:03→21:01)
[2022-01-05] MEDS: METOCLOPRAMIDE HCL 5MG/ml INJ 2ml VIAL IV SCH ×3 (05:03→21:01)
[2022-01-05] MEDS: SIMETHICONE 40 MG/0.6 ML ORAL DROP PO SCH ×4 (05:04→19:51)
[2022-01-05] MEDS: fentaNYL Drip 2500mCg/250mlNS 250 ML IV SCH (06:13)
[2022-01-05 06:50] LABS: Basophils # (auto) 0.1 10 ^3/uL (0-0.2); Eosinophils # (auto) 0.3 10 ^3/uL (0-0.8); Monocytes # (auto) 0.8 10 ^3/uL (0-1.3); Nucleated Red Blood Cells % 0.1 %
[2022-01-05 06:51] LABS: Basophils % (auto) 0.5 % (0.0-2.0); Eosinophils % (auto) 2.4 % (0.0-7.0); Hematocrit 24.9 % (41.0-53.0); Hemoglobin 8.8 g/dL (13.5-17.5); Lymphocytes # (auto) 1.5 10 ^3/uL (0.4-5.4); Lymphocytes % (auto) 11.4 % (10.0-50.0); Mean Corpuscular Hemoglobin 31.7 pg (28.0-32.0); Mean Corpuscular Hgb Conc. 35.4 g/dL (32.0-36.0); Mean Corpuscular Volume 89.3 fL (80.0-100.0); Monocytes % (auto) 5.9 % (0.0-12.0); Neutrophils # (auto) 10.7 10 ^3/uL (1.6-8.6); Neutrophils % (auto) 79.8 % (37.0-80.0); Red Blood Cells 2.79 10^6/uL (4.5-5.90); Red Cell Distribution Width 14.5 % (11.8-14.3); White Blood Cell 13.4 10^3/uL (4.4-10.8)
[2022-01-05 07:09] LABS: Albumin 1.8 g/dL (3.4-5.0); Calcium 7.3 mg/dL (8.5-10.1); Potassium 3.9 mmol/L (3.5-5.1)
[2022-01-05 07:13] LABS: BUN/Creatinine Ratio 29.7; Bilirubin, Total 0.6 mg/dL (0.2-1.0); Total Protein 4.7 g/dL (6.4-8.2)
[2022-01-05] MEDS: Pro-Stat SF 30ml Vanilla PO SCH ×3 (08:00→17:51)
[2022-01-05] MEDS: PIPERACILLIN-TAZOB 3.375GM 100 ML IV SCH ×2 (08:11→15:23)
[2022-01-05] MEDS: LACTULOSE 20Gm/30ML SOLN PO SCH ×2 (11:08→21:01)
[2022-01-05] MEDS: POTASSIUM EFFERVESENT TAB 25 MEQ GT SCH ×2 (11:12→19:58)
[2022-01-05] MEDS: FUROSEMIDE 40 MG/4 ML VIAL IV SCH (11:15)
[2022-01-05] MEDS: SODIUM CHLOR 0.9% PF (SALINE LOCK) 10ML VIAL/SYR IV SCH ×2 (11:16→19:21)
[2022-01-05] MEDS: ENOXAPARIN SOD 40 MG/0.4 ML SYRINGE SC SCH (11:16)
[2022-01-05] MEDS: PANTOPRAZOLE 40 MG/10 ML VIAL INJ IV SCH (11:16)
[2022-01-06] VITALS (104 sets, daily range): BP systolic 83–148; BP diastolic 32–82
[2022-01-06] MEDS: PIPERACILLIN-TAZOB 3.375GM 100 ML IV SCH ×4 (00:49→23:34)
[2022-01-06 04:57] LABS: Basophils # (auto) 0.1 10 ^3/uL (0-0.2); Eosinophils # (auto) 0.1 10 ^3/uL (0-0.8); Mean Corpuscular Volume 89.7 fL (80.0-100.0); Monocytes # (auto) 0.7 10 ^3/uL (0-1.3); Neutrophils # (auto) 6.1 10 ^3/uL (1.6-8.6)
[2022-01-06 04:59] LABS: Basophils % (auto) 0.6 % (0.0-2.0); Eosinophils % (auto) 1.1 % (0.0-7.0); Hematocrit 20.4 % (41.0-53.0); Hemoglobin 7.2 g/dL (13.5-17.5); Lymphocytes # (auto) 1.6 10 ^3/uL (0.4-5.4); Lymphocytes % (auto) 18.4 % (10.0-50.0); Mean Corpuscular Hemoglobin 31.4 pg (28.0-32.0); Monocytes % (auto) 7.8 % (0.0-12.0); Neutrophils % (auto) 72.1 % (37.0-80.0); Nucleated Red Blood Cells % 0.1 %; Red Blood Cells 2.28 10^6/uL (4.5-5.90); Red Cell Distribution Width 14.6 % (11.8-14.3); White Blood Cell 8.5 10^3/uL (4.4-10.8)
[2022-01-06] MEDS: METOCLOPRAMIDE HCL 5MG/ml INJ 2ml VIAL IV SCH ×3 (05:03→21:23)
[2022-01-06] MEDS: SIMETHICONE 40 MG/0.6 ML ORAL DROP PO SCH ×4 (05:04→21:24)
[2022-01-06 05:18] LABS: Albumin 1.8 g/dL (3.4-5.0); Potassium 3.3 mmol/L (3.5-5.1)
[2022-01-06 05:22] LABS: BUN/Creatinine Ratio 40.6; Bilirubin, Total 0.6 mg/dL (0.2-1.0); Total Protein 4.9 g/dL (6.4-8.2)
[2022-01-06] MEDS: HYDROCORTISONE SOD SUCC 100 MG/2ML INJ VIAL IV SCH ×2 (06:10→21:23)
[2022-01-06] MEDS: PROPOFOL 100 ML IV SCH ×4 (07:15→17:52)
[2022-01-06] MEDS: Pro-Stat SF 30ml Vanilla PO SCH ×3 (08:00→17:52)
[2022-01-06] MEDS: MIDAZOLAM DRIP 50 mg/50mL 50 ML IV SCH ×3 (08:56→18:53)
[2022-01-06] MEDS: FUROSEMIDE 40 MG/4 ML VIAL IV SCH (09:24)
[2022-01-06] MEDS: LACTULOSE 20Gm/30ML SOLN PO SCH ×2 (09:24→21:23)
[2022-01-06] MEDS: PANTOPRAZOLE 40 MG/10 ML VIAL INJ IV SCH (09:24)
[2022-01-06] MEDS: ENOXAPARIN SOD 40 MG/0.4 ML SYRINGE SC SCH (09:25)
[2022-01-06] MEDS: SODIUM CHLOR 0.9% PF (SALINE LOCK) 10ML VIAL/SYR IV SCH ×2 (09:25→19:24)
[2022-01-06] MEDS: POTASSIUM EFFERVESENT TAB 25 MEQ GT SCH ×2 (09:25→21:23)
[2022-01-06] MEDS ORDERED: POTASSIUM CHL 20MEQ/100ML 100 ML IV ONE ×2 (10:45→15:00)
[2022-01-06] MEDS ORDERED: TPN PER PHARMACY 0 ML IV SCH (10:45)
[2022-01-06] MEDS: NOREPINEPHRINE 8 MG/250ML KIT 250 ML IV SCH (11:00)
[2022-01-06] MEDS: fentaNYL Drip 2500mCg/250mlNS 250 ML IV SCH (12:34)
[2022-01-06 13:11] LABS: Magnesium 2.4 mg/dL (1.6-2.6)
[2022-01-06 13:15] LABS: Pre Albumin 19.1 mg/dL (20.0-40.0)
[2022-01-06] MEDS ORDERED: AMINO ACID INFUSION IN D10W 1,000 ML IV NR (20:00)
[2022-01-06] MEDS: InsuLIN REG 1unit/0.01ml Soln (100units/ml) SC SCH (23:39)
[2022-01-06] MEDS: ACCU-CHEK COMFORT CURVE STRIP VI SCH (23:39)
[2022-01-07] VITALS (102 sets, daily range): BP systolic 83–135; BP diastolic 34–82
[2022-01-07] MEDS ORDERED: DEXTROSE (50%) 50ML SYRG IV SCH
[2022-01-07] MEDS: METOCLOPRAMIDE HCL 5MG/ml INJ 2ml VIAL IV SCH ×3 (05:03→23:12)
[2022-01-07] MEDS: SIMETHICONE 40 MG/0.6 ML ORAL DROP PO SCH ×4 (05:03→20:22)
[2022-01-07] MEDS: InsuLIN REG 1unit/0.01ml Soln (100units/ml) SC SCH ×4 (05:40→23:12)
[2022-01-07] MEDS: ACCU-CHEK COMFORT CURVE STRIP VI SCH ×4 (05:40→23:13)
[2022-01-07] MEDS: PROPOFOL 100 ML IV SCH ×3 (06:34→16:11)
[2022-01-07] MEDS: MIDAZOLAM DRIP 50 mg/50mL 50 ML IV SCH ×3 (06:35→15:02)
[2022-01-07] MEDS: fentaNYL Drip 2500mCg/250mlNS 250 ML IV SCH ×2 (06:36→18:18)
[2022-01-07] MEDS: PIPERACILLIN-TAZOB 3.375GM 100 ML IV SCH ×3 (07:36→23:12)
[2022-01-07 07:38] LABS: Basophils # (auto) 0 10 ^3/uL (0-0.2); Basophils % (auto) 0.6 % (0.0-2.0); Eosinophils # (auto) 0.5 10 ^3/uL (0-0.8); Monocytes # (auto) 0.6 10 ^3/uL (0-1.3); Red Blood Cells 1.98 10^6/uL (4.5-5.90)
[2022-01-07 07:41] LABS: Eosinophils % (auto) 7.6 % (0.0-7.0); Hematocrit 17.7 % (41.0-53.0); Lymphocytes # (auto) 1.3 10 ^3/uL (0.4-5.4); Lymphocytes % (auto) 18.3 % (10.0-50.0); Mean Corpuscular Hemoglobin 30.9 pg (28.0-32.0); Mean Corpuscular Hgb Conc. 34.5 g/dL (32.0-36.0); Mean Corpuscular Volume 89.5 fL (80.0-100.0); Neutrophils # (auto) 4.6 10 ^3/uL (1.6-8.6); Neutrophils % (auto) 64.5 % (37.0-80.0); Nucleated Red Blood Cells % 0.1 %; Red Cell Distribution Width 14.7 % (11.8-14.3); White Blood Cell 7.1 10^3/uL (4.4-10.8)
[2022-01-07] MEDS: Pro-Stat SF 30ml Vanilla PO SCH ×3 (07:42→18:19)
[2022-01-07 07:47] LABS: Hemoglobin 6.1 g/dL (13.5-17.5)
[2022-01-07 07:54] LABS: Albumin 1.7 g/dL (3.4-5.0); Calcium 7.7 mg/dL (8.5-10.1); Magnesium 2.8 mg/dL (1.6-2.6); Potassium 3.1 mmol/L (3.5-5.1)
[2022-01-07 07:56] LABS: BUN/Creatinine Ratio 40.6; Bilirubin, Total 0.5 mg/dL (0.2-1.0); Total Protein 4.5 g/dL (6.4-8.2)
[2022-01-07] MEDS: LACTULOSE 20Gm/30ML SOLN PO SCH ×2 (09:27→20:22)
[2022-01-07] MEDS: POTASSIUM EFFERVESENT TAB 25 MEQ GT SCH ×2 (09:27→20:22)
[2022-01-07] MEDS: ENOXAPARIN SOD 40 MG/0.4 ML SYRINGE SC SCH (09:27)
[2022-01-07] MEDS: FUROSEMIDE 40 MG/4 ML VIAL IV SCH (09:28)
[2022-01-07] MEDS: HYDROCORTISONE SOD SUCC 100 MG/2ML INJ VIAL IV SCH ×2 (09:28→23:12)
[2022-01-07] MEDS: PANTOPRAZOLE 40 MG/10 ML VIAL INJ IV SCH (09:28)
[2022-01-07] MEDS: SODIUM CHLOR 0.9% PF (SALINE LOCK) 10ML VIAL/SYR IV SCH ×2 (09:40→19:29)
[2022-01-07] MEDS ORDERED: POTASSIUM EFFERVESENT TAB 25 MEQ GT ONE (11:00)
[2022-01-07] MEDS ORDERED: FUROSEMIDE 20 MG/2 ML VIAL IV ONE (11:00)
[2022-01-07] MEDS: POTASSIUM CHL 20MEQ/100ML 100 ML IV SCH ×3 (15:09→20:22)
[2022-01-07] MEDS: NOREPINEPHRINE 8 MG/250ML KIT 250 ML IV SCH (15:45)
[2022-01-07] MEDS ORDERED: TPN PER PHARMACY IV NR ×6 (20:00)
[2022-01-08] VITALS (98 sets, daily range): BP systolic 81–151; BP diastolic 39–74
[2022-01-08] MEDS: METOCLOPRAMIDE HCL 5MG/ml INJ 2ml VIAL IV SCH ×3 (05:39→22:27)
[2022-01-08] MEDS: SIMETHICONE 40 MG/0.6 ML ORAL DROP PO SCH ×3 (05:39→17:32)
[2022-01-08 05:48] LABS: Basophils # (auto) 0 10 ^3/uL (0-0.2); Basophils % (auto) 0.5 % (0.0-2.0); Eosinophils # (auto) 0.4 10 ^3/uL (0-0.8); Eosinophils % (auto) 3.9 % (0.0-7.0); Hematocrit 23.9 % (41.0-53.0); Hemoglobin 8.5 g/dL (13.5-17.5); Lymphocytes # (auto) 0.9 10 ^3/uL (0.4-5.4); Lymphocytes % (auto) 9.7 % (10.0-50.0); Mean Corpuscular Hemoglobin 31.5 pg (28.0-32.0); Mean Corpuscular Hgb Conc. 35.5 g/dL (32.0-36.0); Mean Corpuscular Volume 88.6 fL (80.0-100.0); Monocytes # (auto) 0.6 10 ^3/uL (0-1.3); Neutrophils # (auto) 7.4 10 ^3/uL (1.6-8.6); Neutrophils % (auto) 79.9 % (37.0-80.0); Nucleated Red Blood Cells % 0.1 %; Red Blood Cells 2.69 10^6/uL (4.5-5.90); White Blood Cell 9.3 10^3/uL (4.4-10.8)
[2022-01-08] MEDS: ACCU-CHEK COMFORT CURVE STRIP VI SCH ×3 (06:00→17:33)
[2022-01-08] MEDS: InsuLIN REG 1unit/0.01ml Soln (100units/ml) SC SCH ×3 (06:00→17:33)
[2022-01-08 06:08] LABS: Albumin 1.7 g/dL (3.4-5.0); Calcium 7.5 mg/dL (8.5-10.1); Magnesium 2.3 mg/dL (1.6-2.6); Potassium 3.5 mmol/L (3.5-5.1)
[2022-01-08 06:11] LABS: BUN/Creatinine Ratio 55.6; Bilirubin, Total 0.4 mg/dL (0.2-1.0); Phosphorus 2.3 mg/dL (2.5-4.90); Total Protein 4.8 g/dL (6.4-8.2)
[2022-01-08] MEDS: MIDAZOLAM DRIP 50 mg/50mL 50 ML IV SCH ×4 (07:00→18:25)
[2022-01-08] MEDS: PIPERACILLIN-TAZOB 3.375GM 100 ML IV SCH ×2 (07:56→15:39)
[2022-01-08] MEDS: Pro-Stat SF 30ml Vanilla PO SCH ×3 (07:56→17:33)
[2022-01-08] MEDS: PROPOFOL 100 ML IV SCH ×4 (08:00→17:50)
[2022-01-08] MEDS: NOREPINEPHRINE 8 MG/250ML KIT 250 ML IV SCH (08:00)
[2022-01-08] MEDS ORDERED: POTASSIUM PHOSPHATE 30 MEQ in D5W 5% 250 ML IV ONE (10:00)
[2022-01-08] MEDS: ENOXAPARIN SOD 40 MG/0.4 ML SYRINGE SC SCH (10:13)
[2022-01-08] MEDS: POTASSIUM EFFERVESENT TAB 25 MEQ GT SCH ×2 (10:13→22:26)
[2022-01-08] MEDS: FUROSEMIDE 40 MG/4 ML VIAL IV SCH (10:13)
[2022-01-08] MEDS: HYDROCORTISONE SOD SUCC 100 MG/2ML INJ VIAL IV SCH ×2 (10:13→22:27)
[2022-01-08] MEDS: LACTULOSE 20Gm/30ML SOLN PO SCH ×2 (10:20→22:27)
[2022-01-08] MEDS: PANTOPRAZOLE 40 MG/10 ML VIAL INJ IV SCH (10:20)
[2022-01-08] MEDS: SODIUM CHLOR 0.9% PF (SALINE LOCK) 10ML VIAL/SYR IV SCH ×2 (10:21→20:00)
[2022-01-08] MEDS: fentaNYL Drip 2500mCg/250mlNS 250 ML IV SCH (13:01)
[2022-01-08] MEDS ORDERED: TPN PER PHARMACY IV NR ×7 (20:00)
[2022-01-09] VITALS (102 sets, daily range): BP systolic 96–144; BP diastolic 48–79
[2022-01-09] MEDS: PIPERACILLIN-TAZOB 3.375GM 100 ML IV SCH ×4 (00:11→23:19)
[2022-01-09] MEDS: ACCU-CHEK COMFORT CURVE STRIP VI SCH ×5 (00:12→23:20)
[2022-01-09] MEDS: InsuLIN REG 1unit/0.01ml Soln (100units/ml) SC SCH ×5 (00:13→23:19)
[2022-01-09] MEDS: MIDAZOLAM DRIP 50 mg/50mL 50 ML IV SCH ×6 (00:17→21:10)
[2022-01-09] MEDS: SIMETHICONE 40 MG/0.6 ML ORAL DROP PO SCH ×5 (00:46→21:09)
[2022-01-09] MEDS: PROPOFOL 100 ML IV SCH ×5 (03:14→22:43)
[2022-01-09] MEDS: fentaNYL Drip 2500mCg/250mlNS 250 ML IV SCH (03:19)
[2022-01-09] MEDS: METOCLOPRAMIDE HCL 5MG/ml INJ 2ml VIAL IV SCH ×3 (05:37→21:09)
[2022-01-09 06:28] LABS: Albumin 1.6 g/dL (3.4-5.0); Calcium 7.7 mg/dL (8.5-10.1); Magnesium 2.2 mg/dL (1.6-2.6); Potassium 3.7 mmol/L (3.5-5.1)
[2022-01-09 06:32] LABS: BUN/Creatinine Ratio 65.4; Bilirubin, Total 0.4 mg/dL (0.2-1.0)
[2022-01-09] MEDS: Pro-Stat SF 30ml Vanilla PO SCH ×3 (08:56→18:00)
[2022-01-09] MEDS: POTASSIUM EFFERVESENT TAB 25 MEQ GT SCH ×2 (10:26→21:09)
[2022-01-09] MEDS: HYDROCORTISONE SOD SUCC 100 MG/2ML INJ VIAL IV SCH ×2 (10:27→21:09)
[2022-01-09] MEDS: FUROSEMIDE 40 MG/4 ML VIAL IV SCH (10:27)
[2022-01-09] MEDS: SODIUM CHLOR 0.9% PF (SALINE LOCK) 10ML VIAL/SYR IV SCH ×2 (10:27→21:09)
[2022-01-09] MEDS: PANTOPRAZOLE 40 MG/10 ML VIAL INJ IV SCH (10:27)
[2022-01-09] MEDS: ENOXAPARIN SOD 40 MG/0.4 ML SYRINGE SC SCH (10:29)
[2022-01-09] MEDS ORDERED: FUROSEMIDE 20 MG/2 ML VIAL IV ONE (15:45)
[2022-01-09] MEDS ORDERED: POTASSIUM EFFERVESENT TAB 25 MEQ GT ONE (15:45)
[2022-01-09] MEDS ORDERED: TPN PER PHARMACY IV NR ×7 (20:00)
[2022-01-10] VITALS (103 sets, daily range): BP systolic 84–158; BP diastolic 52–83
[2022-01-10] MEDS: PROPOFOL 100 ML IV SCH ×6 (01:01→22:07)
[2022-01-10] MEDS: NOREPINEPHRINE 8 MG/250ML KIT 250 ML IV SCH ×2 (01:01→15:45)
[2022-01-10] MEDS: MIDAZOLAM DRIP 50 mg/50mL 50 ML IV SCH ×6 (01:21→21:07)
[2022-01-10] MEDS: SIMETHICONE 40 MG/0.6 ML ORAL DROP PO SCH ×4 (05:15→21:07)
[2022-01-10] MEDS: METOCLOPRAMIDE HCL 5MG/ml INJ 2ml VIAL IV SCH ×3 (05:15→21:06)
[2022-01-10] MEDS: ACCU-CHEK COMFORT CURVE STRIP VI SCH ×4 (05:17→23:52)
[2022-01-10] MEDS: InsuLIN REG 1unit/0.01ml Soln (100units/ml) SC SCH ×4 (05:18→23:52)
[2022-01-10] MEDS: fentaNYL Drip 2500mCg/250mlNS 250 ML IV SCH (05:58)
[2022-01-10 06:09] LABS: Basophils # (auto) 0 10 ^3/uL (0-0.2); Basophils % (auto) 0.3 % (0.0-2.0); Eosinophils # (auto) 0.2 10 ^3/uL (0-0.8); Eosinophils % (auto) 1.6 % (0.0-7.0); Hematocrit 21.7 % (41.0-53.0); Hemoglobin 7.6 g/dL (13.5-17.5); Lymphocytes % (auto) 8.9 % (10.0-50.0); Mean Corpuscular Hemoglobin 31.8 pg (28.0-32.0); Mean Corpuscular Hgb Conc. 35.1 g/dL (32.0-36.0); Mean Corpuscular Volume 90.5 fL (80.0-100.0); Monocytes # (auto) 0.6 10 ^3/uL (0-1.3); Monocytes % (auto) 5.2 % (0.0-12.0); Neutrophils # (auto) 9.5 10 ^3/uL (1.6-8.6); Red Cell Distribution Width 14.7 % (11.8-14.3); White Blood Cell 11.3 10^3/uL (4.4-10.8)
[2022-01-10 06:25] LABS: Potassium 4.1 mmol/L (3.5-5.1)
[2022-01-10 06:44] LABS: Albumin 1.4 g/dL (3.4-5.0); Bilirubin, Total 0.6 mg/dL (0.2-1.0); Calcium 7.4 mg/dL (8.5-10.1); Magnesium 2.1 mg/dL (1.6-2.6); Phosphorus 3.1 mg/dL (2.5-4.90); Total Protein 4.5 g/dL (6.4-8.2)
[2022-01-10] MEDS: PIPERACILLIN-TAZOB 3.375GM 100 ML IV SCH ×3 (07:36→23:37)
[2022-01-10] MEDS: Pro-Stat SF 30ml Vanilla PO SCH ×3 (08:26→18:00)
[2022-01-10] MEDS: POTASSIUM EFFERVESENT TAB 25 MEQ GT SCH ×2 (10:15→21:06)
[2022-01-10] MEDS: FUROSEMIDE 40 MG/4 ML VIAL IV SCH (10:16)
[2022-01-10] MEDS: HYDROCORTISONE SOD SUCC 100 MG/2ML INJ VIAL IV SCH ×2 (10:16→21:07)
[2022-01-10] MEDS: SODIUM CHLOR 0.9% PF (SALINE LOCK) 10ML VIAL/SYR IV SCH ×2 (10:16→21:06)
[2022-01-10] MEDS: PANTOPRAZOLE 40 MG/10 ML VIAL INJ IV SCH (10:16)
[2022-01-10] MEDS: ENOXAPARIN SOD 40 MG/0.4 ML SYRINGE SC SCH (10:17)
[2022-01-10] MEDS ORDERED: POTASSIUM EFFERVESENT TAB 25 MEQ GT ONE (11:00)
[2022-01-10] MEDS ORDERED: FUROSEMIDE 20 MG/2 ML VIAL IV ONE (11:00)
[2022-01-10] MEDS ORDERED: TPN PER PHARMACY IV NR ×7 (20:00)
[2022-01-11] VITALS (102 sets, daily range): BP systolic 88–154; BP diastolic 54–84
[2022-01-11] MEDS: fentaNYL Drip 2500mCg/250mlNS 250 ML IV SCH ×2 (04:13→15:54)
[2022-01-11] MEDS: METOCLOPRAMIDE HCL 5MG/ml INJ 2ml VIAL IV SCH ×3 (06:01→20:43)
[2022-01-11] MEDS: InsuLIN REG 1unit/0.01ml Soln (100units/ml) SC SCH ×3 (06:02→18:00)
[2022-01-11] MEDS: SIMETHICONE 40 MG/0.6 ML ORAL DROP PO SCH ×4 (06:02→20:44)
[2022-01-11] MEDS: ACCU-CHEK COMFORT CURVE STRIP VI SCH ×3 (06:02→18:00)
[2022-01-11] MEDS: PROPOFOL 100 ML IV SCH ×3 (06:27→15:03)
[2022-01-11] MEDS: MIDAZOLAM DRIP 50 mg/50mL 50 ML IV SCH ×4 (06:28→20:00)
[2022-01-11 07:02] LABS: Chloride 91 mmol/L (98-107); Potassium 3.8 mmol/L (3.5-5.1); Sodium 130 mmol/L (136-145)
[2022-01-11 07:15] LABS: Albumin 1.2 g/dL (3.4-5.0); Anion Gap 3 (5-15); BUN/Creatinine Ratio 133.3; Blood Urea Nitrogen 20 mg/dL (7-18); Calcium 6.8 mg/dL (8.5-10.1); Carbon Dioxide 36 mmol/L (21-32); GFR African American 898 mL/min; GFR Non-African American 742 mL/min; Glucose 284 mg/dL (74-106); Phosphorus 3.1 mg/dL (2.5-4.90); Triglycerides 1577 mg/dL (< 150)
[2022-01-11] MEDS: PIPERACILLIN-TAZOB 3.375GM 100 ML IV SCH (08:55)
[2022-01-11] MEDS: PANTOPRAZOLE 40 MG/10 ML VIAL INJ IV SCH (09:04)
[2022-01-11] MEDS: HYDROCORTISONE SOD SUCC 100 MG/2ML INJ VIAL IV SCH ×2 (09:05→20:43)
[2022-01-11] MEDS: FUROSEMIDE 40 MG/4 ML VIAL IV SCH (09:05)
[2022-01-11] MEDS: SODIUM CHLOR 0.9% PF (SALINE LOCK) 10ML VIAL/SYR IV SCH ×2 (09:08→20:43)
[2022-01-11] MEDS: ENOXAPARIN SOD 40 MG/0.4 ML SYRINGE SC SCH (09:09)
[2022-01-11] MEDS: POTASSIUM EFFERVESENT TAB 25 MEQ GT SCH ×2 (09:10→20:43)
[2022-01-11] MEDS: Pro-Stat SF 30ml Vanilla PO SCH ×3 (09:11→18:00)
[2022-01-11] MEDS: ROCURONIUM 10MG/ML 10ML VIAL IV PRN (09:56)
[2022-01-11] MEDS ORDERED: ACETYLCYSTEINE 10 %(100MG/ML) SOL 4ML NEB ONE (11:15)
[2022-01-11] MEDS: ALBUTEROL SULF 2.5 MG/0.5ML(0.5%) NEB SOLN NEB PRN (12:03)
[2022-01-11] MEDS: IPRATROPIUM BROM 0.5 MG/2.5ML INH SOL NEB PRN (12:03)
[2022-01-11 12:22] LABS: Albumin 1.2 g/dL (3.4-5.0); Bilirubin, Direct 0.2 mg/dL (0-0.2)
[2022-01-11 12:31] LABS: Bilirubin, Total 0.7 mg/dL (0.2-1.0)
[2022-01-11 13:30] LABS: Total Protein 4.4 g/dL (6.4-8.2)
[2022-01-11] MEDS ORDERED: ACETYLCYSTEINE 10 %(100MG/ML) SOL 4ML NEB SCH (15:00)
[2022-01-11] MEDS: ACETYLCYSTEINE 10 %(100MG/ML) SOL 4ML NEB SCH ×2 (18:00→22:00)
[2022-01-11] MEDS: NOREPINEPHRINE 8 MG/250ML KIT 250 ML IV SCH (19:00)
[2022-01-11] MEDS ORDERED: TPN PER PHARMACY IV NR ×7 (20:00)
[2022-01-12] VITALS (108 sets, daily range): BP systolic 90–156; BP diastolic 52–83
[2022-01-12] MEDS: ACCU-CHEK COMFORT CURVE STRIP VI SCH ×5 (00:42→23:42)
[2022-01-12] MEDS: MIDAZOLAM DRIP 50 mg/50mL 50 ML IV SCH ×6 (00:43→19:40)
[2022-01-12] MEDS: PROPOFOL 100 ML IV SCH ×6 (01:29→19:09)
[2022-01-12] MEDS: ACETYLCYSTEINE 10 %(100MG/ML) SOL 4ML NEB SCH ×6 (02:00→22:40)
[2022-01-12] MEDS: fentaNYL Drip 2500mCg/250mlNS 250 ML IV SCH ×2 (03:06→14:40)
[2022-01-12 05:16] LABS: Eosinophils # (auto) 0.1 10 ^3/uL (0-0.8); Neutrophils # (auto) 6.4 10 ^3/uL (1.6-8.6)
[2022-01-12 05:18] LABS: Basophils # (auto) 0.1 10 ^3/uL (0-0.2); Basophils % (auto) 1.6 % (0.0-2.0); Eosinophils % (auto) 1.8 % (0.0-7.0); Hematocrit 21.8 % (41.0-53.0); Hemoglobin 7.6 g/dL (13.5-17.5); Lymphocytes # (auto) 0.6 10 ^3/uL (0.4-5.4); Lymphocytes % (auto) 7.4 % (10.0-50.0); Mean Corpuscular Hemoglobin 31.5 pg (28.0-32.0); Mean Corpuscular Hgb Conc. 34.8 g/dL (32.0-36.0); Mean Corpuscular Volume 90.5 fL (80.0-100.0); Monocytes # (auto) 0.4 10 ^3/uL (0-1.3); Monocytes % (auto) 5.7 % (0.0-12.0); Neutrophils % (auto) 83.5 % (37.0-80.0); Red Blood Cells 2.41 10^6/uL (4.5-5.90); Red Cell Distribution Width 14.7 % (11.8-14.3); White Blood Cell 7.6 10^3/uL (4.4-10.8)
[2022-01-12] MEDS: SIMETHICONE 40 MG/0.6 ML ORAL DROP PO SCH ×4 (05:22→21:46)
[2022-01-12] MEDS: METOCLOPRAMIDE HCL 5MG/ml INJ 2ml VIAL IV SCH ×3 (05:22→21:45)
[2022-01-12] MEDS: InsuLIN REG 1unit/0.01ml Soln (100units/ml) SC SCH ×5 (05:22→23:42)
[2022-01-12 05:36] LABS: Albumin 1.4 g/dL (3.4-5.0); BUN/Creatinine Ratio 121.1; Calcium 7.8 mg/dL (8.5-10.1); Magnesium 2.5 mg/dL (1.6-2.6); Phosphorus 3.5 mg/dL (2.5-4.90); Potassium 4.6 mmol/L (3.5-5.1)
[2022-01-12 05:38] LABS: Bilirubin, Total 0.7 mg/dL (0.2-1.0); Total Protein 4.6 g/dL (6.4-8.2)
[2022-01-12] MEDS: ALBUTEROL SULF 2.5 MG/0.5ML(0.5%) NEB SOLN NEB PRN ×5 (05:58→22:41)
[2022-01-12] MEDS: IPRATROPIUM BROM 0.5 MG/2.5ML INH SOL NEB PRN ×5 (05:58→22:41)
[2022-01-12] MEDS: Pro-Stat SF 30ml Vanilla PO SCH ×3 (10:00→18:00)
[2022-01-12] MEDS: POTASSIUM EFFERVESENT TAB 25 MEQ GT SCH ×2 (10:04→21:46)
[2022-01-12] MEDS: FUROSEMIDE 40 MG/4 ML VIAL IV SCH (10:04)
[2022-01-12] MEDS: SODIUM CHLOR 0.9% PF (SALINE LOCK) 10ML VIAL/SYR IV SCH ×2 (10:04→21:45)
[2022-01-12] MEDS: ENOXAPARIN SOD 40 MG/0.4 ML SYRINGE SC SCH (10:05)
[2022-01-12] MEDS: PANTOPRAZOLE 40 MG/10 ML VIAL INJ IV SCH (10:05)
[2022-01-12] MEDS: HYDROCORTISONE SOD SUCC 100 MG/2ML INJ VIAL IV SCH ×2 (10:06→21:46)
[2022-01-12] MEDS: NOREPINEPHRINE 8 MG/250ML KIT 250 ML IV SCH (15:45)
[2022-01-12] MEDS: TPN PER PHARMACY IV NR ×7 (21:44)
[2022-01-13] VITALS (104 sets, daily range): BP systolic 89–143; BP diastolic 50–79
[2022-01-13] MEDS: ACETYLCYSTEINE 10 %(100MG/ML) SOL 4ML NEB SCH ×6 (02:08→22:10)
[2022-01-13] MEDS: ALBUTEROL SULF 2.5 MG/0.5ML(0.5%) NEB SOLN NEB PRN ×3 (02:08→22:10)
[2022-01-13] MEDS: IPRATROPIUM BROM 0.5 MG/2.5ML INH SOL NEB PRN ×6 (02:08→22:10)
[2022-01-13] MEDS: METOCLOPRAMIDE HCL 5MG/ml INJ 2ml VIAL IV SCH ×3 (05:01→20:56)
[2022-01-13] MEDS: SIMETHICONE 40 MG/0.6 ML ORAL DROP PO SCH ×4 (05:02→20:56)
[2022-01-13] MEDS: InsuLIN REG 1unit/0.01ml Soln (100units/ml) SC SCH ×3 (05:23→18:00)
[2022-01-13] MEDS: ACCU-CHEK COMFORT CURVE STRIP VI SCH ×3 (05:23→18:00)
[2022-01-13 07:34] LABS: Basophils # (auto) 0.1 10 ^3/uL (0-0.2); Basophils % (auto) 0.9 % (0.0-2.0); Eosinophils # (auto) 0.2 10 ^3/uL (0-0.8); Eosinophils % (auto) 3.4 % (0.0-7.0); Hematocrit 19.8 % (41.0-53.0); Lymphocytes # (auto) 0.9 10 ^3/uL (0.4-5.4); Lymphocytes % (auto) 12.5 % (10.0-50.0); Mean Corpuscular Hemoglobin 30.5 pg (28.0-32.0); Mean Corpuscular Hgb Conc. 34.1 g/dL (32.0-36.0); Mean Corpuscular Volume 89.3 fL (80.0-100.0); Monocytes # (auto) 0.6 10 ^3/uL (0-1.3); Neutrophils # (auto) 5.1 10 ^3/uL (1.6-8.6); Neutrophils % (auto) 74.2 % (37.0-80.0); Nucleated Red Blood Cells % 0.1 %; Red Blood Cells 2.21 10^6/uL (4.5-5.90); Red Cell Distribution Width 14.5 % (11.8-14.3); White Blood Cell 6.8 10^3/uL (4.4-10.8)
[2022-01-13] MEDS: Pro-Stat SF 30ml Vanilla PO SCH ×3 (08:00→18:00)
[2022-01-13] MEDS: PROPOFOL 100 ML IV SCH ×3 (08:06→17:10)
[2022-01-13 08:20] LABS: Hemoglobin 6.7 g/dL (13.5-17.5)
[2022-01-13] MEDS: PANTOPRAZOLE 40 MG/10 ML VIAL INJ IV SCH (09:35)
[2022-01-13] MEDS: FUROSEMIDE 40 MG/4 ML VIAL IV SCH (09:35)
[2022-01-13] MEDS: POTASSIUM EFFERVESENT TAB 25 MEQ GT SCH ×2 (09:35→20:55)
[2022-01-13] MEDS: SODIUM CHLOR 0.9% PF (SALINE LOCK) 10ML VIAL/SYR IV SCH ×2 (09:36→20:56)
[2022-01-13] MEDS: HYDROCORTISONE SOD SUCC 100 MG/2ML INJ VIAL IV SCH ×2 (09:37→20:56)
[2022-01-13] MEDS: ENOXAPARIN SOD 40 MG/0.4 ML SYRINGE SC SCH (09:38)
[2022-01-13] MEDS: MIDAZOLAM DRIP 50 mg/50mL 50 ML IV SCH ×3 (09:39→17:11)
[2022-01-13 09:43] LABS: Albumin 1.4 g/dL (3.4-5.0); Calcium 8.2 mg/dL (8.5-10.1); Magnesium 2.6 mg/dL (1.6-2.6); Potassium 3.9 mmol/L (3.5-5.1)
[2022-01-13 09:46] LABS: BUN/Creatinine Ratio 122.2; Bilirubin, Total 0.6 mg/dL (0.2-1.0); Total Protein 4.7 g/dL (6.4-8.2)
[2022-01-13] MEDS ORDERED: POTASSIUM CHL 20MEQ/100ML 100 ML IV ONE (12:15)
[2022-01-13] MEDS ORDERED: SODIUM FERR GLUC 62.5MG/5ML 125 MG in SODIUM CHL 0.9% 100 ML IV ONE (12:15)
[2022-01-13] MEDS ORDERED: FUROSEMIDE 40 MG/4 ML VIAL IV ONE (12:15)
[2022-01-13] MEDS ORDERED: MEROPENEM 1GM IVPB 100 ML IV ONE (12:30)
[2022-01-13] MEDS: fentaNYL Drip 2500mCg/250mlNS 250 ML IV SCH (15:04)
[2022-01-13] MEDS: NOREPINEPHRINE 8 MG/250ML KIT 250 ML IV SCH (15:45)
[2022-01-13] MEDS: TPN PER PHARMACY IV NR ×13 (19:30→20:11)
[2022-01-13] MEDS: MEROPENEM 1GM IVPB 100 ML IV SCH (20:55)
[2022-01-14] VITALS (104 sets, daily range): BP systolic 99–142; BP diastolic 58–85
[2022-01-14] MEDS: ACCU-CHEK COMFORT CURVE STRIP VI SCH ×4 (00:23→18:23)
[2022-01-14] MEDS: ALBUTEROL SULF 2.5 MG/0.5ML(0.5%) NEB SOLN NEB PRN ×5 (02:11→22:10)
[2022-01-14] MEDS: IPRATROPIUM BROM 0.5 MG/2.5ML INH SOL NEB PRN ×5 (02:11→22:10)
[2022-01-14] MEDS: ACETYLCYSTEINE 10 %(100MG/ML) SOL 4ML NEB SCH ×6 (02:11→22:10)
[2022-01-14 05:10] LABS: Basophils # (auto) 0.1 10 ^3/uL (0-0.2); Basophils % (auto) 0.8 % (0.0-2.0); Eosinophils # (auto) 0.1 10 ^3/uL (0-0.8); Eosinophils % (auto) 1.7 % (0.0-7.0); Hematocrit 25.3 % (41.0-53.0); Hemoglobin 8.7 g/dL (13.5-17.5); Lymphocytes # (auto) 0.6 10 ^3/uL (0.4-5.4); Lymphocytes % (auto) 7.5 % (10.0-50.0); Mean Corpuscular Hgb Conc. 34.3 g/dL (32.0-36.0); Mean Corpuscular Volume 90.2 fL (80.0-100.0); Monocytes # (auto) 0.4 10 ^3/uL (0-1.3); Monocytes % (auto) 5.4 % (0.0-12.0); Neutrophils # (auto) 6.3 10 ^3/uL (1.6-8.6); Neutrophils % (auto) 84.6 % (37.0-80.0); Nucleated Red Blood Cells % 0.1 %; Red Cell Distribution Width 14.5 % (11.8-14.3); White Blood Cell 7.5 10^3/uL (4.4-10.8)
[2022-01-14] MEDS: MEROPENEM 1GM IVPB 100 ML IV SCH ×3 (05:15→22:00)
[2022-01-14] MEDS: SIMETHICONE 40 MG/0.6 ML ORAL DROP PO SCH (05:15)
[2022-01-14] MEDS: METOCLOPRAMIDE HCL 5MG/ml INJ 2ml VIAL IV SCH (05:15)
[2022-01-14] MEDS: InsuLIN REG 1unit/0.01ml Soln (100units/ml) SC SCH ×4 (05:21→18:00)
[2022-01-14 05:34] LABS: Albumin 1.5 g/dL (3.4-5.0); BUN/Creatinine Ratio 122.2; Calcium 7.9 mg/dL (8.5-10.1); Magnesium 2.2 mg/dL (1.6-2.6)
[2022-01-14 05:37] LABS: Bilirubin, Total 0.4 mg/dL (0.2-1.0); Phosphorus 3.1 mg/dL (2.5-4.90)
[2022-01-14] MEDS: Pro-Stat SF 30ml Vanilla PO SCH ×3 (09:55→18:00)
[2022-01-14] MEDS: ENOXAPARIN SOD 40 MG/0.4 ML SYRINGE SC SCH (10:00)
[2022-01-14] MEDS: POTASSIUM EFFERVESENT TAB 25 MEQ GT SCH ×2 (10:01→22:00)
[2022-01-14] MEDS: FUROSEMIDE 40 MG/4 ML VIAL IV SCH (10:03)
[2022-01-14] MEDS: SODIUM CHLOR 0.9% PF (SALINE LOCK) 10ML VIAL/SYR IV SCH ×2 (10:04→22:00)
[2022-01-14] MEDS: PANTOPRAZOLE 40 MG/10 ML VIAL INJ IV SCH (10:04)
[2022-01-14] MEDS: HYDROCORTISONE SOD SUCC 100 MG/2ML INJ VIAL IV SCH ×2 (10:06→22:00)
[2022-01-14] MEDS: MIDAZOLAM DRIP 50 mg/50mL 50 ML IV SCH ×4 (10:35→23:00)
[2022-01-14] MEDS: PROPOFOL 100 ML IV SCH ×3 (10:35→18:54)
[2022-01-14] MEDS ORDERED: FUROSEMIDE 20 MG/2 ML VIAL IV ONE (10:45)
[2022-01-14] MEDS ORDERED: POTASSIUM EFFERVESENT TAB 25 MEQ GT ONE (10:45)
[2022-01-14] MEDS: SODIUM FERR GLUC 62.5MG/5ML 125 MG in SODIUM CHL 0.9% 100 ML IV SCH (12:39)
[2022-01-14] MEDS: NOREPINEPHRINE 8 MG/250ML KIT 250 ML IV SCH (15:01)
[2022-01-14] MEDS: fentaNYL Drip 2500mCg/250mlNS 250 ML IV SCH (16:07)
[2022-01-14] MEDS: TPN PER PHARMACY IV NR ×6 (19:48)
[2022-01-14] MEDS ORDERED: TPN PER PHARMACY IV NR ×6 (20:00)
[2022-01-15] VITALS (107 sets, daily range): BP systolic 103–188; BP diastolic 58–90
[2022-01-15] MEDS: ACETYLCYSTEINE 10 %(100MG/ML) SOL 4ML NEB SCH ×6 (02:22→22:00)
[2022-01-15] MEDS: IPRATROPIUM BROM 0.5 MG/2.5ML INH SOL NEB PRN ×4 (02:23→18:44)
[2022-01-15] MEDS: ALBUTEROL SULF 2.5 MG/0.5ML(0.5%) NEB SOLN NEB PRN ×4 (02:23→18:44)
[2022-01-15] MEDS ORDERED: dilTIAZem 25 MG/5 ML VIAL IV ONE ×2 (02:45→02:48)
[2022-01-15] MEDS ORDERED: dilTIAZem 125mg/125ml BAG KIT 100 ML IV SCH (03:15)
[2022-01-15] MEDS: dilTIAZem 125mg/125ml BAG KIT 125 ML IV SCH (03:39)
[2022-01-15] MEDS: ROCURONIUM 10MG/ML 10ML VIAL IV PRN (04:30)
[2022-01-15] MEDS: MEROPENEM 1GM IVPB 100 ML IV SCH ×3 (05:34→21:57)
[2022-01-15] MEDS: ACCU-CHEK COMFORT CURVE STRIP VI SCH ×5 (05:35→23:37)
[2022-01-15] MEDS: InsuLIN REG 1unit/0.01ml Soln (100units/ml) SC SCH ×5 (05:35→23:37)
[2022-01-15] MEDS: Pro-Stat SF 30ml Vanilla PO SCH ×3 (08:00→17:55)
[2022-01-15 08:07] LABS: Albumin 1.6 g/dL (3.4-5.0); BUN/Creatinine Ratio 111.5; Calcium 8.5 mg/dL (8.5-10.1); Magnesium 2.1 mg/dL (1.6-2.6); Potassium 4.7 mmol/L (3.5-5.1)
[2022-01-15 08:09] LABS: Bilirubin, Total 0.3 mg/dL (0.2-1.0); Phosphorus 2.3 mg/dL (2.5-4.90); Total Protein 5.3 g/dL (6.4-8.2)
[2022-01-15] MEDS: MIDAZOLAM DRIP 50 mg/50mL 50 ML IV SCH ×4 (08:15→20:00)
[2022-01-15] MEDS: PROPOFOL 100 ML IV SCH ×5 (08:15→23:38)
[2022-01-15] MEDS: PANTOPRAZOLE 40 MG/10 ML VIAL INJ IV SCH (10:28)
[2022-01-15] MEDS: HYDROCORTISONE SOD SUCC 100 MG/2ML INJ VIAL IV SCH ×2 (10:28→21:58)
[2022-01-15] MEDS: FUROSEMIDE 40 MG/4 ML VIAL IV SCH (10:28)
[2022-01-15] MEDS: SODIUM CHLOR 0.9% PF (SALINE LOCK) 10ML VIAL/SYR IV SCH ×2 (10:29→21:58)
[2022-01-15] MEDS: ENOXAPARIN SOD 40 MG/0.4 ML SYRINGE SC SCH (10:29)
[2022-01-15] MEDS ORDERED: SODIUM PHOSPHATES 20 MEQ in SODIUM CHL 0.9% 100 ML IV ONE (10:30)
[2022-01-15] MEDS: fentaNYL Drip 2500mCg/250mlNS 250 ML IV SCH ×2 (12:26→21:00)
[2022-01-15] MEDS: SODIUM FERR GLUC 62.5MG/5ML 125 MG in SODIUM CHL 0.9% 100 ML IV SCH (12:27)
[2022-01-15] MEDS: POTASSIUM EFFERVESENT TAB 25 MEQ GT SCH ×2 (13:31→21:57)
[2022-01-15] MEDS: NOREPINEPHRINE 8 MG/250ML KIT 250 ML IV SCH (14:57)
[2022-01-15] MEDS ORDERED: TPN PER PHARMACY IV NR ×6 (20:00)
[2022-01-16] VITALS (102 sets, daily range): BP systolic 109–143; BP diastolic 61–76
[2022-01-16] MEDS: ACETYLCYSTEINE 10 %(100MG/ML) SOL 4ML NEB SCH ×6 (02:15→22:03)
[2022-01-16] MEDS: IPRATROPIUM BROM 0.5 MG/2.5ML INH SOL NEB PRN ×6 (02:15→22:03)
[2022-01-16] MEDS: ALBUTEROL SULF 2.5 MG/0.5ML(0.5%) NEB SOLN NEB PRN ×4 (02:15→22:03)
[2022-01-16] MEDS: dilTIAZem 125mg/125ml BAG KIT 125 ML IV SCH (03:15)
[2022-01-16] MEDS: MIDAZOLAM DRIP 50 mg/50mL 50 ML IV SCH ×4 (05:00→22:51)
[2022-01-16 05:08] LABS: Albumin 1.7 g/dL (3.4-5.0); Calcium 8.3 mg/dL (8.5-10.1); Magnesium 2.1 mg/dL (1.6-2.6); Potassium 5.1 mmol/L (3.5-5.1)
[2022-01-16 05:11] LABS: Basophils # (auto) 0 10 ^3/uL (0-0.2); Basophils % (auto) 0.7 % (0.0-2.0); Eosinophils # (auto) 0.2 10 ^3/uL (0-0.8); Eosinophils % (auto) 3.4 % (0.0-7.0); Hematocrit 25.6 % (41.0-53.0); Hemoglobin 8.7 g/dL (13.5-17.5); Lymphocytes # (auto) 0.5 10 ^3/uL (0.4-5.4); Lymphocytes % (auto) 8.7 % (10.0-50.0); Mean Corpuscular Hemoglobin 31.2 pg (28.0-32.0); Mean Corpuscular Hgb Conc. 33.9 g/dL (32.0-36.0); Monocytes # (auto) 0.3 10 ^3/uL (0-1.3); Monocytes % (auto) 5.1 % (0.0-12.0); Neutrophils # (auto) 5.2 10 ^3/uL (1.6-8.6); Neutrophils % (auto) 82.1 % (37.0-80.0); Nucleated Red Blood Cells % 0.2 %; Red Blood Cells 2.79 10^6/uL (4.5-5.90); Red Cell Distribution Width 14.4 % (11.8-14.3); White Blood Cell 6.3 10^3/uL (4.4-10.8)
[2022-01-16 05:12] LABS: Bilirubin, Total 0.3 mg/dL (0.2-1.0); Phosphorus 3.1 mg/dL (2.5-4.90); Total Protein 5.3 g/dL (6.4-8.2)
[2022-01-16] MEDS: InsuLIN REG 1unit/0.01ml Soln (100units/ml) SC SCH ×4 (06:00→23:59)
[2022-01-16] MEDS: PROPOFOL 100 ML IV SCH ×4 (06:00→19:56)
[2022-01-16] MEDS: MEROPENEM 1GM IVPB 100 ML IV SCH ×3 (06:00→21:49)
[2022-01-16] MEDS: ACCU-CHEK COMFORT CURVE STRIP VI SCH ×4 (06:00→23:59)
[2022-01-16] MEDS: Pro-Stat SF 30ml Vanilla PO SCH ×3 (07:38→12:00)
[2022-01-16] MEDS: POTASSIUM EFFERVESENT TAB 25 MEQ GT SCH (09:32)
[2022-01-16] MEDS: PANTOPRAZOLE 40 MG/10 ML VIAL INJ IV SCH (09:36)
[2022-01-16] MEDS: SODIUM CHLOR 0.9% PF (SALINE LOCK) 10ML VIAL/SYR IV SCH ×2 (09:36→21:49)
[2022-01-16] MEDS: HYDROCORTISONE SOD SUCC 100 MG/2ML INJ VIAL IV SCH ×2 (09:36→21:49)
[2022-01-16] MEDS: FUROSEMIDE 40 MG/4 ML VIAL IV SCH (09:36)
[2022-01-16] MEDS ORDERED: ENOXAPARIN SOD 60 MG/0.6 ML SYRINGE SC ONE (09:45)
[2022-01-16] MEDS: ROCURONIUM 10MG/ML 10ML VIAL IV PRN ×3 (11:52→23:33)
[2022-01-16] MEDS: SODIUM FERR GLUC 62.5MG/5ML 125 MG in SODIUM CHL 0.9% 100 ML IV SCH (12:00)
[2022-01-16] MEDS: fentaNYL Drip 2500mCg/250mlNS 250 ML IV SCH ×2 (12:07→19:57)
[2022-01-16] MEDS ORDERED: TPN PER PHARMACY IV NR ×5 (20:00)
[2022-01-17] VITALS (102 sets, daily range): BP systolic 107–140; BP diastolic 25–82
[2022-01-17] MEDS: PROPOFOL 100 ML IV SCH ×6 (00:18→19:33)
[2022-01-17] MEDS: MIDAZOLAM DRIP 50 mg/50mL 50 ML IV SCH ×5 (00:37→19:34)
[2022-01-17] MEDS: ACETYLCYSTEINE 10 %(100MG/ML) SOL 4ML NEB SCH ×6 (01:53→22:48)
[2022-01-17] MEDS: IPRATROPIUM BROM 0.5 MG/2.5ML INH SOL NEB PRN ×6 (01:53→22:48)
[2022-01-17] MEDS: fentaNYL Drip 2500mCg/250mlNS 250 ML IV SCH ×2 (04:16→20:27)
[2022-01-17 05:19] LABS: Calcium 8.8 mg/dL (8.5-10.1); Magnesium 2.4 mg/dL (1.6-2.6); Potassium 4.6 mmol/L (3.5-5.1)
[2022-01-17 05:24] LABS: Albumin 1.8 g/dL (3.4-5.0); Bilirubin, Total 0.3 mg/dL (0.2-1.0); Phosphorus 3.3 mg/dL (2.5-4.90); Total Protein 5.5 g/dL (6.4-8.2)
[2022-01-17] MEDS: InsuLIN REG 1unit/0.01ml Soln (100units/ml) SC SCH ×3 (06:00→17:19)
[2022-01-17] MEDS: MEROPENEM 1GM IVPB 100 ML IV SCH ×3 (06:09→22:15)
[2022-01-17] MEDS: ACCU-CHEK COMFORT CURVE STRIP VI SCH ×3 (06:09→17:21)
[2022-01-17] MEDS: ALBUTEROL SULF 2.5 MG/0.5ML(0.5%) NEB SOLN NEB PRN ×5 (06:15→22:48)
[2022-01-17] MEDS: Pro-Stat SF 30ml Vanilla PO SCH ×3 (08:00→17:19)
[2022-01-17] MEDS: ROCURONIUM 10MG/ML 10ML VIAL IV PRN (08:17)
[2022-01-17] MEDS: FUROSEMIDE 40 MG/4 ML VIAL IV SCH ×2 (10:07→17:26)
[2022-01-17] MEDS: PANTOPRAZOLE 40 MG/10 ML VIAL INJ IV SCH (10:07)
[2022-01-17] MEDS: SODIUM CHLOR 0.9% PF (SALINE LOCK) 10ML VIAL/SYR IV SCH ×2 (10:07→22:15)
[2022-01-17] MEDS: ENOXAPARIN SOD 40 MG/0.4 ML SYRINGE SC SCH (10:08)
[2022-01-17] MEDS: HYDROCORTISONE SOD SUCC 100 MG/2ML INJ VIAL IV SCH ×2 (10:08→22:16)
[2022-01-17] MEDS ORDERED: FUROSEMIDE 40 MG/4 ML VIAL IV ONE (11:30)
[2022-01-17] MEDS ORDERED: POTASSIUM EFFERVESENT TAB 25 MEQ GT ONE (11:30)
[2022-01-17] MEDS: SODIUM FERR GLUC 62.5MG/5ML 125 MG in SODIUM CHL 0.9% 100 ML IV SCH (12:33)
[2022-01-17] MEDS: LINEZOLID 600MG/300ML 300 ML IV SCH (17:26)
[2022-01-17] MEDS ORDERED: TPN PER PHARMACY IV NR ×6 (20:00)
[2022-01-18] VITALS (103 sets, daily range): BP systolic 108–156; BP diastolic 59–84
[2022-01-18] MEDS: PROPOFOL 100 ML IV SCH ×6 (00:01→19:54)
[2022-01-18] MEDS: MIDAZOLAM DRIP 50 mg/50mL 50 ML IV SCH ×7 (00:02→22:00)
[2022-01-18] MEDS: ACCU-CHEK COMFORT CURVE STRIP VI SCH ×4 (00:02→17:27)
[2022-01-18] MEDS: IPRATROPIUM BROM 0.5 MG/2.5ML INH SOL NEB PRN ×5 (03:41→22:41)
[2022-01-18] MEDS: ALBUTEROL SULF 2.5 MG/0.5ML(0.5%) NEB SOLN NEB PRN ×5 (03:41→22:40)
[2022-01-18] MEDS: ACETYLCYSTEINE 10 %(100MG/ML) SOL 4ML NEB SCH ×6 (03:41→22:40)
[2022-01-18] MEDS: fentaNYL Drip 2500mCg/250mlNS 250 ML IV SCH ×3 (03:55→19:55)
[2022-01-18 05:07] LABS: Albumin 1.7 g/dL (3.4-5.0); Calcium 8.2 mg/dL (8.5-10.1); Magnesium 1.9 mg/dL (1.6-2.6); Potassium 3.7 mmol/L (3.5-5.1)
[2022-01-18 05:15] LABS: Bilirubin, Total 0.3 mg/dL (0.2-1.0); Phosphorus 3.3 mg/dL (2.5-4.90); Total Protein 5.2 g/dL (6.4-8.2)
[2022-01-18] MEDS: InsuLIN REG 1unit/0.01ml Soln (100units/ml) SC SCH ×4 (06:00→17:26)
[2022-01-18] MEDS: MEROPENEM 1GM IVPB 100 ML IV SCH ×3 (06:11→21:23)
[2022-01-18] MEDS: FUROSEMIDE 40 MG/4 ML VIAL IV SCH ×2 (06:11→17:24)
[2022-01-18] MEDS: LINEZOLID 600MG/300ML 300 ML IV SCH ×2 (06:41→17:25)
[2022-01-18] MEDS: Pro-Stat SF 30ml Vanilla PO SCH ×3 (08:00→16:54)
[2022-01-18] MEDS: POTASSIUM EFFERVESENT TAB 25 MEQ GT SCH (09:49)
[2022-01-18] MEDS: SODIUM CHLOR 0.9% PF (SALINE LOCK) 10ML VIAL/SYR IV SCH ×2 (09:50→21:23)
[2022-01-18] MEDS: ENOXAPARIN SOD 40 MG/0.4 ML SYRINGE SC SCH (09:50)
[2022-01-18] MEDS: PANTOPRAZOLE 40 MG/10 ML VIAL INJ IV SCH (09:50)
[2022-01-18] MEDS: HYDROCORTISONE SOD SUCC 100 MG/2ML INJ VIAL IV SCH ×2 (09:51→21:23)
[2022-01-18] MEDS: SODIUM FERR GLUC 62.5MG/5ML 125 MG in SODIUM CHL 0.9% 100 ML IV SCH (13:33)
[2022-01-18] MEDS ORDERED: TPN PER PHARMACY IV NR ×8 (20:00)
[2022-01-19] VITALS (101 sets, daily range): BP systolic 80–143; BP diastolic 35–75
[2022-01-19] MEDS: ACCU-CHEK COMFORT CURVE STRIP VI SCH ×4 (00:06→17:29)
[2022-01-19] MEDS: PROPOFOL 100 ML IV SCH ×2 (00:18→21:26)
[2022-01-19] MEDS: MIDAZOLAM DRIP 50 mg/50mL 50 ML IV SCH ×4 (01:40→22:49)
[2022-01-19] MEDS: ACETYLCYSTEINE 10 %(100MG/ML) SOL 4ML NEB SCH ×6 (02:00→22:59)
[2022-01-19] MEDS: fentaNYL Drip 2500mCg/250mlNS 250 ML IV SCH (03:41)
[2022-01-19] MEDS: ACETAMINOPHEN 325 MG TAB PO PRN (03:49)
[2022-01-19 05:12] LABS: Albumin 1.8 g/dL (3.4-5.0); Calcium 8.4 mg/dL (8.5-10.1); Magnesium 2.3 mg/dL (1.6-2.6)
[2022-01-19 05:14] LABS: Phosphorus 5.2 mg/dL (2.5-4.90)
[2022-01-19] MEDS: NOREPINEPHRINE 8 MG/250ML KIT 250 ML IV SCH ×3 (05:14→07:50)
[2022-01-19] MEDS: LINEZOLID 600MG/300ML 300 ML IV SCH ×2 (05:14→18:01)
[2022-01-19 05:23] LABS: BUN/Creatinine Ratio 108.3; Potassium 5.7 mmol/L (3.5-5.1)
[2022-01-19] MEDS: InsuLIN REG 1unit/0.01ml Soln (100units/ml) SC SCH ×4 (05:48→17:29)
[2022-01-19] MEDS: FUROSEMIDE 40 MG/4 ML VIAL IV SCH ×2 (06:03→18:01)
[2022-01-19] MEDS: MEROPENEM 1GM IVPB 100 ML IV SCH ×4 (06:03→21:25)
[2022-01-19] MEDS ORDERED: SODIUM ZIRCONIUM CYCL 10 GM PAK ONE (06:14)
[2022-01-19] MEDS ORDERED: SODIUM ZIRCONIUM CYCL 10 GM PAK PO ONE (06:15)
[2022-01-19] MEDS: Pro-Stat SF 30ml Vanilla PO SCH ×3 (08:00→18:00)
[2022-01-19] MEDS: POTASSIUM EFFERVESENT TAB 25 MEQ GT SCH (08:13)
[2022-01-19] MEDS: SODIUM CHLOR 0.9% PF (SALINE LOCK) 10ML VIAL/SYR IV SCH ×2 (08:15→21:26)
[2022-01-19] MEDS ORDERED: SODIUM BICARBONATE 8.4 % INJ 50ML VIAL IV ONE (09:15)
[2022-01-19] MEDS: IPRATROPIUM BROM 0.5 MG/2.5ML INH SOL NEB PRN ×3 (10:29→19:04)
[2022-01-19] MEDS ORDERED: AMINO ACID INFUSION IN D10W 1,000 ML IV NR (10:30)
[2022-01-19] MEDS: HYDROCORTISONE SOD SUCC 100 MG/2ML INJ VIAL IV SCH ×2 (10:31→21:26)
[2022-01-19] MEDS: PANTOPRAZOLE 40 MG/10 ML VIAL INJ IV SCH (10:32)
[2022-01-19 11:18] LABS: Albumin 1.4 g/dL (3.4-5.0); Calcium 6.2 mg/dL (8.5-10.1); Magnesium 2.2 mg/dL (1.6-2.6); Potassium 3.1 mmol/L (3.5-5.1)
[2022-01-19 11:23] LABS: Phosphorus 4.8 mg/dL (2.5-4.90)
[2022-01-19] MEDS: SODIUM FERR GLUC 62.5MG/5ML 125 MG in SODIUM CHL 0.9% 100 ML IV SCH (11:55)
[2022-01-19] MEDS: CALCIUM GLUC 1,000mg/50ml-NS 50 ML IV ONE ×2 (13:38→16:18)
[2022-01-19] MEDS: ENOXAPARIN SOD 40 MG/0.4 ML SYRINGE SC SCH (14:59)
[2022-01-19] MEDS: POTASSIUM CHL 20MEQ/100ML 100 ML IV SCH ×2 (15:01→17:59)
[2022-01-19] MEDS: ALBUTEROL SULF 2.5 MG/0.5ML(0.5%) NEB SOLN NEB PRN ×2 (19:04→22:59)
[2022-01-19] MEDS ORDERED: TPN PER PHARMACY IV NR ×7 (20:00)
[2022-01-20] VITALS (52 sets, daily range): BP systolic 86–122; BP diastolic 14–64
[2022-01-20] MEDS: ACCU-CHEK COMFORT CURVE STRIP VI SCH ×3 (00:02→11:12)
[2022-01-20] MEDS: fentaNYL Drip 2500mCg/250mlNS 250 ML IV SCH ×2 (01:23→13:36)
[2022-01-20] MEDS: PROPOFOL 100 ML IV SCH ×4 (01:24→12:53)
[2022-01-20] MEDS: ALBUTEROL SULF 2.5 MG/0.5ML(0.5%) NEB SOLN NEB PRN ×3 (02:47→09:29)
[2022-01-20] MEDS: ACETYLCYSTEINE 10 %(100MG/ML) SOL 4ML NEB SCH ×3 (02:47→09:29)
[2022-01-20] MEDS: IPRATROPIUM BROM 0.5 MG/2.5ML INH SOL NEB PRN ×3 (02:48→09:29)
[2022-01-20] MEDS: NOREPINEPHRINE 8 MG/250ML KIT 250 ML IV SCH (04:30)
[2022-01-20] MEDS: MIDAZOLAM DRIP 50 mg/50mL 50 ML IV SCH ×2 (04:30→10:41)
[2022-01-20] MEDS: LINEZOLID 600MG/300ML 300 ML IV SCH (04:48)
[2022-01-20] MEDS: InsuLIN REG 1unit/0.01ml Soln (100units/ml) SC SCH ×3 (06:00→11:13)
[2022-01-20] MEDS: FUROSEMIDE 40 MG/4 ML VIAL IV SCH (06:00)
[2022-01-20 06:18] LABS: Albumin 1.9 g/dL (3.4-5.0); Calcium 8.3 mg/dL (8.5-10.1); Magnesium 2.2 mg/dL (1.6-2.6); Potassium 5.3 mmol/L (3.5-5.1)
[2022-01-20 06:20] LABS: BUN/Creatinine Ratio 71.1
[2022-01-20 06:22] LABS: Bilirubin, Total 1.4 mg/dL (0.2-1.0); Total Protein 5.8 g/dL (6.4-8.2)
[2022-01-20] MEDS: MEROPENEM 1GM IVPB 100 ML IV SCH (06:27)
[2022-01-20] MEDS: Pro-Stat SF 30ml Vanilla PO SCH (08:00)
[2022-01-20] MEDS ORDERED: AMINO ACID INFUSION IN D10W 1,000 ML IV NR (09:00)
[2022-01-20] MEDS: POTASSIUM EFFERVESENT TAB 25 MEQ GT SCH (09:04)
[2022-01-20] MEDS: HYDROCORTISONE SOD SUCC 100 MG/2ML INJ VIAL IV SCH (09:43)
[2022-01-20] MEDS: ENOXAPARIN SOD 40 MG/0.4 ML SYRINGE SC SCH (09:43)
[2022-01-20] MEDS: PANTOPRAZOLE 40 MG/10 ML VIAL INJ IV SCH (09:43)
[2022-01-20] MEDS: SODIUM CHLOR 0.9% PF (SALINE LOCK) 10ML VIAL/SYR IV SCH (09:43)
== END 2022-01-20 14:38 | DRG 870 ==
LOC: EDBD 22:50 → EDUNIT# 22:50 → ER 22:55 → EDUNIT# 08-15 04:14 → TELE 08-15 04:14 → TELE-EAST 08-15 13:07 → TELE-E-ADS 08-16 12:21 → DOU IN ICU 08-20 00:15 → ICU CENTRL 01-01 08:43 → DOU IN ICU 01-01 09:40 → ICU CENTRL 01-05 23:32 → DOU IN ICU 01-06 17:10 → ICU CENTRL 01-06 17:36
PROVIDERS: ADMIT Nurse Practitioner; ATTEND Internal Medicine
PROC: XW033E5 Introduction of Remdesivir Anti-infective into Peripheral Vein, Percutaneous Approach, New Technology Group 5 (ICD-10-PCS; 2021-08-15)
PROC: 5A09457 Assistance with Respiratory Ventilation, 24-96 Consecutive Hours, Continuous Positive Airway Pressure (ICD-10-PCS; 2021-08-18)
PROC: 5A09357 Assistance with Respiratory Ventilation, Less than 24 Consecutive Hours, Continuous Positive Airway Pressure (ICD-10-PCS; 2021-08-18)
PROC: 5A0955A Assistance with Respiratory Ventilation, Greater than 96 Consecutive Hours, High Flow/Velocity Cannula (ICD-10-PCS; 2021-08-20)
PROC: 5A09357 Assistance with Respiratory Ventilation, Less than 24 Consecutive Hours, Continuous Positive Airway Pressure (ICD-10-PCS; 2021-08-20)
PROC: 5A09357 Assistance with Respiratory Ventilation, Less than 24 Consecutive Hours, Continuous Positive Airway Pressure (ICD-10-PCS; 2021-08-21)
PROC: 02HV33Z Insertion of Infusion Device into Superior Vena Cava, Percutaneous Approach (ICD-10-PCS; 2021-08-22)
PROC: 5A09357 Assistance with Respiratory Ventilation, Less than 24 Consecutive Hours, Continuous Positive Airway Pressure (ICD-10-PCS; 2021-08-22)
PROC: 5A09357 Assistance with Respiratory Ventilation, Less than 24 Consecutive Hours, Continuous Positive Airway Pressure (ICD-10-PCS; 2021-08-24)
PROC: 5A09357 Assistance with Respiratory Ventilation, Less than 24 Consecutive Hours, Continuous Positive Airway Pressure (ICD-10-PCS; 2021-08-25)
PROC: 5A09357 Assistance with Respiratory Ventilation, Less than 24 Consecutive Hours, Continuous Positive Airway Pressure (ICD-10-PCS; 2021-08-26)
PROC: 5A09457 Assistance with Respiratory Ventilation, 24-96 Consecutive Hours, Continuous Positive Airway Pressure (ICD-10-PCS; 2021-08-27)
PROC: 5A09357 Assistance with Respiratory Ventilation, Less than 24 Consecutive Hours, Continuous Positive Airway Pressure (ICD-10-PCS; 2021-08-28)
PROC: XW033H5 Introduction of Tocilizumab into Peripheral Vein, Percutaneous Approach, New Technology Group 5 (ICD-10-PCS; 2021-08-29)
PROC: 5A09357 Assistance with Respiratory Ventilation, Less than 24 Consecutive Hours, Continuous Positive Airway Pressure (ICD-10-PCS; 2021-08-29)
PROC: 5A09457 Assistance with Respiratory Ventilation, 24-96 Consecutive Hours, Continuous Positive Airway Pressure (ICD-10-PCS; 2021-09-01)
PROC: 5A09357 Assistance with Respiratory Ventilation, Less than 24 Consecutive Hours, Continuous Positive Airway Pressure (ICD-10-PCS; 2021-09-03)
PROC: 5A09357 Assistance with Respiratory Ventilation, Less than 24 Consecutive Hours, Continuous Positive Airway Pressure (ICD-10-PCS; 2021-09-04)
PROC: 5A09357 Assistance with Respiratory Ventilation, Less than 24 Consecutive Hours, Continuous Positive Airway Pressure (ICD-10-PCS; 2021-09-05)
PROC: 02H633Z Insertion of Infusion Device into Right Atrium, Percutaneous Approach (ICD-10-PCS; 2021-10-28)
PROC: 5A1955Z Respiratory Ventilation, Greater than 96 Consecutive Hours (ICD-10-PCS; 2021-11-09)
PROC: 0BH17EZ Insertion of Endotracheal Airway into Trachea, Via Natural or Artificial Opening (ICD-10-PCS; 2021-11-09)
PROC: 0W9B30Z Drainage of Left Pleural Cavity with Drainage Device, Percutaneous Approach (ICD-10-PCS; 2021-11-12)
PROC: 0W9930Z Drainage of Right Pleural Cavity with Drainage Device, Percutaneous Approach (ICD-10-PCS; 2021-11-12)
PROC: 0W9930Z Drainage of Right Pleural Cavity with Drainage Device, Percutaneous Approach (ICD-10-PCS; 2021-11-25)
PROC: 0W9930Z Drainage of Right Pleural Cavity with Drainage Device, Percutaneous Approach (ICD-10-PCS; 2021-11-26)
PROC: 30233N1 Transfusion of Nonautologous Red Blood Cells into Peripheral Vein, Percutaneous Approach (ICD-10-PCS; 2021-11-29)
PROC: 0B9D8ZX Drainage of Right Middle Lung Lobe, Via Natural or Artificial Opening Endoscopic, Diagnostic (ICD-10-PCS; principal; 2021-12-24 08:45)
PROC: 02H633Z Insertion of Infusion Device into Right Atrium, Percutaneous Approach (ICD-10-PCS; 2022-01-03)
PROC: 0W9930Z Drainage of Right Pleural Cavity with Drainage Device, Percutaneous Approach (ICD-10-PCS; 2022-01-04)
DX: A41.89 Other specified sepsis (principal); U07.1 COVID-19; J12.82 Pneumonia due to coronavirus disease 2019; J96.01 Acute respiratory failure with hypoxia; E43 Unspecified severe protein-calorie malnutrition; R65.21 Severe sepsis with septic shock; I21.4 Non-ST elevation (NSTEMI) myocardial infarction; N17.9 Acute kidney failure, unspecified; G93.1 Anoxic brain damage, not elsewhere classified; J93.9 Pneumothorax, unspecified; E87.3 Alkalosis; D89.834 Cytokine release syndrome, grade 4; J90 Pleural effusion, not elsewhere classified; Z99.11 Dependence on respirator [ventilator] status; J98.2 Interstitial emphysema; E66.01 Morbid (severe) obesity due to excess calories; Z66 Do not resuscitate; J32.0 Chronic maxillary sinusitis; E88.09 Other disorders of plasma-protein metabolism, not elsewhere classified; E83.51 Hypocalcemia; E87.6 Hypokalemia; K59.00 Constipation, unspecified; D64.9 Anemia, unspecified; S30.1XXA Contusion of abdominal wall, initial encounter; X58.XXXA Exposure to other specified factors, initial encounter; R79.89 Other specified abnormal findings of blood chemistry; R04.0 Epistaxis; Z82.49 Family history of ischemic heart disease and other diseases of the circulatory system; Z83.3 Family history of diabetes mellitus; Z68.38 Body mass index [BMI] 38.0-38.9, adult; Z51.5 Encounter for palliative care; Y93.89 Activity, other specified; Y92.89 Other specified places as the place of occurrence of the external cause; Y99.8 Other external cause status; Z23 Encounter for immunization
CPT/HCPCS: 36415; 36569; 36600; 70220; 71045; 74018; 76705; 80048; 80053; 80061; 80069; 80076; 80202; 81001; 82040; 82533; 82565; 82728; 82805; 82962; 83036; 83540; 83550; 83605; 83615; 83735; 83880; 84100; 84132; 84443; 84478; 84484; 85007; 85014; 85018; 85025; 85027; 85379; 85610; 85730; 86141; 86850; 86900; 86901; 86920; 87040; 87070; 87081; 87086; 87205; 87804; 93005; 93306; 93970; 94002; 94003; 94640; 94660; 96361; 96365; 96367; 97110; 97116; 97162; 97530; C9113; G0378; J0171; J0330; J0461; J0696; J1100; J1815; J1956; J2185; J2248; J2250; J2543; J2704; J3465; J3480; J3490; J7060; J7131; P9047